=== PATIENT | female | born 1955 | race Caucasian/White ===

== ENCOUNTER → 2016-08-11 | Outpatient (CLI) | payer MEDICAID ==
[~2016-08-11] MED LIST: ALBU8.5H2 IH; ALPR2TAB2 PO; AMIT25TA9 PO; ASCO500C15 PO; ASPI-241 PO; ASPI-586 PO; CETI10TA17 PO; CITA40TA19 PO; CLOT15CR4 TP; CLOT15CR6 TOP; CYCL-97 PO; DCS100C PO; DIAZ-345 PO; FAMO20TA5 PO; FERR-57 PO; FLUT9.9S NS; FURO20TA4 PO; GBPN600T PO; GUAI600T PO; GUAI600T43 PO; HYDR-2890 PO; HYDR118S10 PO; HYDR1TAB71 PO; HYDR25TA4 PO; HYDR28.480 TP; HYDROCODONE-APAP PO; IPRA3AMP IH; LD5PT TOP; LORA10TA7 PO; MELO7.5O PO; MMT17NA NS; MNTL10T PO; MTF500T PO; NAPR-243 PO; NICO1PAT5 TD; OMEP20CA12 PO; OMEP40CA36 PO; OXYC-12 PO; OXYC-199 PO; OXYC-202 PO; OXYC-471 PO; PEG250PW PO; POLY17PO6 PO; POTA20TA15 PO; PRAM1TAB3 PO; PROP40TA5 PO; SCR1T1 PO; SIMV40TA4 PO; SUCR1TAB23 PO; TIOT18CA IH; TRM50T PO
--- NOTE | 2016-08-11 14:31 | Diagnostic Imaging Report ---
PROCEDURE: MRI right joint lower extremity without contrast. TECHNIQUE: Multiplanar, multisequence MR imaging of the right knee was performed without contrast. COMPARISON: Right knee MRI of 10/23/2015. INDICATION: Status post arthroscopy for meniscal tear. Persistent pain. FINDINGS: MENISCI Medial meniscus: No displaced tear of the medial meniscus. Minimal free edge truncation near the junction of the posterior horn and body likely relates to partial meniscectomy or degenerative free edge tearing if no partial meniscectomy was performed. Lateral meniscus: Normal. LIGAMENTS ACL: Intact. PCL: Intact. MCL: Intact. LCL: The lateral collateral ligamentous complex is intact. EXTENSOR MECHANISM The extensor mechanism is intact. CARTILAGE Medial compartment: Suggestion of low-grade chondral surface fibrillation in the weightbearing portion of the medial compartment. No full-thickness chondromalacia. Lateral compartment: The lateral compartment articular cartilage is preserved without high-grade chondromalacia. Patellofemoral compartment: The patellofemoral articular cartilage is well preserved without high-grade chondromalacia. BONE No fracture, stress fracture or osteonecrosis. SOFT TISSUE: No knee effusion or Anthony's cyst. IMPRESSION: 1. Possible partial meniscectomy involving the junction of the posterior horn and body of the medial meniscus. No evidence of recurrent meniscal tear. 2. Low-grade partial-thickness chondromalacia in the medial compartment. Otherwise, articular cartilage is preserved throughout the knee. Dictated by: Dictated on workstation # [id number]
== END ==
LOC: RAD 13:00
PROVIDERS: ATTEND Orthopaedic Surgery
DX: M67.461 Ganglion, right knee (principal)
CPT/HCPCS: 73721

== ENCOUNTER 2016-12-14 14:32 | Outpatient (CLI) | payer MEDICAID ==
[2016-12-14] VITALS (8 sets, daily range): BP systolic 136–146; BP diastolic 60–67
[~2016-12-14] VITALS: Ht 160 cm; Wt 79.0 kg
[2016-12-14] MEDS ORDERED: NS IV 500 ML 500 ML ONE (16:27)
== END 2016-12-14 22:00 ==
LOC: SDC 14:32 → 4TH 14:52 → SDC 22:00
PROVIDERS: ATTEND Nurse Practitioner Community Health
DX: D50.9 Iron deficiency anemia, unspecified (principal)
CPT/HCPCS: 36430; 86850; 86900; 86901; 86920

== ENCOUNTER → 2017-05-31 | Outpatient (CLI) | payer MEDICAID ==
--- NOTE | 2017-06-01 11:03 | Diagnostic Imaging Report ---
EXAMINATION: Bilateral screening mammogram 2D views with tomosynthesis. The current study was also evaluated with a Computer Aided Detection (CAD) system. INDICATION: Screening. PERSONAL HISTORY: No current complaints stated on the questionnaire. COMPARISON: 04/21/2016. FINDINGS: The breasts are composed of scattered fibroglandular densities. Scattered benign-appearing calcifications are seen. Allowing for technique and positional differences, no suspicious change is seen. IMPRESSION: No significant change. ACR BI-RADS Category 2: Benign findings. Result letter will be mailed to the patient. Note: At least 10% of breast cancer is not imaged by mammography. Dictated by: Dictated on workstation # [id number]
== END ==
LOC: RAD 14:23
PROVIDERS: ATTEND Nurse Practitioner Community Health
DX: Z12.31 Encounter for screening mammogram for malignant neoplasm of breast (principal); Z80.3 Family history of malignant neoplasm of breast; Z84.81 Family history of carrier of genetic disease

== ENCOUNTER 2017-08-03 09:11 | Day surgery (SDC) | payer MEDICAID ==
[~2017-08-03] VITALS: Ht 160 cm; Wt 77.2 kg
[~2017-08-03 09:11] MED LIST changes: +CYCL10TA9 PO; +DOCU100T2 PO; +FERR325T18 PO; +GABA-488 PO; +LIDODERM TD; +MELO7.5T46 PO; +METF500T4 PO; +MONT10TA21 PO; +NICO1PAT34 TD; +PRAM1.5T3 PO; +RT-ALBUINH IH; +SUCR1TAB PO
[2017-08-03] MEDS ORDERED: POVIDONE (BETADINE) OPHTH SOLN 5% 30 ML OP ONE (09:30)
[2017-08-03 09:41] VITALS: BP 130/60
[2017-08-03] MEDS: TETRACAINE 0.5% OPHTH SOLN 4 ML BTL (SINGLE DOSE ONLY) OU PRN ×4 (09:46→10:11)
[2017-08-03] MEDS: PHENYLEPHRINE 10% OPHTH (NEO-SYN) 5 ML BTL OU SCH ×3 (09:54→10:11)
[2017-08-03] MEDS: CYCLOPENTOLATE 1% (CYCLOGYL) 2 ML DROPS OP SCH ×3 (09:54→10:11)
[2017-08-03] MEDS ORDERED: MIDAZOLAM 2 MG/2 ML (VERSED) VIAL ONE (10:00)
--- NOTE | 2017-08-03 10:21 | Progress Note-Pre Operative ---
Pre-Operative Progress Note H&P Reviewed The H&P was reviewed, patient examined and no changes noted. Date Seen by Provider: Aug 03, 2017 Time Seen by Provider: : Date H&P Reviewed: Aug 03, 2017 Time H&P Reviewed: : Pre-Operative Diagnosis: cataract l eye LAUREN ROGEL MD Aug 03, 2017 10:21
[2017-08-03] MEDS: VANCOMYCIN/BSS (COMPOUNDED) 10 MG/ML SYR OP ONE ×2 (10:30→10:45)
--- NOTE | 2017-08-03 10:48 | Ophthalmology Operative Report ---
Cataract removal/placement IOL PREOPERATIVE DIAGNOSIS: Cataract Left Eye POSTOPERATIVE DIAGNOSIS: Cataract Left Eye PROCEDURE: Cataract removal and placement of posterior chamber implant, left eye SURGEON: Lamberto Rogel ANESTHESIA: Topical with sedation COMPLICATIONS: None ESTIMATED BLOOD LOSS: Minimal DESCRIPTION OF PROCEDURE: After proper informed consent was obtained, the patient, a 62 female, was taken to the Operating Room and the left eye was anesthetized with tetracaine. They left eye was then prepped and draped in the usual manner. A wire lid speculum was placed. A paracentesis was made at the left hand position. Preservative free lidocaine was injected into the anterior chamber followed by viscoelastic. A clear corneal incision was made in the temporal position. A capsulorrhexis was preformed and the central nuclear and cortical material were removed. The posterior capsule was polished and an Juancho SN6CWS 14.5 IOL was placed into the capsular bag. The residual viscoelastic was aspirated and balanced saline solution was injected into the anterior chamber. 0.1 ml of Vancomycin (1mg/0.1ml ) was injected into the anterior chamber. The would was checked and found to be water tight. The patient tolerated the procedure well without complications. LAMBERTO ROGEL MD Aug 03, 2017 10:47
[2017-08-03 10:55] VITALS: BP 136/66
[2017-08-03] MEDS ORDERED: TIMOLOL MALEATE 0.5% 5 ML (TIMOPTIC) BTL OU ONE (12:09)
[2017-08-03] MEDS ORDERED: VANCOMYCIN/BSS (COMPOUNDED) 10 MG/ML SYR OP ONE (12:09)
[2017-08-03] MEDS ORDERED: LIDOCAINE PF 1% 2 ML AMP INJ ONE (12:09)
[2017-08-07] MEDS ORDERED: EPINEPHrine INJECTION 1 MG/ML AMP IR ONE (13:02)
== END 2017-08-03 10:55 | disposition home or self-care (01) ==
LOC: SDC 09:11
PROVIDERS: ATTEND Specialist
DX: H26.9 Unspecified cataract (principal); I10 Essential (primary) hypertension; E11.40 Type 2 diabetes mellitus with diabetic neuropathy, unspecified; J44.9 Chronic obstructive pulmonary disease, unspecified; D64.9 Anemia, unspecified; M79.7 Fibromyalgia; M19.91 Primary osteoarthritis, unspecified site; F32.9 Major depressive disorder, single episode, unspecified; F41.9 Anxiety disorder, unspecified; F17.210 Nicotine dependence, cigarettes, uncomplicated; Z79.84 Long term (current) use of oral hypoglycemic drugs; Z79.899 Other long term (current) drug therapy; Z86.73 Personal history of transient ischemic attack (TIA), and cerebral infarction without residual deficits

== ENCOUNTER 2017-08-06 05:49 | Outpatient (CLI) | payer MEDICAID ==
[~2017-08-06] VITALS: Ht 160 cm; Wt 77.2 kg
== END 2017-08-06 16:56 ==
LOC: PREOP 05:49
PROVIDERS: ATTEND Specialist
DX: Z01.818 Encounter for other preprocedural examination (principal); H25.11 Age-related nuclear cataract, right eye

== ENCOUNTER 2017-08-10 09:03 | Day surgery (SDC) | payer MEDICAID ==
[~2017-08-10] VITALS: Ht 160 cm; Wt 77.2 kg
[2017-08-10] MEDS ORDERED: POVIDONE (BETADINE) OPHTH SOLN 5% 30 ML OP ONE (09:15)
[2017-08-10] MEDS ORDERED: TIMOLOL MALEATE 0.5% 5 ML (TIMOPTIC) BTL OU PRN (09:15)
[2017-08-10] MEDS ORDERED: VANCOMYCIN/BSS (COMPOUNDED) 10 MG/ML SYR OP ONE (09:15)
[2017-08-10] MEDS ORDERED: EPINEPHrine INJECTION 1 MG/ML AMP INJ ONE (09:15)
[2017-08-10] MEDS ORDERED: LIDOCAINE PF 1% 2 ML AMP IR PRN (09:15)
[2017-08-10 09:20] VITALS: BP 146/67
[2017-08-10] MEDS: TETRACAINE 0.5% OPHTH SOLN 4 ML BTL (SINGLE DOSE ONLY) OU PRN ×4 (09:20→09:49)
[2017-08-10] MEDS: CYCLOPENTOLATE 1% (CYCLOGYL) 2 ML DROPS OP SCH ×3 (09:31→09:49)
[2017-08-10] MEDS: PHENYLEPHRINE 10% OPHTH (NEO-SYN) 5 ML BTL OU SCH ×3 (09:31→09:49)
[2017-08-10] MEDS ORDERED: MIDAZOLAM 2 MG/2 ML (VERSED) VIAL ONE ×2 (10:10→10:20)
--- NOTE | 2017-08-10 10:35 | Ophthalmology Operative Report ---
Cataract removal/placement IOL PREOPERATIVE DIAGNOSIS: Cataract Right Eye POSTOPERATIVE DIAGNOSIS: Cataract Right Eye PROCEDURE: Cataract removal and placement of posterior chamber implant, right eye SURGEON: Lamberto Rogel ANESTHESIA: Topical with sedation COMPLICATIONS: None ESTIMATED BLOOD LOSS: Minimal DESCRIPTION OF PROCEDURE: After proper informed consent was obtained, the patient, a 62 female, was taken to the Operating Room and the right eye was anesthetized with tetracaine. They right eye was then prepped and draped in the usual manner. A wire lid speculum was placed. A paracentesis was made at the left hand position. Preservative free lidocaine was injected into the anterior chamber followed by viscoelastic. A clear corneal incision was made in the temporal position. A capsulorrhexis was preformed and the central nuclear and cortical material were removed. The posterior capsule was polished and Juancho [id number] 15.5 IOL was placed into the capsular bag. The residual viscoelastic was aspirated and balanced saline solution was injected into the anterior chamber. 1.0 ml of Vancomycin (10mg/ 1.0ml) was injected into the anterior chamber. The would was checked and found to be water tight. The patient tolerated the procedure well without complications. LAMBERTO ROGEL MD Aug 10, 2017 10:35
[2017-08-10 10:50] VITALS: BP 133/79
--- NOTE | 2017-08-10 13:24 | Anesthesia-General Post-Op ---
MAC Patient Condition Mental Status/LOC: Same as Preop Cardiovascular: Satisfactory Nausea/Vomiting: Absent Respiratory: Satisfactory Pain: Controlled Complications: Absent Post Op Complications Complications None Follow Up Care/Instructions Patient Instructions None needed. Anesthesiology Discharge Order Discharge Order Patient is doing well, no complaints, stable vital signs, no apparent adverse anesthesia problems. No complications reported per nursing. BETITO TITUS CRNA Aug 10, 2017 13:24
== END 2017-08-10 10:50 | disposition home or self-care (01) ==
LOC: SDC 09:03
PROVIDERS: ATTEND Specialist
DX: E11.36 Type 2 diabetes mellitus with diabetic cataract (principal); E11.40 Type 2 diabetes mellitus with diabetic neuropathy, unspecified; I10 Essential (primary) hypertension; J44.9 Chronic obstructive pulmonary disease, unspecified; R56.9 Unspecified convulsions; M79.7 Fibromyalgia; M19.91 Primary osteoarthritis, unspecified site; K58.9 Irritable bowel syndrome, unspecified; F17.210 Nicotine dependence, cigarettes, uncomplicated; Z79.82 Long term (current) use of aspirin; Z79.84 Long term (current) use of oral hypoglycemic drugs; Z79.899 Other long term (current) drug therapy
CPT/HCPCS: 82962

== ENCOUNTER → 2017-12-14 | Outpatient (CLI) | payer MEDICAID ==
[~2017-12-14] MED LIST changes: +HYDR-3063 PO; -IPRA3AMP IH; +IPRA3AMP31 IH; -METF500T4 PO; +METF500T5 PO; +NITR-65 PO; +OXYC-465 PO
--- NOTE | 2017-12-14 18:59 | Diagnostic Imaging Report ---
INDICATION: Decreased breath sounds. COMPARISON: 04/27/2014. FINDINGS: The lungs are clear. No pleural effusion or pneumothorax. Normal heart size. Moderate-sized hiatus hernia with air-fluid level within the stomach. IMPRESSION: 1. No acute pulmonary pathology. 2. Stable moderate-sized hiatus hernia. Dictated by: Dictated on workstation # [id number]
== END ==
LOC: RAD 17:16
PROVIDERS: ATTEND Nurse Practitioner Family
DX: K44.9 Diaphragmatic hernia without obstruction or gangrene (principal); R06.89 Other abnormalities of breathing
CPT/HCPCS: 71046

== ENCOUNTER 2018-01-24 14:39 | Outpatient (CLI) | payer MEDICAID ==
[~2018-01-24] VITALS: Ht 160 cm; Wt 77.2 kg
[~2018-01-24 14:39] MED LIST changes: -HYDR-3063 PO; -NITR-65 PO; -OXYC-465 PO
[2018-01-24 14:50] VITALS: BP 134/65
[2018-01-24] MEDS ORDERED: NITR-65 PO (15:01)
[2018-01-24] MEDS ORDERED: OXYC-465 PO (15:01)
== END 2018-01-24 15:10 | disposition home or self-care (01) ==
LOC: PREOP 14:39
PROVIDERS: ATTEND Orthopaedic Surgery
DX: Z01.818 Encounter for other preprocedural examination (principal)
CPT/HCPCS: 87081

== ENCOUNTER 2018-01-30 10:05 | Day surgery (SDC) | payer MEDICAID ==
--- NOTE | 2018-01-21 11:52 | HISTORY AND PHYSICAL ---
DATE OF SERVICE: 01/30/2018 ADMISSION HISTORY AND PHYSICAL OUTPATIENT SURGERY: 01/30/2018. CHIEF COMPLAINT: For right knee arthroscopy and lipoma excision. HISTORY: The patient is a 62-year-old female with complaints of longstanding right knee pain. She has undergone arthroscopies in the past for meniscal tears. She reports pain posteriorly and inferiorly to the lateral joint line. She reports pain has been increasing in size. She reports swelling in her knee. She reports activity limitations because of the knee. She reports improvement with activity modifications and because of progressive symptoms, the patient elected to proceed with surgical intervention. REVIEW OF SYSTEMS: No chest pain. No shortness of breath. No dysuria. PAST MEDICAL HISTORY: Fibromyalgia, neuropathy, nerve damage, arthritis, peptic ulcer disease, chronic anemia, anxiety disorder, back pain, depression, diabetes, hyperlipidemia, hypertension, neck pain, hypokalemia, Lo's palsy, restless leg syndrome, seizures, COPD, coronary artery disease and transient ischemic episode. PAST SURGICAL HISTORY: Hysterectomy, cholecystectomy, knee arthroscopy, cubital tunnel, carpal tunnel, shoulder. FAMILY HISTORY: Significant for diabetes and hypertension. PRIMARY CARE: [facility]. MEDICATIONS: 1. Lidoderm patch. 2. Omeprazole. 3. Colace. 4. Potassium 5. Iron. 6. Gabapentin. 7. Propranolol. 8. Simvastatin. 9. ProAir. 10. Amitriptyline. 11. Glucophage. 12. Singulair. 13. Celexa. 14. Nasonex. 15. Mirapex. 16. Cyclobenzaprine. 17. Hydrochlorothiazide. 18. Percocet. 19. Vitamins. 20. Hydrocortisone. 21. Ipratropium. 22. Albuterol inhaler. 23. Sucralfate. 24. Meloxicam. 25. Xanax. ALLERGIES: No known drug allergies. SOCIAL HISTORY: The patient is a former smoker. Denies alcohol use. RADIOGRAPHS: Reveal moderate medial patellofemoral joint space narrowing. PHYSICAL EXAMINATION: GENERAL: The patient is well developed, well-nourished, in no acute distress. HEENT: Normocephalic and atraumatic. Pupils are equal, round and reactive to light. Oropharynx is clear. NECK: Supple, no lymphadenopathy. LUNGS: Clear to auscultation bilaterally. HEART: Regular rate and rhythm. ABDOMEN: Soft, nontender, nondistended. EXTREMITIES EXAM: The right knee demonstrates slight effusion. She is tender along the lateral joint line, has pain laterally with Nicole's. No varus valgus laxity of anterior and posterior drawer. There is a mass just inferior to the posterior joint line laterally, approximately 2 x 2 cm in size and is tender to palpation. 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 PLAN: Right knee arthroscopy, chondroplasty and lipoma excision. The risks, benefits, options, ramifications and recovery were discussed at length with the patient. She understands and wishes to proceed. Job ID: [id number] DocumentID: [id number] Dictated Date: 01/21/2018 11:22:47 Heating And Cooling Systems Engineer Date: 01/21/2018 11:51:49 Dictated By: ALLYSON MCKEON MD
[~2018-01-30] VITALS: Ht 160 cm; Wt 77.2 kg
[~2018-01-30 10:05] MED LIST changes: +NITR-65 PO; +OXYC-465 PO
--- NOTE | 2018-01-30 10:13 | Progress Note-Pre Operative ---
Pre-Operative Progress Note H&P Reviewed The H&P was reviewed, patient examined and no changes noted. Date Seen by Provider: Jan 30, 2018 Time Seen by Provider: 10:12 Date H&P Reviewed: Jan 30, 2018 Time H&P Reviewed: 10:12 Pre-Operative Diagnosis: right knee chondromalacia and lipoma ALLYSON MCKEON MD Jan 30, 2018 10:13
--- NOTE | 2018-01-30 10:14 | Progress Note-Post Operative ---
Post-Operative Progess Note Surgeon (s)/Mainframe Systems Engineer (s) Surgeon ALLYSON MCKEON MD Mainframe Systems Engineer: Miguel Anderson Pre-Operative Diagnosis right knee chondromalacia and lipoma Post-Operative Diagnosis right knee partial medial meniscus chondromalacia of the medial femoral conyle and medial tibial plateau and lipoma Procedure & Operative Findings Date of Procedure 01/30/18 Procedure Performed/Findings right knee arthroscopic partial medial meniscectomy and chondroplasty of the medial femoral condyle and medial tibial plateau and open lipoma excision Anesthesia Type GETA Estimated Blood Loss Estimated blood loss (mL): minimal Specimens/Packing Specimens Removed lipoma--not sent Packing: none ALLYSON MCKEON MD Jan 30, 2018 10:14
[2018-01-30] MEDS ORDERED: ceFAZolin INJECTION 1,000 MG in NS (IVPB) 50 ML IV ONE (10:15)
[2018-01-30 10:20] VITALS: BP 147/64
[2018-01-30] MEDS ORDERED: ceFAZolin 1,000 MG (ANCEF) VIAL ONE (10:38)
[2018-01-30] MEDS ORDERED: NS (IVPB) 50 ML ONE (10:38)
[2018-01-30] MEDS ORDERED: fentaNYL INJECTION 100 MCG/2 ML AMP ONE (10:39)
[2018-01-30] MEDS ORDERED: CATHETER FLUSH 10 ML SYR IV PRN (10:45)
[2018-01-30] MEDS ORDERED: MIDAZOLAM 2 MG/2 ML (VERSED) VIAL IV ONE (10:45)
[2018-01-30] MEDS ORDERED: SEVOFLURANE (ULTANE) 15 ML INHAL SOLN ONE ×3 (10:51→11:53)
[2018-01-30] MEDS ORDERED: ONDANSETRON 4 MG/2 ML (SDV) Z0FRAN ONE (10:51)
[2018-01-30] MEDS ORDERED: LIDOCAINE PF 2% 5 ML (XYLOCAINE) VIAL ONE (10:51)
[2018-01-30] MEDS ORDERED: proPOfol 200 MG/20 ML (DIPRIVAN) VIAL IV ONE (10:51)
[2018-01-30] MEDS: LACTATED RINGERS 1,000 ML IV PRN ×2 (10:54→11:52)
[2018-01-30] MEDS ORDERED: morphine PF (DURAMORPH) 10 MG/10 ML AMP ONE (11:12)
[2018-01-30] MEDS ORDERED: BUPIVACAINE 0.25% 30 ML (SENSORCAINE) VIAL ONE (11:12)
[2018-01-30] MEDS ORDERED: MIDAZOLAM 2 MG/2 ML (VERSED) VIAL ONE (11:16)
[2018-01-30] MEDS ORDERED: HYDROcodone/APAP 7.5 MG/325 MG (LORTAB, LORCET PLUS) TABLET PO PRN (11:30)
[2018-01-30] MEDS ORDERED: LACTATED RINGERS 1,000 ML IV ONE (11:46)
[2018-01-30 13:00] VITALS: BP 126/73
[2018-01-30] MEDS ORDERED: HYDR-3063 PO (13:10)
[2018-01-30 13:30] VITALS: BP 139/67
[2018-01-30 13:45] VITALS: BP 139/67
[2018-01-30 14:00] VITALS: BP 120/69
--- NOTE | 2018-01-30 14:30 | Physical Therapy Progress Note ---
Therapy Progress Note Visit only. Pt was up walking with QC when PT entered. Instructed pt on use of FWW and educated on safety with use of the walker. Pt reports she has a walker at home. She demonstrated ability to use walker form ambulation. Instructed in progression to cane as she felt ready. Demonstrated to pt HEP and she verbalized understanding and noted she had done the same exercises in therapy before. Pt safe with gait and verbalized understanding of HEP. DREW REYNOSO PT Jan 30, 2018 14:30
--- NOTE | 2018-01-30 15:02 | Anesthesia-General Post-Op ---
General Patient Condition Mental Status/LOC: Same as Preop Cardiovascular: Satisfactory Nausea/Vomiting: Absent Respiratory: Satisfactory Pain: Controlled Complications: Absent Post Op Complications Complications None Follow Up Care/Instructions Patient Instructions None needed. Anesthesia/Patient Condition Patient Condition Patient is doing well, no complaints, stable vital signs, no apparent adverse anesthesia problems. No complications reported per nursing. CLARITA AVELAR CRNA Jan 30, 2018 15:02
--- NOTE | 2018-01-30 20:23 | OPERATIVE REPORT ---
DATE OF SERVICE: 01/30/2018 PREOPERATIVE DIAGNOSES: 1. Right knee chondromalacia of the medial femoral condyle. 2. Right knee chondromalacia of the medial tibial plateau. 3. Right knee lipoma. POSTOPERATIVE DIAGNOSES: 1. Right knee chondromalacia of the medial femoral condyle. 2. Right knee chondromalacia of the medial tibial plateau. 3. Right knee lateral meniscal tear. 4. Right knee lipoma. PROCEDURES: 1. Right knee arthroscopic partial lateral meniscectomy. 2. Right knee arthroscopic chondroplasty of the medial tibial plateau. 3. Right knee arthroscopic chondroplasty of the medial femoral condyle. 4. Right knee open lipoma excision. SURGEON: Shaheen Mckeon MD WATCH ELECTRICIAN: MANUELITO Lau, who assisted throughout the procedure and closed the incisions. ANESTHESIA: General endotracheal by Genevieve Nagel CRNA. TOURNIQUET TIME: Not applicable. ESTIMATED BLOOD LOSS: Minimal. DRAINS: None. COMPLICATIONS: None. POSTOPERATIVE PLAN: Routine arthroscopy protocol. The patient was transported to the recovery room awake and in stable condition. STATEMENT OF MEDICAL NECESSITY: The patient is a 62-year-old female with complaints of right posterolateral knee mass, which was tender to palpation. She complained of pain in the medial aspect of her knee as well. She underwent treatment with activity modifications and rest without relief. Due to functional impairment, the patient elected to proceed with surgical intervention. FINDINGS: Examination under anesthesia revealed range of motion of 0/130 with a negative Isauro, negative anterior and posterior drawer. No varus valgus laxity. Negative pivot shift. Arthroscopic findings: The patella and trochlea demonstrated no gross chondral abnormalities. The medial and lateral gutters were clear. Lateral compartment demonstrated a tear of the body of the lateral meniscus involving approximately 20% of the body. The ACL and PCL were intact. The medial compartment demonstrated grade II chondral flaps of the central portion of the femoral condyle in a 10 x 10 area with adjacent grade II chondral flaps on the tibial plateau in a 10 x 10 area. DESCRIPTION OF PROCEDURE: After risks and benefits of the procedure were discussed and questions were answered, informed consent was signed and placed on the chart. The operative site was confirmed in the preoperative holding area initiated by the surgeon. The patient was transported to the operating room and after adequate levels of general endotracheal anesthetic were obtained, a timeout was called confirming the operative site. Examination under anesthesia was performed. The above findings noted. The right lower extremity was prepped and draped in the usual sterile fashion. The knee joint was injected with 20 mL fluid and a standard inferolateral portal was placed with the arthroscope. Under direct visualization, inferomedial portal was created. The menisci and cruciates were carefully probed with the above findings noted. The unstable chondral flaps of the medial femoral condyle and medial tibial plateau were debrided with a shaver back to a stable edge. Scope was redirected to the lateral compartment. The unstable lateral meniscus was debrided with a biter and a shaver removing approximately 20% of the body. This was carefully probed with no further tearing or instability noted. The knee was copiously irrigated. Port sites were closed with 4-0 nylon in simple interrupted fashion. The knee joint was injected with Duramorph. The portal sites were infiltrated with plain Marcaine. An incision was then made over the mass. Underlying soft tissues were carefully dissected. Benign-appearing fatty tissue was noted. This was excised in total. The wound was copiously irrigated and closed with 3-0 nylon subcutaneous layer and the skin was closed with 4-0 nylon in vertical mattress interrupted fashion. The area was infiltrated with plain Marcaine. A soft dressing was applied and the patient was transported to the recovery room awake and in stable condition. Job ID: [id number] DocumentID: [id number] Dictated Date: 01/30/2018 12:22:19 Supply Crib Attendant Date: 01/30/2018 20:23:01 Dictated By: SHAHEEN MCKEON MD
== END 2018-01-30 14:30 | disposition home or self-care (01) ==
LOC: SDC 10:05
PROVIDERS: ATTEND Orthopaedic Surgery
DX: M23.8X1 Other internal derangements of right knee (principal); M94.261 Chondromalacia, right knee; D17.23 Benign lipomatous neoplasm of skin and subcutaneous tissue of right leg; E11.42 Type 2 diabetes mellitus with diabetic polyneuropathy; M79.7 Fibromyalgia; M19.91 Primary osteoarthritis, unspecified site; D64.9 Anemia, unspecified; F41.9 Anxiety disorder, unspecified; F32.9 Major depressive disorder, single episode, unspecified; E78.5 Hyperlipidemia, unspecified; I10 Essential (primary) hypertension; G25.81 Restless legs syndrome; G40.909 Epilepsy, unspecified, not intractable, without status epilepticus; J44.9 Chronic obstructive pulmonary disease, unspecified; I25.10 Atherosclerotic heart disease of native coronary artery without angina pectoris; Z86.73 Personal history of transient ischemic attack (TIA), and cerebral infarction without residual deficits; Z79.899 Other long term (current) drug therapy; Z87.891 Personal history of nicotine dependence
CPT/HCPCS: 82962

== ENCOUNTER 2018-08-09 12:34 | Inpatient (IN) | payer MEDICAID ==
[~2018-08-09] VITALS: Ht 157.5 cm; Wt 68.0 kg
[~2018-08-09 12:34] MED LIST changes: +HYDR-3063 PO; +METF-397 PO; -METF500T5 PO; -OXYC-202 PO; +OXYC1TAB12 PO
[2018-08-09] MEDS ORDERED: RT-IPRATROPIUM (ATROVENT) 0.5MG/2.5ML AMP IH ONE ×2 (12:54→13:00)
[2018-08-09] MEDS ORDERED: RT-ALBUTEROL SULF 2.5 MG/3 ML PRE-MIX VIAL ONE (12:54)
[2018-08-09] MEDS ORDERED: RT-ALBUTEROL SULF 2.5 MG/3 ML PRE-MIX VIAL INH SCH (13:00)
[2018-08-09 13:17] LABS: BASOPHILS % (AUTO) 0 % (0-10); EOSINOPHILS % (AUTO) 0 % (0-10); HEMATOCRIT 44 % (35-52); HEMOGLOBIN 14.9 G/DL (11.5-16.0); LYMPHOCYTES % (AUTO) 13 % (12-44); MEAN CORPUSCULAR HEMOGLOBIN 29 PG (25-34); MEAN CORPUSCULAR HGB CONC 34 G/DL (32-36); MEAN CORPUSCULAR VOLUME 87 FL (80-99); MEAN PLATELET VOLUME 11.7 FL (7.4-10.4); MONOCYTES # (AUTO) 0.6 X 10^3 (0.0-1.0); MONOCYTES % (AUTO) 8 % (0-12); NEUTROPHILS # (AUTO) 6.3 X 10^3 (1.8-7.8); NEUTROPHILS % (AUTO) 80 % (42-75); PLATELET COUNT 128 10^3/uL (130-400); RED CELL DISTRIBUTION WIDTH 14.4 % (10.0-14.5)
[2018-08-09] MEDS ORDERED: PROMETHAZINE/ CODEINE SYRUP 5 ML UDC PO ONE (13:30)
[2018-08-09 13:35] LABS: ALANINE AMINOTRANSFERASE 18 U/L (0-55); ALBUMIN 4.3 GM/DL (3.2-4.5); ALKALINE PHOSPHATASE 83 U/L (40-136); AMYLASE 34 U/L (25-125); BILIRUBIN,TOTAL 0.9 MG/DL (0.1-1.0); BUN/CREATININE RATIO 23; CARBON DIOXIDE 35 MMOL/L (21-32); CHLORIDE 93 MMOL/L (98-107); CREATININE SERUM 0.73 MG/DL (0.60-1.30); GFR ESTIMATED > 60; GLUCOSE 82 MG/DL (70-105); LIPASE 7 U/L (8-78); POTASSIUM 3.1 MMOL/L (3.6-5.0); SODIUM 140 MMOL/L (135-145); TOTAL PROTEIN 7.6 GM/DL (6.4-8.2)
[2018-08-09] MEDS ORDERED: fentaNYL INJECTION 100 MCG/2 ML AMP IVP ONE (13:45)
[2018-08-09] MEDS ORDERED: KCL 20 MEQ TAB (K-DUR) PO ONE (14:00)
[2018-08-09] MEDS ORDERED: NS IV 1000 ML 1,000 ML IV SCH (14:00)
--- NOTE | 2018-08-09 14:07 | Diagnostic Imaging Report ---
INDICATION: Shortness of air and productive cough. Time of exam 1:57 p.m. COMPARISON: Correlation is made with prior study from 12/14/2017. FINDINGS: The heart size is stable. There appears to be a moderate-sized hiatal hernia. There is some patchy infiltrate in the left base suggestive of pneumonia. Right lung is clear. No effusion or pneumothorax is seen. IMPRESSION: Patchy left basilar pneumonia. Dictated by: Dictated on workstation # [id number]
--- NOTE | 2018-08-09 14:28 | ED General ---
General Chief Complaint: Abdominal/GI Problems Stated Complaint: N/V/D Nursing Triage Note: PATIENT HERE FOR COMPLAINTS OF N/V/D X3 WEEKS. SHE WAS SEEN IN THE [place] ER ON 08/06 FOR THE SAME THING. SHE IS CURRENTLY UNABLE TO KEEP ANY MEDICATIONS DOWN. Nursing Sepsis Screen: No Definite Risk Source of Information: Patient Exam Limitations: No Limitations History of Present Illness Date Seen by Provider: Aug 09, 2018 Time Seen by Provider: 12:50 Initial Comments 63-year-old female who is brought to the emergency room with complaints of nausea vomiting and diarrhea for the past 3 weeks. She is also had shortness of breath, requiring more of her oxygen, and cough for the past week. She was seen and evaluated the [facility] ER on 08/06 for similar complaints and was placed on antibiotics, steroids, Zofran for COPD exacerbation. She wears 2 L of oxygen when necessary for shortness of breath. She reports smoking 2 packs per day. Timing/Duration: Other (3 weeks) Associated Systoms: Nausea/Vomiting, Shortness of Air, Weakness Allergies and Home Medications Allergies Coded Allergies: No Known Drug Allergies (Unverified , 12/30/15) Home Medications Albuterol Sulfate 1 Puff Puff, 2 PUFF IH Q4H PRN for SHORTNESS OF BREATH, ( Reported) 1 PUFF = 90 MCG Alprazolam 2 Mg Tablet, 2 MG PO TID, (Reported) Amitriptyline HCl 25 Mg Tablet, 25 MG PO DAILY, (Reported) Ascorbic Acid 500 Mg Capsule.er, 500 MG PO DAILY, (Reported) Aspirin 81 Mg Tablet.dr, 81 MG PO DAILY, (Reported) Cetirizine HCl 10 Mg Tablet, 10 MG PO DAILY, (Reported) Citalopram Hydrobromide 40 Mg Tablet, 40 MG PO DAILY, (Reported) Clotrimazole/Betamethasone Dip 15 Gm Cream..g., 15 GM TP BID, (Reported) Cyclobenzaprine HCl 10 Mg Tablet, 10 MG PO BID, (Reported) Docusate Sodium 100 Mg Tablet, 100 MG PO PRN, (Reported) Ferrous Sulfate 325 Mg Tablet, 325 MG PO DAILY, (Reported) Fluticasone Propionate 9.9 Ml [place].susp, 1 SPRAY NS DAILY, (Reported) Gabapentin 300 Mg Capsule, 300 MG PO TID, (Reported) Guaifenesin 600 Mg Tab.er.12h, 600 MG PO BID, (Reported) Hydrochlorothiazide 25 Mg Tablet, 25 MG PO DAILY, (Reported) Hydrocortisone/Aloe Vera 28.4 Gm Cream..g., 28.4 GM TP TID, (Reported) Ipratropium/Albuterol Sulfate 3 Ml Ampul.neb, 3 ML IH Q4H PRN for SHORTNESS OF BREATH, (Reported) Meloxicam 7.5 Mg Tablet, 7.5 MG PO DAILY, (Reported) Metformin HCl 500 Mg Tablet, 500 MG PO BID, (Reported) Montelukast Sodium 10 Mg Tablet, 10 MG PO DAILY, (Reported) Omeprazole 20 Mg Capsule.dr, 20 MG PO DAILY, (Reported) Oxycodone HCl/Acetaminophen 1 Each Tablet, 1 EACH PO Q6H PRN for PAIN-MODERATE, (Reported) Polyethylene Glycol 3350 17 Gm Powd.pack, 17 GM PO DAILY, (Reported) Potassium Chloride 20 Meq Tab.er.prt, 20 MEQ PO DAILY, (Reported) Pramipexole Di-HCl 1.5 Mg Tablet, 2 MG PO DAILY, (Reported) Propranolol HCl 40 Mg Tablet, 40 MG PO BID, (Reported) Simvastatin 40 Mg Tablet, 40 MG PO HS, (Reported) Sucralfate 1 Gm Tablet, 1 GM PO QID, (Reported) [Lidoderm] , 5 % TD DAILY, (Reported) REMOVE AFTER 12 HOURS Patient Home Medication List Home Medication List Reviewed: Yes Review of Systems Review of Systems Constitutional: no symptoms reported, see HPI Respiratory: see HPI, cough, dyspnea on exertion, short of breath, wheezing Gastrointestinal: see HPI, nausea, vomiting All Other Systems Reviewed Negative Unless Noted: Yes Past Hrabofj-Dhneeh-Kmgnur Hx Past Med/Social Hx: Reviewed Nursing Past Med/Soc Hx Patient Social History Alcohol Use: Denies Use Recreational Drug Use: No Smoking Status: Current Everyday Smoker Type Used: Cigarettes 2nd Hand Smoke Exposure: Yes Recent Foreign Travel: No Contact w/Someone Who Travel: No Recent Infectious Disease Expo: No Recent Hopitalizations: Yes Immunizations Up To Date Date of Pneumonia Vaccine: Jun 02, 2014 Date of Influenza Vaccine: Apr 01, 2014 Past Medical History Surgeries: Yes (R KNEE SCOPE x2/ CARPAL TUNNEL/ CUBITAL TUNNEL) Hysterectomy Respiratory: Yes (COPD, O2 AT NIGHT 2.5-3L) COPD Cardiac: Yes Hypertension Neurological: Yes (STRESS SEIZURE) Neuropathy Reproductive Disorders: No Sexually Transmitted Disease: No HIV/AIDS: No Gastrointestinal: Yes (diverticulitis, ulcers) Gastroesophageal Reflux Musculoskeletal: Yes (SPINAL STENOSIS) Degenerate Disk Disease, Arthritis, Fibromyalgia, Chronic Back Pain Endocrine: Yes Loss of Vision: Bilateral Hearing Impairment: Denies Cancer: No Psychosocial: Yes Anxiety, Depression Integumentary: No Blood Disorders: Yes (CHRONIC ANEMIA) Adverse Reaction/Blood Tranf: Yes (HAS HAD BLOOD WITH NO PROBLEMS) Family Medical History Reviewed Nursing Family Hx Physical Exam Vital Signs Vital Signs - First Documented 08/09/18 08/09/18 12:45 17:12 Temp 98.7 Pulse 95 Resp 18 B/P (MAP) 128/85 (99) Pulse Ox 90 O2 Delivery Nasal Cannula O2 Flow Rate 2.00 FiO2 32 Capillary Refill : Less Than 3 Seconds Height, Weight, BMI Height: 5'2.00" Weight: 150lbs. 0oz. 68.948120ol; 30.1 BMI Method:Stated General Appearance: No Apparent Distress, WD/WN Eyes: Bilateral Eye Normal Inspection, Bilateral Eye PERRL, Bilateral Eye EOMI HEENT: PERRL/EOMI, TMs Normal, Normal ENT Inspection, Pharynx Normal Neck: Full Range of Motion, Normal Inspection, Non Tender, Supple Respiratory: Chest Non Tender, No Accessory Muscle Use, No Respiratory Distress , Decreased Breath Sounds, Wheezing (throughout lung doyle) Cardiovascular: Regular Rate, Rhythm, No Edema, No Gallop, No JVD, No Murmur, Normal Peripheral Pulses Gastrointestinal: Normal Bowel Sounds, No Organomegaly, No Pulsatile Mass, Non Tender, Soft Extremity: Normal Capillary Refill, Normal Inspection, Normal Range of Motion, Non Tender, No Calf Tenderness, No Pedal Edema Neurologic/Psychiatric: Alert, Oriented x3, Normal Mood/Affect Skin: Normal Color, Warm/Dry Focused Exam Lactate Level 08/09/18 15:45: Lactic Acid Level 3.22*H 08/09/18 17:52: Lactic Acid Level 1.89 Progress/Results/Core Measures Suspected Sepsis Recent Fever Within 48 Hours: No Infection Criteria Present: Suspected New Infection New/Unexplained Altered Menta: No Sepsis Screen: No Definite Risk SIRS Temperature:98.7 Pulse: 95 Respiratory Rate: 18 Laboratory Tests 08/09/18 13:05: White Blood Count 8.0 Blood Pressure 128 /85 Mean: 99 08/09/18 15:45: Lactic Acid Level 3.22*H 08/09/18 17:52: Lactic Acid Level 1.89 Laboratory Tests 08/09/18 13:05: Creatinine 0.73, Platelet Count 128L, Total Bilirubin 0.9 08/09/18 15:00: INR Comment 1.0 Results/Orders Lab Results Laboratory Tests Test 08/09/18 13:05 08/09/18 15:00 08/09/18 15:01 08/09/18 15:45 Range/Units White Blood Count 8.0 4.3-11.0 10^3/uL Red Blood Count 5.12 4.35-5.85 10^6/uL Hemoglobin 14.9 11.5-16.0 G/DL Hematocrit 44 35-52 % Mean Corpuscular Volume 87 80-99 FL Mean Corpuscular Hemoglobin 29 25-34 PG Mean Corpuscular Hemoglobin Concent 34 32-36 G/DL Red Cell Distribution Width 14.4 10.0-14.5 % Platelet Count 128 L 130-400 10^3/uL Mean Platelet Volume 11.7 H 7.4-10.4 FL Neutrophils (%) (Auto) 80 H 42-75 % Lymphocytes (%) (Auto) 13 12-44 % Monocytes (%) (Auto) 8 0-12 % Eosinophils (%) (Auto) 0 0-10 % Basophils (%) (Auto) 0 0-10 % Neutrophils # (Auto) 6.3 1.8-7.8 X 10^3 Lymphocytes # (Auto) 1.0 1.0-4.0 X 10^3 Monocytes # (Auto) 0.6 0.0-1.0 X 10^3 Eosinophils # (Auto) 0.0 0.0-0.3 10^3/uL Basophils # (Auto) 0.0 0.0-0.1 10^3/uL Sodium Level 140 135-145 MMOL/L Potassium Level 3.1 L 3.6-5.0 MMOL/L Chloride Level 93 L 98-107 MMOL/L Carbon Dioxide Level 35 H 21-32 MMOL/L Anion Gap 12 5-14 MMOL/L Blood Urea Nitrogen 17 7-18 MG/DL Creatinine 0.73 0.60-1.30 MG/DL Estimat Glomerular Filtration Rate > 60 BUN/Creatinine Ratio 23 Glucose Level 82 70-105 MG/DL Calcium Level 10.0 8.5-10.1 MG/DL Corrected Calcium 9.8 8.5-10.1 MG/DL Total Bilirubin 0.9 0.1-1.0 MG/DL Aspartate Amino Transf (AST/SGOT) 28 5-34 U/L Alanine Aminotransferase (ALT/SGPT) 18 0-55 U/L Alkaline Phosphatase 83 40-136 U/L Total Protein 7.6 6.4-8.2 GM/DL Albumin 4.3 3.2-4.5 GM/DL Amylase Level 34 25-125 U/L Lipase 7 L 8-78 U/L Prothrombin Time 13.1 12.2-14.7 SEC INR Comment 1.0 0.8-1.4 Activated Partial Thromboplast Time 28 24-35 SEC Urine Color YELLOW Urine Clarity SLIGHTLY CLOUDY Urine pH 5 5-9 Urine Specific [place] 1.015 L 1.016-1.022 Urine Protein 1+ H NEGATIVE Urine Glucose (UA) NEGATIVE NEGATIVE Urine Ketones 2+ H NEGATIVE Urine Nitrite NEGATIVE NEGATIVE Urine Bilirubin NEGATIVE NEGATIVE Urine Urobilinogen NORMAL NORMAL MG/DL Urine Leukocyte Esterase 1+ H NEGATIVE Urine RBC (Auto) NEGATIVE NEGATIVE Urine RBC NONE /HPF Urine WBC 2-5 /HPF Urine Squamous Epithelial Cells 5-10 /HPF Urine Crystals NONE /LPF Urine Bacteria MODERATE H /HPF Urine Casts NONE /LPF Urine Mucus MODERATE H /LPF Urine Culture Indicated YES Lactic Acid Level 3.22 *H 0.50-2.00 MMOL/L Test 08/09/18 17:52 Range/Units Lactic Acid Level 1.89 0.50-2.00 MMOL/L Micro Results Microbiology 08/09/18 Influenza Types A,B Antigen (DILCIA) - Final, Complete My Orders Orders - TINY RAMOS Comprehensive Metabolic Panel (08/09/18 12:56) Lipase (08/09/18 12:56) Amylase (08/09/18 12:56) Ua Culture If Indicated (08/09/18 12:56) Saline Lock/Iv-Start (08/09/18 12:56) Cbc With Automated Diff (08/09/18 12:56) Albuterol Pre-Mix Nebs (Rt) (Proventil (08/09/18 13:00) Svn Small Volume Nebulizer (08/09/18 12:56) Ipratropium 0.02% Neb Solution (Atrovent (08/09/18 13:00) Chest 1 View, Ap/Pa Only (08/09/18 12:58) Ipratropium 0.02% Neb Solution (Atrovent (08/09/18 12:54) Albuterol Pre-Mix Nebs (Rt) (Proventil (08/09/18 12:54) Promethazine/ Codeine Syrup (Phenergan W (08/09/18 13:30) Fentanyl Injection (Sublimaze Injection (08/09/18 13:45) Ns Iv 1000 Ml (Sodium Chloride 0.9%) (08/09/18 14:00) Potassium Chloride (Tablet) (K Dur Table (08/09/18 14:00) Sputum Culture (08/09/18 14:07) Blood Culture (08/09/18 14:42) Protime With Inr (08/09/18 14:42) Partial Thromboplastin Time (08/09/18 14:42) Lactic Acid Analyzer (08/09/18 14:42) Urine Culture (08/09/18 15:01) Influenza A And B Antigens (08/09/18 15:21) Methylprednisolone Sod Succ (Solu-Medrol (08/09/18 15:30) Ceftriaxone For Iv Use (Rocephin For I (08/09/18 15:30) Diphenhydramine Injection (Benadryl Inje (08/09/18 16:15) Medications Given in ED Current Medications Medications Dose Ordered Sig/Megan Route Start Time Stop Time Status Last Admin Dose Admin Fentanyl Citrate 50 mcg ONCE ONCE IVP 08/09/18 13:45 08/09/18 13:46 DC 08/09/18 14:04 50 MCG Ipratropium [place] 0.5 mg ONCE ONCE IH 08/09/18 13:00 08/09/18 13:01 DC 08/09/18 13:01 0.5 MG Potassium Chloride 20 meq ONCE ONCE PO 08/09/18 14:00 08/09/18 14:01 DC 08/09/18 14:04 20 MEQ Promethazine HCl/ Codeine 5 ml ONCE ONCE PO 08/09/18 13:30 08/09/18 13:31 DC 08/09/18 13:44 5 ML Vital Signs/I&O 08/09/18 08/09/18 08/09/18 08/09/18 12:45 13:08 16:00 16:35 Temp 98.7 98.7 98.7 Pulse 95 95 95 Resp 18 18 18 B/P (MAP) 128/85 (99) 128/85 (99) 128/85 Pulse Ox 90 96 96 96 O2 Delivery Nasal Cannula Nasal Cannula Nasal Cannula O2 Flow Rate 2.00 3.00 3.00 3.00 08/09/18 08/09/18 08/09/18 08/09/18 16:50 16:58 17:12 18:47 Temp 98.0 Pulse 97 95 Resp 16 B/P (MAP) 132/68 (89) Pulse Ox 90 95 O2 Delivery Nasal Cannula Nasal Cannula Nasal Cannula O2 Flow Rate 3.00 3.00 3.00 FiO2 32 08/09/18 08/09/18 08/09/18 19:15 20:00 21:07 Temp 98.6 Pulse 97 Resp 20 B/P (MAP) 127/61 (83) Pulse Ox 92 91 O2 Delivery Nasal Cannula Nasal Cannula Nasal Cannula O2 Flow Rate 3.00 3.00 3.00 Capillary Refill : Less Than 3 Seconds Blood Pressure Mean: 99 Progress Note : Time: 14:45 Progress Note I have seen and evaluated the patient. The hour long breathing treatment improved wheezing open up her lungs more. I have discussed the case with Dr. Yang and agrees to admit the patient to her services with the use of Rocephin and azithromycin for abx coverage. 1610: The patient developed a rash on her arms after the Rocephin administration, no shortness of breath or throat swelling. Benadryl was ordered and symptoms improved. Dr. Yang was notified and next dose of antibiotics was switched to Levaquin for 08/10/18. Diagnostic Imaging Diagonstic Imaging: Xray Plain Films/CT/US/NM/MRI: chest Comments NAME: NANCI ABDUL Christoph [facility] REC#: [id number] PHYSICIAN: TINY RAMOS CC: TINY RAMOS; JESSICA CRAWFORD MD Page 1 of 1 RADIOLOGY REPORT [facility] [place] CC: TINY RAMOS; JESSICA CRAWFORD MD Page 1 of 1 RADIOLOGY REPORT NAME: NANCI ABDUL [facility] REC#: [id number] PT STATUS: ADM IN : 1955 PHYSICIAN: TINY RAMOS ADMIT DATE: 08/09/18/4TH Signed Date of Exam: 08/09/18 CHEST 1 VIEW, AP/PA ONLY INDICATION: Shortness of air and productive cough. Time of exam 1:57 p.m. COMPARISON: Correlation is made with prior study from 12/14/2017. FINDINGS: The heart size is stable. There appears to be a moderate-sized hiatal hernia. There is some patchy infiltrate in the left base suggestive of pneumonia. Right lung is clear. No effusion or pneumothorax is seen. IMPRESSION: Patchy left basilar pneumonia. Dictated by: Dictated on workstation # [id number] Dict: 08/09/18 1403 Trans: 08/09/18 1559 Interpreted by: JESSICA CRAWFORD MD Electronically signed by: JESSICA CRAWFORD MD 08/09/18 1559 Reviewed: Reviewed by Me Departure Communication (Admissions) Time/Spoke to Admitting Phy: 14:45 Dr. Yang Impression Primary Impression: Pneumonia Additional Impression: Acute exacerbation of chronic obstructive airways disease Disposition: HOME, SELF-CARE Condition: Stable/Unchanged Admissions Decision to Admit Reason: Admit from ER (General) Decision to Admit/Date: Aug 09, 2018 Time/Decision to Admit Time: 14:45 Departure-Patient Inst. Referrals: [facility] (PCP) Primary Care Physician YUE BLANTON (Family) Primary Care Physician TINY RAMOS Aug 09, 2018 14:27
[2018-08-09 15:08] LABS: BILIRUBIN,URINE NEGATIVE (NEGATIVE); CLARITY,URINE SLIGHTLY CLOUDY; COLOR,URINE YELLOW; GLUCOSE, URINE (UA) NEGATIVE (NEGATIVE); KETONES,URINE 2+ (NEGATIVE); LEUKOCYTE ESTERASE ,URINE 1+ (NEGATIVE); NITRITE,URINE NEGATIVE (NEGATIVE); PH,URINE 5 (5-9); PROTEIN,URINE 1+ (NEGATIVE); UROBILINOGEN,URINE NORMAL (NORMAL)
[2018-08-09 15:18] LABS: BACTERIA,URINE MODERATE /HPF
[2018-08-09 15:22] LABS: PROTHROMBIN TIME PATIENT 13.1 SEC (12.2-14.7)
[2018-08-09] MEDS ORDERED: methylPREDNISolone 125 MG (Solu-MEDROL) VIAL IM ONE (15:30)
[2018-08-09] MEDS ORDERED: cefTRIAXone FOR IV USE 1,000 MG in WATER (STERILE) FOR INJECTION 10 ML IV ONE (15:30)
[2018-08-09] MEDS ORDERED: diphenhydrAMINE 50 MG/ML INJ (BENADRYL) IVP ONE (16:15)
[2018-08-09] MEDS ORDERED: NICOTINE 21 MG (NICODERM) PATCH TD NR (16:45)
[2018-08-09 16:50] VITALS: BP 132/68
--- NOTE | 2018-08-09 17:02 | NUR ---
NANCI ABDUL admitted to room 420-1, with an admitting diagnosis of pneumonia, on 08/09/18 from ED via stretcher, accompanied by staff .NANCI ABDUL introduced to surroundings, call light, bed controls, phone, TV, temperature control, lights, meal times, smoking policy, visitor policy, side rail policy, bathrooms and showers. Patient Rights given to patient in the handbook. NANCI ABDUL verbalizes understanding that [facility] is not responsible for the loss or damage to any personal effects or valuables that are kept in the patients posession during their hospitalization. The following Patient Care Plans and discharge were discussed with the patient . NANCI ABDUL verbalizes understanding of Interdisciplinary Patient Education.
[2018-08-09] MEDS ORDERED: ACETAMINOPHEN 325 MG TABLET PO PRN (17:30)
[2018-08-09] MEDS ORDERED: AZITHROMYCIN 500 MG/NS 250 ML IVPB IV NR ×2 (17:30)
[2018-08-09] MEDS: NS IV 1000 ML 1,000 ML IV SCH (17:43)
[2018-08-09] MEDS ORDERED: OXYC-465 PO (18:38)
[2018-08-09] MEDS ORDERED: PANTOPRAZOLE 40 MG (PROTONIX) TAB PO NR (19:00)
[2018-08-09 19:15] VITALS: BP 127/61
[2018-08-09] MEDS: GABAPENTIN 300 MG (NEURONTIN) CAP PO SCH (20:38)
[2018-08-09] MEDS: ALPRAZolam 1 MG (XANAX) TAB PO PRN (20:40)
[2018-08-09] MEDS: oxyCODONE/APAP 10/325MG (PERCOCET 10) TABLET PO PRN (20:40)
[2018-08-09] MEDS: RT-ALBUTEROL/IPRATROPIUM 3 ML (DUONEB) VIAL INH SCH ×2 (21:04→21:07)
[2018-08-09 23:45] VITALS: BP 121/56
[2018-08-10] MEDS: RT-ALBUTEROL/IPRATROPIUM 3 ML (DUONEB) VIAL INH SCH ×6 (03:31→22:45)
[2018-08-10] MEDS: oxyCODONE/APAP 10/325MG (PERCOCET 10) TABLET PO PRN ×3 (03:57→18:41)
[2018-08-10 04:00] VITALS: BP 151/69
[2018-08-10] MEDS: ALPRAZolam 1 MG (XANAX) TAB PO PRN ×3 (05:18→20:50)
[2018-08-10] MEDS: NS IV 1000 ML 1,000 ML IV SCH ×3 (06:13→23:52)
--- NOTE | 2018-08-10 06:23 | History & Physicial (CHS) ---
HPI History of Present Illness: 63-year-old female presents to [facility] emergency department during the afternoon of August 09, 2018 with cough over the past one week. She apparently also been having nausea and vomiting as well as diarrhea over the past 3 weeks. She had been seen on August 06 and placed on oral antibiotics steroids and Zofran. Patient returns on day of admission Gall[place] 22 with increasing shortness of breath requiring more oxygen as she does use this for shortness of breath due to her COPD. Source: patient Date seen by provider: Aug 10, 2018 Time Seen by Provider: 08:00 Attending Physician Yoli Yang MD PCP Center/[facility] [place] Consult Date of Admission Aug 09, 2018 at 14:50 Home Medications Home Medications Reviewed patient Home Medication Reconciliation performed by pharmacy medication reconciliations polysomnographic technician and/or nursing. Patients Allergies have been reviewed. Allergies Coded Allergies: ceftriaxone (Verified Allergy, Unknown, 08/10/18) ILY-Fpydex-Mycnfj Hx Patient Social History Alcohol Use: Denies Use Recreational Drug Use: No Smoking Status: Current Everyday Smoker Type Used: Cigarettes 2nd Hand Smoke Exposure: Yes Recent Foreign Travel: No Contact w/other who traveled: No Recent Hopitalizations: Yes Recent Infectious Disease Expo: No Physical Abuse Screen: No Sexual Abuse: No Immunizations Up To Date Date of Pneumonia Vaccine: Jun 02, 2014 Date of Influenza Vaccine: Mar 18, 2018 Family Medical History Family History: Patient reports no known family medical history. Review of Systems (CHC) Constitutional: see HPI Reviewed Test Results Reviewed Test Results Lab Laboratory Tests Test 08/09/18 13:05 08/09/18 15:00 08/09/18 15:01 08/09/18 15:45 Range/Units White Blood Count 8.0 4.3-11.0 10^3/uL Red Blood Count 5.12 4.35-5.85 10^6/uL Hemoglobin 14.9 11.5-16.0 G/DL Hematocrit 44 35-52 % Mean Corpuscular Volume 87 80-99 FL Mean Corpuscular Hemoglobin 29 25-34 PG Mean Corpuscular Hemoglobin Concent 34 32-36 G/DL Red Cell Distribution Width 14.4 10.0-14.5 % Platelet Count 128 L 130-400 10^3/uL Mean Platelet Volume 11.7 H 7.4-10.4 FL Neutrophils (%) (Auto) 80 H 42-75 % Lymphocytes (%) (Auto) 13 12-44 % Monocytes (%) (Auto) 8 0-12 % Eosinophils (%) (Auto) 0 0-10 % Basophils (%) (Auto) 0 0-10 % Neutrophils # (Auto) 6.3 1.8-7.8 X 10^3 Lymphocytes # (Auto) 1.0 1.0-4.0 X 10^3 Monocytes # (Auto) 0.6 0.0-1.0 X 10^3 Eosinophils # (Auto) 0.0 0.0-0.3 10^3/uL Basophils # (Auto) 0.0 0.0-0.1 10^3/uL Sodium Level 140 135-145 MMOL/L Potassium Level 3.1 L 3.6-5.0 MMOL/L Chloride Level 93 L 98-107 MMOL/L Carbon Dioxide Level 35 H 21-32 MMOL/L Anion Gap 12 5-14 MMOL/L Blood Urea Nitrogen 17 7-18 MG/DL Creatinine 0.73 0.60-1.30 MG/DL Estimat Glomerular Filtration Rate > 60 BUN/Creatinine Ratio 23 Glucose Level 82 70-105 MG/DL Calcium Level 10.0 8.5-10.1 MG/DL Corrected Calcium 9.8 8.5-10.1 MG/DL Total Bilirubin 0.9 0.1-1.0 MG/DL Aspartate Amino Transf (AST/SGOT) 28 5-34 U/L Alanine Aminotransferase (ALT/SGPT) 18 0-55 U/L Alkaline Phosphatase 83 40-136 U/L Total Protein 7.6 6.4-8.2 GM/DL Albumin 4.3 3.2-4.5 GM/DL Amylase Level 34 25-125 U/L Lipase 7 L 8-78 U/L Prothrombin Time 13.1 12.2-14.7 SEC INR Comment 1.0 0.8-1.4 Activated Partial Thromboplast Time 28 24-35 SEC Urine Color YELLOW Urine Clarity SLIGHTLY CLOUDY Urine pH 5 5-9 Urine Specific [place] 1.015 L 1.016-1.022 Urine Protein 1+ H NEGATIVE Urine Glucose (UA) NEGATIVE NEGATIVE Urine Ketones 2+ H NEGATIVE Urine Nitrite NEGATIVE NEGATIVE Urine Bilirubin NEGATIVE NEGATIVE Urine Urobilinogen NORMAL NORMAL MG/DL Urine Leukocyte Esterase 1+ H NEGATIVE Urine RBC (Auto) NEGATIVE NEGATIVE Urine RBC NONE /HPF Urine WBC 2-5 /HPF Urine Squamous Epithelial Cells 5-10 /HPF Urine Crystals NONE /LPF Urine Bacteria MODERATE H /HPF Urine Casts NONE /LPF Urine Mucus MODERATE H /LPF Urine Culture Indicated YES Lactic Acid Level 3.22 *H 0.50-2.00 MMOL/L Test 08/09/18 17:52 Range/Units Lactic Acid Level 1.89 0.50-2.00 MMOL/L Radiology NAME: NANCI ABDUL [facility] REC#: [id number] PT STATUS: ADM IN : 1955 PHYSICIAN: TINY RAMOS ADMIT DATE: 08/09/18 Signed Date of Exam: 08/09/18 CHEST 1 VIEW, AP/PA ONLY INDICATION: Shortness of air and productive cough. Time of exam 1:57 p.m. COMPARISON: Correlation is made with prior study from 12/14/2017. FINDINGS: The heart size is stable. There appears to be a moderate-sized hiatal hernia. There is some patchy infiltrate in the left base suggestive of pneumonia. Right lung is clear. No effusion or pneumothorax is seen. IMPRESSION: Patchy left basilar pneumonia. Dictated by: Dictated on workstation # [id number] Dict: 08/09/18 1403 Trans: 08/09/18 1559 Interpreted by: JESSICA CRAWFORD MD Electronically signed by: JESSICA CRAWFORD MD 08/09/18 1559 Physical Exam-([facility]) Physical Exam Vital Signs VS - Last 72 Hours, by Label 08/09/18 08/09/18 08/09/18 08/09/18 12:45 13:08 16:00 16:35 Temp 98.7 98.7 98.7 Pulse 95 95 95 Resp 18 18 18 B/P (MAP) 128/85 (99) 128/85 (99) 128/85 Pulse Ox 90 96 96 96 O2 Delivery Nasal Cannula Nasal Cannula Nasal Cannula O2 Flow Rate 2.00 3.00 3.00 3.00 08/09/18 08/09/18 08/09/18 08/09/18 16:50 16:58 17:12 18:47 Temp 98.0 Pulse 97 95 Resp 16 B/P (MAP) 132/68 (89) Pulse Ox 90 95 O2 Delivery Nasal Cannula Nasal Cannula Nasal Cannula O2 Flow Rate 3.00 3.00 3.00 FiO2 32 08/09/18 08/09/18 08/09/18 08/09/18 19:15 20:00 21:07 23:45 Temp 98.6 98.6 Pulse 97 101 Resp 20 20 B/P (MAP) 127/61 (83) 121/56 (77) Pulse Ox 92 91 93 O2 Delivery Nasal Cannula Nasal Cannula Nasal Cannula Nasal Cannula O2 Flow Rate 3.00 3.00 3.00 3.00 08/10/18 08/10/18 08/10/18 03:31 04:00 08:35 Temp 98.0 Pulse 95 Resp 20 B/P (MAP) 151/69 (96) Pulse Ox 95 93 91 O2 Delivery Nasal Cannula Nasal Cannula Nasal Cannula O2 Flow Rate 3.00 3.00 2.00 Capillary Refill : Less Than 3 Seconds General Appearance: no apparent distress Eyes: Bilateral Eye Normal Inspection HEENT: pharynx normal Neck: full range of motion, supple Respiratory: rales (In the left lower base otherwise clear) Cardiovascular: regular rate, rhythm Gastrointestinal: soft Rectal: deferred Back: normal inspection Extremities: no pedal edema, normal capillary refill Neurologic/Psychiatric: alert, oriented x 3 Skin: normal color, warm/dry Assessment/Plan Assessment/Plan Admission Dx 1. Left-sided basilar pneumonia 2. Acute exacerbation of COPD Admission Status: Inpatient Order (span 2 midnights) Reason for Inpatient Admission: Further antibiotic care for pneumonia Assessment & Plan 1. Left-sided basilar pneumonia -Patient will be admitted to [facility] for further IV antibiotic Levaquin 750 mg daily 2. Acute exacerbation of COPD -Breathing treatments as necessary -Nasal cannula oxygen 3. Diabetes -Restart metformin Clinical Quality Measures DVT/VTE Risk/Contraindication: Risk Factor Score Per Nursin RFS Level Per Nursing on Admit: 4+=Very High BRENDA FRANKEL MD Aug 10, 2018 06:23
[2018-08-10] MEDS ORDERED: PANTOPRAZOLE 40 MG (PROTONIX) TAB PO SCH (07:00)
[2018-08-10 07:05] LABS: BASOPHILS % (AUTO) 0 % (0-10); EOSINOPHILS % (AUTO) 0 % (0-10); HEMATOCRIT 38 % (35-52); HEMOGLOBIN 12.6 G/DL (11.5-16.0); LYMPHOCYTES # (AUTO) 0.4 X 10^3 (1.0-4.0); LYMPHOCYTES % (AUTO) 10 % (12-44); MEAN CORPUSCULAR HEMOGLOBIN 29 PG (25-34); MEAN CORPUSCULAR HGB CONC 33 G/DL (32-36); MEAN CORPUSCULAR VOLUME 88 FL (80-99); MEAN PLATELET VOLUME 11.5 FL (7.4-10.4); MONOCYTES # (AUTO) 0.2 X 10^3 (0.0-1.0); MONOCYTES % (AUTO) 4 % (0-12); NEUTROPHILS # (AUTO) 3.9 X 10^3 (1.8-7.8); NEUTROPHILS % (AUTO) 87 % (42-75); PLATELET COUNT 126 10^3/uL (130-400); RED CELL DISTRIBUTION WIDTH 14.8 % (10.0-14.5); WHITE BLOOD COUNT 4.5 10^3/uL (4.3-11.0)
[2018-08-10 07:25] LABS: ALANINE AMINOTRANSFERASE 14 U/L (0-55); ALBUMIN 3.7 GM/DL (3.2-4.5); ALKALINE PHOSPHATASE 71 U/L (40-136); BILIRUBIN,TOTAL 0.5 MG/DL (0.1-1.0); BUN/CREATININE RATIO 15; CARBON DIOXIDE 28 MMOL/L (21-32); CHLORIDE 103 MMOL/L (98-107); CREATININE SERUM 0.62 MG/DL (0.60-1.30); GFR ESTIMATED > 60; GLUCOSE 165 MG/DL (70-105); POTASSIUM 3.2 MMOL/L (3.6-5.0); SODIUM 143 MMOL/L (135-145); TOTAL PROTEIN 6.5 GM/DL (6.4-8.2)
[2018-08-10 08:00] VITALS: BP 134/63
[2018-08-10] MEDS: GABAPENTIN 300 MG (NEURONTIN) CAP PO SCH ×3 (08:13→20:49)
[2018-08-10] MEDS: LEVOFLOXACIN 750 MG/150 ML IV 150 ML IV SCH (08:13)
[2018-08-10] MEDS: NICOTINE 21 MG (NICODERM) PATCH TD SCH (08:14)
[2018-08-10] MEDS: NICOTINE PATCH REMOVAL TP SCH (08:14)
[2018-08-10] MEDS ORDERED: RT-ALBUTEROL SULF 2.5 MG/3 ML PRE-MIX VIAL IH PRN ×2 (08:45→09:45)
[2018-08-10] MEDS ORDERED: RT-ALBUTEROL/IPRATROPIUM 3 ML (DUONEB) VIAL IH PRN (08:45)
[2018-08-10] MEDS ORDERED: MELOXICAM 7.5 MG (MOBIC) TABLET PO SCH (09:00)
[2018-08-10] MEDS ORDERED: PRAMIPEXOLE 0.5 MG TAB (MIRAPEX) PO SCH (09:00)
[2018-08-10] MEDS ORDERED: PANTOPRAZOLE 20 MG TABLET (PROTONIX) PO SCH (09:00)
[2018-08-10] MEDS: PROMETHAZINE/ CODEINE SYRUP 5 ML UDC PO PRN ×2 (09:29→20:59)
[2018-08-10] MEDS: guaiFENesin (MUCINEX) 600 MG TAB PO SCH ×2 (09:29→20:50)
[2018-08-10] MEDS: FERROUS SULF 325 MG (IRON) TAB PO SCH (09:30)
[2018-08-10] MEDS: HYDROCHLOROTHIAZIDE 25 MG (HCTZ) TAB PO SCH (09:30)
[2018-08-10] MEDS: ASPIRIN 81 MG CHEW (CHILDREN'S ASA) PO SCH (09:30)
[2018-08-10] MEDS: LORATADINE (CLARITIN) 10 MG TAB PO SCH (09:30)
[2018-08-10] MEDS: metFORMIN 500 MG (GLUCOPHAGE) TAB PO SCH ×2 (09:31→17:23)
[2018-08-10] MEDS: AMITRIPTYLINE 25 MG (ELAVIL) TAB PO SCH (09:31)
[2018-08-10] MEDS: CYCLOBENZAPRINE 10 MG (FLEXERIL) TAB PO SCH ×2 (09:32→20:50)
[2018-08-10] MEDS: KCL 20 MEQ TAB (K-DUR) PO SCH (09:32)
[2018-08-10] MEDS ORDERED: GBPN600T PO (10:06)
[2018-08-10] MEDS ORDERED: POTA10CA43 PO (10:07)
[2018-08-10] MEDS ORDERED: ONDA8TAB13 PO (10:08)
[2018-08-10] MEDS ORDERED: DOXY100T2 PO (10:09)
[2018-08-10] MEDS ORDERED: PRD50T PO (10:10)
[2018-08-10] MEDS ORDERED: CYCL10TA9 PO (10:11)
--- NOTE | 2018-08-10 10:13 | NUR ---
Spoke to patient she had a list. Also looked at external medications history.
[2018-08-10] MEDS: PROPRANOLOL 20 MG (INDERAL) TABLET PO SCH ×2 (11:04→20:50)
[2018-08-10 12:00] VITALS: BP 138/60
[2018-08-10 15:46] VITALS: BP 145/77
[2018-08-10 19:44] VITALS: BP 165/80
[2018-08-10] MEDS: PRAMIPEXOLE 0.5 MG TAB (MIRAPEX) PO SCH (20:50)
[2018-08-10] MEDS: MELOXICAM 7.5 MG (MOBIC) TABLET PO SCH (20:50)
[2018-08-10] MEDS: SIMvastatin 40 MG (ZOCOR) TAB PO SCH (20:50)
[2018-08-11] VITALS (7 sets, daily range): BP systolic 128–186; BP diastolic 63–92
[2018-08-11] MEDS: RT-ALBUTEROL/IPRATROPIUM 3 ML (DUONEB) VIAL INH SCH ×6 (01:16→22:52)
[2018-08-11] MEDS: oxyCODONE/APAP 10/325MG (PERCOCET 10) TABLET PO PRN ×2 (02:57→23:36)
[2018-08-11] MEDS: NS IV 1000 ML 1,000 ML IV SCH ×2 (03:26→14:28)
[2018-08-11] MEDS: metFORMIN 500 MG (GLUCOPHAGE) TAB PO SCH ×2 (06:18→17:20)
[2018-08-11 06:47] LABS: BASOPHILS % (AUTO) 0 % (0-10); EOSINOPHILS % (AUTO) 1 % (0-10); HEMATOCRIT 36 % (35-52); HEMOGLOBIN 11.8 G/DL (11.5-16.0); LYMPHOCYTES # (AUTO) 1.6 X 10^3 (1.0-4.0); LYMPHOCYTES % (AUTO) 28 % (12-44); MEAN CORPUSCULAR HEMOGLOBIN 29 PG (25-34); MEAN CORPUSCULAR HGB CONC 33 G/DL (32-36); MEAN CORPUSCULAR VOLUME 90 FL (80-99); MEAN PLATELET VOLUME 11.8 FL (7.4-10.4); MONOCYTES # (AUTO) 0.3 X 10^3 (0.0-1.0); MONOCYTES % (AUTO) 6 % (0-12); NEUTROPHILS # (AUTO) 3.7 X 10^3 (1.8-7.8); NEUTROPHILS % (AUTO) 65 % (42-75); PLATELET COUNT 116 10^3/uL (130-400); RED CELL DISTRIBUTION WIDTH 14.9 % (10.0-14.5); WHITE BLOOD COUNT 5.7 10^3/uL (4.3-11.0)
[2018-08-11 07:06] LABS: BUN/CREATININE RATIO 15; CALCIUM 8.5 MG/DL (8.5-10.1); CARBON DIOXIDE 26 MMOL/L (21-32); CHLORIDE 103 MMOL/L (98-107); CREATININE SERUM 0.67 MG/DL (0.60-1.30); GFR ESTIMATED > 60; GLUCOSE 79 MG/DL (70-105); SODIUM 138 MMOL/L (135-145)
--- NOTE | 2018-08-11 09:04 | Progress Note (SOAP) ---
Subjective Subjective/Events-last exam She is resting comfortably this morning. She still has a cough and is able to cough up clear phlegm. She also is having some issues with falling asleep she usually takes amitriptyline at bedtime. Review of Systems Date Seen by Provider: Aug 11, 2018 Time Seen by Provider: 07:30 Focused Exam Lactate Level 08/09/18 15:45: Lactic Acid Level 3.22*H 08/09/18 17:52: Lactic Acid Level 1.89 Objective Exam Last Set of Vital Signs Vital Signs Date Time Temp Pulse Resp B/P (MAP) Pulse Ox O2 Delivery O2 Flow Rate FiO2 08/11/18 06:36 95 Nasal Cannula 3.00 08/11/18 04:20 98.3 59 20 157/73 (101) 08/09/18 17:12 32 Capillary Refill : Less Than 3 Seconds I&O Intake and Output 08/11/18 00:00 Intake Total 3300 ml Output Total 3700 ml Balance -400 ml Intake Oral 2150 ml IV Total 1150 ml Output Urine Total 3700 ml # Bowel Movements 1 General: No Acute Distress Lungs: Clear to Auscultation (Except for rales noted in the bases.) Heart: Regular Rate Abdomen: Soft Neuro: Normal Speech Psych/Mental Status: Mental Status NL Results/Procedures Lab Laboratory Tests 08/11/18 06:00: White Blood Count 5.7, Red Blood Count 4.03L, Hemoglobin 11.8, Hematocrit 36, Mean Corpuscular Volume 90, Mean Corpuscular Hemoglobin 29, Mean Corpuscular Hemoglobin Concent 33, Red Cell Distribution Width 14.9H, Platelet Count 116L, Mean Platelet Volume 11.8H, Neutrophils (%) (Auto) 65, Lymphocytes (%) (Auto) 28 , Monocytes (%) (Auto) 6, Eosinophils (%) (Auto) 1, Basophils (%) (Auto) 0, Neutrophils # (Auto) 3.7, Lymphocytes # (Auto) 1.6, Monocytes # (Auto) 0.3, Eosinophils # (Auto) 0.0, Basophils # (Auto) 0.0, Sodium Level 138, Potassium Level 3.0L, Chloride Level 103, Carbon Dioxide Level 26, Anion Gap 9, Blood Urea Nitrogen 10, Creatinine 0.67, Estimat Glomerular Filtration Rate > 60, BUN/ Creatinine Ratio 15, Glucose Level 79, Calcium Level 8.5 Microbiology 08/09/18 Blood Culture - Preliminary, Resulted No growth 08/09/18 Influenza Types A,B Antigen (DILCIA) - Final, Complete 08/09/18 Urine Culture - Final, Complete NO GROWTH Radiology NAME: NANCI ABDUL [facility] REC#: [id number] PT STATUS: ADM IN : 1955 PHYSICIAN: TINY RAMOS ADMIT DATE: 08/09/18/ Signed Date of Exam: 08/09/18 CHEST 1 VIEW, AP/PA ONLY INDICATION: Shortness of air and productive cough. Time of exam 1:57 p.m. COMPARISON: Correlation is made with prior study from 12/14/2017. FINDINGS: The heart size is stable. There appears to be a moderate-sized hiatal hernia. There is some patchy infiltrate in the left base suggestive of pneumonia. Right lung is clear. No effusion or pneumothorax is seen. IMPRESSION: Patchy left basilar pneumonia. Dictated by: Dictated on workstation # [id number] Dict: 08/09/18 1403 Trans: 08/09/18 1559 Interpreted by: JESSICA CRAWFORD MD Electronically signed by: JESSICA CRAWFORD MD 08/09/18 1559 Assessment/Plan Assessment/Plan Assessment & Plan 1. Left-sided basilar pneumonia -Patient will be admitted to [facility] for further IV antibiotic Levaquin 750 mg daily 08/11: Day number 3 of IV Levaquin -Albuterol treatments continue 2. Acute exacerbation of COPD -Breathing treatments as necessary -Nasal cannula oxygen 3. Diabetes -Restart metformin 4. Insomnia 08/11: Restart amitriptyline Clinical Quality Measures DVT/VTE Risk/Contraindication: Risk Factor Score Per Nursin RFS Level Per Nursing on Admit: 4+=Very High BRENDA FRANKEL MD Aug 11, 2018 09:04
[2018-08-11] MEDS: AMITRIPTYLINE 25 MG (ELAVIL) TAB PO SCH ×2 (10:22→20:22)
[2018-08-11] MEDS: LEVOFLOXACIN 750 MG/150 ML IV 150 ML IV SCH (10:23)
[2018-08-11] MEDS: PROMETHAZINE/ CODEINE SYRUP 5 ML UDC PO PRN ×3 (10:25→20:21)
[2018-08-11] MEDS: NICOTINE PATCH REMOVAL TP SCH (10:25)
[2018-08-11] MEDS: ONDANSETRON 4 MG/2 ML (SDV) Z0FRAN IV PRN ×3 (10:25→22:15)
[2018-08-11] MEDS: NICOTINE 21 MG (NICODERM) PATCH TD SCH (10:25)
--- NOTE | 2018-08-11 10:29 | NUR ---
Pt declined AM meds d/t being nausous. Pt given zofran and phenergan w/codeine as ordered per request by pt.
[2018-08-11] MEDS: ASPIRIN 81 MG CHEW (CHILDREN'S ASA) PO SCH (10:30)
[2018-08-11] MEDS: LORATADINE (CLARITIN) 10 MG TAB PO SCH (10:30)
[2018-08-11] MEDS: CYCLOBENZAPRINE 10 MG (FLEXERIL) TAB PO SCH ×2 (10:30→20:22)
[2018-08-11] MEDS: FERROUS SULF 325 MG (IRON) TAB PO SCH (10:30)
[2018-08-11] MEDS: HYDROCHLOROTHIAZIDE 25 MG (HCTZ) TAB PO SCH ×2 (10:31→14:40)
[2018-08-11] MEDS: KCL 20 MEQ TAB (K-DUR) PO SCH (10:31)
[2018-08-11] MEDS: PANTOPRAZOLE 20 MG TABLET (PROTONIX) PO SCH (10:31)
[2018-08-11] MEDS: GABAPENTIN 300 MG (NEURONTIN) CAP PO SCH ×3 (10:31→20:22)
[2018-08-11] MEDS: PROPRANOLOL 20 MG (INDERAL) TABLET PO SCH ×3 (10:31→20:22)
[2018-08-11] MEDS: guaiFENesin (MUCINEX) 600 MG TAB PO SCH ×2 (10:31→20:22)
[2018-08-11] MEDS: MONTELUKAST 10 MG (SINGULAIR) TAB PO SCH (10:32)
[2018-08-11] MEDS: ALPRAZolam 1 MG (XANAX) TAB PO PRN (14:40)
[2018-08-11] MEDS: PRAMIPEXOLE 0.5 MG TAB (MIRAPEX) PO SCH (20:21)
[2018-08-11] MEDS: MELOXICAM 7.5 MG (MOBIC) TABLET PO SCH (20:22)
[2018-08-11] MEDS: SIMvastatin 40 MG (ZOCOR) TAB PO SCH (20:22)
[2018-08-12] MEDS: NS IV 1000 ML 1,000 ML IV SCH ×3 (00:29→22:53)
[2018-08-12] MEDS: RT-ALBUTEROL/IPRATROPIUM 3 ML (DUONEB) VIAL INH SCH ×6 (02:37→22:27)
[2018-08-12 03:46] VITALS: BP 168/74
[2018-08-12] MEDS: metFORMIN 500 MG (GLUCOPHAGE) TAB PO SCH ×2 (05:53→16:18)
[2018-08-12] MEDS: PROPRANOLOL 20 MG (INDERAL) TABLET PO SCH ×2 (07:40→20:24)
[2018-08-12] MEDS: GABAPENTIN 300 MG (NEURONTIN) CAP PO SCH ×2 (07:40→20:24)
[2018-08-12] MEDS: KCL 20 MEQ TAB (K-DUR) PO SCH ×2 (07:40→08:00)
[2018-08-12] MEDS: HYDROCHLOROTHIAZIDE 25 MG (HCTZ) TAB PO SCH (07:40)
[2018-08-12] MEDS: oxyCODONE/APAP 10/325MG (PERCOCET 10) TABLET PO PRN (07:40)
[2018-08-12] MEDS: CYCLOBENZAPRINE 10 MG (FLEXERIL) TAB PO SCH ×2 (07:40→08:00)
[2018-08-12] MEDS: FERROUS SULF 325 MG (IRON) TAB PO SCH ×2 (07:40→08:00)
[2018-08-12] MEDS: PANTOPRAZOLE 20 MG TABLET (PROTONIX) PO SCH (07:40)
--- NOTE | 2018-08-12 07:40 | NUR ---
Pt requesting AM meds and new nicotine patch at this time. Pt declined some meds, see eMar documentation.
[2018-08-12] MEDS: NICOTINE PATCH REMOVAL TP SCH (07:41)
[2018-08-12] MEDS: NICOTINE 21 MG (NICODERM) PATCH TD SCH (07:41)
[2018-08-12] MEDS: AMITRIPTYLINE 25 MG (ELAVIL) TAB PO SCH (07:41)
[2018-08-12] MEDS: MONTELUKAST 10 MG (SINGULAIR) TAB PO SCH (07:41)
[2018-08-12] MEDS: ASPIRIN 81 MG CHEW (CHILDREN'S ASA) PO SCH (07:41)
[2018-08-12] MEDS: guaiFENesin (MUCINEX) 600 MG TAB PO SCH ×2 (07:42→20:24)
[2018-08-12] MEDS: LORATADINE (CLARITIN) 10 MG TAB PO SCH (07:42)
[2018-08-12] MEDS: ALPRAZolam 1 MG (XANAX) TAB PO PRN (07:58)
[2018-08-12 08:00] VITALS: BP 182/77
[2018-08-12] MEDS: LEVOFLOXACIN 750 MG/150 ML IV 150 ML IV SCH (08:00)
--- NOTE | 2018-08-12 08:00 | NUR ---
Pt refused Flexeril, Potassium, Iron and half of Xanax after medications were opened and she had agreed to take them. Meds wasted in [employer].
[2018-08-12] MEDS: ONDANSETRON 4 MG/2 ML (SDV) Z0FRAN IV PRN ×2 (08:06→20:24)
--- NOTE | 2018-08-12 10:08 | Progress Note-Hospitalist ---
Subjective HPI/CC On Admission Date Seen by Provider: Aug 12, 2018 Time Seen by Provider: 09:45 Subjective/Events-last exam Pt reports her nausea continues. Will order PT and OT. 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 Home meds will be restarted. Hasn't had a shower in three weeks but is just not up to it today. Will schedule her Percocet every 6 hours as John Lynn her PCP at [facility] recommends. Overall shortness of breath. Maintain on oxygen at night and during the day during exertion. Review of Systems General: Fatigue Pulmonary: Dyspnea, Cough Focused Exam Lactate Level Objective Exam Vital Signs Vital Signs Date Time Temp Pulse Resp B/P (MAP) Pulse Ox O2 Delivery O2 Flow Rate FiO2 08/12/18 18:40 94 Nasal Cannula 2.00 08/12/18 16:01 96.5 64 19 144/78 (100) 08/11/18 09:32 32 Capillary Refill : Less Than 3 Seconds General Appearance: No Apparent Distress, WD/WN HEENT: PERRL/EOMI, TMs Normal, Normal ENT Inspection, Pharynx Normal Neck: Full Range of Motion, Normal Inspection, Non Tender, Supple Respiratory: Chest Non Tender, No Accessory Muscle Use, No Respiratory Distress , Decreased Breath Sounds, Wheezing (throughout lung doyle) Cardiovascular: Regular Rate, Rhythm, No Edema, No Gallop, No JVD, No Murmur, Normal Peripheral Pulses Gastrointestinal: Normal Bowel Sounds, No Organomegaly, No Pulsatile Mass, Non Tender, Soft Extremity: Normal Capillary Refill, Normal Inspection, Normal Range of Motion, Non Tender, No Calf Tenderness, No Pedal Edema Neurologic/Psychiatric: Alert, Oriented x3, No Motor/Sensory Deficits, Depressed Affect Skin: Normal Color, Warm/Dry Results/Procedures Lab Patient resulted labs reviewed. 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
[2018-08-12] MEDS ORDERED: ONDANSETRON 8 MG (ZOFRAN) ORAL DISSOLVE TAB PO PRN (10:15)
[2018-08-12] MEDS ORDERED: LEVOFLOXACIN 750 MG TAB (LEVAQUIN) PO SCH (11:00)
[2018-08-12] MEDS: PROMETHAZINE/ CODEINE SYRUP 5 ML UDC PO PRN ×2 (11:16→18:15)
--- NOTE | 2018-08-12 11:44 | Physical Therapy Evaluation ---
PT Evaluation-General Medical Diagnosis Admission Date Aug 09, 2018 at 14:50 Medical Diagnosis: pneumonia/COPD exacerbation Onset Date: Aug 09, 2018 Therapy Diagnosis Therapy Diagnosis: generalized weakness/debility Height/Weight Height (Feet): 5 Height (Inches): 2.00 Weight (Pounds): 150 Weight (Ounces): 0.0 Precautions Precautions/Isolations: Fall Prevention, Standard Precautions Weight Bear Status Right Lower Extremity: Right Full Weight Bearing Left Lower Extremity: Left Full Weight Bearing Referral Physician: Sherry Reason for Referral: Evaluation/Treatment Medical History Pertinent Medical History: COPD, DM, HTN, Neuropathy, Smoking Current History ED with 3 wk c/o N/V/D Reviewed History: Yes Social History Home: Apartment Current Living Status: Alone Entry Into Home: Level Entry Prior/Core FIM Prior Level of Function Therapy Code Descriptions/Definitions Functional [place] Measure: 0=Not Assessed/NA 4=Minimal Assistance 1=Total Assistance 5=Supervision or Setup 2=Maximal Assistance 6=Modified [place] 3=Moderate Assistance 7=Complete [place] Therapy Quality Codes: 6 Independent with activity with or without an assistive device 5 Patient requires set up or clean up by helper. Patient completes activity by themselves 4 Supervision or touching assist (CGA). Orr provide cues , steadying assist 3 The helper provides less than half the effort to complete the activity 2 The helper provides more than half the effort to complete the activity 1 Dependent. The helper does all the effort to complete an activity 7 Patient refused to complete or attempt activity 9 The patient did not perform the activity before the current illness or injury 88 Not attempted due to Medical conditions or safety concerns Functional Abilities and Goals: Independent: Patient completed the activities by him/herself, with or without an assistive device, with no assistance from a helper. Needed Some Help: Patient needed partial assistance from another person to complete activities. Dependent: A helper completed the activities for the patient. Unknown: Not Applicable: Bed Mobility: 6 Transfers (B,C,W/C) (FIM): 6 Gait: 6 Stairs: 0 Indoor Mobility (Ambulation): Independent Stairs: Independent Prior Devices Use: Walker Prior Device Use: 4WW PT Evaluation-Current Subjective Patient agrees to PT. Pain Numeric Pain Scale: 0-No Pain Location: No Pain Reported Objective Patient Orientation: Normal For Age Problem Solving: Fair Attachments: Oxygen, IV ROM/Strength ROM Lower Extremities bilateral LE WFL Strength Lower Extremities 4-/5 grossly bilaterally Integumentary/Posture Integumentary refer to nursing notes Sensory Vision: Wears Glasses Hearing: Functional Sensation Right Lower Extremit: Impaired Sensation Left Lower Extremity: Impaired Transfers Therapy Code Descriptions/Definitions Functional [place] Measure: 0=Not Assessed/NA 4=Minimal Assistance 1=Total Assistance 5=Supervision or Setup 2=Maximal Assistance 6=Modified [place] 3=Moderate Assistance 7=Complete [place] Transfers (B, C, W/C) (FIM): 5 Scootin Rollin Supine to/from Sit: 5 Sit to/from Stand: 5 Gait Mode of Locomotion: Walk Anticipated Mode of Locomotion: Walk Gait (FIM): 2 Distance (FIM): 5=371-27 ft Distance: 75' Gait Level of Assist: 5 Gait Persons Needed: 1 Gait Assistive Device: Walker 4 Wheeled Comments/Gait Description functional gait sequence Balance Sitting Static: Normal Sitting Dynamic: Normal Standing Static: Good Standing Dynamic: Good Assessment/Needs 63 y.o female, will be seen short term by skilled PT to address functional strength and mobility to improve current LOF and to return to home at maximum LOF. safely. Rehab Potential: Fair PT Sweat Band Separator Goals Sweat Band Separator Goals PT Sweat Band Separator Goals Time Frame: Aug 19, 2018 Transfers (B,C,W/C) (FIM): 6 Gait (FIM): 6 Gait distance (FIM): 3=150 ft Distance: 150' Gait Level of Assist: 6 Gait Assistive Device: Walker 4 Wheeled PT Plan Problem List Problem List: Activity Tolerance, Functional Strength Treatment/Plan Treatment Plan: Continue Plan of Care Treatment Plan: Bed Mobility, Education, Functional Activity Lesia, Functional Strength, Gait, Safety, Therapeutic Exercise, Transfers Treatment Duration: Aug 19, 2018 Frequency: 6 times per week Estimated Hrs Per Day: .25 hour per day Patient and/or Family Agrees t: Yes Safety Risks/Education Patient Education: Gait Training Teaching Recipient: Patient Teaching Methods: Demonstration Response to Teaching: Return Demonstration Discharge Recommendations Therapy D/C Recommendations: Home Independently, Physical Therapy Home Care Time/GCodes Time In: 1030 Time Out: 1048 Total Billed Treatment Time: 18 Total Billed Treatment 1 visit EVModC 18 min MATTHEW CANO PT Aug 12, 2018 11:44
[2018-08-12 12:00] VITALS: BP 186/84
[2018-08-12] MEDS ORDERED: GABAPENTIN 600 MG (NEURONTIN) TAB PO SCH (13:00)
[2018-08-12] MEDS: oxyCODONE/APAP 10/325MG (PERCOCET 10) TABLET PO SCH ×2 (13:43→20:23)
[2018-08-12] MEDS: ALPRAZolam 1 MG (XANAX) TAB PO SCH (13:43)
--- NOTE | 2018-08-12 14:50 | NUR ---
Pastoral care visit.
[2018-08-12 16:01] VITALS: BP 144/78
--- NOTE | 2018-08-12 16:13 | Occupational Therapy Eval ---
OT Evaluation-General/PLF Medical Diagnosis Admission Date Aug 09, 2018 at 14:50 Medical Diagnosis: pneumonia/COPD exacerbation Onset Date: Aug 09, 2018 Therapy Diagnosis Therapy Diagnosis: weakness Height/Weight Height (Feet): 5 Height (Inches): 2.00 Weight (Pounds): 150 Weight (Ounces): 0.0 Precautions Precautions/Isolations: Fall Prevention Safety Interventions: None Weight Bear Status Weight Bearing Restriction: Full Weight Bearing Location Restriction: L LE, R LE Referral Physician: Sherry Referral Reason: Activity Tolerance, Self Care, Evaluation/Treatment, Strengthening/ROM Medical History Pertinent Medical History: COPD, DM, HTN, Neuropathy, Smoking Reviewed History: Yes Social History Home: Apartment Current Living Status: Alone Entry Into Home: Level Entry ADL-Prior Level of Function Therapy Code Descriptions/Definitions Functional [place] Measure: 0=Not Assessed/NA 4=Minimal Assistance 1=Total Assistance 5=Supervision or Setup 2=Maximal Assistance 6=Modified [place] 3=Moderate Assistance 7=Complete [place] Therapy Quality Codes: 6 Independent with activity with or without an assistive device 5 Patient requires set up or clean up by helper. Patient completes activity by themselves 4 Supervision or touching assist (CGA). Sabina provide cues , steadying assist 3 The helper provides less than half the effort to complete the activity 2 The helper provides more than half the effort to complete the activity 1 Dependent. The helper does all the effort to complete an activity 7 Patient refused to complete or attempt activity 9 The patient did not perform the activity before the current illness or injury 88 Not attempted due to Medical conditions or safety concerns Functional Abilities and Goals: Independent: Patient completed the activities by him/herself, with or without an assistive device, with no assistance from a helper. Needed Some Help: Patient needed partial assistance from another person to complete activities. Dependent: A helper completed the activities for the patient. Unknown: Not Applicable: ADL PLOF Comments Pt was living alone in the Apartment & was Independent in all self care tasks & mobility & drives car. Self Care: Independent Functional Cognition: Independent Drive Self: Yes OT Current Status Subjective Pt in bed , alert, oriented & O2 dependent. Pt agree for OT Eval . Pain Numeric Pain Scale: 5-Moderate Pain Location: Lower Location Body Site: Back Pain Description: Throbbing Mental Status/Objective Patient Orientation: Person, Place, Time, Situation, Normal For Age Attachments: Oxygen, Saline Lock Current Hearing Aids: No Dentures/Partials: No Hand Dominance: Right Upper Extremity ROM Limited ROM in Rt shoulder due to stiffness. Upper Extremity Strength MS in BUE -4/5 grossly graded. Pt O2 dependet 3 liter on continuous. ADL-Treatment ADL-Current Pt needs SBA in supine to sit in bed, sit to stand with walker with SBA , Mild Stiffness in Rt shoulder & painful , O2 dependent 3 liters on continuous, fatigue soon. Needs min A in all self care tasks . Therapy Code Descriptions/Definitions Functional [place] Measure: 0=Not Assessed/NA 4=Minimal Assistance 1=Total Assistance 5=Supervision or Setup 2=Maximal Assistance 6=Modified [place] 3=Moderate Assistance 7=Complete [place] Therapy Quality Codes: 6 Independent with activity with or without an assistive device 5 Patient requires set up or clean up by helper. Patient completes activity by themselves 4 Supervision or touching assist (CGA). Sabina provide cues , steadying assist 3 The helper provides less than half the effort to complete the activity 2 The helper provides more than half the effort to complete the activity 1 Dependent. The helper does all the effort to complete an activity 7 Patient refused to complete or attempt activity 9 The patient did not perform the activity before the current illness or injury 88 Not attempted due to Medical conditions or safety concerns Eating (FIM): 7 Grooming (FIM): 6 Bathing (FIM): 0 Upper Body Dressing (FIM): 4 Lower Body Dressing (FIM): 4 Toileting (FIM): 7 Transfers (B, C, W/C) (FIM): 5 Toilet/Commode Transfer (FIM): 5 Tub Transfer (FIM): 0 Shower Transfer (FIM): 0 Education OT Patient Education: Correct positioning, Safety issues Teaching Recipient: Patient Teaching Methods: Demonstration Response to Teaching: Verbalize Understanding OT Short Term Goals Short Term Goals Time Frame: Aug 26, 2018 Additional Short Term Goals: 1-Demonstrate ADL Tasks, 2-Verbalize Understanding , 3-ImproveStrength/Lesia 1=Demonstrate adherence to instructed precautions during ADL tasks. 2=Patient will verbalize/demonstrate understanding of assistive devices/ modifications for ADL. 3=Patient will improve strength/tolerance for activity to enable patient to perform ADL's. OT Manufacturing Support Engineer Goals Manufacturing Support Engineer Goals Time Frame: Sep 09, 2018 Eating (FIM): 7 Grooming(FIM): 7 Bathing(FIM): 7 Bathing Location: L Arm, R Arm, L Upper Leg, R Upper Leg, L Lower Leg ( including foot), R Lower Leg (including foot), Chest, Abdomen, Buttocks, Perineal Area Upper Body Dressing(FIM): 7 Lower Body Dressing(FIM): 7 Toileting(FIM): 7 Transfers (B,C,W/C) (FIM): 7 Toilet/Commode Transfer(FIM): 7 Tub Transfer(FIM): 7 Shower Transfer(FIM): 7 Additional Goals: 1-Demonstrate ADL Tasks, 2-Verbalize Understanding, 3- ImproveStrength/Lesia 1=Demonstrate adherence to instructed precautions during ADL tasks. 2=Patient will verbalize/demonstrate understanding of assistive devices/ modifications for ADL. 3=Patient will improve strength/tolerance for activity to enable patient to perform ADL's. OT Education/Plan Problem List/Assessment Assessment: Decreased Activ Tolerance, Decreased Safety Aware, Decreased UE Strength, Dependent Transfers, Impaired Bed Mobility, Impaired Funct Balance, Impaired Self-Care Skills Discharge Recommendations Plan/Recommendations: Continue POC Therapy D/C Recommendations: Home Independently, Occupational Therapy Home Care Patient/Family Goals To return to my Apartment Independently. Treatment Plan/Plan of Care Treatment,Training & Education: Yes Patient would benefit from OT for education, treatment and training to promote independence in ADL's, mobility, safety and/or upper extremity function for ADL' s. Plan of Care: ADL Retraining, Functional Mobility, Group Exercise/Act as Ind, UE Funct Exercise/Act, UE Neuromus Re-Ed/Coord Treatment Duration: Sep 09, 2018 Frequency: 5 times per week Estimated Hrs Per Day: .25 hour per day Agreement: Yes Rehab Potential: Good Time/GCodes Start Time: 14:26 Stop Time: 14:42 Total Time Billed (hr/min): 16 Billed Treatment Time 1, EVM 16 minutes KIRTI GARZON OT Aug 12, 2018 16:13
--- NOTE | 2018-08-12 16:18 | NUR ---
PT refused Glucophage at this time d/t decreased appetite. Blood sugar checked and pt glucose is 88.
[2018-08-12] MEDS: PRAMIPEXOLE 0.5 MG TAB (MIRAPEX) PO SCH (20:23)
[2018-08-12] MEDS: SIMvastatin 40 MG (ZOCOR) TAB PO SCH (20:24)
[2018-08-12] MEDS: MELOXICAM 7.5 MG (MOBIC) TABLET PO SCH (20:24)
[2018-08-13] MEDS: ALPRAZolam 1 MG (XANAX) TAB PO SCH ×4 (00:38→22:05)
[2018-08-13] MEDS: CYCLOBENZAPRINE 10 MG (FLEXERIL) TAB PO PRN ×2 (00:38→08:47)
[2018-08-13] MEDS: AMITRIPTYLINE 25 MG (ELAVIL) TAB PO SCH ×3 (00:38→22:04)
[2018-08-13] MEDS: PROMETHAZINE/ CODEINE SYRUP 5 ML UDC PO PRN ×2 (00:42→10:29)
[2018-08-13] MEDS: BETAMETHASONE/CLOTRIM CREAM (LOTRISONE) 45 GM TP SCH ×3 (00:43→22:05)
[2018-08-13 01:18] VITALS: BP 112/55
[2018-08-13] MEDS: RT-ALBUTEROL/IPRATROPIUM 3 ML (DUONEB) VIAL INH SCH ×6 (02:11→23:14)
[2018-08-13] MEDS: oxyCODONE/APAP 10/325MG (PERCOCET 10) TABLET PO SCH ×4 (03:04→17:59)
[2018-08-13 06:08] LABS: BASOPHILS % (AUTO) 0 % (0-10); EOSINOPHILS # (AUTO) 0.1 10^3/uL (0.0-0.3); EOSINOPHILS % (AUTO) 2 % (0-10); HEMATOCRIT 38 % (35-52); HEMOGLOBIN 12.8 G/DL (11.5-16.0); LYMPHOCYTES # (AUTO) 1.4 X 10^3 (1.0-4.0); LYMPHOCYTES % (AUTO) 30 % (12-44); MEAN CORPUSCULAR HEMOGLOBIN 29 PG (25-34); MEAN CORPUSCULAR HGB CONC 33 G/DL (32-36); MEAN CORPUSCULAR VOLUME 87 FL (80-99); MEAN PLATELET VOLUME 10.9 FL (7.4-10.4); MONOCYTES # (AUTO) 0.4 X 10^3 (0.0-1.0); MONOCYTES % (AUTO) 9 % (0-12); NEUTROPHILS # (AUTO) 2.8 X 10^3 (1.8-7.8); NEUTROPHILS % (AUTO) 59 % (42-75); PLATELET COUNT 159 10^3/uL (130-400); RED CELL DISTRIBUTION WIDTH 14.7 % (10.0-14.5); WHITE BLOOD COUNT 4.7 10^3/uL (4.3-11.0)
[2018-08-13 06:32] LABS: ALANINE AMINOTRANSFERASE 13 U/L (0-55); ALBUMIN 3.3 GM/DL (3.2-4.5); ALKALINE PHOSPHATASE 63 U/L (40-136); BILIRUBIN,TOTAL 0.9 MG/DL (0.1-1.0); BUN/CREATININE RATIO 8; CALCIUM 9.1 MG/DL (8.5-10.1); CARBON DIOXIDE 29 MMOL/L (21-32); CHLORIDE 101 MMOL/L (98-107); CREATININE SERUM 0.72 MG/DL (0.60-1.30); GFR ESTIMATED > 60; GLUCOSE 94 MG/DL (70-105); POTASSIUM 2.7 MMOL/L (3.6-5.0); SODIUM 141 MMOL/L (135-145); TOTAL PROTEIN 5.9 GM/DL (6.4-8.2)
[2018-08-13] MEDS: KCL 20 MEQ TAB (K-DUR) PO SCH (07:02)
[2018-08-13] MEDS: metFORMIN 500 MG (GLUCOPHAGE) TAB PO SCH ×2 (07:02→17:59)
[2018-08-13 08:00] VITALS: BP 130/71
[2018-08-13] MEDS: NS IV 1000 ML 1,000 ML IV SCH (08:44)
[2018-08-13] MEDS: NICOTINE 21 MG (NICODERM) PATCH TD SCH (08:45)
[2018-08-13] MEDS: LEVOFLOXACIN 750 MG/150 ML IV 150 ML IV SCH (08:45)
[2018-08-13] MEDS: LORATADINE (CLARITIN) 10 MG TAB PO SCH (08:46)
[2018-08-13] MEDS: GABAPENTIN 300 MG (NEURONTIN) CAP PO SCH ×3 (08:46→22:04)
[2018-08-13] MEDS: HYDROCHLOROTHIAZIDE 25 MG (HCTZ) TAB PO SCH (08:46)
[2018-08-13] MEDS: ASPIRIN 81 MG CHEW (CHILDREN'S ASA) PO SCH (08:46)
[2018-08-13] MEDS: guaiFENesin (MUCINEX) 600 MG TAB PO SCH ×2 (08:46→22:04)
[2018-08-13] MEDS: PANTOPRAZOLE 20 MG TABLET (PROTONIX) PO SCH (08:46)
[2018-08-13] MEDS: FERROUS SULF 325 MG (IRON) TAB PO SCH (08:47)
[2018-08-13] MEDS: PROPRANOLOL 20 MG (INDERAL) TABLET PO SCH ×2 (08:47→22:04)
[2018-08-13] MEDS: MONTELUKAST 10 MG (SINGULAIR) TAB PO SCH (08:47)
[2018-08-13] MEDS: FLUTICASONE NASAL SPRAY (FLONASE) 16 GM BTL NS SCH (08:47)
[2018-08-13] MEDS: NICOTINE PATCH REMOVAL TP SCH (08:59)
[2018-08-13] MEDS ORDERED: DOCUSATE SODIUM 100 MG (COLACE) CAP PO PRN (09:00)
[2018-08-13] MEDS: POLYETHYLENE GLYCOL 17 GM (MIRALAX) PACK PO SCH (09:00)
--- NOTE | 2018-08-13 09:26 | NUR ---
CM/SS spoke with patient regarding discharge planning. Patient was adamant that she would not consider a SNF stay as she had a friend that at [facility] and it was supposed to be a good facility. Discussed there would be other options for facilities that are equally as good for a skilled stay to rehab to home. Patient is working with [employer] to get a new worker (Karlee) hired. She also talked about her case manger with [facility] working with her to maybe get her more hours with her worker. Patient also wanted to discuss how PT had gotten her up to walk first thing and that throws off her schedule.
--- NOTE | 2018-08-13 09:39 | Progress Note-Hospitalist ---
Subjective HPI/CC On Admission Date Seen by Provider: Aug 13, 2018 Time Seen by Provider: 09:00 Subjective/Events-last exam Pt very hateful towards nursing staff and physical therapy Convinced she is not getting her pain medication as she takes it home but we are trying our best to support her Needs correction placement but she won't hear of it Needs Nystatin swish and swallow for thrush on her tongue Added steroids due to exacerbation of COPD and previous smoking and will supplement potassium since it is 2.7 Overall difficult situation, she does have medicaid so will maintain acute care status and hopefully she will be able to ambulate more and DC home and I did have social work touch base but very difficult placement issue All she talks about constantly is her fibromyalgia pain which she takes narcotics for Review of Systems General: Fatigue Pulmonary: Dyspnea, Cough Gastrointestinal: Constipation Objective Exam Vital Signs Vital Signs Date Time Temp Pulse Resp B/P (MAP) Pulse Ox O2 Delivery O2 Flow Rate FiO2 08/13/18 18:54 93 Nasal Cannula 1.50 08/13/18 18:30 98.0 08/13/18 15:53 64 18 155/84 (107) 08/11/18 09:32 32 Capillary Refill : Less Than 3 Seconds General Appearance: No Apparent Distress, WD/WN HEENT: PERRL/EOMI, TMs Normal, Normal ENT Inspection, Pharynx Normal Neck: Full Range of Motion, Normal Inspection, Non Tender, Supple Respiratory: Chest Non Tender, No Accessory Muscle Use, No Respiratory Distress , Crackles, Decreased Breath Sounds, Wheezing (throughout lung doyle) Cardiovascular: Regular Rate, Rhythm, No Edema, No Gallop, No JVD, No Murmur, Normal Peripheral Pulses Gastrointestinal: Normal Bowel Sounds, No Organomegaly, No Pulsatile Mass, Non Tender, Soft Extremity: Normal Capillary Refill, Normal Inspection, Normal Range of Motion, Non Tender, No Calf Tenderness, No Pedal Edema Neurologic/Psychiatric: Alert, Oriented x3, No Motor/Sensory Deficits, Depressed Affect Skin: Normal Color, Warm/Dry Results/Procedures Lab Laboratory Tests 08/13/18 05:26 08/13/18 05:29 Patient resulted labs reviewed. Assessment/Plan Assessment and Plan Assess & Plan/Chief Complaint Assessment: Pneumonia failed outpt abx and steroids Hypokalemia AECOPD Emotional problems Constipation Fibromyalgia Chronic pain Plan: Home meds Abx Nebs O2 PT/OT Added steroids due to smoking hx and likely component of copd Patient needs NHP but refuse so may have to initiate swing bed to help recovery Diagnosis/Problems Diagnosis/Problems (1) Pneumonia Status: Acute Qualifiers: Pneumonia type: due to unspecified organism Lung location: middle lobe of lung (2) Chronic mental illness Status: Chronic (3) Diabetes mellitus Status: Chronic Qualifiers: Diabetes mellitus type: type 2 Diabetes mellitus 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: without alf use Diabetes mellitus complication status: without complication Qualified Codes: E11.9 - Type 2 diabetes mellitus without complications (4) Acute exacerbation of chronic obstructive airways disease Status: Acute (5) Hypokalemia Status: Acute (6) Smoker Status: Chronic (7) Fibromyalgia Status: Chronic (8) Chronic pain Status: Chronic Qualifiers: Chronic pain type: chronic pain syndrome Qualified Codes: G89.4 - Chronic pain syndrome (9) Narcotic dependence Status: Chronic (10) Constipation Status: Acute Qualifiers: Constipation type: slow transit constipation Qualified Codes: K59.01 - Slow transit constipation Clinical Quality Measures DVT/VTE Risk/Contraindication: Risk Factor Score Per Nursin RFS Level Per Nursing on Admit: 4+=Very High BAYRON JASMINE DO Aug 13, 2018 09:39
[2018-08-13] MEDS ORDERED: MAGNESIUM 1 GM/100 ML IVPB 100 ML IV NR (09:45)
[2018-08-13] MEDS ORDERED: NYSTATIN ORAL SUSP 5 ML UDC PO NR (09:45)
--- NOTE | 2018-08-13 09:50 | Physical Therapy Daily Note ---
PT Daily Note-Current Subjective Patient is very reluctant to participate with PT due to patient reports she has a schedule she follows at home and this is too early to do anything. Patient states, "My fibromyalgia doesn't allow me to do anything until I'm ready." Physician notified. Pain Numeric Pain Scale: 10-Worst Possible Pain Location: Soft Tissue Location Body Site: Generalized Pain Description: Chronic Mental Status Patient Orientation: Normal For Age Attachments: Oxygen, IV Transfers Therapy Code Descriptions/Definitions Functional [place] Measure: 0=Not Assessed/NA 4=Minimal Assistance 1=Total Assistance 5=Supervision or Setup 2=Maximal Assistance 6=Modified [place] 3=Moderate Assistance 7=Complete [place] Therapy Quality Codes: 6 Independent with activity with or without an assistive device 5 Patient requires set up or clean up by helper. Patient completes activity by themselves 4 Supervision or touching assist (CGA). [place] provide cues , steadying assist 3 The helper provides less than half the effort to complete the activity 2 The helper provides more than half the effort to complete the activity 1 Dependent. The helper does all the effort to complete an activity 7 Patient refused to complete or attempt activity 9 The patient did not perform the activity before the current illness or injury 88 Not attempted due to Medical conditions or safety concerns Transfers (B, C, W/C) (FIM): 5 Scootin Rollin Supine to/from Sit: 5 Sit to/from Stand: 5 Bed to/from Chair: 5 Weight Bearing Right Lower Extremity: Right Full Weight Bearing Left Lower Extremity: Left Full Weight Bearing Gait Training Gait (FIM): 2 Distance (FIM): 1=510-72 ft Distance: 60' Gait Level of Assist: 4 Gait Persons Needed: 1 Gait Assistive Device: Walker 4 Wheeled patient self limits due to fibromyalgia/functional gait sequence Exercises Seated Therapy Exercises: Ankle pumps, Long arc quads Seated Reps: 15 Assessment Patient requires much encouragement to participate with PT and is very vocal during the entire treatment. Patient ceased treatment and dismissed therapy. PT Channeler Outsole Goals Senior Living Goals PT Channeler Outsole Goals Time Frame: Aug 19, 2018 Transfers (B,C,W/C) (FIM): 6 Gait (FIM): 6 Gait distance (FIM): 3=150 ft Distance: 150' Gait Level of Assist: 6 Gait Assistive Device: Walker 4 Wheeled PT Plan Treatment/Plan Treatment Plan: Continue Plan of Care Treatment Plan: Bed Mobility, Education, Functional Activity Lesia, Functional Strength, Gait, Safety, Therapeutic Exercise, Transfers Treatment Duration: Aug 19, 2018 Frequency: 6 times per week Estimated Hrs Per Day: .25 hour per day Patient and/or Family Agrees t: Yes Time/GCodes Time In: 843 Time Out: 857 Total Billed Treatment Time: 14 Total Billed Treatment 1 visit FA 14 min MATTHEW CANO PT Aug 13, 2018 09:50
[2018-08-13] MEDS: ONDANSETRON 4 MG/2 ML (SDV) Z0FRAN IV PRN ×2 (10:30→22:15)
--- NOTE | 2018-08-13 10:43 | Occupational Ther Daily Note ---
OT Current Status-Daily Note Subjective Pt sleeping in recliner when ASTUDILLO walked in. Pt would fall asleep in the middle of sentence or writing breakfast list. Pt did agree to therapy. Pt stated that she had gotten her medicine that makes her feel sleepy and that she takes it at different times at home. Mental Status/Objective Patient Orientation: Person, Place, Time, Situation Therapy Code Descriptions/Definitions Functional [place] Measure: 0=Not Assessed/NA 4=Minimal Assistance 1=Total Assistance 5=Supervision or Setup 2=Maximal Assistance 6=Modified [place] 3=Moderate Assistance 7=Complete [place] Attachments: IV ADL-Treatment Pt stated that she wanted to take a shower later, but would wash up for breakfast. Pt was in the process of making her breakfast list then would fall asleep in the middle of writing. Pt was describing how she bathed at home and fell asleep in the middle of a sentence. Pt stated that she was not able to move her R arm past 90* due to carpal tunnel and surgery to move nerve in elbow then fell on it 3 days after surgery. States that she has a skilled worker that comes in to help her with her shower, washing/combing/drying hair. Pt was able to cleanse hands and face after set up for breakfast. Pt took increased time to complete session due to fatigue. After therapy, pt sitting in recliner with call light/phone in reach. All needs met in room. Grooming (FIM): 5 OT Short Term Goals Short Term Goals Time Frame: Aug 26, 2018 Additional Short Term Goals: 1-Demonstrate ADL Tasks, 2-Verbalize Understanding , 3-ImproveStrength/Lesia 1=Demonstrate adherence to instructed precautions during ADL tasks. 2=Patient will verbalize/demonstrate understanding of assistive devices/ modifications for ADL. 3=Patient will improve strength/tolerance for activity to enable patient to perform ADL's. OT Retirement Goals Retirement Goals Time Frame: Sep 09, 2018 Eating (FIM): 7 Grooming(FIM): 7 Bathing(FIM): 7 Bathing Location: L Arm, R Arm, L Upper Leg, R Upper Leg, L Lower Leg ( including foot), R Lower Leg (including foot), Chest, Abdomen, Buttocks, Perineal Area Upper Body Dressing(FIM): 7 Lower Body Dressing(FIM): 7 Toileting(FIM): 7 Transfers (B,C,W/C) (FIM): 7 Toilet/Commode Transfer(FIM): 7 Tub Transfer(FIM): 7 Shower Transfer(FIM): 7 Additional Goals: 1-Demonstrate ADL Tasks, 2-Verbalize Understanding, 3- ImproveStrength/Lesia 1=Demonstrate adherence to instructed precautions during ADL tasks. 2=Patient will verbalize/demonstrate understanding of assistive devices/ modifications for ADL. 3=Patient will improve strength/tolerance for activity to enable patient to perform ADL's. OT Education/Plan Discharge Recommendations Plan/Recommendations: Continue POC Treatment Plan/Plan of Care Patient would benefit from OT for education, treatment and training to promote independence in ADL's, mobility, safety and/or upper extremity function for ADL' s. Plan of Care: ADL Retraining, Functional Mobility, Group Exercise/Act as Ind, UE Funct Exercise/Act, UE Neuromus Re-Ed/Coord Treatment Duration: Sep 09, 2018 Frequency: 5 times per week Estimated Hrs Per Day: .25 hour per day Agreement: Yes Rehab Potential: Good Time/GCodes Start Time: 10:10 Stop Time: 10:33 Total Time Billed (hr/min): 23 Billed Treatment Time 1 visit-FA 2 (23 min) DREW GODDARD Aug 13, 2018 10:43
--- NOTE | 2018-08-13 11:00 | NUR ---
NOTE THAT PT HAS BEEN VERY UNCOOPERATIVE -- VOICES SHE NEEDS TO GET HER MEDS LIKE SHE GETS AT HOME -- SHE IS UNABLE TO UNDERSTAND THAT THIS IS THE MEDS THE DR WANTS YOU ON AND SHE NEEDS TO TAKE THEM -- YOU CAN EXPLAIN THIS AND THEN SHE IS ASKING THE SAME QUESTION AGAIN AND AGAIN
--- NOTE | 2018-08-13 11:04 | Physician Query Clarification ---
PQ-Intro New Diagnosis Admission/Discharge Admission Date: Aug 09, 2018 at 14:50 Discharge Date: The medical record reflects the following clinical scenario: History/Risk Factors: Pneumonia COPD with acute exacerbation Clinical Findings: Lactic acid on 08/09 was 3.22. Treatment: IV fluids. Question: What condition best reflects the above clinical scenario? Please document below. 1. Lactic acidosis. 2. Abnormal lab finding only. 3. Other, with explanation of the clinical findings. 4. Clinically undetermined, no explanation for the clinical findings. PHYSICIAN RESPONSE What condition reflects above: Clinically undetermined In responding to this query, please exercise your independent professional judgment. The purpose of this communication is to more accurately reflect the complexity of your patients condition. The fact that a question is asked does not imply that any particular answer is desired or expected. Thank you for your timely response to this clarification. Requestors name: Rylie Anguiaon [facility] Phone # ext [phone] or [phone] THIS PHYSICIAN QUERY FORM IS A PERMANENT PART OF THE MEDICAL RECORD RYLIE ANGUIANO Aug 13, 2018 11:04 BAYRON JASMINE DO Aug 13, 2018 13:17
[2018-08-13] MEDS: POTASSIUM CL 10MEQ/50ML IVPB 50 ML IV SCH ×4 (12:09→15:26)
[2018-08-13] MEDS: NYSTATIN ORAL SUSP 5 ML UDC PO SCH ×2 (12:12→17:59)
--- NOTE | 2018-08-13 14:00 | NUR ---
PT STILL UNCOOPERATIVE AND QUESTIONING MEDS -- PT IS VERY SEDATED AND FALL ASLEEP IN MID SENTENCE OR WHEN STAFF IN ROOM -- 1300 MEDS WERE HELD --
--- NOTE | 2018-08-13 15:50 | NUR ---
CM DISCHARGE PLANNING: Patient adamantly wants to return home with her [employer] workers at discharge. Visited with her about anticipation of doctor looking at next steps for her in her plan of care et looking towards discharge from the hospital. She reports that she feels like she is safe to return home with her [employer] workers in place. We visited about working with the therapists to ensure that it will be a safe plan of care for her to return there. She voiced that she will work with the "people dressed in black" when they come et request her time so that we will know that she is safe et ready for discharge to home. She did voice that she hopes that she can increase her hours with [employer] et will be talking with her [facility] coordinator "Faustina" to see if she can do that. She voiced no further concerns et denies any needs for new equipment at this time. She did report that she wears oxygen at [facility] only at home et I did note that she has been on this continuously here with us. Recommend consideration for home o2 study if this will be a new need.
[2018-08-13 15:53] VITALS: BP 155/84
[2018-08-13] MEDS ORDERED: DOCUSATE SODIUM 100 MG (COLACE) CAP PO NR (20:30)
[2018-08-13] MEDS ORDERED: SENNA W/DOCUSATE (SENOKOT S) TABLET PO NR (20:30)
[2018-08-13] MEDS: methylPREDNISolone 40 MG/ML (Solu-MEDROL) VIAL IV SCH (22:03)
[2018-08-13] MEDS: PRAMIPEXOLE 0.5 MG TAB (MIRAPEX) PO SCH (22:03)
[2018-08-13] MEDS: SIMvastatin 40 MG (ZOCOR) TAB PO SCH (22:05)
[2018-08-13] MEDS: MELOXICAM 7.5 MG (MOBIC) TABLET PO SCH (22:05)
[2018-08-14] VITALS: BP 155/79
[2018-08-14] MEDS: NYSTATIN ORAL SUSP 5 ML UDC PO SCH ×5 (00:07→23:43)
[2018-08-14] MEDS: oxyCODONE/APAP 10/325MG (PERCOCET 10) TABLET PO SCH ×2 (00:07→06:36)
[2018-08-14] MEDS: CYCLOBENZAPRINE 10 MG (FLEXERIL) TAB PO PRN ×2 (00:18→20:52)
[2018-08-14] MEDS: RT-ALBUTEROL/IPRATROPIUM 3 ML (DUONEB) VIAL INH SCH ×5 (02:29→20:12)
[2018-08-14 05:38] LABS: BASOPHILS % (AUTO) 0 % (0-10); EOSINOPHILS % (AUTO) 0 % (0-10); HEMATOCRIT 40 % (35-52); HEMOGLOBIN 13.1 G/DL (11.5-16.0); LYMPHOCYTES # (AUTO) 0.5 X 10^3 (1.0-4.0); LYMPHOCYTES % (AUTO) 8 % (12-44); MEAN CORPUSCULAR HEMOGLOBIN 29 PG (25-34); MEAN CORPUSCULAR HGB CONC 33 G/DL (32-36); MEAN CORPUSCULAR VOLUME 87 FL (80-99); MEAN PLATELET VOLUME 11.1 FL (7.4-10.4); MONOCYTES # (AUTO) 0.1 X 10^3 (0.0-1.0); MONOCYTES % (AUTO) 1 % (0-12); NEUTROPHILS # (AUTO) 6.3 X 10^3 (1.8-7.8); NEUTROPHILS % (AUTO) 91 % (42-75); PLATELET COUNT 178 10^3/uL (130-400); RED CELL DISTRIBUTION WIDTH 14.1 % (10.0-14.5); WHITE BLOOD COUNT 6.9 10^3/uL (4.3-11.0)
[2018-08-14 06:01] LABS: ALANINE AMINOTRANSFERASE 12 U/L (0-55); ALBUMIN 3.7 GM/DL (3.2-4.5); ALKALINE PHOSPHATASE 75 U/L (40-136); BILIRUBIN,TOTAL 0.7 MG/DL (0.1-1.0); BUN/CREATININE RATIO 9; CALCIUM 9.5 MG/DL (8.5-10.1); CARBON DIOXIDE 27 MMOL/L (21-32); CHLORIDE 100 MMOL/L (98-107); CREATININE SERUM 0.79 MG/DL (0.60-1.30); GFR ESTIMATED > 60; GLUCOSE 165 MG/DL (70-105); POTASSIUM 4.3 MMOL/L (3.6-5.0); SODIUM 137 MMOL/L (135-145); TOTAL PROTEIN 6.5 GM/DL (6.4-8.2)
[2018-08-14] MEDS: PROMETHAZINE/ CODEINE SYRUP 5 ML UDC PO PRN ×2 (06:36→23:43)
[2018-08-14] MEDS: KCL 20 MEQ TAB (K-DUR) PO SCH (06:36)
[2018-08-14] MEDS: metFORMIN 500 MG (GLUCOPHAGE) TAB PO SCH ×2 (06:36→17:09)
[2018-08-14 08:00] VITALS: BP 148/72
[2018-08-14] MEDS: LEVOFLOXACIN 750 MG/150 ML IV 150 ML IV SCH (09:39)
[2018-08-14] MEDS: GABAPENTIN 300 MG (NEURONTIN) CAP PO SCH ×3 (09:39→20:35)
[2018-08-14] MEDS: ALPRAZolam 1 MG (XANAX) TAB PO SCH ×2 (09:39→10:19)
[2018-08-14] MEDS: guaiFENesin (MUCINEX) 600 MG TAB PO SCH ×2 (09:39→20:34)
[2018-08-14] MEDS: FERROUS SULF 325 MG (IRON) TAB PO SCH (09:39)
[2018-08-14] MEDS: PANTOPRAZOLE 20 MG TABLET (PROTONIX) PO SCH (09:39)
[2018-08-14] MEDS: MONTELUKAST 10 MG (SINGULAIR) TAB PO SCH (09:39)
[2018-08-14] MEDS: HYDROCHLOROTHIAZIDE 25 MG (HCTZ) TAB PO SCH (09:39)
[2018-08-14] MEDS: ASPIRIN 81 MG CHEW (CHILDREN'S ASA) PO SCH (09:40)
[2018-08-14] MEDS: PROPRANOLOL 20 MG (INDERAL) TABLET PO SCH ×2 (09:40→20:35)
[2018-08-14] MEDS: LORATADINE (CLARITIN) 10 MG TAB PO SCH (09:40)
[2018-08-14] MEDS: methylPREDNISolone 40 MG/ML (Solu-MEDROL) VIAL IV SCH ×2 (09:40→20:33)
[2018-08-14] MEDS: NICOTINE 21 MG (NICODERM) PATCH TD SCH (09:41)
[2018-08-14] MEDS: NICOTINE PATCH REMOVAL TP SCH (09:41)
[2018-08-14] MEDS: FLUTICASONE NASAL SPRAY (FLONASE) 16 GM BTL NS SCH (09:41)
[2018-08-14] MEDS: BETAMETHASONE/CLOTRIM CREAM (LOTRISONE) 45 GM TP SCH ×3 (09:42→20:52)
[2018-08-14] MEDS: AMITRIPTYLINE 25 MG (ELAVIL) TAB PO SCH ×3 (09:46→21:00)
[2018-08-14] MEDS: POLYETHYLENE GLYCOL 17 GM (MIRALAX) PACK PO SCH (09:46)
--- NOTE | 2018-08-14 09:50 | Progress Note-Hospitalist ---
Subjective HPI/CC On Admission Date Seen by Provider: Aug 14, 2018 Time Seen by Provider: 09:30 Subjective/Events-last exam Patient doing a little better but still very wheezy so we'll consult Dr. Chamberlain and Dr. Chamberlain treats a lot of her family members anyway IV steroids maintained along with nebulizer treatments and oxygen supplementation Is aware she needs to get up and ambulate and regain her strength Was planning on discharging but due to the wheezing on lung exam and high risk for readmission will need to look further into resolution prior to discharge. Review of Systems General: Fatigue Pulmonary: Dyspnea Objective Exam Vital Signs Vital Signs Date Time Temp Pulse Resp B/P (MAP) Pulse Ox O2 Delivery O2 Flow Rate FiO2 08/14/18 10:48 95 72 28 08/14/18 10:45 Nasal Cannula 3.00 08/14/18 08:00 99.0 20 148/72 (97) Capillary Refill : Less Than 3 Seconds General Appearance: No Apparent Distress, WD/WN HEENT: PERRL/EOMI, TMs Normal, Normal ENT Inspection, Pharynx Normal Neck: Full Range of Motion, Normal Inspection, Non Tender, Supple Respiratory: Chest Non Tender, No Accessory Muscle Use, No Respiratory Distress , Crackles, Decreased Breath Sounds, Wheezing (throughout lung doyle) Cardiovascular: Regular Rate, Rhythm, No Edema, No Gallop, No JVD, No Murmur, Normal Peripheral Pulses Gastrointestinal: Normal Bowel Sounds, No Organomegaly, No Pulsatile Mass, Non Tender, Soft Extremity: Normal Capillary Refill, Normal Inspection, Normal Range of Motion, Non Tender, No Calf Tenderness, No Pedal Edema Neurologic/Psychiatric: Alert, Oriented x3, No Motor/Sensory Deficits, Depressed Affect Skin: Normal Color, Warm/Dry Results/Procedures Lab Laboratory Tests 08/14/18 05:15 Patient resulted labs reviewed. Assessment/Plan Assessment and Plan Assess & Plan/Chief Complaint Assessment: Pneumonia failed outpt abx and steroids Hypokalemia AECOPD Emotional problems Constipation Fibromyalgia Chronic pain Plan: Home meds maintained Abx Nebs O2 PT/OT Added steroids due to smoking hx and likely component of copd Patient needs NHP but refuse so may have to initiate swing bed to help recovery Consult Dr Chamberlain Bm regimen Diagnosis/Problems Diagnosis/Problems (1) Pneumonia Status: Acute Qualifiers: Pneumonia type: due to unspecified organism Lung location: middle lobe of lung (2) Chronic mental illness Status: Chronic (3) Diabetes mellitus Status: Chronic Qualifiers: Diabetes mellitus type: type 2 Diabetes mellitus quill stripper insulin use: without senior living use Diabetes mellitus complication status: without complication Qualified Codes: E11.9 - Type 2 diabetes mellitus without complications (4) Acute exacerbation of chronic obstructive airways disease Status: Acute (5) Hypokalemia Status: Acute (6) Smoker Status: Chronic (7) Fibromyalgia Status: Chronic (8) Chronic pain Status: Chronic Qualifiers: Chronic pain type: chronic pain syndrome Qualified Codes: G89.4 - Chronic pain syndrome (9) Narcotic dependence Status: Chronic (10) Constipation Status: Acute Qualifiers: Constipation type: slow transit constipation Qualified Codes: K59.01 - Slow transit constipation Clinical Quality Measures DVT/VTE Risk/Contraindication: Risk Factor Score Per Nursin RFS Level Per Nursing on Admit: 4+=Very High BAYRON JASMINE DO Aug 14, 2018 09:50
[2018-08-14] MEDS: ONDANSETRON 4 MG/2 ML (SDV) Z0FRAN IV PRN ×2 (10:09→20:52)
--- NOTE | 2018-08-14 10:20 | NUR ---
PT STATES AT HOME SHE TAKES .5MG XANAX THREE TO FOUR TIMES DAILY. PT ONLY WANTED THE .5MG TABLET THIS AM. THE OTHER 0.5MG WASTED AND WITNESSED BY Perico CORNEJO RN, AND THE OTHER 1MG TABLET RETURNED TO [facility]. WILL HAVE MEDICATION RECONCILIATION TECH LOOK AT PT'S HOME MEDICATIONS.
[2018-08-14] MEDS ORDERED: RT-ALBUTEROL/IPRATROPIUM 3 ML (DUONEB) VIAL INH PRN (11:00)
[2018-08-14] MEDS ORDERED: FLEET ENEMA ADULT 1 EA BTL PR PRN (11:15)
[2018-08-14] MEDS ORDERED: BISACODYL 10 MG SUPP (DULCOLAX) PR NR (11:24)
--- NOTE | 2018-08-14 11:29 | Pulmonary Consultation ---
History of Present Illness History of Present Illness Date of Consultation 08/14/18 11:24 Time Seen by Provider: 17:00 Date of Admission History of Present Illness 63yo with hx of COPD presented to ED secondary to worsening cough, SOB, and wheezing. Pt has also had N/V/D over the last 3 wks. She was being treated as out patient with Abx and steroids however SOB continued to worsen. Pt failed out pt treatment and was also requiring more oxygen. I am consulted for pulmonary management. Allergies and Home Medications Allergies Coded Allergies: ceftriaxone (Verified Allergy, Unknown, RASH, 08/12/18) Home Medications Albuterol Sulfate 1 Puff Puff, 2 PUFF IH Q4H PRN for SHORTNESS OF BREATH, ( Reported) 1 PUFF = 90 MCG Alprazolam 2 Mg Tablet, 0.5-1 MG PO Q3H, (Reported) NOT TO EXCEED 3 TABLETS IN 24 HOURS Ascorbic Acid 500 Mg Capsule.er, 500 MG PO DAILY, (Reported) Aspirin 81 Mg Tablet.dr, 81 MG PO DAILY, (Reported) Cetirizine HCl 10 Mg Tablet, 10 MG PO DAILY, (Reported) Citalopram Hydrobromide 40 Mg Tablet, 40 MG PO DAILY, (Reported) Clotrimazole/Betamethasone Dip 15 Gm Cream..g., 15 GM TP BID, (Reported) Cyclobenzaprine HCl 10 Mg Tablet, 10 MG PO BID PRN for MUSCLE SPASMS, (Reported) Docusate Sodium 100 Mg Tablet, 100 MG PO PRN, (Reported) Doxycycline Hyclate 100 Mg Tablet, 100 MG PO BID, (Reported) 7 DAY SUPPLY FILLED 08/07/18 Ferrous Sulfate 325 Mg Tablet, 325 MG PO DAILY, (Reported) Fluticasone Propionate 9.9 Ml [place].susp, 1 SPRAY NS DAILY, (Reported) Gabapentin 600 Mg Tablet, 600 MG PO TID, (Reported) Guaifenesin 600 Mg Tab.er.12h, 600 MG PO BID, (Reported) Hydrochlorothiazide 25 Mg Tablet, 25 MG PO DAILY, (Reported) Hydrocortisone/Aloe Vera 28.4 Gm Cream..g., 28.4 GM TP TID, (Reported) Ipratropium/Albuterol Sulfate 3 Ml Ampul.neb, 3 ML IH Q4H PRN for SHORTNESS OF BREATH, (Reported) Metformin HCl 500 Mg Tablet, 500 MG PO BID, (Reported) Montelukast Sodium 10 Mg Tablet, 10 MG PO DAILY, (Reported) Omeprazole 20 Mg Capsule.dr, 20 MG PO DAILY, (Reported) Ondansetron 8 Mg Tab.rapdis, 8 MG PO Q6H PRN for NAUSEA/VOMITING, (Reported) Oxycodone HCl/Acetaminophen 1 Each Tablet, 0.5 TAB PO Q3H PRN for PAIN-MODERATE, (Reported) Polyethylene Glycol 3350 17 Gm Powd.pack, 17 GM PO DAILY, (Reported) Potassium Chloride 10 Meq Capsule.er, 20 MEQ PO DAILY, (Reported) Prednisone 50 Mg Tab, 50 MG PO DAILY, (Reported) 5 DAY SUPPLY FILLED 08/07/18 Propranolol HCl 40 Mg Tablet, 40 MG PO BID, (Reported) Simvastatin 40 Mg Tablet, 40 MG PO HS, (Reported) [Lidoderm] , 5 % TD DAILY, (Reported) REMOVE AFTER 12 HOURS Past Sgboejl-Vgdfzr-Edcwqv Hx Past Med/Social Hx: Reviewed Nursing Past Med/Soc Hx Patient Social History Alcohol Use: Denies Use Recreational Drug Use: No Smoking Status: Current Everyday Smoker Type Used: Cigarettes 2nd Hand Smoke Exposure: Yes Recent Foreign Travel: No Contact w/Someone Who Travel: No Recent Infectious Disease Expo: No Recent Hopitalizations: Yes Physical Abuse: No Sexual Abuse: No Immunizations Up To Date Date of Pneumonia Vaccine: Jun 02, 2014 Date of Influenza Vaccine: Mar 18, 2018 Past Medical History Surgeries: Yes (R KNEE SCOPE x2/ CARPAL TUNNEL/ CUBITAL TUNNEL) Hysterectomy Respiratory: Yes (COPD, O2 AT NIGHT 2.5-3L) COPD Cardiac: Yes Hypertension Neurological: Yes (STRESS SEIZURE) Neuropathy Reproductive Disorders: No Sexually Transmitted Disease: No HIV/AIDS: No Gastrointestinal: Yes (diverticulitis, ulcers) Gastroesophageal Reflux Musculoskeletal: Yes (SPINAL STENOSIS) Degenerate Disk Disease, Arthritis, Fibromyalgia, Chronic Back Pain Endocrine: Yes Loss of Vision: Bilateral Hearing Impairment: Denies Cancer: No Psychosocial: Yes Anxiety, Depression Integumentary: No Blood Disorders: Yes (CHRONIC ANEMIA) Adverse Reaction/Blood Tranf: Yes (HAS HAD BLOOD WITH NO PROBLEMS) Family Medical History Reviewed Nursing Family Hx Patient reports no known family medical history. Review of Systems Time Seen by Provider: 10:58 Sepsis Event Evaluation Height, Weight, BMI Height: 5'2.00" Weight: 150lbs. 0.0oz. [id number]; 27.4 BMI Method:Stated Exam Exam Vital Signs Date Time Temp Pulse Resp B/P (MAP) Pulse Ox O2 Delivery O2 Flow Rate FiO2 08/14/18 10:48 95 72 28 08/14/18 10:45 95 Nasal Cannula 3.00 08/14/18 08:00 99.0 69 20 148/72 (97) 92 Nasal Cannula 2.00 08/14/18 02:29 94 Nasal Cannula 3.00 08/14/18 00:00 98.3 72 18 155/79 (104) 93 Nasal Cannula 2.00 08/13/18 23:14 88 Nasal Cannula 1.50 08/13/18 20:00 Nasal Cannula 3.00 08/13/18 18:54 93 Nasal Cannula 1.50 08/13/18 18:30 98.0 08/13/18 15:53 98.0 64 18 155/84 (107) 94 Nasal Cannula 2.00 08/13/18 14:37 93 Nasal Cannula 2.00 I & O 08/14/18 07:00 Intake Total 3710 ml Output Total 1505 ml Balance 2205 ml Height & Weight Height: 5'2.00" Weight: 150lbs. 0.0oz. 68.580189uh; 27.4 BMI Method:Stated General Appearance: No Apparent Distress, WD/WN HEENT: PERRL/EOMI, TMs Normal, Normal ENT Inspection, Pharynx Normal Neck: Full Range of Motion, Normal Inspection, Non Tender, Supple Respiratory: Chest Non Tender, No Accessory Muscle Use, No Respiratory Distress , Crackles, Decreased Breath Sounds, Wheezing (throughout lung doyle) Cardiovascular: Regular Rate, Rhythm, No Edema, No Gallop, No JVD, No Murmur, Normal Peripheral Pulses Capillary Refill: Less Than 3 Seconds Gastrointestinal: soft Extremity: Normal Capillary Refill, Normal Inspection, Normal Range of Motion, Non Tender, No Calf Tenderness, No Pedal Edema Neurologic/Psychiatric: Alert, Oriented x3, No Motor/Sensory Deficits, Depressed Affect Skin: Normal Color, Warm/Dry Results Lab Laboratory Tests 08/13/18 05:26 08/13/18 05:29 08/14/18 05:15 Assessment/Plan Assessment/Plan COPDAE -SVNs -Solumedrol -Oxygen Tobacco use PNA DM Hypokalemia Fibromyalgia Narcotic dependence Constipation CHANDA BHAGAT DO Aug 14, 2018 11:29
[2018-08-14] MEDS: ENOXAPARIN 40 MG/0.4 ML (LOVENOX) SYR SC SCH (13:30)
[2018-08-14] MEDS: oxyCODONE/APAP 10/325MG (PERCOCET 10) TABLET PO PRN ×4 (13:31→23:43)
[2018-08-14] MEDS: ALPRAZolam 1 MG (XANAX) TAB PO PRN ×4 (13:31→23:43)
--- NOTE | 2018-08-14 13:39 | Physical Therapy Daily Note ---
PT Daily Note-Current Subjective Pt was in recliner eating lunch and agreed to PT. Pt requests to use restroom. Patient has pain but is vague about location or intensity. Mental Status Patient Orientation: Person, Place, Situation, Normal For Age Attachments: Oxygen (2L) Transfers Therapy Code Descriptions/Definitions Functional [place] Measure: 0=Not Assessed/NA 4=Minimal Assistance 1=Total Assistance 5=Supervision or Setup 2=Maximal Assistance 6=Modified [place] 3=Moderate Assistance 7=Complete [place] Therapy Quality Codes: 6 Independent with activity with or without an assistive device 5 Patient requires set up or clean up by helper. Patient completes activity by themselves 4 Supervision or touching assist (CGA). [place] provide cues , steadying assist 3 The helper provides less than half the effort to complete the activity 2 The helper provides more than half the effort to complete the activity 1 Dependent. The helper does all the effort to complete an activity 7 Patient refused to complete or attempt activity 9 The patient did not perform the activity before the current illness or injury 88 Not attempted due to Medical conditions or safety concerns Transfers (B, C, W/C) (FIM): 5 Scootin Sit to/from Stand: 5 Weight Bearing Right Lower Extremity: Right Full Weight Bearing Left Lower Extremity: Left Full Weight Bearing Gait Training Gait (FIM): 4 Distance (FIM): 3=150 ft Distance: 150' Gait Level of Assist: 4 Gait Persons Needed: 1 Gait Assistive Device: Walker 4 Wheeled Exercises Seated Therapy Exercises: Ankle pumps, Hip abd/add Seated Reps: 15 Assessment Current Status: Fair Progress Pt requires increased time to perform activity due to pain and SOA. Pt is able to transfer SBA from recliner to 4WW. Pt was able to amb to restroom and transfers to toilet SBA. Pt is indep with bathroom skills. Pt was able to amb with 4WW 150' with CGA for safety. Pt at times is able to amb at a fast gait speed but for the majority of the time will amb at a very slow gait speed. Pt was on 2L O2. Pt returned to room and transferred to recliner. PT assisted pt with dressing with a new gown. Pt performed seated LE ex. Pt now has all needs met in recliner. PT Modeling And Simulation Analyst Goals Longterm Goals PT Longterm Goals Time Frame: Aug 19, 2018 Transfers (B,C,W/C) (FIM): 6 Gait (FIM): 6 Gait distance (FIM): 3=150 ft Distance: 150' Gait Level of Assist: 6 Gait Assistive Device: Walker 4 Wheeled PT Plan Problem List Problem List: Activity Tolerance, Functional Strength, Safety, Balance, Gait, Transfer, Bed Mobility, ROM Treatment/Plan Treatment Plan: Continue Plan of Care Treatment Plan: Bed Mobility, Education, Functional Activity Lesia, Functional Strength, Gait, Safety, Therapeutic Exercise, Transfers Treatment Duration: Aug 19, 2018 Frequency: 6 times per week Estimated Hrs Per Day: .25 hour per day Patient and/or Family Agrees t: Yes Safety Risks/Education Patient Education: Gait Training, Transfer Techniques, Correct Positioning, Safety Issues Teaching Recipient: Patient Teaching Methods: Demonstration, Discussion Response to Teaching: Reinforcement Needed Time/GCodes Time In: 1305 Time Out: 1329 Total Billed Treatment Time: 24 Total Billed Treatment 1 visit FA x2 24 min IRINA LÓPEZ PT Aug 14, 2018 13:39
--- NOTE | 2018-08-14 14:30 | Occupational Ther Daily Note ---
OT Current Status-Daily Note Subjective Pt in her room , in recliner. cooperative, alert & oriented.. Pt agree for therapy. Pain Numeric Pain Scale: 5-Moderate Pain Location: Right Location Body Site: Shoulder Pain Description: Throbbing Mental Status/Objective Patient Orientation: Person, Place, Time, Eyes Open Therapy Code Descriptions/Definitions Functional [place] Measure: 0=Not Assessed/NA 4=Minimal Assistance 1=Total Assistance 5=Supervision or Setup 2=Maximal Assistance 6=Modified [place] 3=Moderate Assistance 7=Complete [place] Attachments: Oxygen, Saline Lock ADL-Treatment Pt participated in bed mobility, func transfers & func mobility with FWW & Strengthening ex to BUE. Pt Independent in supine to sit & SBA in sit to stand with 4wheel walker. Pt ambulate 40 feet with min A with walker . Pt unsteady due to wekness , high risk of fall . Pt completed 30 reps x 2 sets x 2 lb wts, 40 reps using hand gripper to strengthen hand ob gyn to participate in all ADLs & to push up from bed to stand with 4 WW ., 30 reps with Red theraband with BUE in all planes of motion. Pt O2 dependent. Fatigue soon . c/o pain in Rt shoulder due to stiffness & weakness. Eating (FIM): 7 Grooming (FIM): 7 Education OT Patient Education: Correct positioning, Safety issues Teaching Recipient: Patient Teaching Methods: Demonstration Response to Teaching: Verbalize Understanding OT Short Term Goals Short Term Goals Time Frame: Aug 26, 2018 Additional Short Term Goals: 1-Demonstrate ADL Tasks, 2-Verbalize Understanding , 3-ImproveStrength/Lesia 1=Demonstrate adherence to instructed precautions during ADL tasks. 2=Patient will verbalize/demonstrate understanding of assistive devices/ modifications for ADL. 3=Patient will improve strength/tolerance for activity to enable patient to perform ADL's. OT Prison Goals Ceo And President Goals Time Frame: Sep 09, 2018 Eating (FIM): 7 Grooming(FIM): 7 Bathing(FIM): 7 Bathing Location: L Arm, R Arm, L Upper Leg, R Upper Leg, L Lower Leg ( including foot), R Lower Leg (including foot), Chest, Abdomen, Buttocks, Perineal Area Upper Body Dressing(FIM): 7 Lower Body Dressing(FIM): 7 Toileting(FIM): 7 Transfers (B,C,W/C) (FIM): 7 Toilet/Commode Transfer(FIM): 7 Tub Transfer(FIM): 7 Shower Transfer(FIM): 7 Additional Goals: 1-Demonstrate ADL Tasks, 2-Verbalize Understanding, 3- ImproveStrength/Lesia 1=Demonstrate adherence to instructed precautions during ADL tasks. 2=Patient will verbalize/demonstrate understanding of assistive devices/ modifications for ADL. 3=Patient will improve strength/tolerance for activity to enable patient to perform ADL's. OT Education/Plan Problem List/Assessment Assessment: Decreased Activ Tolerance, Decreased Safety Aware, Decreased UE Strength, Dependent Transfers, Impaired Bed Mobility, Impaired Funct Balance, Impaired Self-Care Skills, Restricted Funct UE ROM Discharge Recommendations Plan/Recommendations: Continue POC Therapy D/C Recommendations: Home Independently, Occupational Therapy Home Care Equpiment Recommendations-D/C: Extended Bath Bench, Extended Shower Sprayer, Hydrodynamics Professor Treatment Plan/Plan of Care Treatment,Training & Education: Yes Patient would benefit from OT for education, treatment and training to promote independence in ADL's, mobility, safety and/or upper extremity function for ADL' s. Plan of Care: ADL Retraining, Functional Mobility, Group Exercise/Act as Ind, UE Funct Exercise/Act, UE Neuromus Re-Ed/Coord Treatment Duration: Sep 09, 2018 Frequency: 5 times per week Estimated Hrs Per Day: .25 hour per day Agreement: Yes Rehab Potential: Good Time/GCodes Start Time: 13:30 Stop Time: 13:54 Total Time Billed (hr/min): 24 Billed Treatment Time 1, FA15 min, Ex 09 minutes Total 24 minutes. KIRTI GARZON OT Aug 14, 2018 14:30
[2018-08-14 16:00] VITALS: BP 179/69
[2018-08-14] MEDS: PRAMIPEXOLE 0.5 MG TAB (MIRAPEX) PO SCH (20:34)
[2018-08-14] MEDS: MELOXICAM 7.5 MG (MOBIC) TABLET PO SCH (20:35)
[2018-08-14] MEDS: SIMvastatin 40 MG (ZOCOR) TAB PO SCH (20:36)
[2018-08-15 00:28] VITALS: BP 135/69
[2018-08-15] MEDS: RT-ALBUTEROL/IPRATROPIUM 3 ML (DUONEB) VIAL INH SCH ×4 (01:45→19:48)
[2018-08-15] MEDS: oxyCODONE/APAP 10/325MG (PERCOCET 10) TABLET PO PRN ×6 (02:55→21:10)
[2018-08-15] MEDS: ALPRAZolam 1 MG (XANAX) TAB PO PRN ×5 (02:56→21:09)
[2018-08-15] MEDS: metFORMIN 500 MG (GLUCOPHAGE) TAB PO SCH ×2 (06:44→17:43)
[2018-08-15] MEDS: NYSTATIN ORAL SUSP 5 ML UDC PO SCH ×3 (06:45→17:43)
[2018-08-15] MEDS: KCL 20 MEQ TAB (K-DUR) PO SCH (06:45)
[2018-08-15] MEDS: PROMETHAZINE/ CODEINE SYRUP 5 ML UDC PO PRN ×2 (06:55→21:10)
[2018-08-15 07:07] LABS: BASOPHILS % (AUTO) 0 % (0-10); EOSINOPHILS % (AUTO) 0 % (0-10); HEMATOCRIT 38 % (35-52); HEMOGLOBIN 12.9 G/DL (11.5-16.0); LYMPHOCYTES # (AUTO) 0.6 X 10^3 (1.0-4.0); LYMPHOCYTES % (AUTO) 8 % (12-44); MEAN CORPUSCULAR HEMOGLOBIN 29 PG (25-34); MEAN CORPUSCULAR HGB CONC 34 G/DL (32-36); MEAN CORPUSCULAR VOLUME 86 FL (80-99); MEAN PLATELET VOLUME 11.2 FL (7.4-10.4); MONOCYTES # (AUTO) 0.2 X 10^3 (0.0-1.0); MONOCYTES % (AUTO) 2 % (0-12); NEUTROPHILS # (AUTO) 6.9 X 10^3 (1.8-7.8); NEUTROPHILS % (AUTO) 89 % (42-75); PLATELET COUNT 226 10^3/uL (130-400); RED CELL DISTRIBUTION WIDTH 14.2 % (10.0-14.5); WHITE BLOOD COUNT 7.8 10^3/uL (4.3-11.0)
[2018-08-15 07:25] LABS: ALANINE AMINOTRANSFERASE 13 U/L (0-55); ALBUMIN 3.9 GM/DL (3.2-4.5); ALKALINE PHOSPHATASE 66 U/L (40-136); BILIRUBIN,TOTAL 0.8 MG/DL (0.1-1.0); BUN/CREATININE RATIO 14; CALCIUM 9.9 MG/DL (8.5-10.1); CARBON DIOXIDE 28 MMOL/L (21-32); CHLORIDE 93 MMOL/L (98-107); CREATININE SERUM 0.69 MG/DL (0.60-1.30); GFR ESTIMATED > 60; GLUCOSE 132 MG/DL (70-105); POTASSIUM 4.2 MMOL/L (3.6-5.0); SODIUM 131 MMOL/L (135-145); TOTAL PROTEIN 6.8 GM/DL (6.4-8.2)
[2018-08-15 07:31] LABS: BAND NEUTROPHILS 0 %; BASOPHILS % (MANUAL) 0 %; EOSINOPHILS % (MANUAL) 0 %; LYMPHOCYTES % (MANUAL) 12 %; MONOCYTES % (MANUAL) 1 %; NEUTROPHILS % (MANUAL) 87 %; RBC MORPH NORMAL
[2018-08-15] MEDS: NICOTINE PATCH REMOVAL TP SCH (07:45)
[2018-08-15 08:00] VITALS: BP 134/76
[2018-08-15] MEDS: HYDROCHLOROTHIAZIDE 25 MG (HCTZ) TAB PO SCH (08:01)
[2018-08-15] MEDS: ASPIRIN 81 MG CHEW (CHILDREN'S ASA) PO SCH (08:01)
[2018-08-15] MEDS: MONTELUKAST 10 MG (SINGULAIR) TAB PO SCH (08:01)
[2018-08-15] MEDS: LORATADINE (CLARITIN) 10 MG TAB PO SCH (08:01)
[2018-08-15] MEDS: GABAPENTIN 300 MG (NEURONTIN) CAP PO SCH ×3 (08:01→21:07)
[2018-08-15] MEDS: PANTOPRAZOLE 20 MG TABLET (PROTONIX) PO SCH (08:01)
[2018-08-15] MEDS: guaiFENesin (MUCINEX) 600 MG TAB PO SCH ×2 (08:02→21:08)
[2018-08-15] MEDS: PROPRANOLOL 20 MG (INDERAL) TABLET PO SCH ×2 (08:02→21:09)
[2018-08-15] MEDS: FERROUS SULF 325 MG (IRON) TAB PO SCH (08:02)
[2018-08-15] MEDS: NICOTINE 21 MG (NICODERM) PATCH TD SCH (08:04)
[2018-08-15] MEDS: methylPREDNISolone 40 MG/ML (Solu-MEDROL) VIAL IV SCH ×2 (08:11→21:09)
[2018-08-15] MEDS: LEVOFLOXACIN 750 MG/150 ML IV 150 ML IV SCH (08:13)
[2018-08-15] MEDS: POLYETHYLENE GLYCOL 17 GM (MIRALAX) PACK PO SCH (08:37)
[2018-08-15] MEDS: AMITRIPTYLINE 25 MG (ELAVIL) TAB PO SCH ×2 (08:38→21:08)
[2018-08-15] MEDS: FLUTICASONE NASAL SPRAY (FLONASE) 16 GM BTL NS SCH (08:45)
[2018-08-15] MEDS ORDERED: IOHEXOL 350 MG/ML 100 ML (OMNIPAQUE 350) VIAL IV ONE (09:15)
[2018-08-15] MEDS ORDERED: NS 100 ML (IVPB) BAG IV ONE (09:15)
[2018-08-15] MEDS ORDERED: RECEIVED CONTRAST 20 ML VIAL IV SCH (09:15)
--- NOTE | 2018-08-15 09:33 | Progress Note-Hospitalist ---
Subjective HPI/CC On Admission Date Seen by Provider: Aug 15, 2018 Time Seen by Provider: 09:00 Subjective/Events-last exam Pt is sleepy and working on a crossword puzzle. Sodium level 131 so will fluid restrict. Checked labs. Overall Pt wants to stay in the hospital intermediate frame tender but that is not possible, so informed the nurses to get her up and around to be able to discharge tomorrow. Dr. Chamberlain saw her in consultation and will monitor her lung function as an outpatient also. CT scan is ordered. Review of Systems General: Fatigue Objective Exam Vital Signs Vital Signs Date Time Temp Pulse Resp B/P (MAP) Pulse Ox O2 Delivery O2 Flow Rate FiO2 08/16/18 17:30 62 20 122/68 98 Nasal Cannula 2.00 08/16/18 17:01 97.2 08/14/18 10:48 28 Capillary Refill : Less Than 3 Seconds General Appearance: No Apparent Distress, WD/WN HEENT: PERRL/EOMI, TMs Normal, Normal ENT Inspection, Pharynx Normal Neck: Full Range of Motion, Normal Inspection, Non Tender, Supple Respiratory: Chest Non Tender, No Accessory Muscle Use, No Respiratory Distress , Crackles, Decreased Breath Sounds, Wheezing (throughout lung doyle) Cardiovascular: Regular Rate, Rhythm, No Edema, No Gallop, No JVD, No Murmur, Normal Peripheral Pulses Gastrointestinal: Normal Bowel Sounds, No Organomegaly, No Pulsatile Mass, Non Tender, Soft Extremity: Normal Capillary Refill, Normal Inspection, Normal Range of Motion, Non Tender, No Calf Tenderness, No Pedal Edema Neurologic/Psychiatric: Alert, Oriented x3, No Motor/Sensory Deficits, Depressed Affect Skin: Normal Color, Warm/Dry Results/Procedures Lab Laboratory Tests 08/16/18 05:58 Patient resulted labs reviewed. Assessment/Plan Assessment and Plan Assess & Plan/Chief Complaint Assessment: Pneumonia failed outpt abx and steroids Hypokalemia AECOPD Emotional problems Constipation Fibromyalgia Chronic pain Plan: Home meds maintained Abx Nebs O2 PT/OT Added steroids due to smoking hx and likely component of copd Patient needs NHP but refuse so may have to initiate swing bed to help recovery Consult Dr Chamberlain Bm regimen Diagnosis/Problems Diagnosis/Problems (1) Pneumonia Status: Acute Qualifiers: Pneumonia type: due to unspecified organism Lung location: middle lobe of lung (2) Chronic mental illness Status: Chronic (3) Diabetes mellitus Status: Chronic Qualifiers: Diabetes mellitus type: type 2 Diabetes mellitus half-way insulin use: without intermediate frame tender use Diabetes mellitus complication status: without complication Qualified Codes: E11.9 - Type 2 diabetes mellitus without complications (4) Acute exacerbation of chronic obstructive airways disease Status: Acute (5) Hypokalemia Status: Acute (6) Smoker Status: Chronic (7) Fibromyalgia Status: Chronic (8) Chronic pain Status: Chronic Qualifiers: Chronic pain type: chronic pain syndrome Qualified Codes: G89.4 - Chronic pain syndrome (9) Narcotic dependence Status: Chronic (10) Constipation Status: Acute Qualifiers: Constipation type: slow transit constipation Qualified Codes: K59.01 - Slow transit constipation Clinical Quality Measures DVT/VTE Risk/Contraindication: Risk Factor Score Per Nursin RFS Level Per Nursing on Admit: 4+=Very High BAYRON JASMINE DO Aug 15, 2018 09:33
--- NOTE | 2018-08-15 10:16 | Diagnostic Imaging Report ---
PROCEDURE: CT chest with contrast only. TECHNIQUE: Multiple contiguous axial images were obtained through the chest after administration of intravenous contrast. INDICATION: Pneumonia, shortness of breath. Compared 08/20/2015. FINDINGS: Moderately large retrocardiac gastric hernia stable. Most conspicuous in the pulmonary apices are changes of centrilobular emphysema chronic. No alveolar consolidation or pneumonia is apparent. There is mild basilar atelectasis, greater right. There is scattered eber and parenchymal benign granulomatous residua chronic. No noncalcified or suspicious chest mass. No acute chest wall abnormality. No thoracic effusion. Upper abdomen appeared nonacute. IMPRESSION: Stable chronic findings include: Retrocardiac gastric hernia, benign granulomatous residua and centrilobular emphysema most pronounced at the apices. Dictated by: Dictated on workstation # [id number]
--- NOTE | 2018-08-15 11:01 | Pulmonary Progress Note ---
Subjective Time Seen by a Provider: 06:00 Subjective/Events-last exam Pt appears to be doing better. Sepsis Event Evaluation Height, Weight, BMI Height: 5'2.00" Weight: 150lbs. 0.0oz. [id number]; 27.4 BMI Method:Stated Exam Exam Vital Signs Date Time Temp Pulse Resp B/P (MAP) Pulse Ox O2 Delivery O2 Flow Rate FiO2 08/15/18 10:01 93 Nasal Cannula 3.00 08/15/18 08:00 Nasal Cannula 2.00 08/15/18 08:00 97.8 60 20 134/76 (95) 94 Nasal Cannula 2.00 08/15/18 01:45 93 Nasal Cannula 3.00 08/15/18 00:28 98.3 71 20 135/69 (91) 93 Nasal Cannula 2.00 08/14/18 20:12 94 Nasal Cannula 3.00 08/14/18 20:00 Nasal Cannula 2.00 08/14/18 16:00 98.2 70 22 179/69 (105) 94 Nasal Cannula 2.00 I & O 08/15/18 07:00 Intake Total 2970 ml Output Total 5000 ml Balance -2030 ml Height & Weight Height: 5'2.00" Weight: 150lbs. 0.0oz. 68.896868nx; 27.4 BMI Method:Stated General Appearance: No Apparent Distress, WD/WN HEENT: PERRL/EOMI, TMs Normal, Normal ENT Inspection, Pharynx Normal Neck: Full Range of Motion, Normal Inspection, Non Tender, Supple Respiratory: Chest Non Tender, No Accessory Muscle Use, No Respiratory Distress , Crackles, Decreased Breath Sounds, Wheezing (throughout lung doyle) Cardiovascular: Regular Rate, Rhythm, No Edema, No Gallop, No JVD, No Murmur, Normal Peripheral Pulses Capillary Refill: Less Than 3 Seconds Gastrointestinal: soft Extremity: Normal Capillary Refill, Normal Inspection, Normal Range of Motion, Non Tender, No Calf Tenderness, No Pedal Edema Neurologic/Psychiatric: Alert, Oriented x3, No Motor/Sensory Deficits, Depressed Affect Skin: Normal Color, Warm/Dry Results Lab Laboratory Tests 08/14/18 05:15 08/15/18 06:33 Assessment/Plan Assessment/Plan COPDAE -SVNs -Solumedrol 40 Q 12 -Oxygen - pt has home oxygen -Check CT of chest without contrast. Tobacco use -PT states she quit about 2wks ago -Education PNA DM Hypokalemia Fibromyalgia Narcotic dependence Constipation CHANDA BHAGAT DO Aug 15, 2018 11:01
--- NOTE | 2018-08-15 11:18 | Physical Therapy Daily Note ---
PT Daily Note-Current Subjective Patient in recliner pre tx, agrees to PT, states she has pain "all over" but it is unrated. Appearance Patient in recliner post tx with nurse call, phone, tray, all needs met. Legs elevated and on pillows. Mental Status Patient Orientation: Person, Place, Situation Attachments: Oxygen 2L of O2 nasal canula. Transfers Therapy Code Descriptions/Definitions Functional [place] Measure: 0=Not Assessed/NA 4=Minimal Assistance 1=Total Assistance 5=Supervision or Setup 2=Maximal Assistance 6=Modified [place] 3=Moderate Assistance 7=Complete [place] Therapy Quality Codes: 6 Independent with activity with or without an assistive device 5 Patient requires set up or clean up by helper. Patient completes activity by themselves 4 Supervision or touching assist (CGA). Jasper provide cues , steadying assist 3 The helper provides less than half the effort to complete the activity 2 The helper provides more than half the effort to complete the activity 1 Dependent. The helper does all the effort to complete an activity 7 Patient refused to complete or attempt activity 9 The patient did not perform the activity before the current illness or injury 88 Not attempted due to Medical conditions or safety concerns Transfers (B, C, W/C) (FIM): 5 Sit to/from Stand: 5 Bed to/from Chair: 5 Weight Bearing Right Lower Extremity: Right Full Weight Bearing Left Lower Extremity: Left Full Weight Bearing Gait Training Gait (FIM): 2 Distance: 100' Gait Level of Assist: 4 Gait Persons Needed: 1 Gait Assistive Device: Walker 4 Wheeled Very slow ambulation, occasional standing rest break. Moments of unsteadiness. Treatments transfers, ambulation Assessment Current Status: Fair Progress improved endurance PT Custodial Goals Industrial Court Magistrate Goals PT Industrial Court Magistrate Goals Time Frame: Aug 19, 2018 Transfers (B,C,W/C) (FIM): 6 Gait (FIM): 6 Gait distance (FIM): 3=150 ft Distance: 150' Gait Level of Assist: 6 Gait Assistive Device: Walker 4 Wheeled PT Plan Problem List Problem List: Activity Tolerance, Functional Strength, Safety, Balance, Gait, Transfer, Bed Mobility, ROM Treatment/Plan Treatment Plan: Continue Plan of Care Treatment Plan: Bed Mobility, Education, Functional Activity Lesia, Functional Strength, Gait, Safety, Therapeutic Exercise, Transfers Treatment Duration: Aug 19, 2018 Frequency: 6 times per week Estimated Hrs Per Day: .25 hour per day Patient and/or Family Agrees t: Yes Safety Risks/Education Patient Education: Gait Training, Transfer Techniques, Correct Positioning, Safety Issues Teaching Recipient: Patient Teaching Methods: Demonstration, Discussion Response to Teaching: Reinforcement Needed Time/GCodes Time In: 1055 Time Out: 1113 Total Billed Treatment Time: 18 Total Billed Treatment 1 visit GT 18' IRINA LÓPEZ PT Aug 15, 2018 11:18
[2018-08-15] MEDS: ENOXAPARIN 40 MG/0.4 ML (LOVENOX) SYR SC SCH (11:24)
--- NOTE | 2018-08-15 13:17 | NUR ---
CM/SS spoke with patient for discharge planning. Discussed that she has an interested SK[employer] worker Karlee, encouraged the patient again to call and set an appointment with her. Patient states that her son and his ex can help with making sure she has groceries and transportation. Patient is not willing to consider a SNF.
--- NOTE | 2018-08-15 15:00 | NUR ---
REPORT RECEIVED FROM MATTIE BATES. THIS RN WILL ASSUME PT CARE WITH MATTIE DAVIS AT THIS TIME.
--- NOTE | 2018-08-15 15:36 | Occupational Ther Daily Note ---
OT Current Status-Daily Note Subjective Pt in recliner, alert & oriented . Pt agree for therapy. Pain Numeric Pain Scale: 4 Location: Left Location Body Site: Knee Pain Description: Stabbing Mental Status/Objective Patient Orientation: Person, Place, Time Therapy Code Descriptions/Definitions Functional [place] Measure: 0=Not Assessed/NA 4=Minimal Assistance 1=Total Assistance 5=Supervision or Setup 2=Maximal Assistance 6=Modified [place] 3=Moderate Assistance 7=Complete [place] Attachments: Oxygen, Saline Lock ADL-Treatment Pt participated in func transfers, func mobility , trunk balancing ex & theraex BUE. Pt needs CGA in sit to stand with FWW, Pt unsteady, Pt ambulate with walker 20 feet . Pt completed 30 reps x 2 sets x 2 lb wts with BUE, 30 reps with red theraband with bue in all planes of motion , 25 reps with each hand to strengthen Strength in BUE to participate in all self care tasks & to push up from recliner to stand. Eating (FIM): 7 Grooming (FIM): 7 Transfers (B, C, W/C) (FIM): 5 Toilet/Commode Transfer (FIM): 5 Tub Transfer(FIM): 0 Shower Transfer(FIM): 0 Education OT Patient Education: Correct positioning, Energy conservation Teaching Recipient: Patient Teaching Methods: Demonstration Response to Teaching: Verbalize Understanding OT Short Term Goals Short Term Goals Time Frame: Aug 26, 2018 Additional Short Term Goals: 1-Demonstrate ADL Tasks, 2-Verbalize Understanding , 3-ImproveStrength/Lesia 1=Demonstrate adherence to instructed precautions during ADL tasks. 2=Patient will verbalize/demonstrate understanding of assistive devices/ modifications for ADL. 3=Patient will improve strength/tolerance for activity to enable patient to perform ADL's. OT Conditioning Coach Goals Conditioning Coach Goals Time Frame: Sep 09, 2018 Eating (FIM): 7 Grooming(FIM): 7 Bathing(FIM): 7 Bathing Location: L Arm, R Arm, L Upper Leg, R Upper Leg, L Lower Leg ( including foot), R Lower Leg (including foot), Chest, Abdomen, Buttocks, Perineal Area Upper Body Dressing(FIM): 7 Lower Body Dressing(FIM): 7 Toileting(FIM): 7 Transfers (B,C,W/C) (FIM): 7 Toilet/Commode Transfer(FIM): 7 Tub Transfer(FIM): 7 Shower Transfer(FIM): 7 Additional Goals: 1-Demonstrate ADL Tasks, 2-Verbalize Understanding, 3- ImproveStrength/Lesia 1=Demonstrate adherence to instructed precautions during ADL tasks. 2=Patient will verbalize/demonstrate understanding of assistive devices/ modifications for ADL. 3=Patient will improve strength/tolerance for activity to enable patient to perform ADL's. OT Education/Plan Problem List/Assessment Assessment: Decreased Activ Tolerance, Decreased Safety Aware, Decreased UE Strength, Dependent Transfers, Impaired Bed Mobility, Impaired Funct Balance, Impaired Self-Care Skills Discharge Recommendations Plan/Recommendations: Continue POC Therapy D/C Recommendations: Home Independently Equpiment Recommendations-D/C: Extended Shower Sprayer, Lapping Machine Operator Treatment Plan/Plan of Care Treatment,Training & Education: Yes Patient would benefit from OT for education, treatment and training to promote independence in ADL's, mobility, safety and/or upper extremity function for ADL' s. Plan of Care: ADL Retraining, Functional Mobility, Group Exercise/Act as Ind, UE Funct Exercise/Act, UE Neuromus Re-Ed/Coord Treatment Duration: Sep 09, 2018 Frequency: 5 times per week Estimated Hrs Per Day: .25 hour per day Agreement: Yes Rehab Potential: Good Time/GCodes Start Time: 15:00 Stop Time: 15:24 Total Time Billed (hr/min): 24 Billed Treatment Time 1, FA 11 min, EX 13 min. Total 24 minutes. KIRTI GARZON OT Aug 15, 2018 15:36
[2018-08-15 16:10] VITALS: BP 126/58
[2018-08-15] MEDS: RT-ADVAIR HFA 115/21 MCG PER PUFF IH SCH (19:48)
[2018-08-15] MEDS: MELOXICAM 7.5 MG (MOBIC) TABLET PO SCH (21:07)
[2018-08-15] MEDS: SIMvastatin 40 MG (ZOCOR) TAB PO SCH (21:08)
[2018-08-15] MEDS: PRAMIPEXOLE 0.5 MG TAB (MIRAPEX) PO SCH (21:09)
[2018-08-15] MEDS: BETAMETHASONE/CLOTRIM CREAM (LOTRISONE) 45 GM TP SCH (21:19)
[2018-08-16 00:15] VITALS: BP 134/90
[2018-08-16] MEDS: NYSTATIN ORAL SUSP 5 ML UDC PO SCH ×4 (00:33→17:04)
[2018-08-16] MEDS: ALPRAZolam 1 MG (XANAX) TAB PO PRN ×4 (00:44→16:23)
[2018-08-16] MEDS: oxyCODONE/APAP 10/325MG (PERCOCET 10) TABLET PO PRN ×5 (00:45→16:11)
[2018-08-16] MEDS: CYCLOBENZAPRINE 10 MG (FLEXERIL) TAB PO PRN (00:45)
[2018-08-16] MEDS: RT-ALBUTEROL/IPRATROPIUM 3 ML (DUONEB) VIAL INH SCH ×3 (02:40→15:56)
[2018-08-16 06:47] LABS: BASOPHILS % (AUTO) 0 % (0-10); EOSINOPHILS % (AUTO) 0 % (0-10); HEMATOCRIT 39 % (35-52); HEMOGLOBIN 13.5 G/DL (11.5-16.0); LYMPHOCYTES # (AUTO) 0.5 X 10^3 (1.0-4.0); LYMPHOCYTES % (AUTO) 8 % (12-44); MEAN CORPUSCULAR HEMOGLOBIN 30 PG (25-34); MEAN CORPUSCULAR HGB CONC 34 G/DL (32-36); MEAN CORPUSCULAR VOLUME 86 FL (80-99); MEAN PLATELET VOLUME 10.9 FL (7.4-10.4); MONOCYTES # (AUTO) 0.2 X 10^3 (0.0-1.0); MONOCYTES % (AUTO) 3 % (0-12); NEUTROPHILS # (AUTO) 5.8 X 10^3 (1.8-7.8); NEUTROPHILS % (AUTO) 89 % (42-75); PLATELET COUNT 211 10^3/uL (130-400); RED CELL DISTRIBUTION WIDTH 14.1 % (10.0-14.5); WHITE BLOOD COUNT 6.5 10^3/uL (4.3-11.0)
[2018-08-16] MEDS: metFORMIN 500 MG (GLUCOPHAGE) TAB PO SCH ×2 (06:53→16:13)
[2018-08-16] MEDS: KCL 20 MEQ TAB (K-DUR) PO SCH (06:53)
[2018-08-16 07:12] LABS: ALANINE AMINOTRANSFERASE 12 U/L (0-55); ALKALINE PHOSPHATASE 63 U/L (40-136); BILIRUBIN,TOTAL 0.8 MG/DL (0.1-1.0); BUN/CREATININE RATIO 19; CALCIUM 10.1 MG/DL (8.5-10.1); CARBON DIOXIDE 30 MMOL/L (21-32); CHLORIDE 90 MMOL/L (98-107); GFR ESTIMATED > 60; GLUCOSE 143 MG/DL (70-105); POTASSIUM 4.2 MMOL/L (3.6-5.0); SODIUM 132 MMOL/L (135-145); TOTAL PROTEIN 6.9 GM/DL (6.4-8.2)
[2018-08-16 08:00] VITALS: BP 139/76
[2018-08-16] MEDS: ASPIRIN 81 MG CHEW (CHILDREN'S ASA) PO SCH (09:44)
[2018-08-16] MEDS: HYDROCHLOROTHIAZIDE 25 MG (HCTZ) TAB PO SCH (09:44)
[2018-08-16] MEDS: NICOTINE 21 MG (NICODERM) PATCH TD SCH (09:44)
[2018-08-16] MEDS: MONTELUKAST 10 MG (SINGULAIR) TAB PO SCH (09:44)
[2018-08-16] MEDS: GABAPENTIN 300 MG (NEURONTIN) CAP PO SCH ×2 (09:44→12:07)
[2018-08-16] MEDS: guaiFENesin (MUCINEX) 600 MG TAB PO SCH (09:44)
[2018-08-16] MEDS: LORATADINE (CLARITIN) 10 MG TAB PO SCH (09:44)
[2018-08-16] MEDS: NICOTINE PATCH REMOVAL TP SCH (09:45)
[2018-08-16] MEDS: AMITRIPTYLINE 25 MG (ELAVIL) TAB PO SCH (09:45)
[2018-08-16] MEDS: PANTOPRAZOLE 20 MG TABLET (PROTONIX) PO SCH (09:45)
[2018-08-16] MEDS: FERROUS SULF 325 MG (IRON) TAB PO SCH (09:45)
--- NOTE | 2018-08-16 10:01 | NUR ---
DR. JASMINE & SPORTS INTERN IN TO TALK W PT RE: DISCHARGE PLANS.
[2018-08-16] MEDS: RT-ADVAIR HFA 115/21 MCG PER PUFF IH SCH (10:20)
[2018-08-16] MEDS: LEVOFLOXACIN 750 MG/150 ML IV 150 ML IV SCH (10:22)
--- NOTE | 2018-08-16 10:22 | Occupational Ther Daily Note ---
OT Current Status-Daily Note Subjective Pt in bed , alert, oriented & cooperative . Pt states that, " I could'nt sleep good last night. I thus I am sleepy now." Pain Numeric Pain Scale: 8 Location Body Site: Generalized Pain Description: Throbbing Mental Status/Objective Patient Orientation: Person, Place, Time, Situation Therapy Code Descriptions/Definitions Functional [place] Measure: 0=Not Assessed/NA 4=Minimal Assistance 1=Total Assistance 5=Supervision or Setup 2=Maximal Assistance 6=Modified [place] 3=Moderate Assistance 7=Complete [place] Attachments: Oxygen, SCD's ADL-Treatment Pt participated in self care tasks , bed mobility, func transfers, func mobility & strengthening ex to BUE to strengthen BUE to participate in all self care tasks & to push up from bed to stand with walker. Pt needs SBA in supine to sit at end of bed , & SBA to stand from EOB with FWW. Pt O2 dependent 2 liters on continuous. Pt ambulate with fww 20 feet inside the room, Pt fatigue soon & was very sleepy , Pt has to remind frequently ," keep your Eyes open ." High risk of fall while standing. Pt completed 30 reps x 2 sets x 2 lb wts , 30 reps with Red theraband , & 30 reps with hand gripper with each hand to strengthen hand lighting specialist. Pt has been educated to sit upright in recliner. Pt has tendency to keep head forward flexed due to weakness & drouzy all the time. c/o pain all over the body due to Fibromyelgia. Eating (FIM): 7 Grooming (FIM): 6 Bathing (FIM): 4 (Sponge- bath with Warm Wipes.) Bathing Location: L Arm, R Arm, L Upper Leg, R Upper Leg, Chest, Abdomen Upper Body (FIM): 5 Lower Body Dressing (FIM): 2 Toileting (FIM): 5 Transfers (B, C, W/C) (FIM): 5 Toilet/Commode Transfer (FIM): 5 Tub Transfer(FIM): 0 Shower Transfer(FIM): 0 Education OT Patient Education: Correct positioning, Safety issues Teaching Recipient: Patient Teaching Methods: Demonstration Response to Teaching: Verbalize Understanding OT Short Term Goals Short Term Goals Time Frame: Aug 26, 2018 Additional Short Term Goals: 1-Demonstrate ADL Tasks, 2-Verbalize Understanding , 3-ImproveStrength/Lesia 1=Demonstrate adherence to instructed precautions during ADL tasks. 2=Patient will verbalize/demonstrate understanding of assistive devices/ modifications for ADL. 3=Patient will improve strength/tolerance for activity to enable patient to perform ADL's. OT Long-Term Goals Rod Filler Goals Time Frame: Sep 09, 2018 Eating (FIM): 7 Grooming(FIM): 7 Bathing(FIM): 7 Bathing Location: L Arm, R Arm, L Upper Leg, R Upper Leg, L Lower Leg ( including foot), R Lower Leg (including foot), Chest, Abdomen, Buttocks, Perineal Area Upper Body Dressing(FIM): 7 Lower Body Dressing(FIM): 7 Toileting(FIM): 7 Transfers (B,C,W/C) (FIM): 7 Toilet/Commode Transfer(FIM): 7 Tub Transfer(FIM): 7 Shower Transfer(FIM): 7 Additional Goals: 1-Demonstrate ADL Tasks, 2-Verbalize Understanding, 3- ImproveStrength/Lesia 1=Demonstrate adherence to instructed precautions during ADL tasks. 2=Patient will verbalize/demonstrate understanding of assistive devices/ modifications for ADL. 3=Patient will improve strength/tolerance for activity to enable patient to perform ADL's. OT Education/Plan Problem List/Assessment Assessment: Decreased Activ Tolerance, Decreased Safety Aware, Decreased UE Strength, Dependent Transfers, Impaired Bed Mobility, Impaired Funct Balance, Impaired Self-Care Skills Discharge Recommendations Plan/Recommendations: Continue POC Therapy D/C Recommendations: Home Independently, Occupational Therapy Home Care Equpiment Recommendations-D/C: Ash Collector, Hip Kit Patient/Family Goals To return home Independently with AD. Treatment Plan/Plan of Care Treatment,Training & Education: Yes Patient would benefit from OT for education, treatment and training to promote independence in ADL's, mobility, safety and/or upper extremity function for ADL' s. Plan of Care: ADL Retraining, Functional Mobility, Group Exercise/Act as Ind, UE Funct Exercise/Act, UE Neuromus Re-Ed/Coord Treatment Duration: Sep 09, 2018 Frequency: 5 times per week Estimated Hrs Per Day: .25 hour per day Agreement: Yes Rehab Potential: Good Time/GCodes Start Time: 08:20 Stop Time: 08:48 Total Time Billed (hr/min): 28 Billed Treatment Time 1, ADL 14 min, Ex 14 min. Total 28 minutes KIRTI GARZON OT Aug 16, 2018 10:22
[2018-08-16] MEDS ORDERED: LEVO500T2 PO (10:23)
[2018-08-16] MEDS: FLUTICASONE NASAL SPRAY (FLONASE) 16 GM BTL NS SCH (10:23)
[2018-08-16] MEDS: ENOXAPARIN 40 MG/0.4 ML (LOVENOX) SYR SC SCH (10:23)
[2018-08-16] MEDS ORDERED: PRED10TA22 PO (10:23)
[2018-08-16] MEDS ORDERED: NYST1000 PO (10:23)
[2018-08-16] MEDS: BETAMETHASONE/CLOTRIM CREAM (LOTRISONE) 45 GM TP SCH (10:23)
--- NOTE | 2018-08-16 10:24 | D/C HH Face to Face Order ---
D/C Face to Face Orders Instructions for Patient Via [facility], Patient Instructions/FollowUp: [facility] John Lynn in 1 week Physician to follow Patient: John Lynn Discharge Diet for Home: No Restrictions Patient Problems: Pneumonia COPD Smoker Patient Data-Allergies,Ht & Wt Patient Allergies: Coded Allergies: ceftriaxone (Verified Allergy, Unknown, RASH, 08/12/18) Height (Feet): 5 Height (Inches): 2.00 Weight (Pounds): 150 Weight (Ounces): 0.0 Home Health Need/Face to Face Date of Face to Face: Aug 16, 2018 Clinical Findings: Generalized weakness and fatigue, Unsteady gait I have seen Pt [id number]: Yes Discharged To: Home Diagnosis/Conditions: Pneumonia COPD Smoker Patient is Homebound due to: Muscle weakness, Shortness of breath/distress Homebound Status Due to the above stated illness, injury or surgical procedure (medical condition or diagnosis) and associated clinical findings, the patient is homebound because of his/her inability to leave home except with aid of a supportive device and/or person AND leaving the home requires a considerable and taxing effort or is medically contraindicated. Pt req the following assistanc: Walker Home Health Nursing Orders Home Health Services Order: Nursing Services, Physical Therapy-Evaluate & Treat Home Health Infusion Therapy Line Start Date: Aug 09, 2018 Line Start Time: 1300 Line Type: Saline Lock Site Location: Forearm Certify Stmt I certify that this patient is under my care and that I, a nurse practitioner or a physician; a assistant program director working with me, had a face to face encounter that - meets the physician face to face encounter requirements with this patient as dated. BAYRON JASMINE DO Aug 16, 2018 10:24
--- NOTE | 2018-08-16 10:26 | Discharge Summary-Hospitalist ---
Diagnosis/Chief Complaint Date of Admission Aug 09, 2018 at 14:50 Date of Discharge Discharge Date: Aug 16, 2018 Discharge Diagnosis (1) Pneumonia Status: Acute (2) Chronic mental illness Status: Chronic (3) Diabetes mellitus Status: Chronic (4) Acute exacerbation of chronic obstructive airways disease Status: Acute (5) Hypokalemia Status: Acute (6) Smoker Status: Chronic (7) Fibromyalgia Status: Chronic (8) Chronic pain Status: Chronic (9) Narcotic dependence Status: Chronic (10) Constipation Status: Acute Discharge Summary Discharge Physical Exam Allergies: Coded Allergies: ceftriaxone (Verified Allergy, Unknown, RASH, 08/12/18) Vitals & I&Os Vital Signs Date Time Temp Pulse Resp B/P (MAP) Pulse Ox O2 Delivery O2 Flow Rate FiO2 08/16/18 16:01 96.5 57 17 118/56 (76) 92 Nasal Cannula 2.00 08/14/18 10:48 28 General Appearance: No Apparent Distress, WD/WN HEENT: PERRL/EOMI, TMs Normal, Normal ENT Inspection, Pharynx Normal Respiratory: Chest Non Tender, No Accessory Muscle Use, No Respiratory Distress , Crackles, Decreased Breath Sounds, Wheezing (throughout lung doyle) Cardiovascular: Regular Rate, Rhythm, No Edema, No Gallop, No JVD, No Murmur, Normal Peripheral Pulses Gastrointestinal: Normal Bowel Sounds, No Organomegaly, No Pulsatile Mass, Non Tender, Soft Extremity: Normal Capillary Refill, Normal Inspection, Normal Range of Motion, Non Tender, No Calf Tenderness, No Pedal Edema Skin: Normal Color, Warm/Dry Neurologic/Psychiatric: Alert, Oriented x3, No Motor/Sensory Deficits, Depressed Affect Hospital Course Was the Problem List Reviewed?: Yes Hospital course: Pt had a lengthy hospital course of 7 days after she was admitted for pneumonia and exacerbation of COPD. Pt was placed on Levaquin empirically due to multiple allergies in addition to IV steroids and Dr. Chamberlain was consulted. CT scan obtained and he will follow up as an outpatient closely. Pt was already on home O2, she did not need that and was set up with home health with nurse physical therapy and she did get a skill worker set up at time of DC. Overall she improved, did not participate in therapy much but she was back to her baseline and will have close follow up with [facility] and all medications were sent to [facility] in [place]. Labs (last 24 hrs) Laboratory Tests 08/16/18 05:58: White Blood Count 6.5, Red Blood Count 4.57, Hemoglobin 13.5, Hematocrit 39, Mean Corpuscular Volume 86, Mean Corpuscular Hemoglobin 30, Mean Corpuscular Hemoglobin Concent 34, Red Cell Distribution Width 14.1, Platelet Count 211, Mean Platelet Volume 10.9H, Neutrophils (%) (Auto) 89H, Lymphocytes (%) (Auto) 8L, Monocytes (%) (Auto) 3, Eosinophils (%) (Auto) 0, Basophils (%) (Auto) 0, Neutrophils # (Auto) 5.8, Lymphocytes # (Auto) 0.5L, Monocytes # (Auto) 0.2, Eosinophils # (Auto) 0.0, Basophils # (Auto) 0.0, Sodium Level 132L, Potassium Level 4.2, Chloride Level 90L, Carbon Dioxide Level 30, Anion Gap 12, Blood Urea Nitrogen 13, Creatinine 0.70, Estimat Glomerular Filtration Rate > 60, BUN/ Creatinine Ratio 19, Glucose Level 143H, Calcium Level 10.1, Corrected Calcium 10.1, Total Bilirubin 0.8, Aspartate Amino Transf (AST/SGOT) 16, Alanine Aminotransferase (ALT/SGPT) 12, Alkaline Phosphatase 63, Total Protein 6.9, Albumin 4.0 Microbiology 08/09/18 Blood Culture - Final, Complete No growth 08/09/18 Influenza Types A,B Antigen (DILCIA) - Final, Complete 08/09/18 Urine Culture - Final, Complete NO GROWTH Patient resulted labs reviewed. Pending Labs Discussion & Recommendations Discharge Planning: <30 minutes discharge planning Discharge Home Medications: Active Scripts Active Levaquin (Levofloxacin) 500 Mg Tablet 500 Mg PO DAILY Prednisone 10 Mg Tab.ds.pk 10 Mg PO DAILY Take 6 tabs(60mg)daily,decrease by 1 tab(10MG)daily. Nystatin 100,000 Unit/1 Ml Oral.susp 5 Ml PO Q6HR Reported Cyclobenzaprine HCl 10 Mg Tablet 10 Mg PO BID PRN Prednisone 50 Mg Tab 50 Mg PO DAILY 5 DAY SUPPLY FILLED 08/07/18 Ondansetron Odt (Ondansetron) 8 Mg Tab.rapdis 8 Mg PO Q6H PRN Potassium Chloride 10 Meq Capsule.er 20 Meq PO DAILY Gabapentin 600 Mg Tablet 600 Mg PO TID Oxycodone-Acetaminophen 10-325 (Oxycodone HCl/Acetaminophen) 1 Each Tablet 0.5 Tab PO Q3H PRN Miralax (Polyethylene Glycol 3350) 17 Gm Powd.pack 17 Gm PO DAILY Simvastatin 40 Mg Tablet 40 Mg PO HS Singulair (Montelukast Sodium) 10 Mg Tablet 10 Mg PO DAILY Docusate Sodium 100 Mg Tablet 100 Mg PO PRN Metformin HCl 500 Mg Tablet 500 Mg PO BID Omeprazole 20 Mg Capsule.dr 20 Mg PO DAILY Proair Hfa (Albuterol Sulfate) 1 Puff Puff 2 Puff IH Q4H PRN 1 PUFF = 90 MCG [Lidoderm] 5 % TD DAILY REMOVE AFTER 12 HOURS Ferrous Sulfate 325 Mg Tablet 325 Mg PO DAILY Propranolol HCl 40 Mg Tablet 40 Mg PO BID Celexa (Citalopram Hydrobromide) 40 Mg Tablet 40 Mg PO DAILY Aspir 81 (Aspirin) 81 Mg Tablet.dr 81 Mg PO DAILY Lotrisone Cream (Clotrimazole/Betamethasone Dip) 15 Gm Cream..g. 15 Gm TP BID Hydrocortisone Plus 1% Cream (Hydrocortisone/Aloe Vera) 28.4 Gm Cream..g. 28.4 Gm TP TID Vitamin C (Ascorbic Acid) 500 Mg Capsule.er 500 Mg PO DAILY Cetirizine HCl 10 Mg Tablet 10 Mg PO DAILY Flonase Allergy Relief (Fluticasone Propionate) 9.9 Ml [place].susp 1 [place] NS DAILY Iprat-Albut 0.5-3(2.5) mg/3 ml (Ipratropium/Albuterol Sulfate) 3 Ml Ampul.neb 3 Ml IH Q4H PRN Mucinex (Guaifenesin) 600 Mg Tab.er.12h 600 Mg PO BID Xanax (Alprazolam) 2 Mg Tablet 0.5-1 Mg PO Q3H NOT TO EXCEED 3 TABLETS IN 24 HOURS Instructions to patient/family Please see electronic discharge instructions given to patient. 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
--- NOTE | 2018-08-16 10:38 | NUR ---
CM/SS patient will discharge this day. She discussed that has new SKIL worker that will be out on Thursday 08/17. Patient is interested in [facility] and would benefit her as long as it does not interfere with her SKIL. When sent information on discharge to [facility], confirmed that their services do not interfere with SKIL. Christiane will begin services with her on 08/17. Her son will be transportation for her this day when he is off work.
[2018-08-16] MEDS: POLYETHYLENE GLYCOL 17 GM (MIRALAX) PACK PO SCH (10:51)
[2018-08-16] MEDS: PROPRANOLOL 20 MG (INDERAL) TABLET PO SCH (11:26)
--- NOTE | 2018-08-16 11:30 | NUR ---
CM/SS [facility] does not take Medicaid ins. Patient then wanted information sent to [facility], all dischcarge information was sent to them by fax, they take medicaid, and cover [facility]. Patient and RNing updated.
--- NOTE | 2018-08-16 11:57 | Physical Therapy Daily Note ---
PT Daily Note-Current Subjective Patient in recliner pre tx, agrees to PT, has no complaints of pain at rest. Appearance Patient in recliner post tx with nurse call, phone, tray, all needs met. Mental Status Patient Orientation: Person, Place Attachments: Oxygen, IV Transfers Therapy Code Descriptions/Definitions Functional Cascade Measure: 0=Not Assessed/NA 4=Minimal Assistance 1=Total Assistance 5=Supervision or Setup 2=Maximal Assistance 6=Modified Cascade 3=Moderate Assistance 7=Complete Cascade Therapy Quality Codes: 6 Independent with activity with or without an assistive device 5 Patient requires set up or clean up by helper. Patient completes activity by themselves 4 Supervision or touching assist (CGA). [place] provide cues , steadying assist 3 The helper provides less than half the effort to complete the activity 2 The helper provides more than half the effort to complete the activity 1 Dependent. The helper does all the effort to complete an activity 7 Patient refused to complete or attempt activity 9 The patient did not perform the activity before the current illness or injury 88 Not attempted due to Medical conditions or safety concerns Transfers (B, C, W/C) (FIM): 5 Sit to/from Stand: 5 Bed to/from Chair: 5 Weight Bearing Right Lower Extremity: Right Full Weight Bearing Left Lower Extremity: Left Full Weight Bearing Gait Training Gait (FIM): 4 Distance: 150' Gait Level of Assist: 4 Gait Persons Needed: 1 Gait Assistive Device: Walker 4 Wheeled Min assist due to LOB, therapist assist to recover, patient bumped the doorway with the front wheel of her walker and lost balance to the right side. Treatments transfers, ambulation Assessment Current Status: Poor Progress Poor balance, patient ambulates extremely slowly, gets distracted easily and needs cues to stay on task. PT Neurophysiologist Goals Neurophysiologist Goals PT Care Home Goals Time Frame: Aug 19, 2018 Transfers (B,C,W/C) (FIM): 6 Gait (FIM): 6 Gait distance (FIM): 3=150 ft Distance: 150' Gait Level of Assist: 6 Gait Assistive Device: Walker 4 Wheeled PT Plan Problem List Problem List: Activity Tolerance, Functional Strength, Safety, Balance, Gait, Transfer, Bed Mobility, ROM Treatment/Plan Treatment Plan: Continue Plan of Care Treatment Plan: Bed Mobility, Education, Functional Activity Lesia, Functional Strength, Gait, Safety, Therapeutic Exercise, Transfers Treatment Duration: Aug 19, 2018 Frequency: 6 times per week Estimated Hrs Per Day: .25 hour per day Patient and/or Family Agrees t: Yes Safety Risks/Education Patient Education: Gait Training, Transfer Techniques, Correct Positioning, Safety Issues Teaching Recipient: Patient Teaching Methods: Demonstration, Discussion Response to Teaching: Reinforcement Needed Time/GCodes Time In: 1125 Time Out: 1150 Total Billed Treatment Time: 25 Total Billed Treatment 1 visit GT 25' IRINA LÓPEZ PT Aug 16, 2018 11:57
--- NOTE | 2018-08-16 11:58 | Pulmonary Progress Note ---
Subjective Time Seen by a Provider: 11:58 Subjective/Events-last exam No complications noted. Sepsis Event Evaluation Height, Weight, BMI Height: 5'2.00" Weight: 150lbs. 0.0oz. [id number]; 27.4 BMI Method:Stated Exam Exam Vital Signs Date Time Temp Pulse Resp B/P (MAP) Pulse Ox O2 Delivery O2 Flow Rate FiO2 08/16/18 10:17 98 Nasal Cannula 2.00 08/16/18 08:00 97.6 55 18 139/76 (97) 95 Nasal Cannula 2.00 08/16/18 02:40 94 Nasal Cannula 2.00 08/16/18 00:15 98.0 102 16 134/90 (105) 98 Nasal Cannula 08/15/18 20:20 Nasal Cannula 3.00 08/15/18 19:57 Nasal Cannula 2.00 08/15/18 19:49 96 Nasal Cannula 2.00 08/15/18 16:10 98.3 63 14 126/58 (80) 96 Nasal Cannula 2.00 08/15/18 14:39 93 Nasal Cannula 3.00 I & O 08/16/18 07:00 Intake Total 1050 ml Output Total 2000 ml Balance -950 ml Height & Weight Height: 5'2.00" Weight: 150lbs. 0.0oz. 68.104010rm; 27.4 BMI Method:Stated General Appearance: No Apparent Distress, WD/WN HEENT: PERRL/EOMI, TMs Normal, Normal ENT Inspection, Pharynx Normal Neck: Full Range of Motion, Normal Inspection, Non Tender, Supple Respiratory: Chest Non Tender, No Accessory Muscle Use, No Respiratory Distress , Crackles, Decreased Breath Sounds, Wheezing (throughout lung doyle) Cardiovascular: Regular Rate, Rhythm, No Edema, No Gallop, No JVD, No Murmur, Normal Peripheral Pulses Capillary Refill: Less Than 3 Seconds Gastrointestinal: soft Extremity: Normal Capillary Refill, Normal Inspection, Normal Range of Motion, Non Tender, No Calf Tenderness, No Pedal Edema Neurologic/Psychiatric: Alert, Oriented x3, No Motor/Sensory Deficits, Depressed Affect Skin: Normal Color, Warm/Dry Results Lab Laboratory Tests 08/15/18 06:33 08/16/18 05:58 Assessment/Plan Assessment/Plan COPDAE -SVNs -Solumedrol 40 Q 12- change to prednisone taper -Oxygen - pt has home oxygen -CT of chest without contrast shows emphysema. no infiltrates Tobacco use -PT states she quit about 2wks ago -Education PNA DM Hypokalemia Fibromyalgia Narcotic dependence Constipation CHANDA BHAGAT DO Aug 16, 2018 11:58
[2018-08-16 16:01] VITALS: BP 118/56
[2018-08-16] MEDS: PROMETHAZINE/ CODEINE SYRUP 5 ML UDC PO PRN (16:23)
[2018-08-16 17:01] VITALS: BP 122/68
[2018-08-16 17:30] VITALS: BP 122/68
== END 2018-08-16 17:30 | disposition home health service (06) | DRG 190 ==
LOC: EDUNIT# 12:34 → ER 12:38 → 4TH 14:50
PROVIDERS: ADMIT Family Medicine; ATTEND Family Medicine
DX: J44.1 Chronic obstructive pulmonary disease with (acute) exacerbation (principal); J44.0 Chronic obstructive pulmonary disease with (acute) lower respiratory infection; J18.1 Lobar pneumonia, unspecified organism; E87.6 Hypokalemia; E11.40 Type 2 diabetes mellitus with diabetic neuropathy, unspecified; I10 Essential (primary) hypertension; G47.00 Insomnia, unspecified; R11.2 Nausea with vomiting, unspecified; R19.7 Diarrhea, unspecified; F17.210 Nicotine dependence, cigarettes, uncomplicated; K21.9 Gastro-esophageal reflux disease without esophagitis; K59.01 Slow transit constipation; M79.7 Fibromyalgia; F41.9 Anxiety disorder, unspecified; F32.9 Major depressive disorder, single episode, unspecified; G89.4 Chronic pain syndrome; M19.91 Primary osteoarthritis, unspecified site; M48.00 Spinal stenosis, site unspecified; L27.0 Generalized skin eruption due to drugs and medicaments taken internally; T36.1X5A Adverse effect of cephalosporins and other beta-lactam antibiotics, initial encounter; Z79.84 Long term (current) use of oral hypoglycemic drugs; Z99.81 Dependence on supplemental oxygen; Z87.11 Personal history of peptic ulcer disease; Z87.19 Personal history of other diseases of the digestive system
CPT/HCPCS: 36415; 71045; 71260; 80048; 80053; 81000; 82150; 82962; 83605; 83690; 85007; 85025; 85027; 85610; 85730; 87040; 87070; 87077; 87088; 87184; 87205; 87804; 94640; 94644; 94760; 96361; 96372; 96374; 96375

== ENCOUNTER 2019-06-10 13:26 | Inpatient (IN) | payer MEDICAID ==
[~2019-06-10] VITALS: Ht 154 cm; Wt 84.3 kg
[~2019-06-10 13:26] MED LIST changes: +DOXY100T2 PO; +LEVO500T2 PO; +NYST1000 PO; +OMEP20CA13 PO; +ONDA8TAB13 PO; +POTA10CA43 PO; +PRD50T PO; +PRED10TA22 PO
[2019-06-10] MEDS ORDERED: fentaNYL INJECTION 100 MCG/2 ML AMP IVP STA (14:21)
--- NOTE | 2019-06-10 14:28 | ED General ---
General Chief Complaint: General Problems/Pain Stated Complaint: NAUSEA Nursing Triage Note: PT BROUGHT IN BY [facility] FROM HOME WITH COMPLAINT OF NAUSEA, UNCONTROLLED PAIN, AND SORES ON LEGS. PT IS CURRENTLY SEEING [facility] FOR SORES. STATES HER OXYCODONE IS NOT HELPING HER PAIN. PT WAS GIVEN 4MG ZOFRAN BY EMS Nursing Sepsis Screen: No Definite Risk Source of Information: Patient Exam Limitations: No Limitations (ANDRADE LUNA) History of Present Illness Date Seen by Provider: Jun 10, 2019 Time Seen by Provider: 13:55 Initial Comments Pt is a 64 y/o w/ PMH of anemia, non-insulin DMII, HTN, neuropathy, anxiety, and chronic narcotic therapy who presents to the ED via EMS with pain 2/2 wound on by lateral LE which are being managed at [facility]; the dressing was last changed 1 week ago. Notes her wounds started as blisters 2 months ago and progressed to ulcers. She states the her wounds have been weeping and that her regular Oxycodone QID has not been able to control the pain. She reports her 1st and last dose of Oxycodone today was at 6AM and none since then. Pt has a filled script for Oxycodone which was supposed to be delivered to her home today around 1PM but since she was brought to the ED no one was home to accept the medicine. She is very distressed about this, repeating over and over again that pharmacies close early today and that she will not be able to "make it through the night" w/o her pain med. She is also c/o of nausea (no vomiting) which she attributes to pain. She states she has considered killing herself because she "can't take the pain anymore" but that she will not do it because "it is not wh at god intended". Denies plan for suicide. Denies any other GI, fever, chills, G/U, pulmonary, or cardiac sx. Timing/Duration: Constant Severity: Moderate Modifying Factors: improves with Medication Associated Systoms: No Chest Pain, No Cough, No Diaphoresis, No Fever/Chills; Headaches, Nausea/Vomiting; No Shortness of Air (ANDRADE LUNA) Allergies and Home Medications Allergies Coded Allergies: Sulfa (Sulfonamide Antibiotics) (Verified Allergy, Unknown, 12/24/19) ceftriaxone (Verified Allergy, Unknown, RASH, 08/12/18) Home Medications Albuterol Sulfate 1 Puff Puff, 2 PUFF IH Q4H PRN for SHORTNESS OF BREATH, (Reported) 1 PUFF = 90 MCG Alprazolam 2 Mg Tablet, 0.5-1 MG PO Q3H, (Reported) NOT TO EXCEED 3 TABLETS IN 24 HOURS Ascorbic Acid 500 Mg Capsule.er, 500 MG PO DAILY, (Reported) Aspirin 81 Mg Tablet.dr, 81 MG PO DAILY, (Reported) Cetirizine HCl 10 Mg Tablet, 10 MG PO DAILY, (Reported) Citalopram Hydrobromide 40 Mg Tablet, 40 MG PO DAILY, (Reported) Clotrimazole/Betamethasone Dip 15 Gm Cream..g., 15 GM TP BID, (Reported) Cyclobenzaprine HCl 10 Mg Tablet, 10 MG PO BID PRN for MUSCLE SPASMS, (Reported) Docusate Sodium 100 Mg Tablet, 100 MG PO PRN, (Reported) Ferrous Sulfate 325 Mg Tablet, 325 MG PO DAILY, (Reported) Fluticasone Propionate 9.9 Ml [place].susp, 1 SPRAY NS DAILY, (Reported) Gabapentin 600 Mg Tablet, 600 MG PO TID, (Reported) Guaifenesin 600 Mg Tab.er.12h, 600 MG PO BID, (Reported) Hydrocortisone/Aloe Vera 28.4 Gm Cream..g., 28.4 GM TP TID, (Reported) Ipratropium/Albuterol Sulfate 3 Ml [place].neb, 3 ML IH Q4H PRN for SHORTNESS OF BREATH, (Reported) Levofloxacin 500 Mg Tablet, 500 MG PO DAILY Prescribed by: BAYRON JASMINE on 08/16/18 1023 Metformin HCl 500 Mg Tablet, 500 MG PO BID, (Reported) Montelukast Sodium 10 Mg Tablet, 10 MG PO DAILY, (Reported) Nystatin 100,000 Unit/1 Ml Oral.susp, 5 ML PO Q6HR Prescribed by: BAYRON JASMINE on 08/16/18 1023 Omeprazole 20 Mg Capsule.dr, 20 MG PO DAILY, (Reported) Ondansetron 8 Mg Tab.rapdis, 8 MG PO Q6H PRN for NAUSEA/VOMITING, (Reported) Oxycodone HCl/Acetaminophen 1 Each Tablet, 0.5 TAB PO Q3H PRN for PAIN-MODERATE, (Reported) Polyethylene Glycol 3350 17 Gm Powd.pack, 17 GM PO DAILY, (Reported) Potassium Chloride 10 Meq Capsule.er, 20 MEQ PO DAILY, (Reported) Prednisone 50 Mg Tab, 50 MG PO DAILY, (Reported) 5 DAY SUPPLY FILLED 08/07/18 Prednisone 10 Mg Tab.ds.pk, 10 MG PO DAILY Take 6 tabs(60mg)daily,decrease by 1 tab(10MG)daily. Prescribed by: BAYRON JASMINE on 08/16/18 1023 Propranolol HCl 40 Mg Tablet, 40 MG PO BID, (Reported) Simvastatin 40 Mg Tablet, 40 MG PO HS, (Reported) [Lidoderm] , 5 % TD DAILY, (Reported) REMOVE AFTER 12 HOURS Patient Home Medication List Home Medication List Reviewed: Yes (HILARIO ALCANTAR MD) Review of Systems Review of Systems Constitutional: No chills, No fever EENTM: no symptoms reported Respiratory: No cough, No hemoptysis, No short of breath Cardiovascular: No chest pain; edema (chronic); No palpitations Gastrointestinal: No abdominal pain, No constipation, No diarrhea; nausea; No vomiting Genitourinary: No decreased output, No discharge, No dysuria, No frequency, No hematuria Musculoskeletal: back pain (chronic); No neck pain; other (bilat LE pain 2/2 wounds) Skin: No pruritus, No rash; other (ulcerative wounds to bilat LE) Psychiatric/Neurological: Depressed (chronic) Hematologic/Lymphatic: Anemia (ANDRADE LUNA) All Other Systems Reviewed Negative Unless Noted: Yes (HILARIO ALCANTAR MD) Past Uuonrqi-Pwgupr-Xsdhca Hx Past Med/Social Hx: Reviewed Nursing Past Med/Soc Hx (HILARIO ALCANTAR MD) Patient Social History Alcohol Use: Denies Use Recreational Drug Use: No Smoking Status: Former Smoker Type Used: Cigarettes 2nd Hand Smoke Exposure: Yes Recent Foreign Travel: No Contact w/Someone Who Travel: No Recent Infectious Disease Expo: No Recent Hopitalizations: No (ANDRADE LUNA) Immunizations Up To Date Date of Pneumonia Vaccine: Jun 02, 2014 Date of Influenza Vaccine: Mar 18, 2018 (ANDRADE LUNA) Past Medical History Surgeries: Yes (R KNEE SCOPE x2/ CARPAL TUNNEL/ CUBITAL TUNNEL) Hysterectomy Respiratory: Yes (COPD, O2 AT NIGHT 2.5-3L) COPD Cardiac: Yes Hypertension Neurological: Yes (STRESS SEIZURE) Neuropathy Reproductive Disorders: No Sexually Transmitted Disease: No HIV/AIDS: No Gastrointestinal: Yes (diverticulitis, ulcers) Gastroesophageal Reflux Musculoskeletal: Yes (SPINAL STENOSIS) Degenerate Disk Disease, Arthritis, Fibromyalgia, Chronic Back Pain Endocrine: Yes Loss of Vision: Bilateral Hearing Impairment: Denies Cancer: No Psychosocial: Yes Anxiety, Depression Integumentary: No Blood Disorders: Yes (CHRONIC ANEMIA) Adverse Reaction/Blood Tranf: Yes (HAS HAD BLOOD WITH NO PROBLEMS) (ANDRADE LUNA [employer]LMIR[employer]) Family Medical History Reviewed Nursing Family Hx (HILARIO ALCANTAR MD) Patient reports no known family medical history. Physical Exam Vital Signs Vital Signs - First Documented 06/10/19 13:30 Temp 36.7 Pulse 91 Resp 20 B/P (MAP) 151/62 (91) Pulse Ox 100 O2 Delivery Room Air (HILARIO ALCANTAR MD) Vital Signs Capillary Refill : Less Than 3 Seconds (ANDRADE LUNA [employer] JOHN) Height, Weight, BMI Height: 5'2.00" Weight: 150lbs. 0.0oz. [id number]; 34.00 BMI Method:Stated General Appearance: No Apparent Distress, WD/WN, Moderate Distress, Obese, Other (pt very upset at the time of eval, intermittently tearfull) Eyes: Bilateral Eye Normal Inspection Respiratory: Chest Non Tender, Normal Breath Sounds, No Accessory Muscle Use, No Respiratory Distress, Crackles (mild, bilat lower bases) Cardiovascular: No Edema, No Gallop, No JVD, No Murmur, Normal Peripheral Pulses, Tachycardia Gastrointestinal: Normal Bowel Sounds, No Organomegaly, No Pulsatile Mass, Non Tender, Soft Rectal: Other (no stool in rectal vault on FLAVIO, no hemorrhoids appreciated, Negative FOT) Back: Normal Inspection, No Vertebral Tenderness Extremity: Pedal Edema, Swelling, Other (bilat LE wrapped w/ gauze and wearing stockings, wounds only to LLE) Neurologic/Psychiatric: Alert, Oriented x3 Skin: Normal Color, Warm/Dry, Other (superficial healing ulcers to LLE, mild erythemia, necrotic skin present and peeling off; does not appear infected. There is swelling present to bilat LE which pt states is chronic and nothing new) (ANDRADE LUNA [facility]) General Appearance: WD/WN, Moderate Distress HEENT: Normal ENT Inspection, Moist Mucous Membranes Neck: Non Tender, Supple Respiratory: Normal Breath Sounds, No Accessory Muscle Use, No Respiratory Distress Cardiovascular: No Murmur, Tachycardia Gastrointestinal: Non Tender, Soft Back: Normal Inspection, No Vertebral Tenderness Extremity: Pedal Edema (4+ bilateral), Other (bilat LE wrapped w/ gauze and wearing stockings, wounds only to LLE) Neurologic/Psychiatric: Alert, Oriented x3 Skin: Warm/Dry, Other (superficial healing ulcers to LLE, mild erythemia, necrotic skin present and peeling off; does not appear infected. There is swelling present to bilat LE which pt states is chronic and nothing new) (HILARIO ALCANTAR MD) Focused Exam Lactate Level 06/10/19 14:32: Lactic Acid Level 1.28 (HILARIO ALCANTAR MD) Lactic Acid Level Laboratory Tests Test 06/10/19 14:32 Lactic Acid Level 1.28 MMOL/L (0.50-2.00) (HILARIO ALCANTAR MD) Progress/Results/Core Measures Suspected Sepsis Recent Fever Within 48 Hours: No Infection Criteria Present: None New/Unexplained Altered Menta: No Sepsis Screen: No Definite Risk SIRS Temperature: Pulse: 91 Respiratory Rate: 20 Laboratory Tests 06/10/19 14:32: White Blood Count 6.0 Blood Pressure 151 /62 Mean: 91 06/10/19 14:32: Lactic Acid Level 1.28 Laboratory Tests 06/10/19 14:32: Creatinine 0.85, Platelet Count 194, Total Bilirubin 0.5 (ANDRADE LUNA [facility]) Results/Orders Lab Results Laboratory Tests Test 06/10/19 14:32 06/10/19 15:50 Range/Units White Blood Count 6.0 4.3-11.0 10^3/uL Red Blood Count 2.12 L 4.35-5.85 10^6/uL Hemoglobin 5.4 *L 11.5-16.0 G/DL Hematocrit 18 *L 35-52 % Mean Corpuscular Volume 86 80-99 FL Mean Corpuscular Hemoglobin 25 25-34 PG Mean Corpuscular Hemoglobin Concent 30 L 32-36 G/DL Red Cell Distribution Width 14.4 10.0-14.5 % Platelet Count 194 130-400 10^3/uL Mean Platelet Volume 11.7 H 7.4-10.4 FL Neutrophils (%) (Auto) 72 42-75 % Lymphocytes (%) (Auto) 21 12-44 % Monocytes (%) (Auto) 6 0-12 % Eosinophils (%) (Auto) 2 0-10 % Basophils (%) (Auto) 1 0-10 % Neutrophils # (Auto) 4.3 1.8-7.8 X 10^3 Lymphocytes # (Auto) 1.2 1.0-4.0 X 10^3 Monocytes # (Auto) 0.3 0.0-1.0 X 10^3 Eosinophils # (Auto) 0.1 0.0-0.3 10^3/uL Basophils # (Auto) 0.0 0.0-0.1 10^3/uL Sodium Level 142 135-145 MMOL/L Potassium Level 3.8 3.6-5.0 MMOL/L Chloride Level 109 H 98-107 MMOL/L Carbon Dioxide Level 23 21-32 MMOL/L Anion Gap 10 5-14 MMOL/L Blood Urea Nitrogen 23 H 7-18 MG/DL Creatinine 0.85 0.60-1.30 MG/DL Estimat Glomerular Filtration Rate > 60 BUN/Creatinine Ratio 27 Glucose Level 117 H 70-105 MG/DL Lactic Acid Level 1.28 0.50-2.00 MMOL/L Calcium Level 8.6 8.5-10.1 MG/DL Corrected Calcium 9.0 8.5-10.1 MG/DL Total Bilirubin 0.5 0.1-1.0 MG/DL Aspartate Amino Transf (AST/SGOT) 13 5-34 U/L Alanine Aminotransferase (ALT/SGPT) 6 0-55 U/L Alkaline Phosphatase 135 40-136 U/L C-Reactive Protein High Sensitivity 0.22 0.00-0.50 MG/DL Total Protein 6.0 L 6.4-8.2 GM/DL Albumin 3.5 3.2-4.5 GM/DL (HILARIO ALCANTAR MD) My Orders Orders - HILARIO ALCANTAR MD Cbc With Automated Diff (06/10/19 14:10) Comprehensive Metabolic Panel (06/10/19 14:10) Hs C Reactive Protein (06/10/19 14:10) Drug Screen Stat (Urine) (06/10/19 14:10) Ua Culture If Indicated (06/10/19 14:10) Ed Iv/Invasive Line Start (06/10/19 14:10) Ed Iv/Invasive Line Start (06/10/19 14:21) Fentanyl Injection (Sublimaze Injection (06/10/19 14:21) Lactic Acid Analyzer (06/10/19 14:21) Blood Culture (06/10/19 14:21) Chest 1 View, Ap/Pa Only (06/10/19 14:35) Red Cells Leukocytes Reduced (06/10/19 14:50) Type And Screen (06/10/19 14:50) Hydromorphone Injection (Dilaudid Inject (06/10/19 15:15) Iron Tibc %Sat & Ferritin (06/10/19 15:54) Smear For Path Review (06/10/19 15:54) Cbc And Manual Diff (06/10/19 14:32) Reticulocyte Count (06/10/19 14:32) (HILARIO ALCANTAR MD) Medications Given in ED Current Medications Medications Dose Ordered Sig/Megan Route Start Time Stop Time Status Last Admin Dose Admin Hydromorphone HCl 1 mg ONCE ONCE IV 06/10/19 15:15 06/10/19 15:16 DC 06/10/19 15:18 1 MG (HILARIO ALCANTAR MD) Vital Signs/I&O 06/10/19 13:30 Temp 36.7 Pulse 91 Resp 20 B/P (MAP) 151/62 (91) Pulse Ox 100 O2 Delivery Room Air (HILARIO ALCANTAR MD) Vital Signs/I&O Capillary Refill : Less Than 3 Seconds (ANDRADE LUNA) Blood Pressure Mean: 91 Progress Note : Time: 14:22 Progress Note Seen and Evaluated. Presentation concerning for sepsis, hyperalgesia, wound infection. CBC and CMP were ordered and will ordered fentanyl for pain. @1450: P t's Hg was noted to be 5.4. Pt has previous hx of anemia for which she was admitted to this hospital. Will order type and cross. Plan on admitting pt. Pt is upset, yelling and still complaining of pain, after Fentanyl; will order Dilaudid. Pt initially denied any GI bleeding (hemoptasis, rectal bleeding, bloody stools) but later states she has noticed some blood when wiping in the past few days. Performed a FLAVIO w/ FOT which was negative. Will monitor. @1545: Reports improvement of her pain. Will continue to monitor. (ANDRADE LUNA [facility]) Progress Note : Progress Note I have seen and evaluated the patient and agree with above except as indicated. I directed the plan of care. Patient is here with increasing pain related to her chronic pain. States that her typical chronic pain medicines are not working. Increasing pain has occurred over the last 2 months. She is seeing wound care for chronic venous stasis of her left lower extremity with blistering and some wounds. She does have 4+ pedal edema bilaterally. Does have chronic stasis wounds to the left lower extremity. Last dose of her own pain medicine was 6 AM. She follows with [facility]. Denies nausea or vomiting. Denies fevers. States that she's had some blood in her stools when she wipes. Hemoccult is negative. Physical exam as above. We did give fentanyl 100 g IV and this did not help. Dilaudid 1 mg IV was given and this has helped. Hemoglobin noted to be 5.4. I have added iron studies as well as peripheral smear at request of admitting physician. 1555: I discussed the case with Dr. Cortes and she accepts patient for admission, observation status. We will continue pain medicine with breakthrough fentanyl pain medicine. Plan is to transfuse 2 units of packed red blood cells. All of this was discussed with the patient who agrees with plan. Her main concern is her continued pain and she would like to have improved pain control. (HILARIO ALCANTAR MD) Diagnostic Imaging Diagonstic Imaging: Xray Plain Films/CT/US/NM/MRI: chest Comments [facility] [place], [place] NAME: NANCI ABDUL Christoph [facility] REC#: [id number] PT STATUS: REG ER : 1955 PHYSICIAN: HILARIO ALCANTAR MD ADMIT DATE: 06/10/19/ER Date of Exam:06/10/19 CHEST 1 VIEW, AP/PA ONLY INDICATION: Nausea, uncontrolled pain. TECHNIQUE: Single view chest 2:38 PM. CORRELATION STUDY: 08/09/2018 FINDINGS: Heart size is slightly more prominent but remains within normal limits. Vasculature within normal limits. The lungs are hyperlucent compatible with emphysematous changes. No consolidating infiltrate. Calcified granuloma left mid lung field. There is no significant effusion or pneumothorax. Rounded masslike density low retrocardiac region consistent with known hiatal hernia. IMPRESSION: 1. Negative for acute abnormality of the chest. Dictated on workstation # [id number] Dict: 06/10/19 1446 Trans: 06/10/19 1448 DO [id number] Interpreted by: RADHA LOPEZ DO ([facility] Departure Communication (Admissions) Time/Spoke to Admitting Phy: 15:55 (HILARIO ALCANTAR MD) Impression Primary Impression: Anemia Qualified Codes: D64.9 - Anemia, unspecified Additional Impressions: Chronic leg pain Qualified Codes: M79.604 - Pain in right leg; M79.605 - Pain in left leg; G89.29 - Other chronic pain Multiple open wounds of left lower extremity Qualified Codes: S81.802A - Unspecified open wound, left lower leg, initial encounter Disposition: ADMITTED INPATIENT Condition: Stable Admissions Decision to Admit Reason: Admit from ER (General) Decision to Admit/Date: Jun 10, 2019 Time/Decision to Admit Time: 15:55 (HILARIO ALCANTAR MD) Departure-Patient Inst. Referrals: [facility] (PCP) Primary Care Physician YUE BLANTON (Family) Primary Care Physician ANDRADE LUNA [facility] Jun 10, 2019 14:28 HILARIO ALCANTAR MD Jun 10, 2019 16:09
[2019-06-10 14:42] LABS: BASOPHILS % (AUTO) 1 % (0-10); EOSINOPHILS # (AUTO) 0.1 10^3/uL (0.0-0.3); EOSINOPHILS % (AUTO) 2 % (0-10); LYMPHOCYTES # (AUTO) 1.2 X 10^3 (1.0-4.0); LYMPHOCYTES % (AUTO) 21 % (12-44); MEAN CORPUSCULAR HGB CONC 30 G/DL (32-36); MEAN CORPUSCULAR VOLUME 86 FL (80-99); MEAN PLATELET VOLUME 11.7 FL (7.4-10.4); MONOCYTES # (AUTO) 0.3 X 10^3 (0.0-1.0); MONOCYTES % (AUTO) 6 % (0-12); NEUTROPHILS # (AUTO) 4.3 X 10^3 (1.8-7.8); NEUTROPHILS % (AUTO) 72 % (42-75); PLATELET COUNT 194 10^3/uL (130-400); RED CELL DISTRIBUTION WIDTH 14.4 % (10.0-14.5)
[2019-06-10 14:44] LABS: HEMATOCRIT 18 % (35-52); HEMOGLOBIN 5.4 G/DL (11.5-16.0); MEAN CORPUSCULAR HEMOGLOBIN 25 PG (25-34)
--- NOTE | 2019-06-10 14:49 | Diagnostic Imaging Report ---
INDICATION: Nausea, uncontrolled pain. TECHNIQUE: Single view chest 2:38 PM. CORRELATION STUDY: 08/09/2018 FINDINGS: Heart size is slightly more prominent but remains within normal limits. Vasculature within normal limits. The lungs are hyperlucent compatible with emphysematous changes. No consolidating infiltrate. Calcified granuloma left mid lung field. There is no significant effusion or pneumothorax. Rounded masslike density low retrocardiac region consistent with known hiatal hernia. IMPRESSION: 1. Negative for acute abnormality of the chest. Dictated by: Dictated on workstation # [id number]
[2019-06-10 15:02] LABS: ALANINE AMINOTRANSFERASE 6 U/L (0-55); ALBUMIN 3.5 GM/DL (3.2-4.5); ALKALINE PHOSPHATASE 135 U/L (40-136); BILIRUBIN,TOTAL 0.5 MG/DL (0.1-1.0); BUN/CREATININE RATIO 27; CALCIUM 8.6 MG/DL (8.5-10.1); CARBON DIOXIDE 23 MMOL/L (21-32); CHLORIDE 109 MMOL/L (98-107); CREATININE SERUM 0.85 MG/DL (0.60-1.30); GFR ESTIMATED > 60; GLUCOSE 117 MG/DL (70-105); POTASSIUM 3.8 MMOL/L (3.6-5.0); SODIUM 142 MMOL/L (135-145)
[2019-06-10] MEDS ORDERED: HYDROmorphone 2 MG/ML VIAL (DILAUDID) IV ONE (15:15)
[2019-06-10 15:59] LABS: BILIRUBIN,URINE NEGATIVE (NEGATIVE); CLARITY,URINE CLEAR; COLOR,URINE YELLOW; GLUCOSE, URINE (UA) NEGATIVE (NEGATIVE); KETONES,URINE NEGATIVE (NEGATIVE); LEUKOCYTE ESTERASE ,URINE NEGATIVE (NEGATIVE); NITRITE,URINE NEGATIVE (NEGATIVE); PH,URINE 5.5 (5-9); PROTEIN,URINE NEGATIVE (NEGATIVE)
[2019-06-10 16:08] LABS: ABSOLUTE RETIC # 48 10e9/L (24-90); LYMPHOCYTES % (MANUAL) 21 %; MONOCYTES % (MANUAL) 6 %; NEUTROPHILS % (MANUAL) 73 %; RETICULOCYTE % 2.24 % (0.50-2.40)
[2019-06-10 16:09] LABS: HYPOCHROMASIA MODERATE
[2019-06-10 16:10] LABS: ANISOCYTOSIS SLIGHT
[2019-06-10 16:17] LABS: BACTERIA,URINE TRACE /HPF; SQUAMOUS EPITHELIAL CELL,UR 0-2 /HPF
[2019-06-10 16:18] LABS: AMPHETAMINE SCREEN, URINE NEGATIVE (NEGATIVE); BARBITURATE SCREEN URINE NEGATIVE (NEGATIVE); BENZODIAZEPINES SCREEN URINE POSITIVE (NEGATIVE); CANNABINOID SCREEN, URINE NEGATIVE (NEGATIVE); COCAINE SCREEN URINE NEGATIVE (NEGATIVE); METHADONE STAT NEGATIVE (NEGATIVE); METHAMPHETAMINE SCREEN URINE S NEGATIVE (NEGATIVE); OPIATE SCREEN URINE NEGATIVE (NEGATIVE); OXYCODONE STAT POSITIVE (NEGATIVE); PROPOXYPHENE STAT NEGATIVE (NEGATIVE); TRICYCLIC ANTIDEPRESSANTS SCRE NEGATIVE (NEGATIVE)
[2019-06-10 16:21] VITALS: BP 170/64
[2019-06-10] MEDS ORDERED: CATHETER FLUSH 10 ML SYR IV PRN (16:30)
[2019-06-10] MEDS: NS IV 1000 ML 1,000 ML IV SCH ×2 (16:30→23:27)
[2019-06-10] MEDS ORDERED: ALPRAZolam 1 MG (XANAX) TAB PO PRN (16:30)
[2019-06-10] MEDS ORDERED: NS IV 500 ML 500 ML IV SCH (16:30)
[2019-06-10 16:43] VITALS: BP 170/64
[2019-06-10 17:05] VITALS: BP 180/75
[2019-06-10] MEDS: GABAPENTIN 600 MG (NEURONTIN) TAB PO SCH ×2 (19:29→21:00)
[2019-06-10] MEDS: oxyCODONE/APAP 10/325MG (PERCOCET 10) TABLET PO PRN (19:29)
[2019-06-10] MEDS: fentaNYL INJECTION 100 MCG/2 ML AMP IVP PRN ×2 (19:30→23:23)
[2019-06-10] MEDS: inSUlin ASPART (NovoLOG) 1 UNIT/0.01 ML (CHARGE PER UNIT) SC SCH (19:35)
[2019-06-10 19:59] VITALS: BP 142/69
[2019-06-10] MEDS ORDERED: RT-ALBUTEROL/IPRATROPIUM 3 ML (DUONEB) VIAL IH PRN (21:00)
[2019-06-10] MEDS ORDERED: NON-FORMULARY MEDICATION 1 EA EA (Docusate Sodium 100 MG) PO SCH (21:00)
[2019-06-10] MEDS ORDERED: AMIT25TA9 PO (21:10)
[2019-06-10] MEDS ORDERED: OXYC-465 PO (21:10)
[2019-06-10] MEDS ORDERED: CNC1KV IM (21:10)
[2019-06-10] MEDS ORDERED: DIPH25TA29 PO (21:10)
[2019-06-10] MEDS ORDERED: CYCL10TA9 PO (21:10)
[2019-06-10] MEDS ORDERED: ALPR2TAB2 PO (21:10)
[2019-06-10] MEDS ORDERED: FURO40TA4 PO (21:10)
[2019-06-10] MEDS ORDERED: HYDR25TA4 PO (21:10)
[2019-06-10] MEDS ORDERED: FLUT12AE4 IH (21:10)
[2019-06-10] MEDS ORDERED: PRAM1TAB5 PO (21:10)
[2019-06-10] MEDS ORDERED: ERYT-96 PO (21:10)
[2019-06-10 21:15] VITALS: BP 168/68
[2019-06-10] MEDS ORDERED: CLOT15CR4 TP (21:20)
[2019-06-10] MEDS ORDERED: MELO7.5T46 PO (21:20)
[2019-06-10] MEDS ORDERED: LIDO700A45 TP (21:20)
[2019-06-10] MEDS ORDERED: RT-ALBUTEROL SULF 2.5 MG/3 ML PRE-MIX VIAL IH PRN (21:30)
[2019-06-10] MEDS ORDERED: LIDOCAINE 4% (SALONPAS) PATCH TP PRN (21:30)
[2019-06-10] MEDS ORDERED: DOCUSATE SODIUM 100 MG (COLACE) CAP PO PRN (22:00)
[2019-06-10 23:00] VITALS: BP 148/78
[2019-06-10] MEDS ORDERED: ONDANSETRON 4 MG/2 ML (SDV) Z0FRAN ONE (23:29)
[2019-06-10] MEDS: ALPRAZolam 1 MG (XANAX) TAB PO SCH (23:34)
[2019-06-11] VITALS (7 sets, daily range): BP systolic 116–175; BP diastolic 56–79
[2019-06-11] MEDS: metFORMIN 500 MG (GLUCOPHAGE) TAB PO SCH ×3 (00:34→20:50)
[2019-06-11] MEDS: fentaNYL INJECTION 100 MCG/2 ML AMP IVP PRN ×5 (03:00→13:49)
[2019-06-11] MEDS: oxyCODONE/APAP 10/325MG (PERCOCET 10) TABLET PO PRN ×4 (03:00→20:52)
[2019-06-11] MEDS: ONDANSETRON 4 MG/2 ML (SDV) Z0FRAN IVP PRN ×4 (03:21→18:32)
[2019-06-11 05:51] LABS: BASOPHILS % (AUTO) 1 % (0-10); EOSINOPHILS # (AUTO) 0.1 10^3/uL (0.0-0.3); EOSINOPHILS % (AUTO) 2 % (0-10); HEMATOCRIT 23 % (35-52); LYMPHOCYTES # (AUTO) 1.3 X 10^3 (1.0-4.0); LYMPHOCYTES % (AUTO) 30 % (12-44); MEAN CORPUSCULAR HEMOGLOBIN 27 PG (25-34); MEAN CORPUSCULAR HGB CONC 31 G/DL (32-36); MEAN CORPUSCULAR VOLUME 86 FL (80-99); MEAN PLATELET VOLUME 11.2 FL (7.4-10.4); MONOCYTES # (AUTO) 0.4 X 10^3 (0.0-1.0); MONOCYTES % (AUTO) 10 % (0-12); NEUTROPHILS # (AUTO) 2.4 X 10^3 (1.8-7.8); NEUTROPHILS % (AUTO) 57 % (42-75); PLATELET COUNT 174 10^3/uL (130-400); RED CELL DISTRIBUTION WIDTH 14.2 % (10.0-14.5); WHITE BLOOD COUNT 4.2 10^3/uL (4.3-11.0)
[2019-06-11 06:01] LABS: HEMOGLOBIN 7.2 G/DL (11.5-16.0)
[2019-06-11] MEDS: inSUlin ASPART (NovoLOG) 1 UNIT/0.01 ML (CHARGE PER UNIT) SC SCH ×4 (06:03→20:55)
[2019-06-11 06:10] LABS: ALANINE AMINOTRANSFERASE 7 U/L (0-55); ALBUMIN 3.3 GM/DL (3.2-4.5); ALKALINE PHOSPHATASE 132 U/L (40-136); BILIRUBIN,TOTAL 1.3 MG/DL (0.1-1.0); BUN/CREATININE RATIO 25; CALCIUM 8.1 MG/DL (8.5-10.1); CARBON DIOXIDE 22 MMOL/L (21-32); CHLORIDE 107 MMOL/L (98-107); CREATININE SERUM 0.77 MG/DL (0.60-1.30); GFR ESTIMATED > 60; GLUCOSE 99 MG/DL (70-105); POTASSIUM 3.7 MMOL/L (3.6-5.0); SODIUM 139 MMOL/L (135-145); TOTAL PROTEIN 5.6 GM/DL (6.4-8.2)
[2019-06-11] MEDS: KCL 20 MEQ TAB (K-DUR) PO SCH (06:12)
[2019-06-11] MEDS: ALPRAZolam 1 MG (XANAX) TAB PO SCH ×2 (06:17→20:50)
[2019-06-11] MEDS: FERROUS SULF 325 MG (IRON) TAB PO SCH (08:39)
[2019-06-11] MEDS: NICOTINE 21 MG (NICODERM) PATCH TD SCH (08:40)
[2019-06-11] MEDS: PROPRANOLOL 20 MG (INDERAL) TABLET PO SCH ×2 (08:40→20:50)
[2019-06-11] MEDS: CYCLOBENZAPRINE 10 MG (FLEXERIL) TAB PO SCH ×4 (08:40→20:51)
[2019-06-11] MEDS: GABAPENTIN 600 MG (NEURONTIN) TAB PO SCH ×4 (08:40→20:51)
[2019-06-11] MEDS: MONTELUKAST 10 MG (SINGULAIR) TAB PO SCH (08:41)
[2019-06-11] MEDS: FUROSEMIDE 40 MG (LASIX) TAB PO SCH ×2 (08:41→20:50)
[2019-06-11] MEDS: HYDROCHLOROTHIAZIDE 25 MG (HCTZ) TAB PO SCH (08:42)
[2019-06-11] MEDS: FLUTICASONE NASAL SPRAY (FLONASE) 16 GM BTL NS SCH (08:58)
[2019-06-11] MEDS ORDERED: NON-FORMULARY MEDICATION 1 EA EA (Propranolol HCl 40 MG) PO SCH (09:00)
[2019-06-11] MEDS ORDERED: NON-FORMULARY MEDICATION 1 EA EA (Potassium Chloride 20 MEQ) PO SCH (09:00)
[2019-06-11] MEDS ORDERED: NON-FORMULARY MEDICATION 1 EA EA (Citalopram Hydrobromide (Celexa) 40 MG) PO SCH (09:00)
[2019-06-11] MEDS ORDERED: NON-FORMULARY MEDICATION 1 EA EA (Fluticasone Propionate (Flonase Allergy Relief) 1 SPRAY) NS SCH (09:00)
[2019-06-11] MEDS ORDERED: ALPRAZOLAM 1 MG PO SCH (09:00)
[2019-06-11] MEDS: RT-ADVAIR HFA 115/21 MCG PER PUFF IH SCH ×2 (09:35→20:58)
[2019-06-11] MEDS: NICOTINE PATCH REMOVAL TP SCH (10:55)
--- NOTE | 2019-06-11 11:51 | History & Physical ---
HPI History of Present Illness: 64 yo female came to ER due to severe leg pain. She has chronic pain and ulcers that she has been seeing wound care for and also notes she is to have some ultrasound tests done. She was found to have severe anemia in the ER. She has had trouble with anemia in past and required transfusions. She reports she is not entirely sure why and that the conclusion was it was due to chronic blood loss but she doesn't know from where. She last had EGD/colo in 2014 and reports history of bleeding ulcer and polyps. Date seen by provider: Jun 11, 2019 Time Seen by Provider: 06:50 Attending Physician Chyna Cortes MD PCP [place] Consult Date of Admission Jun 10, 2019 at 15:48 Home Medications Home Medications Reviewed patient Home Medication Reconciliation performed by pharmacy medication reconciliations infectious waste technician and/or nursing. Patients Allergies have been reviewed. Allergies Coded Allergies: Sulfa (Sulfonamide Antibiotics) (Verified Allergy, Unknown, 06/10/19) ceftriaxone (Verified Allergy, Unknown, RASH, 08/12/18) TVI-Gcdbev-Jhxmit Hx Patient Social History Alcohol Use: Denies Use Recreational Drug Use: No Smoking Status: Former Smoker Type Used: Cigarettes 2nd Hand Smoke Exposure: Yes Recent Foreign Travel: No Contact w/other who traveled: No Recent Hopitalizations: No Recent Infectious Disease Expo: No Immunizations Up To Date Date of Pneumonia Vaccine: Jun 02, 2014 Date of Influenza Vaccine: Mar 18, 2019 Past Medical History PMHx: Anxiety DMII Neuropathy Fibromyalgia Depression Conversion disorder Chronic fatigue HTN CHF Iron deficiency anemia Neurofibromatosis type 1 Peptic ulcer disease SurgHx: Cholecystectomy Hysterectomy Right shoulder surgery Right knee meniscus repair Right elbow and hand surgery Cataract Family Medical History Family History: Patient reports no known family medical history. Review of Systems ([facility]) Constitutional: malaise Musculoskeletal: joint pain, muscle pain Skin: other (ulcer on leg, venous stasis) Reviewed Test Results Reviewed Test Results Lab Laboratory Tests Test 06/10/19 14:32 06/10/19 15:50 06/10/19 16:43 06/10/19 19:35 Range/Units White Blood Count 6.0 4.3-11.0 10^3/uL Red Blood Count 2.12 L 4.35-5.85 10^6/uL Hemoglobin 5.4 *L 11.5-16.0 G/DL Hematocrit 18 *L 35-52 % Mean Corpuscular Volume 86 80-99 FL Mean Corpuscular Hemoglobin 25 25-34 PG Mean Corpuscular Hemoglobin Concent 30 L 32-36 G/DL Red Cell Distribution Width 14.4 10.0-14.5 % Platelet Count 194 130-400 10^3/uL Mean Platelet Volume 11.7 H 7.4-10.4 FL Neutrophils (%) (Auto) 72 42-75 % Lymphocytes (%) (Auto) 21 12-44 % Monocytes (%) (Auto) 6 0-12 % Eosinophils (%) (Auto) 2 0-10 % Basophils (%) (Auto) 1 0-10 % Neutrophils # (Auto) 4.3 1.8-7.8 X 10^3 Lymphocytes # (Auto) 1.2 1.0-4.0 X 10^3 Monocytes # (Auto) 0.3 0.0-1.0 X 10^3 Eosinophils # (Auto) 0.1 0.0-0.3 10^3/uL Basophils # (Auto) 0.0 0.0-0.1 10^3/uL Neutrophils % (Manual) 73 % Lymphocytes % (Manual) 21 % Monocytes % (Manual) 6 % Hypochromasia MODERATE Anisocytosis SLIGHT Absolute Reticulocyte Count 48 24-90 10e9/L Percent Reticulocyte Count 2.24 0.50-2.40 % Sodium Level 142 135-145 MMOL/L Potassium Level 3.8 3.6-5.0 MMOL/L Chloride Level 109 H 98-107 MMOL/L Carbon Dioxide Level 23 21-32 MMOL/L Anion Gap 10 5-14 MMOL/L Blood Urea Nitrogen 23 H 7-18 MG/DL Creatinine 0.85 0.60-1.30 MG/DL Estimat Glomerular Filtration Rate > 60 BUN/Creatinine Ratio 27 Glucose Level 117 H 70-105 MG/DL Lactic Acid Level 1.28 0.50-2.00 MMOL/L Calcium Level 8.6 8.5-10.1 MG/DL Corrected Calcium 9.0 8.5-10.1 MG/DL Iron Level 13 L 35-180 ug/dL Total Iron Binding Capacity 344 280-380 ug/dL Unsaturated Iron Binding Capacity 331 55-450 ug/dL Transferrin % Saturation 4 L 15-50 % Ferritin 2.8 L 20.0-177.0 ng/mL Total Bilirubin 0.5 0.1-1.0 MG/DL Aspartate Amino Transf (AST/SGOT) 13 5-34 U/L Alanine Aminotransferase (ALT/SGPT) 6 0-55 U/L Alkaline Phosphatase 135 40-136 U/L C-Reactive Protein High Sensitivity 0.22 0.00-0.50 MG/DL Total Protein 6.0 L 6.4-8.2 GM/DL Albumin 3.5 3.2-4.5 GM/DL Urine Color YELLOW Urine Clarity CLEAR Urine pH 5.5 5-9 Urine Specific [place] 1.025 H 1.016-1.022 Urine Protein NEGATIVE NEGATIVE Urine Glucose (UA) NEGATIVE NEGATIVE Urine Ketones NEGATIVE NEGATIVE Urine Nitrite NEGATIVE NEGATIVE Urine Bilirubin NEGATIVE NEGATIVE Urine Urobilinogen 0.2 < = 1.0 MG/DL Urine Leukocyte Esterase NEGATIVE NEGATIVE Urine RBC (Auto) NEGATIVE NEGATIVE Urine RBC NONE /HPF Urine WBC NONE /HPF Urine Squamous Epithelial Cells 0-2 /HPF Urine Crystals NONE /LPF Urine Bacteria TRACE /HPF Urine Casts NONE /LPF Urine Mucus SMALL H /LPF Urine Culture Indicated NO Urine Opiates Screen NEGATIVE NEGATIVE Urine Oxycodone Screen POSITIVE H NEGATIVE Urine Methadone Screen NEGATIVE NEGATIVE Urine Propoxyphene Screen NEGATIVE NEGATIVE Urine Barbiturates Screen NEGATIVE NEGATIVE Ur Tricyclic Antidepressants Screen NEGATIVE NEGATIVE Urine Phencyclidine Screen NEGATIVE NEGATIVE Urine Amphetamines Screen NEGATIVE NEGATIVE Urine Methamphetamines Screen NEGATIVE NEGATIVE Urine Benzodiazepines Screen POSITIVE H NEGATIVE Urine Cocaine Screen NEGATIVE NEGATIVE Urine Cannabinoids Screen NEGATIVE NEGATIVE Glucometer 138 H 128 H 70-110 MG/DL Test 06/11/19 05:13 06/11/19 05:15 06/11/19 10:28 Range/Units Glucometer 102 141 H 70-110 MG/DL White Blood Count 4.2 L 4.3-11.0 10^3/uL Red Blood Count 2.71 L 4.35-5.85 10^6/uL Hemoglobin 7.2 #L 11.5-16.0 G/DL Hematocrit 23 L 35-52 % Mean Corpuscular Volume 86 80-99 FL Mean Corpuscular Hemoglobin 27 25-34 PG Mean Corpuscular Hemoglobin Concent 31 L 32-36 G/DL Red Cell Distribution Width 14.2 10.0-14.5 % Platelet Count 174 130-400 10^3/uL Mean Platelet Volume 11.2 H 7.4-10.4 FL Neutrophils (%) (Auto) 57 42-75 % Lymphocytes (%) (Auto) 30 12-44 % Monocytes (%) (Auto) 10 0-12 % Eosinophils (%) (Auto) 2 0-10 % Basophils (%) (Auto) 1 0-10 % Neutrophils # (Auto) 2.4 1.8-7.8 X 10^3 Lymphocytes # (Auto) 1.3 1.0-4.0 X 10^3 Monocytes # (Auto) 0.4 0.0-1.0 X 10^3 Eosinophils # (Auto) 0.1 0.0-0.3 10^3/uL Basophils # (Auto) 0.0 0.0-0.1 10^3/uL Sodium Level 139 135-145 MMOL/L Potassium Level 3.7 3.6-5.0 MMOL/L Chloride Level 107 98-107 MMOL/L Carbon Dioxide Level 22 21-32 MMOL/L Anion Gap 10 5-14 MMOL/L Blood Urea Nitrogen 19 H 7-18 MG/DL Creatinine 0.77 0.60-1.30 MG/DL Estimat Glomerular Filtration Rate > 60 BUN/Creatinine Ratio 25 Glucose Level 99 70-105 MG/DL Calcium Level 8.1 L 8.5-10.1 MG/DL Corrected Calcium 8.7 8.5-10.1 MG/DL Total Bilirubin 1.3 H 0.1-1.0 MG/DL Aspartate Amino Transf (AST/SGOT) 15 5-34 U/L Alanine Aminotransferase (ALT/SGPT) 7 0-55 U/L Alkaline Phosphatase 132 40-136 U/L Lactate Dehydrogenase 196 125-220 U/L Total Protein 5.6 L 6.4-8.2 GM/DL Albumin 3.3 3.2-4.5 GM/DL Radiology CXR 06/10- no acute abnormalities Physical Exam-([facility]) Physical Exam Vital Signs VS - Last 72 Hours, by Label 06/10/19 06/10/19 06/10/19 06/10/19 13:30 16:12 16:21 16:43 Temp 36.7 36.8 36.8 Pulse 91 101 88 88 Resp 20 20 20 20 B/P (MAP) 151/62 (91) 139/50 170/64 170/64 Pulse Ox 100 97 97 97 O2 Delivery Room Air Nasal Cannula Nasal Cannula Nasal Cannula O2 Flow Rate 2.00 2.00 2.00 2.00 06/10/19 06/10/19 06/10/19 06/10/19 17:03 17:05 17:39 17:49 Temp 36.5 Pulse 86 89 Resp 18 B/P (MAP) 180/75 Pulse Ox 100 O2 Delivery Nasal Cannula Nasal Cannula Nasal Cannula O2 Flow Rate 2.00 2.00 2.00 06/10/19 06/10/19 06/10/19 06/10/19 19:00 19:30 19:59 20:00 Temp 36.5 36.6 Pulse 95 89 Resp 20 B/P (MAP) 142/69 (93) Pulse Ox 97 98 O2 Delivery Nasal Cannula Nasal Cannula O2 Flow Rate 2.00 3.00 06/10/19 06/10/19 06/11/19 06/11/19 21:15 23:00 00:18 01:00 Temp 36.6 36.8 37.0 Pulse 68 68 90 70 Resp 18 20 20 B/P (MAP) 168/68 148/78 138/78 (98) Pulse Ox 98 98 98 O2 Delivery Nasal Cannula Nasal Cannula Nasal Cannula O2 Flow Rate 3.00 3.00 3.00 06/11/19 06/11/19 06/11/19 06/11/19 04:22 07:00 08:29 09:35 Temp 36.7 36.7 Pulse 80 81 75 Resp 20 18 B/P (MAP) 175/74 (107) 150/79 (102) Pulse Ox 98 99 99 O2 Delivery Nasal Cannula Nasal Cannula Nasal Cannula O2 Flow Rate 3.00 2.00 2.00 06/11/19 11:13 Temp 36.1 Pulse 86 Resp 18 B/P (MAP) 116/72 (87) Pulse Ox 100 O2 Delivery Nasal Cannula O2 Flow Rate 2.00 Capillary Refill : Less Than 3 Seconds General Appearance: other (appears in pain) Respiratory: lungs clear, normal breath sounds Cardiovascular: regular rate, rhythm, no murmur Gastrointestinal: normal bowel sounds, non tender, soft Extremities: pedal edema, other (venous stasis changes, left calf wrapped with no drainage) Neurologic/Psychiatric: alert, depressed affect Assessment/Plan Assessment/Plan Admission Status: Observation (1) Anemia Status: Acute Assessment & Plan: Acute on chronic, thought to be secondary to chronic blood loss in past related to ulcer disease. FOB negative in ER. Iron and ferritin low, TIBC normal, suspect combination of iron deficiency and chronic disease. Transfused last night, repeat hemoglobin this afternoon. Qualifiers: Qualified Codes: D64.9 - Anemia, unspecified (2) Chronic pain Status: Chronic Assessment & Plan: Resume home meds Qualifiers: Qualified Codes: G89.4 - Chronic pain syndrome (3) Fibromyalgia Status: Chronic (4) Diabetes mellitus Status: Chronic Assessment & Plan: Resume home metformin, sliding scale insulin, diabetic diet Qualifiers: (5) Multiple open wounds of left lower extremity Status: Acute Qualifiers: Qualified Codes: S81.802A - Unspecified open wound, left lower leg, initial encounter (6) DVT prophylaxis Status: Acute Assessment & Plan: No SCD due to leg wounds, no pharmacologic due to concern for bleed with severe anemia. Clinical Quality Measures DVT/VTE Risk/Contraindication: Risk Factor Score Per Nursin RFS Level Per Nursing on Admit: 4+=Very High CHYNA CORTES MD Jun 11, 2019 11:51
[2019-06-11] MEDS: PROMETHAZINE 25 MG (PHENERGAN) TAB PO PRN ×2 (14:10→20:51)
[2019-06-11] MEDS: HYDROmorphone 2 MG/ML VIAL (DILAUDID) IV PRN ×3 (14:43→23:01)
[2019-06-11] MEDS: NS IV 1000 ML 1,000 ML IV SCH (14:53)
[2019-06-11] MEDS: MINOCYCLINE 100 MG PO SCH ×2 (16:36→20:51)
[2019-06-11] MEDS: SIMvastatin 40 MG (ZOCOR) TAB PO SCH (20:50)
[2019-06-11] MEDS: PRAMIPEXOLE 0.5 MG TAB (MIRAPEX) PO SCH (20:59)
[2019-06-11] MEDS ORDERED: AMITRIPTYLINE 25 MG (ELAVIL) TAB PO SCH (21:00)
[2019-06-11] MEDS ORDERED: PRAMIPEXOLE DI HCL 2 MG PO SCH (21:00)
[2019-06-12 03:46] VITALS: BP 142/70
[2019-06-12] MEDS: inSUlin ASPART (NovoLOG) 1 UNIT/0.01 ML (CHARGE PER UNIT) SC SCH ×4 (05:40→20:39)
[2019-06-12 06:26] LABS: HEMOGLOBIN 8.4 G/DL (11.5-16.0); MEAN PLATELET VOLUME 12.3 FL (7.4-10.4); RED CELL DISTRIBUTION WIDTH 14.8 % (10.0-14.5); WHITE BLOOD COUNT 6.7 10^3/uL (4.3-11.0)
[2019-06-12] MEDS: HYDROmorphone 2 MG/ML VIAL (DILAUDID) IV PRN ×2 (06:26→12:39)
[2019-06-12] MEDS: KCL 20 MEQ TAB (K-DUR) PO SCH (06:27)
[2019-06-12 06:59] LABS: ALBUMIN 3.6 GM/DL (3.2-4.5); BILIRUBIN,TOTAL 0.7 MG/DL (0.1-1.0); CALCIUM 8.5 MG/DL (8.5-10.1); CREATININE SERUM 1.07 MG/DL (0.60-1.30); TOTAL PROTEIN 6.4 GM/DL (6.4-8.2)
[2019-06-12 08:00] VITALS: BP 137/66
[2019-06-12] MEDS: FUROSEMIDE 40 MG (LASIX) TAB PO SCH ×2 (08:15→20:35)
[2019-06-12] MEDS: GABAPENTIN 600 MG (NEURONTIN) TAB PO SCH ×3 (08:15→20:34)
[2019-06-12] MEDS: HYDROCHLOROTHIAZIDE 25 MG (HCTZ) TAB PO SCH (08:15)
[2019-06-12] MEDS: MONTELUKAST 10 MG (SINGULAIR) TAB PO SCH (08:15)
[2019-06-12] MEDS: NICOTINE 21 MG (NICODERM) PATCH TD SCH (08:16)
[2019-06-12] MEDS: PROPRANOLOL 20 MG (INDERAL) TABLET PO SCH ×2 (08:16→21:37)
[2019-06-12] MEDS: ALPRAZolam 1 MG (XANAX) TAB PO SCH ×4 (08:16→21:36)
[2019-06-12] MEDS: metFORMIN 500 MG (GLUCOPHAGE) TAB PO SCH ×2 (08:16→20:34)
[2019-06-12] MEDS: CYCLOBENZAPRINE 10 MG (FLEXERIL) TAB PO SCH ×3 (08:19→22:43)
[2019-06-12] MEDS: FLUTICASONE NASAL SPRAY (FLONASE) 16 GM BTL NS SCH (08:21)
[2019-06-12] MEDS: FERROUS SULF 325 MG (IRON) TAB PO SCH (08:24)
[2019-06-12] MEDS: NICOTINE PATCH REMOVAL TP SCH (08:29)
[2019-06-12] MEDS: oxyCODONE/APAP 10/325MG (PERCOCET 10) TABLET PO PRN (08:44)
[2019-06-12] MEDS: ONDANSETRON 4 MG/2 ML (SDV) Z0FRAN IVP PRN (08:54)
[2019-06-12] MEDS: RT-ADVAIR HFA 115/21 MCG PER PUFF IH SCH ×2 (10:15→18:16)
[2019-06-12] MEDS ORDERED: MINO100C2 PO (10:30)
[2019-06-12] MEDS ORDERED: OXYC1TAB12 PO (10:30)
[2019-06-12] MEDS ORDERED: CITA40TA11 PO (10:30)
[2019-06-12] MEDS ORDERED: CYCL10TA9 PO (10:30)
[2019-06-12] MEDS ORDERED: FLUT1BLS12 INH (10:30)
[2019-06-12] MEDS ORDERED: MONT10TA24 PO (10:30)
[2019-06-12] MEDS ORDERED: [UNRECOGNIZED DRUG - CODE] PO (10:30)
[2019-06-12] MEDS ORDERED: NICO-588 TD (10:30)
[2019-06-12] MEDS ORDERED: ALPR2TAB6 PO ×2 (10:30)
[2019-06-12] MEDS ORDERED: FLUT16SP22 NS (10:30)
--- NOTE | 2019-06-12 10:54 | Diagnostic Imaging Report ---
PROCEDURE: US left lower extremity venous. TECHNIQUE: Multiple real-time grayscale images were obtained over the left lower extremity in various projections. Additional duplex Doppler and color Doppler images were also obtained. INDICATION: Left leg ulcer. FINDINGS: There is no evidence of a left lower extremity DVT. The left lower extremity deep venous system shows normal compressibility with normal response to augmentation Valsalva. No fluid collection or mass is detected. IMPRESSION: No evidence of left lower extremity DVT. Dictated by: Dictated on workstation # [id number]
[2019-06-12] MEDS: MINOCYCLINE 100 MG PO SCH ×2 (10:57→20:33)
--- NOTE | 2019-06-12 11:08 | Diagnostic Imaging Report ---
INDICATION: Left leg ulcer. TECHNIQUE: Grayscale, color-flow and duplex Doppler evaluation of the left lower extremity arterial system was performed. FINDINGS: Monophasic waveforms are identified throughout the left lower extremity arterial system. Flow is identified throughout the left common femoral, superficial femoral, and popliteal arteries. There is flow in the anterior tibial, posterior tibial, and dorsalis pedis arteries. No definite high-grade stenosis or occlusion is identified. IMPRESSION: Monophasic flow throughout. This could be secondary to more proximal disease. No definite high-grade stenosis or occlusion is detected. Dictated by: Dictated on workstation # [id number]
--- NOTE | 2019-06-12 11:46 | Discharge Summary ---
Discharge Summary Hospital Course Problems/Diagnosis: (1) Anemia Status: Acute Assessment & Plan: Acute on chronic, thought to be secondary to chronic blood loss in past related to ulcer disease. FOB negative in ER. Iron and ferritin low, TIBC normal, suspect combination of iron deficiency and chronic disease. Transfused last night, repeat hemoglobin this afternoon. 06/12 Hemoglobin stable, may need repeat testing outpatient, defer to primary. Qualifiers: Qualified Codes: D64.9 - Anemia, unspecified (2) Chronic pain Status: Chronic Assessment & Plan: Resume home meds Qualifiers: Qualified Codes: G89.4 - Chronic pain syndrome (3) Fibromyalgia Status: Chronic (4) Diabetes mellitus Status: Chronic Assessment & Plan: Resume home metformin, sliding scale insulin, diabetic diet Qualifiers: (5) Multiple open wounds of left lower extremity Status: Acute Assessment & Plan: DVT US neg and arterial US with monophasic flow but no definite high grade stenosis. Qualifiers: Qualified Codes: S81.802A - Unspecified open wound, left lower leg, initial encounter Hospital Course Date of Admission: Jun 10, 2019 at 15:48 Admission Diagnosis : Family Physician/Provider: Chavez Lynn Date of Discharge: 06/12/19 Discharge Diagnosis: See problem list Hospital Course: See problem list Labs and Pending Lab Test: Laboratory Tests 06/11/19 13:55: Hemoglobin 7.0L, Hematocrit 22L, Haptoglobin [Pending] 06/11/19 15:45: Glucometer 128H 06/11/19 20:28: Glucometer 142H 06/12/19 05:14: Glucometer 163H 06/12/19 05:57: White Blood Count 6.7, Red Blood Count 3.12L, Hemoglobin 8.4L, Hematocrit 28L, Mean Corpuscular Volume 89, Mean Corpuscular Hemoglobin 27, Mean Corpuscular Hemoglobin Concent 30L, Red Cell Distribution Width 14.8H, Platelet Count 188, Mean Platelet Volume 12.3H, Sodium Level 140, Potassium Level 4.0, Chloride Level 106, Carbon Dioxide Level 21, Anion Gap 13, Blood Urea Nitrogen 20H, Creatinine 1.07, Estimat Glomerular Filtration Rate 52, BUN/Creatinine Ratio 19, Glucose Level 123H, Calcium Level 8.5, Corrected Calcium 8.8, Total Bilirubin 0.7, Aspartate Amino Transf (AST/SGOT) 18, Alanine Aminotransferase (ALT/SGPT) 8, Alkaline Phosphatase 134, Total Protein 6.4, Albumin 3.6 Microbiology 06/10/19 Blood Culture - Preliminary, Resulted No growth Home Meds Active Reported 24Hour Allergy (Cetirizine HCl) 10 Mg Tablet 10 Mg PO DAILY Citalopram HBr (Citalopram Hydrobromide) 40 Mg Tablet 40 Mg PO DAILY Fluticasone-Salmeterol 250-50 (Fluticasone Propion/Salmeterol) 1 Each Blst.w.dev 1 Puff INH BID Fluticasone Propionate 16 Gm [place].susp 1 [place] NS DAILY Nicotine Patch (Nicotine) 1 Each Patch.td24 1 Patch TD DAILY Cyclobenzaprine HCl 10 Mg Tablet 10 Mg PO TID PRN Montelukast Sodium 10 Mg Tablet 10 Mg PO DAILY Minocycline HCl 100 Mg Capsule 100 Mg PO BID 10 Days 10 DAY SUPPLY FILLED 06-02-19 Percocet 10-325 mg Tablet (Oxycodone HCl/Acetaminophen) 1 Each Tablet 1 Tab PO Q6H PRN Alprazolam 2 Mg Tablet 1 Mg PO QID TAKES 1/2 (2MG) TABLET Alprazolam 2 Mg Tablet 2 Mg PO HS Meloxicam 7.5 Mg Tablet 7.5 Mg PO DAILY Lidocaine 5% Patch (Lidocaine) 1 Each Adh..patch 1 Each TP Q12H PRN MDD 2 2 patches max for 12 hours, then 12 hours patch-free period. Hydrochlorothiazide 25 Mg Tablet 25 Mg PO DAILY LAST FILLED #90 02-19-19 Cyanocobalamin Injection (Cyanocobalamin) 1,000 Mcg/Ml Inj 1,000 Mcg IM MONTHLY Diphenhydramine HCl 25 Mg Tablet 25 Mg PO HS PRN Pramipexole Dihydrochloride (Pramipexole Di-HCl) 1 Mg Tablet 2 Mg PO HS TAKES 2 (1MG) TABLETS Potassium Chloride 10 Meq Capsule.er 20 Meq PO DAILY TAKES 2 (10MEQ) CAPSULES Gabapentin 600 Mg Tablet 600 Mg PO TID Simvastatin 40 Mg Tablet 40 Mg PO HS Metformin HCl 500 Mg Tablet 500 Mg PO BID Omeprazole 20 Mg Capsule.dr 20 Mg PO DAILY Proair Hfa (Albuterol Sulfate) 1 Puff Puff 2 Puff IH Q4H PRN 1 PUFF = 90 MCG Ferrous Sulfate 325 Mg Tablet 325 Mg PO DAILY Propranolol HCl 40 Mg Tablet 40 Mg PO BID Lotrisone Cream (Clotrimazole/Betamethasone Dip) 15 Gm Cream..g. TP BID PRN Vitamin C (Ascorbic Acid) 500 Mg Capsule.er 500 Mg PO DAILY Iprat-Albut 0.5-3(2.5) mg/3 ml (Ipratropium/Albuterol Sulfate) 3 Ml Ampul.neb 3 Ml IH QID PRN Assessment/Pt DC Instructions Follow up with John Lynn on 06/19 at 2 pm. Resume previous home health orders. Discharge Diet: ADA Diet Discharge Physical Examination Allergies: Coded Allergies: Sulfa (Sulfonamide Antibiotics) (Verified Allergy, Unknown, 06/10/19) ceftriaxone (Verified Allergy, Unknown, RASH, 08/12/18) General Appearance: No Apparent Distress, WD/WN Respiratory: Normal Breath Sounds Cardiovascular: Regular Rate, Rhythm, No Murmur Skin: Other (right leg wrapped, left lower leg with erythema and ulcerated lesions and mild weeping of clear fluid, DP pulse 2+) Neurologic/Psychiatric: Alert Copy Copies To 1: John Lynn APRN Discharge Summary Date of Discharge Clinical Quality Measures DVT/VTE Risk/Contraindication: Risk Factor Score Per Nursin RFS Level Per Nursing on Admit: 4+=Very High CHYNA GUERRERO MD Jun 12, 2019 11:46
[2019-06-12 12:00] VITALS: BP 121/51
[2019-06-12] MEDS: NS IV 1000 ML 1,000 ML IV SCH (14:31)
--- NOTE | 2019-06-12 14:35 | Physical Therapy Evaluation ---
PT Evaluation-General Medical Diagnosis Admission Date Jun 10, 2019 at 15:48 Medical Diagnosis: anemia Onset Date: Jun 10, 2019 Therapy Diagnosis Therapy Diagnosis: weakness; abn gait Height/Weight Height (Feet): 5 Height (Inches): 2.00 Weight (Pounds): 150 Weight (Ounces): 0.0 Precautions Precautions/Isolations: Fall Prevention, Standard Precautions Weight Bear Status Right Lower Extremity: Right Weight Bearing/Tolerated Left Lower Extremity: Left Weight Bearing/Tolerated Referral Physician: Sebastian Reason for Referral: Evaluation/Treatment Medical History Pertinent Medical History: COPD, DM, HTN, Neuropathy, Smoking Additional Medical History LE ulcers Current History Pt admitted to pain and anemia. Plan is for pt to discharge home this date with [facility] PT. Reviewed History: Yes Social History Home: Single Level Current Living Status: Alone Entry Into Home: Level Entry Pt reports she is not speaking to either of her chlidren; reports she does not currently have any [employer] workers. Prior Prior Level of Function SCALE: Activities may be completed with or without assistive devices. 0-Ryblverhlo-bocodei completes the activity by him/herself with no assistance from a helper. 5-Set-up or Clean-up Assistance-helper sets up or cleans up; patient completes activity. [place] assists only prior to or following the activity. 4-Supervision or Touching Assistance-helper provides verbal cues and/or touching/steadying and/or contact guard assistance as patient completes activity. Assistance may be provided throughout the activity or intermittently. 3-Partial/Moderate Assistance-helper does LESS THAN HALF the effort. [place] lifts, holds or supports trunk or limbs, but provides less than half the effort. 2-Substantial/Maximal Assistance-helper does MORE THAN HALF the effort. [place] lifts or holds trunk or limbs and provides more than half the effort. 4-Nsxlckxeh-sntlvj does ALL the effort. Patient does none of the effort to complete the activity. Or, the assistance of 2 or more helpers is required for the patient to complete the activity. If activity was not attempted, code reason: 7-Patient Refused. 9-Not Applicable-not attempted and the patient did not perform the activity before the current illness, exacerbation or injury. 10-Not Attempted due to Environmental Limitations-(lack of equipment, weather restraints, etc.). 88-Not Attempted due to Medical Conditions or Safety Concerns. Bed Mobility: 6 Transfers (B,C,W/C): 6 Gait: 6 Indoor Mobility (Ambulation): Independent Stairs: Needed Some Help Prior Devices Use: Walker PT Evaluation-Current Subjective Pt falling asleep throughout the treatment. Reports she does not have any help at home at this time. Objective Patient Orientation: Person, Place, Time, Situation Attachments: Oxygen, IV Slow to complete all task, requires cues to stay on task ROM/Strength ROM Lower Extremities wFL Strength Lower Extremities 4-/5 Integumentary/Posture Integumentary refer to nursing notes. Bowel Incontinence: No Bladder Incontinence: No Posture rounded shoulders and forward head. Neuromuscular (Tone, Coordination, Reflexes) intact Sensory Vision: Wears Glasses Hearing: Functional Hand Dominance: Right Sensation Right Lower Extremit: Impaired Sensation Left Lower Extremity: Impaired Transfers Sit to Lying (QC): 3 (min assist to sit up with cues for sequencing and to complete task) Sit to Stand (QC): 3 (min assist to come to astand with cues for hand placement and safety. Sit to stand x multiple reps during this evaluation ) Chair/Hbt-xx-Gkcfl Xfer(QC): 3 (SPT x 2 reps with FWW with min assist to complete with cues 50% of the time for sequencing and safety. Pt stands in fo rward flexed posture with head down; poor foot clearance to turn. ) Toilet Transfer: 3 (commode transfer) Heavy reliance on FWW for transferring and difficulty turning. Requires min assist with heavy cues to complete. Unable to complete transfer without assist. Balance Sitting Static: Fair Sitting Dynamic: Fair Standing Static: Fair Standing Dynamic: Fair Treatment Functional sit to stand transfers; SPT's performed all with min assist and cues for sequencing and safety. Pt up in chair post treatment. Assessment/Needs Pt presents very groggy and difficulty staying awake this visit. She requires assist with bed mobility as well as with transfers. unable to transfer without assist and it is with difficulty. She will benefit from skilled PT to address strength and mobility to allow her to return home safely. She is unsafe to transfer or walk without assist at this time; nursing notified. Rehab Potential: Guarded PT Affirmative Action Specialist Goals Fdc Goals PT Affirmative Action Specialist Goals Time Frame: Jun 19, 2019 Roll Left & Right (QC): 6 Sit to Lying (QC): 6 Lying-Sitting on Side/Bed(QC): 6 Sit to Stand (QC): 6 Chair/Uye-ra-Augii Xfer(QC): 6 Toilet Transfer (QC): 6 Walk 10 feet (QC): 6 Walk 50ft with 2 Turns (QC): 6 Walk 150 ft (QC): 6 PT Plan Problem List Problem List: Activity Tolerance, Functional Strength, Safety, Balance, Gait, Transfer, Bed Mobility Treatment/Plan Treatment Plan: Continue Plan of Care Treatment Plan: Bed Mobility, Education, Functional Activity Lesia, Functional Strength, Gait, Safety, Therapeutic Exercise, Transfers Treatment Duration: Jun 19, 2019 Frequency: 5 times per week (to 6) Estimated Hrs Per Day: .25 hour per day Safety Risks/Education Patient Education: Transfer Techniques, Safety Issues Teaching Recipient: Patient Teaching Methods: Demonstration, Discussion Response to Teaching: Reinforcement Needed Discharge Recommendations Therapy Discharge Recommendati: Post Acute PT Time/GCodes Time In: 1400 Time Out: 1427 Total Billed Treatment Time: 27 Total Billed Treatment visit EVM 15 FA 12 DREW REYNOSO PT Jun 12, 2019 14:35
--- NOTE | 2019-06-12 14:57 | Progress Note ---
Subjective Subjective/Events-last exam After planning for discharge, patient noted to be weak and fatigued. PT evaluated and did not feel safe for d/c. Focused Exam Lactate Level 06/10/19 14:32: Lactic Acid Level 1.28 Objective Exam Last Set of Vital Signs Vital Signs Date Time Temp Pulse Resp B/P (MAP) Pulse Ox O2 Delivery O2 Flow Rate FiO2 06/12/19 12:00 36.1 57 16 121/51 (74) 99 Nasal Cannula 2.00 Capillary Refill : Less Than 3 Seconds I&O Intake and Output 06/12/19 00:00 Intake Total 1780 ml Output Total 2040 ml Balance -260 ml Intake Oral 1780 ml Output Urine Total 2040 ml General: Alert, No Acute Distress Lungs: Clear to Auscultation, Normal Air Movement Abdomen: Normal Bowel Sounds, No Tenderness Skin: Other (erythema of left lower leg with ulcerations and weeping clear fluid) Results/Procedures Lab Laboratory Tests 06/11/19 15:45: Glucometer 128H 06/11/19 20:28: Glucometer 142H 06/12/19 05:14: Glucometer 163H 06/12/19 05:57: White Blood Count 6.7, Red Blood Count 3.12L, Hemoglobin 8.4L, Hematocrit 28L, Mean Corpuscular Volume 89, Mean Corpuscular Hemoglobin 27, Mean Corpuscular Hemoglobin Concent 30L, Red Cell Distribution Width 14.8H, Platelet Count 188, Mean Platelet Volume 12.3H, Sodium Level 140, Potassium Level 4.0, Chloride Level 106, Carbon Dioxide Level 21, Anion Gap 13, Blood Urea Nitrogen 20H, Creatinine 1.07, Estimat Glomerular Filtration Rate 52, BUN/Creatinine Ratio 19, Glucose Level 123H, Calcium Level 8.5, Corrected Calcium 8.8, Total Bilirubin 0.7, Aspartate Amino Transf (AST/SGOT) 18, Alanine Aminotransferase (ALT/SGPT) 8, Alkaline Phosphatase 134, Total Protein 6.4, Albumin 3.6 06/12/19 11:44: Glucometer 98 Microbiology 06/10/19 Blood Culture - Preliminary, Resulted No growth Radiology CXR 06/10- no acute abnormalities Assessment/Plan Assessment/Plan (1) Anemia Status: Acute Assessment & Plan: Acute on chronic, thought to be secondary to chronic blood loss in past related to ulcer disease. FOB negative in ER. Iron and ferritin low, TIBC normal, suspect combination of iron deficiency and chronic disease. Transfused last night, repeat hemoglobin this afternoon. 06/12 Hemoglobin stable, may need repeat scope outpatient, defer to primary. Qualifiers: Qualified Codes: D64.9 - Anemia, unspecified (2) Chronic pain Status: Chronic Assessment & Plan: Resume home meds, stop IV pain med with noted drowsiness Qualifiers: Qualified Codes: G89.4 - Chronic pain syndrome (3) Fibromyalgia Status: Chronic (4) Diabetes mellitus Status: Chronic Assessment & Plan: Resume home metformin, sliding scale insulin, diabetic diet Qualifiers: (5) Multiple open wounds of left lower extremity Status: Acute Assessment & Plan: DVT US neg and arterial US with monophasic flow but no definite high grade stenosis. Appreciate wound care recommendations Qualifiers: Qualified Codes: S81.802A - Unspecified open wound, left lower leg, initial encounter (6) Debility Assessment & Plan: PT, consider usp (7) DVT prophylaxis Status: Acute Assessment & Plan: No SCD due to ulcerations on leg, no pharmacologic due to severe anemia Clinical Quality Measures DVT/VTE Risk/Contraindication: Risk Factor Score Per Nursin RFS Level Per Nursing on Admit: 4+=Very High CHYNA GUERRERO MD Jun 12, 2019 14:57
--- NOTE | 2019-06-12 15:06 | Wound Care Assessment ---
Wound Care Assessment Date Seen by Provider: Jun 12, 2019 Time Seen by Provider: 14:45 Chief Complaint L calf ulcer. HPI The patient is a 64 year old female diabetic with a two month history of L calf ulcer. There is 4+ edema of L calf. She is told that in order to heal her wound she will have to elevate the ankle higher than her heart. She states that she is unable to do that either here or at home. She is told that in that case, her wound will probably either persist or recur. Will see as an out-patient if the patient cares to follow-up. Past Medical History: Admits Diabetes Type II Smoking Status: Former Smoker Recreational Drug Use: No Alcohol Use: Denies Use Review of Systems Pulmonary: Dyspnea Exam Vital Signs Date Time Temp Pulse Resp B/P (MAP) Pulse Ox O2 Delivery O2 Flow Rate FiO2 06/12/19 12:00 36.1 57 16 121/51 (74) 99 Nasal Cannula 2.00 Capillary Refill : Less Than 3 Seconds General Appearance: no apparent distress (Sitting up in chair.) Respiratory: no respiratory distress Skin: other (full thickness L calf ulcer.) Results Laboratory Tests 06/11/19 15:45: Glucometer 128H 06/11/19 20:28: Glucometer 142H 06/12/19 05:14: Glucometer 163H 06/12/19 05:57: White Blood Count 6.7, Red Blood Count 3.12L, Hemoglobin 8.4L, Hematocrit 28L, Mean Corpuscular Volume 89, Mean Corpuscular Hemoglobin 27, Mean Corpuscular Hemoglobin Concent 30L, Red Cell Distribution Width 14.8H, Platelet Count 188, Mean Platelet Volume 12.3H, Sodium Level 140, Potassium Level 4.0, Chloride Level 106, Carbon Dioxide Level 21, Anion Gap 13, Blood Urea Nitrogen 20H, Creatinine 1.07, Estimat Glomerular Filtration Rate 52, BUN/Creatinine Ratio 19, Glucose Level 123H, Calcium Level 8.5, Corrected Calcium 8.8, Total Bilirubin 0.7, Aspartate Amino Transf (AST/SGOT) 18, Alanine Aminotransferase (ALT/SGPT) 8, Alkaline Phosphatase 134, Total Protein 6.4, Albumin 3.6 06/12/19 11:44: Glucometer 98 Microbiology 06/10/19 Blood Culture - Preliminary, Resulted No growth Assessment/Plan/Dx 1. L calf ulcer, venous insufficiency and Diabetic. 2. Lymphedema, sedentary life style. Plan: the need for elevation was discussed with patient. she explained that it was impossible for her to do. Offered out-patient follow-up if desired. ALLYSON SOLORIO MD Jun 12, 2019 15:06
[2019-06-12 15:30] VITALS: BP 155/67
[2019-06-12 19:06] VITALS: BP 124/58
[2019-06-12] MEDS: SIMvastatin 40 MG (ZOCOR) TAB PO SCH (21:37)
[2019-06-12] MEDS: PRAMIPEXOLE 0.5 MG TAB (MIRAPEX) PO SCH (22:43)
[2019-06-13] VITALS: BP 131/63
[2019-06-13] MEDS: ALPRAZolam 1 MG (XANAX) TAB PO SCH ×5 (00:26→21:01)
[2019-06-13 04:00] VITALS: BP 141/66
[2019-06-13] MEDS: inSUlin ASPART (NovoLOG) 1 UNIT/0.01 ML (CHARGE PER UNIT) SC SCH ×4 (06:05→21:02)
[2019-06-13] MEDS: KCL 20 MEQ TAB (K-DUR) PO SCH (06:11)
[2019-06-13 08:00] VITALS: BP 122/70
[2019-06-13] MEDS: ONDANSETRON 4 MG/2 ML (SDV) Z0FRAN IVP PRN (08:53)
[2019-06-13] MEDS: NICOTINE 21 MG (NICODERM) PATCH TD SCH (09:43)
[2019-06-13] MEDS: NICOTINE PATCH REMOVAL TP SCH (09:54)
[2019-06-13] MEDS ORDERED: PROMETHAZINE INJ 25 MG/ML (PHENERGAN) AMP IVP NR (10:00)
[2019-06-13] MEDS: FLUTICASONE NASAL SPRAY (FLONASE) 16 GM BTL NS SCH (10:34)
[2019-06-13] MEDS: FERROUS SULF 325 MG (IRON) TAB PO SCH (10:34)
[2019-06-13] MEDS: CYCLOBENZAPRINE 10 MG (FLEXERIL) TAB PO SCH ×2 (10:34→15:30)
[2019-06-13] MEDS: metFORMIN 500 MG (GLUCOPHAGE) TAB PO SCH ×3 (10:47→21:28)
[2019-06-13] MEDS: MINOCYCLINE 100 MG PO SCH ×2 (10:48→21:02)
[2019-06-13] MEDS: FUROSEMIDE 40 MG (LASIX) TAB PO SCH ×2 (10:48→21:05)
[2019-06-13] MEDS: HYDROCHLOROTHIAZIDE 25 MG (HCTZ) TAB PO SCH (10:48)
[2019-06-13] MEDS: MONTELUKAST 10 MG (SINGULAIR) TAB PO SCH (10:49)
[2019-06-13] MEDS: PROPRANOLOL 20 MG (INDERAL) TABLET PO SCH ×3 (11:02→21:28)
[2019-06-13] MEDS: GABAPENTIN 600 MG (NEURONTIN) TAB PO SCH ×2 (11:02→15:30)
--- NOTE | 2019-06-13 11:06 | Physical Therapy Daily Note ---
PT Daily Note-Current Subjective Pt feeling nauseated. Agrees to attempt ambulation. Transfers SCALE: Activities may be completed with or without assistive devices. 8-Nqhoojmakk-pyupyzl completes the activity by him/herself with no assistance from a helper. 5-Set-up or Clean-up Assistance-helper sets up or cleans up; patient completes activity. [place] assists only prior to or following the activity. 4-Supervision or Touching Assistance-helper provides verbal cues and/or touching/steadying and/or contact guard assistance as patient completes activity. Assistance may be provided throughout the activity or intermittently. 3-Partial/Moderate Assistance-helper does LESS THAN HALF the effort. [place] lifts, holds or supports trunk or limbs, but provides less than half the effort. 2-Substantial/Maximal Assistance-helper does MORE THAN HALF the effort. [place] lifts or holds trunk or limbs and provides more than half the effort. 5-Dglutcbfs-dforwc does ALL the effort. Patient does none of the effort to complete the activity. Or, the assistance of 2 or more helpers is required for the patient to complete the activity. If activity was not attempted, code reason: 7-Patient Refused. 9-Not Applicable-not attempted and the patient did not perform the activity before the current illness, exacerbation or injury. 10-Not Attempted due to Environmental Limitations-(lack of equipment, weather restraints, etc.). 88-Not Attempted due to Medical Conditions or Safety Concerns. Roll Left & Right (QC): 4 Sit to Lying (QC): 4 Lying to Sitting/Side of Bed(Q: 4 Sit to Stand (QC): 4 Chair/Ybd-tm-Gimfr Xfer(QC): 4 Toilet Transfer (QC): 4 Weight Bearing Right Lower Extremity: Right Weight Bearing/Tolerated Left Lower Extremity: Left Weight Bearing/Tolerated Gait Training Gait Assistive Device: FWW Ambulate 50ft with FWW and Min Assist for balance. Education for walker safety. Assisted patient to restroom with Min Assist for stability when standing for cristel care. Assessment Current Status: Good Progress Patient showing progress with mobility. She is unstable when standing and walking with close Minimal assist required. She remains a fall risk and in need of continued therapy. PT Senior Civil Engineer Goals Senior Civil Engineer Goals PT Senior Civil Engineer Goals Time Frame: Jun 19, 2019 Roll Left & Right (QC): 6 Sit to Lying (QC): 6 Lying-Sitting on Side/Bed(QC): 6 Sit to Stand (QC): 6 Chair/Vex-ln-Qyinn Xfer(QC): 6 Toilet Transfer (QC): 6 Walk 10 feet (QC): 6 Walk 50ft with 2 Turns (QC): 6 Walk 150 ft (QC): 6 PT Plan Problem List Problem List: Activity Tolerance, Balance, Gait Treatment/Plan Treatment Plan: Continue Plan of Care Treatment Plan: Bed Mobility, Education, Functional Activity Lesia, Functional Strength, Gait, Safety, Therapeutic Exercise, Transfers Treatment Duration: Jun 19, 2019 Frequency: 5 times per week (to 6) Estimated Hrs Per Day: .25 hour per day Time/GCodes Time In: 0845 Time Out: 0900 Total Billed Treatment Time: 15 Total Billed Treatment visit, gait 15 min THOMAS PHAM PT Jun 13, 2019 11:06
[2019-06-13 12:00] VITALS: BP 144/72
--- NOTE | 2019-06-13 14:18 | Progress Note ---
Subjective Subjective/Events-last exam Afebrile. Continues to complain of pain in leg and nausea. Per nurse she has taken a lot of pain medication without eating anything. She requests IV promethazine. Focused Exam Lactate Level 06/10/19 14:32: Lactic Acid Level 1.28 Objective Exam Last Set of Vital Signs Vital Signs Date Time Temp Pulse Resp B/P (MAP) Pulse Ox O2 Delivery O2 Flow Rate FiO2 06/13/19 08:45 Nasal Cannula 3.00 06/13/19 08:00 36.5 57 16 122/70 (87) 99 Capillary Refill : Less Than 3 Seconds I&O Intake and Output 06/13/19 00:00 Intake Total 1540 ml Output Total 2800 ml Balance -1260 ml Intake Oral 1540 ml Output Urine Total 2800 ml # Voids 2 General: Alert, No Acute Distress Psych/Mental Status: Mood NL Results/Procedures Lab Laboratory Tests 06/12/19 15:32: Glucometer 101 06/12/19 20:39: Glucometer 111H 06/13/19 06:04: Glucometer 115H 06/13/19 11:19: Glucometer 114H Microbiology 06/10/19 Blood Culture - Preliminary, Resulted No growth Radiology CXR 06/10- no acute abnormalities Assessment/Plan Assessment/Plan (1) Anemia Status: Acute Assessment & Plan: Acute on chronic, thought to be secondary to chronic blood loss in past related to ulcer disease. FOB negative in ER. Iron and ferritin low, TIBC normal, suspect combination of iron deficiency and chronic disease. Transfused last night, repeat hemoglobin this afternoon. 06/12 Hemoglobin stable, may need repeat scope outpatient, defer to primary. Qualifiers: Qualified Codes: D64.9 - Anemia, unspecified (2) Chronic pain Status: Chronic Assessment & Plan: Resume home meds, stop IV pain med with noted drowsiness Qualifiers: Qualified Codes: G89.4 - Chronic pain syndrome (3) Fibromyalgia Status: Chronic (4) Diabetes mellitus Status: Chronic Assessment & Plan: Resume home metformin, sliding scale insulin, diabetic diet Qualifiers: (5) Multiple open wounds of left lower extremity Status: Acute Assessment & Plan: DVT US neg and arterial US with monophasic flow but no definite high grade stenosis. Appreciate wound care recommendations Qualifiers: Qualified Codes: S81.802A - Unspecified open wound, left lower leg, initial encounter (6) Debility Assessment & Plan: PT, consider fci 06/13 not safe for home d/c per nursing, social work consulted (7) DVT prophylaxis Status: Acute Assessment & Plan: No SCD due to ulcerations on leg, no pharmacologic due to severe anemia Clinical Quality Measures DVT/VTE Risk/Contraindication: Risk Factor Score Per Nursin RFS Level Per Nursing on Admit: 4+=Very High CHYNA GUERRERO MD Jun 13, 2019 14:18
[2019-06-13] MEDS ORDERED: METOCLOPRAMIDE INJ 10 MG/2 ML (REGLAN) IVP PRN (14:30)
--- NOTE | 2019-06-13 14:34 | Physical Therapy Daily Note ---
PT Daily Note-Current Subjective Pt reports nausea continues this pm. Mental Status Patient Orientation: Normal For Age Transfers SCALE: Activities may be completed with or without assistive devices. 3-Sugzclvcmr-uccgogm completes the activity by him/herself with no assistance from a helper. 5-Set-up or Clean-up Assistance-helper sets up or cleans up; patient completes activity. [place] assists only prior to or following the activity. 4-Supervision or Touching Assistance-helper provides verbal cues and/or touching/steadying and/or contact guard assistance as patient completes activity. Assistance may be provided throughout the activity or intermittently. 3-Partial/Moderate Assistance-helper does LESS THAN HALF the effort. [place] lifts, holds or supports trunk or limbs, but provides less than half the effort. 2-Substantial/Maximal Assistance-helper does MORE THAN HALF the effort. [place] lifts or holds trunk or limbs and provides more than half the effort. 2-Xyusjfgre-vluypm does ALL the effort. Patient does none of the effort to complete the activity. Or, the assistance of 2 or more helpers is required for the patient to complete the activity. If activity was not attempted, code reason: 7-Patient Refused. 9-Not Applicable-not attempted and the patient did not perform the activity before the current illness, exacerbation or injury. 10-Not Attempted due to Environmental Limitations-(lack of equipment, weather restraints, etc.). 88-Not Attempted due to Medical Conditions or Safety Concerns. Transfer supine to sit, sit to stand with set up assist for covers and pillows under right leg. Pt had loss of balance upon initial stand with Min A to recover. Weight Bearing Right Lower Extremity: Right Weight Bearing/Tolerated Left Lower Extremity: Left Weight Bearing/Tolerated Gait Training Gait Assistive Device: FWW Ambulate 100ft with FWW and Min A for balance. Pt had LOB every 4-5 ft with Min A to regain center of balance. Pt educated to widen base of support. PT Ground Systems Engineer Goals Ground Systems Engineer Goals PT [facility] Goals Time Frame: Jun 19, 2019 Roll Left & Right (QC): 6 Sit to Lying (QC): 6 Lying-Sitting on Side/Bed(QC): 6 Sit to Stand (QC): 6 Chair/Ieo-tu-Mjazx Xfer(QC): 6 Toilet Transfer (QC): 6 Walk 10 feet (QC): 6 Walk 50ft with 2 Turns (QC): 6 Walk 150 ft (QC): 6 PT Plan Treatment/Plan Treatment Plan: Continue Plan of Care Treatment Plan: Bed Mobility, Education, Functional Activity Lesia, Functional Strength, Gait, Safety, Therapeutic Exercise, Transfers Treatment Duration: Jun 19, 2019 Frequency: 5 times per week (to 6) Estimated Hrs Per Day: .25 hour per day Time/GCodes Time In: 1410 Time Out: 1425 Total Billed Treatment Time: 15 Total Billed Treatment visit, gait 15 min THOMAS PHAM PT Jun 13, 2019 14:34
[2019-06-13] MEDS: RT-ADVAIR HFA 115/21 MCG PER PUFF IH SCH (15:30)
[2019-06-13 16:37] VITALS: BP 144/67
[2019-06-13 20:42] VITALS: BP 122/69
[2019-06-13] MEDS: SIMvastatin 40 MG (ZOCOR) TAB PO SCH ×2 (21:01→21:28)
[2019-06-13] MEDS: PRAMIPEXOLE 0.5 MG TAB (MIRAPEX) PO SCH ×2 (21:02→21:28)
[2019-06-14] VITALS: BP 154/65
[2019-06-14] MEDS: GABAPENTIN 600 MG (NEURONTIN) TAB PO SCH ×3 (00:09→09:25)
[2019-06-14] MEDS: ALPRAZolam 1 MG (XANAX) TAB PO SCH ×4 (00:09→12:43)
[2019-06-14] MEDS: CYCLOBENZAPRINE 10 MG (FLEXERIL) TAB PO SCH ×3 (00:09→09:24)
[2019-06-14] MEDS: ONDANSETRON 4 MG/2 ML (SDV) Z0FRAN IVP PRN (00:41)
[2019-06-14 04:00] VITALS: BP 121/64
[2019-06-14 06:09] LABS: HEMOGLOBIN 7.6 G/DL (11.5-16.0); MEAN PLATELET VOLUME 12.2 FL (7.4-10.4); RED CELL DISTRIBUTION WIDTH 14.9 % (10.0-14.5); WHITE BLOOD COUNT 4.2 10^3/uL (4.3-11.0)
[2019-06-14 06:35] LABS: BUN/CREATININE RATIO 22; CALCIUM 8.1 MG/DL (8.5-10.1); CARBON DIOXIDE 26 MMOL/L (21-32); CHLORIDE 99 MMOL/L (98-107); CREATININE SERUM 0.76 MG/DL (0.60-1.30); GFR ESTIMATED > 60; GLUCOSE 82 MG/DL (70-105); POTASSIUM 3.2 MMOL/L (3.6-5.0); SODIUM 137 MMOL/L (135-145)
[2019-06-14] MEDS: inSUlin ASPART (NovoLOG) 1 UNIT/0.01 ML (CHARGE PER UNIT) SC SCH ×4 (07:01→21:33)
[2019-06-14] MEDS: KCL 20 MEQ TAB (K-DUR) PO SCH (07:05)
[2019-06-14 08:00] VITALS: BP 103/65
[2019-06-14] MEDS: MINOCYCLINE 100 MG PO SCH (09:08)
[2019-06-14] MEDS: HYDROCHLOROTHIAZIDE 25 MG (HCTZ) TAB PO SCH ×2 (09:08→09:25)
[2019-06-14] MEDS: FERROUS SULF 325 MG (IRON) TAB PO SCH ×2 (09:08→09:24)
[2019-06-14] MEDS: FLUTICASONE NASAL SPRAY (FLONASE) 16 GM BTL NS SCH (09:08)
[2019-06-14] MEDS: PROPRANOLOL 20 MG (INDERAL) TABLET PO SCH ×3 (09:09→21:35)
[2019-06-14] MEDS: metFORMIN 500 MG (GLUCOPHAGE) TAB PO SCH ×3 (09:09→21:34)
[2019-06-14] MEDS: MONTELUKAST 10 MG (SINGULAIR) TAB PO SCH (09:09)
[2019-06-14] MEDS: FUROSEMIDE 40 MG (LASIX) TAB PO SCH ×2 (09:09→09:25)
[2019-06-14] MEDS: NICOTINE PATCH REMOVAL TP SCH (09:10)
[2019-06-14] MEDS: NICOTINE 21 MG (NICODERM) PATCH TD SCH (09:10)
--- NOTE | 2019-06-14 10:02 | Physical Therapy Progress Note ---
Therapy Progress Note Attempted visit, Hgb low, pt not feeling well, very tired. JCARLOS CABA PTA Jun 14, 2019 10:02
[2019-06-14 12:00] VITALS: BP 11/64
[2019-06-14] MEDS ORDERED: PRAMIPEXOLE 0.5 MG TAB (MIRAPEX) PO PRN (13:45)
[2019-06-14] MEDS ORDERED: GABAPENTIN 600 MG (NEURONTIN) TAB PO PRN (13:45)
[2019-06-14] MEDS: LIDOCAINE 4% (SALONPAS) PATCH TP SCH (13:51)
--- NOTE | 2019-06-14 13:53 | Progress Note - Hospitalist ---
Subjective HPI/CC On Admission Date Seen by Provider: Jun 14, 2019 Time Seen by Provider: 13:00 Subjective/Events-last exam patient has been very agitated and angry with the nurses and her care. She demands that she has Coke and her medications whenever she wants them. She is been refusing to take some of her medications and demands that Xanax and oxycodone the given together. she has been too tired participate in physical therapy. Placement is going to be difficult because of her anger issues and lack of resources. I spent 30 minutes trying to address all of her concerns and issues. Medication changes have been made to when necessary to try and help her adjust to her schedule. Review of Systems Musculoskeletal: leg pain Neurological: Weakness Objective Exam Vital Signs Vital Signs Date Time Temp Pulse Resp B/P (MAP) Pulse Ox O2 Delivery O2 Flow Rate FiO2 06/14/19 08:00 98 Nasal Cannula 1.00 06/14/19 08:00 35.6 56 18 103/65 (78) Capillary Refill : Less Than 3 Seconds General Appearance: Chronically ill HEENT: Normal ENT Inspection Neck: Normal Inspection, Supple Respiratory: Chest Non Tender, Lungs Clear, Normal Breath Sounds, No Accessory Muscle Use, No Respiratory Distress Cardiovascular: Regular Rate, Rhythm, No Gallop, No Murmur Gastrointestinal: Soft Results/Procedures Lab Laboratory Tests 06/14/19 05:44 Patient resulted labs reviewed. Assessment/Plan Assessment and Plan Assess & Plan/Chief Complaint 1. pancytopenia new onset of consult hematology 2. Clinic venous stasis ulcerations-will DC minocycline because of the pancytopenia 3. Chronic pain issues with narcotics and benzodiazepine dependence-we'll try and adjust said that pain is adequately controlled but the patient does not get over sedated 4. fibromyalgia and weakness refusing PT 5. Hypertension 6. Hyper lipidemia refusing her medication 7. Plan to increase flexibility of medication administration, liberalize her diet per her request, and discharge planning to home and as she wishes Clinical Quality Measures DVT/VTE Risk/Contraindication: Risk Factor Score Per Nursin RFS Level Per Nursing on Admit: 4+=Very High BRENT MOON MD Jun 14, 2019 13:53
[2019-06-14] MEDS: ALPRAZolam 0.5 MG (XANAX) TAB PO SCH ×3 (15:08→21:34)
[2019-06-14 16:00] VITALS: BP 117/67
[2019-06-14] MEDS: ACETAMINOPHEN 500 MG TAB (TYLENOL) PO PRN (17:38)
[2019-06-14] MEDS: RT-ADVAIR HFA 115/21 MCG PER PUFF IH SCH (20:24)
[2019-06-14] MEDS: SIMvastatin 40 MG (ZOCOR) TAB PO SCH (21:34)
[2019-06-15 00:07] VITALS: BP 130/60
[2019-06-15] MEDS: CYCLOBENZAPRINE 10 MG (FLEXERIL) TAB PO PRN ×2 (00:41→20:52)
[2019-06-15] MEDS: ALPRAZolam 0.5 MG (XANAX) TAB PO SCH ×9 (00:41→23:33)
[2019-06-15] MEDS: LIDOCAINE 4% (SALONPAS) PATCH TP SCH ×2 (00:53→13:36)
[2019-06-15] MEDS: FUROSEMIDE 40 MG (LASIX) TAB PO SCH (05:48)
[2019-06-15] MEDS: KCL 20 MEQ TAB (K-DUR) PO SCH (05:48)
[2019-06-15 06:10] LABS: BASOPHILS % (AUTO) 1 % (0-10); EOSINOPHILS # (AUTO) 0.1 10^3/uL (0.0-0.3); EOSINOPHILS % (AUTO) 2 % (0-10); HEMATOCRIT 25 % (35-52); HEMOGLOBIN 7.6 G/DL (11.5-16.0); LYMPHOCYTES # (AUTO) 1.7 X 10^3 (1.0-4.0); LYMPHOCYTES % (AUTO) 41 % (12-44); MEAN CORPUSCULAR HEMOGLOBIN 26 PG (25-34); MEAN CORPUSCULAR HGB CONC 30 G/DL (32-36); MEAN CORPUSCULAR VOLUME 88 FL (80-99); MEAN PLATELET VOLUME 12.2 FL (7.4-10.4); MONOCYTES # (AUTO) 0.4 X 10^3 (0.0-1.0); MONOCYTES % (AUTO) 10 % (0-12); NEUTROPHILS # (AUTO) 1.8 X 10^3 (1.8-7.8); NEUTROPHILS % (AUTO) 45 % (42-75); PLATELET COUNT 142 10^3/uL (130-400); WHITE BLOOD COUNT 4.1 10^3/uL (4.3-11.0)
[2019-06-15 06:25] LABS: ALANINE AMINOTRANSFERASE 11 U/L (0-55); ALBUMIN 3.1 GM/DL (3.2-4.5); ALKALINE PHOSPHATASE 124 U/L (40-136); BILIRUBIN,TOTAL 0.8 MG/DL (0.1-1.0); BUN/CREATININE RATIO 21; CALCIUM 8.3 MG/DL (8.5-10.1); CARBON DIOXIDE 28 MMOL/L (21-32); CHLORIDE 101 MMOL/L (98-107); CREATININE SERUM 0.89 MG/DL (0.60-1.30); GFR ESTIMATED > 60; GLUCOSE 82 MG/DL (70-105); POTASSIUM 3.3 MMOL/L (3.6-5.0); SODIUM 140 MMOL/L (135-145); TOTAL PROTEIN 5.3 GM/DL (6.4-8.2)
[2019-06-15] MEDS: inSUlin ASPART (NovoLOG) 1 UNIT/0.01 ML (CHARGE PER UNIT) SC SCH ×4 (06:30→21:41)
[2019-06-15] MEDS: NICOTINE PATCH REMOVAL TP SCH (07:40)
[2019-06-15 07:43] VITALS: BP 152/72
[2019-06-15] MEDS: RT-ADVAIR HFA 115/21 MCG PER PUFF IH SCH ×2 (08:44→22:57)
[2019-06-15] MEDS: ONDANSETRON 4 MG/2 ML (SDV) Z0FRAN IVP PRN ×2 (08:51→13:01)
[2019-06-15] MEDS: PROPRANOLOL 20 MG (INDERAL) TABLET PO SCH ×2 (11:15→20:52)
[2019-06-15] MEDS: HYDROCHLOROTHIAZIDE 25 MG (HCTZ) TAB PO SCH (11:15)
[2019-06-15] MEDS: FLUTICASONE NASAL SPRAY (FLONASE) 16 GM BTL NS SCH (11:15)
[2019-06-15] MEDS: metFORMIN 500 MG (GLUCOPHAGE) TAB PO SCH ×2 (11:15→20:52)
[2019-06-15] MEDS: FERROUS SULF 325 MG (IRON) TAB PO SCH (11:15)
[2019-06-15] MEDS: MONTELUKAST 10 MG (SINGULAIR) TAB PO SCH (11:16)
[2019-06-15] MEDS: NICOTINE 21 MG (NICODERM) PATCH TD SCH (11:16)
--- NOTE | 2019-06-15 12:47 | Progress Note - Hospitalist ---
Subjective HPI/CC On Admission Date Seen by Provider: Jun 15, 2019 Time Seen by Provider: 12:15 Subjective/Events-last exam patient remains focused on getting IV fentanyl. We have adjusted all her medications per her request to oxycodone with the Xanax every 3 hours on schedule. She says that she needs IV fentanyl in addition for when the pain gets really bad. She has refused Neurontin extra Tylenol or any other medications for pain other than requesting and being focused on narcotics. per her request we have changed her to a regular diet and adjusted all of her medications to the best of our ability to please her. She is currently talking about going AMA. When she talks on the phone and is distracted she appears to be pain free. She slept well last night. Review of Systems Musculoskeletal: leg pain Objective Exam Vital Signs Vital Signs Date Time Temp Pulse Resp B/P (MAP) Pulse Ox O2 Delivery O2 Flow Rate FiO2 06/15/19 08:45 91 Room Air 06/15/19 08:00 1.00 06/15/19 07:43 37.3 59 18 152/72 (98) Capillary Refill : Less Than 3 Seconds General Appearance: Anxious, Other (angry) Neck: Full Range of Motion, Non Tender, Supple Respiratory: Lungs Clear, Normal Breath Sounds, No Accessory Muscle Use, No Respiratory Distress Cardiovascular: Regular Rate, Rhythm, No Gallop, No Murmur Gastrointestinal: Soft Back: Normal Inspection, No CVA Tenderness Extremity: Other Neurologic/Psychiatric: Alert, Oriented x3, Other Results/Procedures Lab Laboratory Tests 06/15/19 05:35 Patient resulted labs reviewed. Assessment/Plan Assessment and Plan Assess & Plan/Chief Complaint 1. pancytopenia new onset of consult hematology-platelets are improved today and up to normal 2. Clinic venous stasis ulcerations-will DC minocycline because of the pancytopenia-will monitor for infection 3. Chronic pain issues with narcotics and benzodiazepine dependence-we'll try and adjust so that pain is adequately controlled but the patient does not get over sedated and can be transitioned home without IV pain medication- 4. fibromyalgia and weakness refusing PT 5. Hypertension 6. Hyper lipidemia refusing her medication 7. type II diabetes with noncompliance Plan to increase flexibility of medication administration, liberalize her diet per her request, and discharge planning to home as she wishes Clinical Quality Measures DVT/VTE Risk/Contraindication: Risk Factor Score Per Nursin RFS Level Per Nursing on Admit: 4+=Very High BRENT MOON MD Jun 15, 2019 12:47
[2019-06-15 16:25] VITALS: BP 125/57
[2019-06-15] MEDS: GABAPENTIN 300 MG (NEURONTIN) CAP PO SCH ×2 (17:31→23:33)
--- NOTE | 2019-06-15 19:27 | Oncology Consultation ---
Visit Information Visit Information Date of Admission Jun 14, 2019 at 15:21 Attending Physician Olviia Cortes MD Admitting Physician [facility] Chief Complaint Transient pancytopenia. Iron deficient anemia. Interval History Ms. Torres is a 64 year old white female admitted for acute on chronic pain and left lower extremity ulcer and DM. Her WBC and Plt were normal at the ER except Hb 5.4. She got RBC transfusion. She was treated with minocycline during the hospital stay and then was noticed dropping Plt to 75k yesterday but returned to normal today. Minocycline was stopped. She has chronic anemia and was noticed severe iron deficiency during this admission. Pt told me that her last GI scope was last year and "they could not find any bleeding." I consulted the patient on: 06/15/19 19:25 Time Seen by Provider: 19:26 Review of Systems Constitutional: malaise, weakness Respiratory: see HPI Cardiovascular: no symptoms reported Gastrointestinal: see HPI Musculoskeletal: muscle pain, muscle stiffness Psychiatric/Neurological: Anxiety Health Status Allergies Coded Allergies: Sulfa (Sulfonamide Antibiotics) (Verified Allergy, Unknown, 06/10/19) ceftriaxone (Verified Allergy, Unknown, RASH, 08/12/18) Home Medications Albuterol Sulfate (Proair Hfa) 1 Puff Puff, 2 PUFF IH Q4H PRN for SHORTNESS OF BREATH, (Reported) 1 PUFF = 90 MCG Alprazolam (Alprazolam) 2 Mg Tablet, 2 MG PO HS, (Reported) Alprazolam (Alprazolam) 2 Mg Tablet, 1 MG PO QID, (Reported) TAKES 1/2 (2MG) TABLET Ascorbic Acid (Vitamin C) 500 Mg Capsule.er, 500 MG PO DAILY, (Reported) Cetirizine HCl (24Hour Allergy) 10 Mg Tablet, 10 MG PO DAILY, (Reported) Citalopram Hydrobromide (Citalopram HBr) 40 Mg Tablet, 40 MG PO DAILY, (Reported) Clotrimazole/Betamethasone Dip (Lotrisone Cream) 15 Gm Cream..g., TP BID PRN for SKIN, (Reported) Cyanocobalamin (Cyanocobalamin Injection) 1,000 Mcg/Ml Inj, 1,000 MCG IM monthly, (Reported) Cyclobenzaprine HCl (Cyclobenzaprine HCl) 10 Mg Tablet, 10 MG PO TID PRN for MUSCLE SPASMS, (Reported) Diphenhydramine HCl (Diphenhydramine HCl) 25 Mg Tablet, 25 MG PO HS PRN for INSOMNIA, (Reported) Ferrous Sulfate (Ferrous Sulfate) 325 Mg Tablet, 325 MG PO DAILY, (Reported) Fluticasone Propion/Salmeterol (Fluticasone-Salmeterol 250-50) 1 Each Blst.w.dev, 1 PUFF INH BID, (Reported) Fluticasone Propionate (Fluticasone Propionate) 16 Gm [place].susp, 1 SPRAY NS DAILY, (Reported) Gabapentin (Gabapentin) 600 Mg Tablet, 600 MG PO TID, (Reported) Hydrochlorothiazide (Hydrochlorothiazide) 25 Mg Tablet, 25 MG PO DAILY, (Reported) LAST FILLED #90 02-19-19 Ipratropium/Albuterol Sulfate (Iprat-Albut 0.5-3(2.5) mg/3 ml) 3 Ml Ampul.neb, 3 ML IH QID PRN for SHORTNESS OF BREATH, (Reported) Lidocaine (Lidocaine 5% Patch) 1 Each Adh..patch, 1 EACH TP Q12H PRN for Neuropathic pain, (Reported) 2 patches max for 12 hours, then 12 hours patch-free period. Meloxicam (Meloxicam) 7.5 Mg Tablet, 7.5 MG PO DAILY, (Reported) Metformin HCl (Metformin HCl) 500 Mg Tablet, 500 MG PO BID, (Reported) Minocycline HCl (Minocycline HCl) 100 Mg Capsule, 100 MG PO BID for 10 Days, (Reported) 10 DAY SUPPLY FILLED 06-02-19 Montelukast Sodium (Montelukast Sodium) 10 Mg Tablet, 10 MG PO DAILY, (Reported) Nicotine (Nicotine Patch) 1 Each Patch.td24, 1 PATCH TD DAILY, (Reported) Omeprazole (Omeprazole) 20 Mg Capsule.dr, 20 MG PO DAILY, (Reported) Oxycodone HCl/Acetaminophen (Percocet 10-325 mg Tablet) 1 Each Tablet, 1 TAB PO Q6H PRN for PAIN-MODERATE (5-7), (Reported) Potassium Chloride (Potassium Chloride) 10 Meq Capsule.er, 20 MEQ PO DAILY, (Reported) TAKES 2 (10MEQ) CAPSULES Pramipexole Di-HCl (Pramipexole Dihydrochloride) 1 Mg Tablet, 2 MG PO HS, (R eported) TAKES 2 (1MG) TABLETS Propranolol HCl (Propranolol HCl) 40 Mg Tablet, 40 MG PO BID, (Reported) Simvastatin (Simvastatin) 40 Mg Tablet, 40 MG PO HS, (Reported) PHU-Scxwnz-Rhcoxu Hx Patient Social History Alcohol Use: Denies Use Recreational Drug Use: No Smoking Status: Former Smoker Type Used: Cigarettes 2nd Hand Smoke Exposure: Yes Recent Foreign Travel: No Contact w/other who traveled: No Recent Infectious Disease Expo: No Recent Hopitalizations: No Immunizations Up To Date Date of Pneumonia Vaccine: Jun 02, 2014 Date of Influenza Vaccine: Mar 18, 2019 Family Medical History Family History: Patient reports no known family medical history. Physical Exam Vital Signs Vital Signs - First Documented 06/10/19 06/10/19 13:30 16:12 Temp 36.7 Pulse 91 Resp 20 B/P (MAP) 151/62 (91) Pulse Ox 100 O2 Delivery Room Air O2 Flow Rate 2.00 Capillary Refill : Less Than 3 Seconds Height, Weight, BMI Height: 5'2.00" Weight: 150lbs. 0.0oz. 68.236664gw; 35.54 BMI Method:Stated General Appearance: No Apparent Distress HEENT: PERRL/EOMI Neck: Non Tender, Supple Respiratory: No Accessory Muscle Use, No Respiratory Distress Cardiovascular: No JVD Gastrointestinal: Non Tender, Soft Extremity: Other (both legs are covered with dressing. No bleeding) Neurologic/Psychiatric: Alert, Oriented x3 Data Review Labs Laboratory Tests 06/15/19 05:35 Laboratory Tests 06/12/19 20:39: Glucometer 111H 06/13/19 06:04: Glucometer 115H 06/13/19 11:19: Glucometer 114H 06/13/19 15:26: Glucometer 127H 06/13/19 20:20: 06/14/19 05:44: White Blood Count 4.2L, Red Blood Count 2.76L, Hemoglobin 7.6L, Hematocrit 24L, Mean Corpuscular Hemoglobin Concent 31L, Red Cell Distribution Width 14.9H, Platelet Count 75L, Mean Platelet Volume 12.2H, Potassium Level 3.2L, Calcium Level 8.1L 06/14/19 11:02: 06/14/19 15:36: 06/14/19 21:00: Glucometer 118H 06/15/19 05:35: White Blood Count 4.1L, Red Blood Count 2.89L, Hemoglobin 7.6L, Hematocrit 25L, Mean Corpuscular Hemoglobin Concent 30L, Red Cell Distribution Width 15.0H, Mean Platelet Volume 12.2H, Potassium Level 3.3L, Blood Urea Nitrogen 19H, Calcium Level 8.3L, Total Protein 5.3L, Albumin 3.1L 06/15/19 12:36: Glucometer 119H 06/15/19 16:09: Glucometer 187H Laboratory Tests 06/15/19 05:35 Impression & Plan Impression & Plan IMP: 1. Bilateral lower extremity chronic wounds. Under wound care. 2. DM 3. Obese 4. Transient pancytopenia most likely due to minocycline. Plt is now back to normal 5. Severe chronic iron deficiency anemia, GI scope last year failed to reveal the bleeding source. s/p 2 units of RBC transfusion since the admission. Hb 7.4 now proper response to the transfusion. 6. Pain control issues. Rec. 1. Stool occult blood test 2. [place] of oral iron and follow up in 1-2 months to see if further improvement. Ferrous sulfate 325mg bid PO on discharge. Please teach patient to take stool softener if it causes constipation. 3. I will see her as out pt for follow up in a months. 4. No indication for bone marrow exam at this point. 5. Protonix 40m daily JULIO SUTHERLAND MD Jun 15, 2019 19:26
[2019-06-15] MEDS: PROMETHAZINE 25 MG (PHENERGAN) TAB PO PRN (20:51)
[2019-06-15] MEDS: SIMvastatin 40 MG (ZOCOR) TAB PO SCH (20:51)
[2019-06-15] MEDS: ACETAMINOPHEN 500 MG TAB (TYLENOL) PO PRN (20:52)
[2019-06-16] VITALS: BP 118/66
[2019-06-16] MEDS: LIDOCAINE 4% (SALONPAS) PATCH TP SCH ×2 (02:15→15:04)
[2019-06-16] MEDS: ALPRAZolam 0.5 MG (XANAX) TAB PO SCH ×5 (03:43→15:15)
[2019-06-16] MEDS: inSUlin ASPART (NovoLOG) 1 UNIT/0.01 ML (CHARGE PER UNIT) SC SCH ×3 (05:42→16:51)
[2019-06-16 06:08] LABS: BASOPHILS % (AUTO) 1 % (0-10); EOSINOPHILS # (AUTO) 0.1 10^3/uL (0.0-0.3); EOSINOPHILS % (AUTO) 2 % (0-10); HEMATOCRIT 28 % (35-52); HEMOGLOBIN 8.4 G/DL (11.5-16.0); LYMPHOCYTES # (AUTO) 1.7 X 10^3 (1.0-4.0); LYMPHOCYTES % (AUTO) 34 % (12-44); MEAN CORPUSCULAR HEMOGLOBIN 26 PG (25-34); MEAN CORPUSCULAR HGB CONC 30 G/DL (32-36); MEAN CORPUSCULAR VOLUME 89 FL (80-99); MEAN PLATELET VOLUME 12.3 FL (7.4-10.4); MONOCYTES # (AUTO) 0.6 X 10^3 (0.0-1.0); MONOCYTES % (AUTO) 12 % (0-12); NEUTROPHILS # (AUTO) 2.7 X 10^3 (1.8-7.8); NEUTROPHILS % (AUTO) 52 % (42-75); PLATELET COUNT 138 10^3/uL (130-400); RED CELL DISTRIBUTION WIDTH 14.9 % (10.0-14.5); WHITE BLOOD COUNT 5.2 10^3/uL (4.3-11.0)
[2019-06-16] MEDS: KCL 20 MEQ TAB (K-DUR) PO SCH (06:14)
[2019-06-16] MEDS: GABAPENTIN 300 MG (NEURONTIN) CAP PO SCH ×2 (06:14→12:08)
[2019-06-16] MEDS: FUROSEMIDE 40 MG (LASIX) TAB PO SCH (06:14)
[2019-06-16 06:42] LABS: ALBUMIN 3.3 GM/DL (3.2-4.5); BILIRUBIN,TOTAL 0.8 MG/DL (0.1-1.0); CALCIUM 8.5 MG/DL (8.5-10.1); CREATININE SERUM 1.02 MG/DL (0.60-1.30); POTASSIUM 3.5 MMOL/L (3.6-5.0); TOTAL PROTEIN 5.8 GM/DL (6.4-8.2)
[2019-06-16 07:20] VITALS: BP 131/66
[2019-06-16] MEDS: MONTELUKAST 10 MG (SINGULAIR) TAB PO SCH (08:49)
[2019-06-16] MEDS: HYDROCHLOROTHIAZIDE 25 MG (HCTZ) TAB PO SCH (08:50)
[2019-06-16] MEDS: metFORMIN 500 MG (GLUCOPHAGE) TAB PO SCH (08:50)
[2019-06-16] MEDS: NICOTINE 21 MG (NICODERM) PATCH TD SCH (08:52)
[2019-06-16] MEDS ORDERED: PANTOPRAZOLE 40 MG (PROTONIX) TAB PO SCH (09:00)
[2019-06-16] MEDS: FERROUS SULF 325 MG (IRON) TAB PO SCH (09:07)
[2019-06-16] MEDS: PROPRANOLOL 20 MG (INDERAL) TABLET PO SCH (09:07)
[2019-06-16] MEDS: FLUTICASONE NASAL SPRAY (FLONASE) 16 GM BTL NS SCH (09:08)
[2019-06-16] MEDS: NICOTINE PATCH REMOVAL TP SCH (09:08)
[2019-06-16] MEDS: RT-ADVAIR HFA 115/21 MCG PER PUFF IH SCH (10:17)
--- NOTE | 2019-06-16 10:27 | Physical Therapy Daily Note ---
PT Daily Note-Current Subjective Patient reluctantly agrees to PT. Continuous c/o bilateral LE pain. RN is aware. Pain Numeric Pain Scale: 10-Worst Possible Pain Location: Right, Left Location Body Site: Calf Pain Description: Chronic Mental Status Patient Orientation: Normal For Age Attachments: Oxygen Transfers SCALE: Activities may be completed with or without assistive devices. 1-Pbwumpegmd-fvjqvxv completes the activity by him/herself with no assistance from a helper. 5-Set-up or Clean-up Assistance-helper sets up or cleans up; patient completes activity. [place] assists only prior to or following the activity. 4-Supervision or Touching Assistance-helper provides verbal cues and/or touching/steadying and/or contact guard assistance as patient completes act ivity. Assistance may be provided throughout the activity or intermittently. 3-Partial/Moderate Assistance-helper does LESS THAN HALF the effort. [place] lifts, holds or supports trunk or limbs, but provides less than half the effort. 2-Substantial/Maximal Assistance-helper does MORE THAN HALF the effort. [place] lifts or holds trunk or limbs and provides more than half the effort. 4-Tjvxgcfhz-minstn does ALL the effort. Patient does none of the effort to complete the activity. Or, the assistance of 2 or more helpers is required for the patient to complete the activity. If activity was not attempted, code reason: 7-Patient Refused. 9-Not Applicable-not attempted and the patient did not perform the activity before the current illness, exacerbation or injury. 10-Not Attempted due to Environmental Limitations-(lack of equipment, weather restraints, etc.). 88-Not Attempted due to Medical Conditions or Safety Concerns. Roll Left & Right (QC): 5 Sit to Lying (QC): 5 Lying to Sitting/Side of Bed(Q: 5 Sit to Stand (QC): 5 Chair/Bsq-vj-Czvyo Xfer(QC): 5 Toilet Transfer (QC): 5 Weight Bearing Right Lower Extremity: Right Weight Bearing/Tolerated Left Lower Extremity: Left Weight Bearing/Tolerated Gait Training Does the Patient Walk?: Yes Distance: 100' Walk 10 feet (QC): 4 Walk 50 ft with 2 Turns(QC): 4 Gait Assistive Device: FWW very slow, NBOS gait sequence Exercises Seated Therapy Exercises: Ankle pumps, Long arc quads Seated Reps: 15 (2 sets) Assessment Patient up in recliner with bilateral LE elevated with heels on chair. Patient continued to c/o bilateral LE pain during the entire session. PT Senior Care Goals Service Station Manager Goals PT Senior Care Goals Time Frame: Jun 19, 2019 Roll Left & Right (QC): 6 Sit to Lying (QC): 6 Lying-Sitting on Side/Bed(QC): 6 Sit to Stand (QC): 6 Chair/Uyd-ux-Ivore Xfer(QC): 6 Toilet Transfer (QC): 6 Walk 10 feet (QC): 6 Walk 50ft with 2 Turns (QC): 6 Walk 150 ft (QC): 6 PT Plan Treatment/Plan Treatment Plan: Continue Plan of Care Treatment Plan: Bed Mobility, Education, Functional Activity Lesia, Functional Strength, Gait, Safety, Therapeutic Exercise, Transfers Treatment Duration: Jun 19, 2019 Frequency: 5 times per week (to 6) Estimated Hrs Per Day: .25 hour per day Time/GCodes Time In: 1001 Time Out: 1024 Total Billed Treatment Time: 23 Total Billed Treatment 1 visit FA 15 min EX 8 min MATTHEW CANO PT Jun 16, 2019 10:27
--- NOTE | 2019-06-16 10:53 | Progress Note - Hospitalist ---
Subjective HPI/CC On Admission Date Seen by Provider: Jun 16, 2019 Time Seen by Provider: 10:00 Subjective/Events-last exam Patient ready for discharge Social work yet to confirm caretakers Chronic pain is talked about intensely Hemoglobin stable Review of Systems Musculoskeletal: leg pain Objective Exam Vital Signs Vital Signs Date Time Temp Pulse Resp B/P (MAP) Pulse Ox O2 Delivery O2 Flow Rate FiO2 06/16/19 18:00 06/16/19 16:43 36.6 74 20 98 Nasal Cannula 1.00 Capillary Refill : Less Than 3 Seconds General Appearance: No Apparent Distress, WD/WN, Chronically ill Respiratory: Lungs Clear Cardiovascular: Regular Rate, Rhythm Results/Procedures Lab Patient resulted labs reviewed. Assessment/Plan Assessment and Plan Assess & Plan/Chief Complaint See discharge note Clinical Quality Measures DVT/VTE Risk/Contraindication: Risk Factor Score Per Nursin RFS Level Per Nursing on Admit: 4+=Very High BAYRON JASMINE DO Jun 16, 2019 10:53
[2019-06-16] MEDS ORDERED: POLYETHYLENE GLYCOL 17 GM (MIRALAX) PACK PO ONE (11:00)
[2019-06-16] MEDS: ONDANSETRON 4 MG/2 ML (SDV) Z0FRAN IVP PRN (11:00)
[2019-06-16] MEDS ORDERED: SENNA W/DOCUSATE (SENOKOT S) TABLET PO ONE (11:00)
--- NOTE | 2019-06-16 15:53 | D/C HH Face to Face Order ---
D/C Face to Face Orders Reconcile Patient Problems Problems Reviewed?: Yes Instructions for Patient Via [facility], Patient Instructions/FollowUp: [facility] [address] Selby 1 week Physician to follow Patient: [facility] Discharge Diet for Home: No Restrictions Patient Problems: Chronic anemia Left leg wound Chronic pain Patient Data-Allergies,Ht & Wt Patient Allergies: Coded Allergies: Sulfa (Sulfonamide Antibiotics) (Verified Allergy, Unknown, 06/10/19) ceftriaxone (Verified Allergy, Unknown, RASH, 08/12/18) Height (Feet): 5 Height (Inches): 2.00 Weight (Pounds): 150 Weight (Ounces): 0.0 Home Health Need/Face to Face Date of Face to Face: Jun 16, 2019 Clinical Findings: Generalized weakness and fatigue, Instability, Muscle weakness, Unsteady gait I have seen Pt dvpu-hn-[id number]: Yes Discharged To: Home Diagnosis/Conditions: Chronic anemia Left leg wound Chronic pain Patient is Homebound due to: CognItive deficits, Manoj fall risk due to instabilty, Muscle weakness Homebound Status Due to the above stated illness, injury or surgical procedure (medical condition or diagnosis) and associated clinical findings, the patient is homebound because of his/her inability to leave home except with aid of a supportive device and/or person AND leaving the home requires a considerable and taxing effort or is medically contraindicated. Pt req the following assistanc: [facility] Nursing Orders Home Health Services Order: Nursing Services, Television News Reporter-Evaluate & Treat, Physical Therapy-Evaluate & Treat Home Health Infusion Therapy Line Start Date: Jun 10, 2019 Certify Stmt I certify that this patient is under my care and that I, a nurse practitioner or a physician; a assistant womens volleyball coach working with me, had a face to face encounter that - meets the physician face to face encounter requirements with this patient as dated. BAYRON JASMINE DO Jun 16, 2019 15:53
--- NOTE | 2019-06-16 15:54 | Discharge Summary ---
Discharge Summary Hospital Course Was the Problem List Reviewed?: Yes Hospital Course Date of Admission: Jun 14, 2019 at 15:21 Admission Diagnosis : Family Physician/Provider: Chavez Lynn Date of Discharge: 06/16/19 Discharge Diagnosis: Severe anemia, transfusion required, chronic pain Hospital Course: Patient had an uncomplicated hospital course after she was admitted was given blood transfusion and hematology consulted and will have further workup as an outpatient. Chronic pain medication maintained by John Lynn and no changes were made. Overall poor prognosis considering her chronic debility and severe idalia rbidities the left close follow-up at the clinic and Dr. Weiss for hematology evaluation. Labs and Pending Lab Test: Laboratory Tests 06/15/19 16:09: Glucometer 187H 06/15/19 21:40: Glucometer 147H 06/16/19 05:55: White Blood Count 5.2, Red Blood Count 3.19L, Hemoglobin 8.4L, Hematocrit 28L, Mean Corpuscular Volume 89, Mean Corpuscular Hemoglobin 26, Mean Corpuscular Hemoglobin Concent 30L, Red Cell Distribution Width 14.9H, Platelet Count 138, Mean Platelet Volume 12.3H, Neutrophils (%) (Auto) 52, Lymphocytes (%) (Auto) 34, Monocytes (%) (Auto) 12, Eosinophils (%) (Auto) 2, Basophils (%) (Auto) 1, Neutrophils # (Auto) 2.7, Lymphocytes # (Auto) 1.7, Monocytes # (Auto) 0.6, Eosinophils # (Auto) 0.1, Basophils # (Auto) 0.0, Sodium Level 140, Potassium Level 3.5L, Chloride Level 100, Carbon Dioxide Level 26, Anion Gap 14, Blood Urea Nitrogen 20H, Creatinine 1.02, Estimat Glomerular Filtration Rate 55, BUN/Creatinine Ratio 20, Glucose Level 96, Calcium Level 8.5, Corrected Calcium 9.1, Total Bilirubin 0.8, Aspartate Amino Transf (AST/SGOT) 16, Alanine Aminotra nsferase (ALT/SGPT) 13, Alkaline Phosphatase 145H, Total Protein 5.8L, Albumin 3.3 06/16/19 11:25: Glucometer 113H Microbiology 06/10/19 Blood Culture - Final, Complete No growth Home Meds Active Reported 24Hour Allergy (Cetirizine HCl) 10 Mg Tablet 10 Mg PO DAILY Fluticasone-Salmeterol 250-50 (Fluticasone Propion/Salmeterol) 1 Each Blst.w.dev 1 Puff INH BID Fluticasone Propionate 16 Gm [place].susp 1 [place] NS DAILY Nicotine Patch (Nicotine) 1 Each Patch.td24 1 Patch TD DAILY Cyclobenzaprine HCl 10 Mg Tablet 10 Mg PO TID PRN Montelukast Sodium 10 Mg Tablet 10 Mg PO DAILY Minocycline HCl 100 Mg Capsule 100 Mg PO BID 10 Days 10 DAY SUPPLY FILLED 06-02-19 Percocet 10-325 mg Tablet (Oxycodone HCl/Acetaminophen) 1 Each Tablet 1 Tab PO Q6H PRN Alprazolam 2 Mg Tablet 1 Mg PO QID TAKES 1/2 (2MG) TABLET Alprazolam 2 Mg Tablet 2 Mg PO HS Meloxicam 7.5 Mg Tablet 7.5 Mg PO DAILY Lidocaine 5% Patch (Lidocaine) 1 Each Adh..patch 1 Each TP Q12H PRN MDD 2 2 patches max for 12 hours, then 12 hours patch-free period. Hydrochlorothiazide 25 Mg Tablet 25 Mg PO DAILY LAST FILLED #90 02-19-19 Cyanocobalamin Injection (Cyanocobalamin) 1,000 Mcg/Ml Inj 1,000 Mcg IM MONTHLY Diphenhydramine HCl 25 Mg Tablet 25 Mg PO HS PRN Pramipexole Dihydrochloride (Pramipexole Di-HCl) 1 Mg Tablet 2 Mg PO HS TAKES 2 (1MG) TABLETS Potassium Chloride 10 Meq Capsule.er 20 Meq PO DAILY TAKES 2 (10MEQ) CAPSULES Gabapentin 600 Mg Tablet 600 Mg PO TID Simvastatin 40 Mg Tablet 40 Mg PO HS Metformin HCl 500 Mg Tablet 500 Mg PO BID Omeprazole 20 Mg Capsule.dr 20 Mg PO DAILY Proair Hfa (Albuterol Sulfate) 1 Puff Puff 2 Puff IH Q4H PRN 1 PUFF = 90 MCG Ferrous Sulfate 325 Mg Tablet 325 Mg PO DAILY Propranolol HCl 40 Mg Tablet 40 Mg PO BID Lotrisone Cream (Clotrimazole/Betamethasone Dip) 15 Gm Cream..g. TP BID PRN Vitamin C (Ascorbic Acid) 500 Mg Capsule.er 500 Mg PO DAILY Iprat-Albut 0.5-3(2.5) mg/3 ml (Ipratropium/Albuterol Sulfate) 3 Ml Ampul.neb 3 Ml IH QID PRN Assessment/Pt Instructions [facility] in one week Discharge Planning: <30 minutes discharge planning Discharge Instructions Discharge Diet: No Restrictions, ADA Diet Activity as Tolerated: Yes Discharge Physical Examination Vital Signs Vital Signs Date Time Temp Pulse Resp B/P (MAP) Pulse Ox O2 Delivery O2 Flow Rate FiO2 06/16/19 10:17 93 Nasal Cannula 1.00 06/16/19 07:20 37.0 60 20 131/66 (87) General Appearance: No Apparent Distress, WD/WN, Chronically ill Allergies: Coded Allergies: Sulfa (Sulfonamide Antibiotics) (Verified Allergy, Unknown, 06/10/19) ceftriaxone (Verified Allergy, Unknown, RASH, 08/12/18) Discharge Summary Date of Admission Jun 14, 2019 at 15:21 Date of Discharge Discharge Date: Jun 16, 2019 Clinical Quality Measures DVT/VTE Risk/Contraindication: Risk Factor Score Per Nursin RFS Level Per Nursing on Admit: 4+=Very High BAYRON JASMINE DO Jun 16, 2019 15:54
[2019-06-16 16:43] VITALS: BP 144/60
[2019-06-16] MEDS ORDERED: SENNA W/DOCUSATE (SENOKOT S) TABLET PO SCH (21:00)
[2019-06-16] MEDS ORDERED: POLYETHYLENE GLYCOL 17 GM (MIRALAX) PACK PO SCH (21:00)
== END 2019-06-16 18:10 | disposition home or self-care (01) | DRG 809 ==
LOC: EDUNIT# 13:26 → ER 13:28 → 4TH 15:48 → OBSVTOIN 06-14 15:21
PROVIDERS: ADMIT Family Medicine; ATTEND Internal Medicine
DX: D61.811 Other drug-induced pancytopenia (principal); L97.229 Non-pressure chronic ulcer of left calf with unspecified severity; E11.622 Type 2 diabetes mellitus with other skin ulcer; F41.9 Anxiety disorder, unspecified; E11.40 Type 2 diabetes mellitus with diabetic neuropathy, unspecified; F32.9 Major depressive disorder, single episode, unspecified; F44.9 Dissociative and conversion disorder, unspecified; M72.9 Fibroblastic disorder, unspecified; I11.0 Hypertensive heart disease with heart failure; I50.9 Heart failure, unspecified; M79.7 Fibromyalgia; G89.29 Other chronic pain; T36.4X5A Adverse effect of tetracyclines, initial encounter; E66.9 Obesity, unspecified; Z68.35 Body mass index [BMI] 35.0-35.9, adult; Z79.84 Long term (current) use of oral hypoglycemic drugs; Z87.891 Personal history of nicotine dependence; Z90.49 Acquired absence of other specified parts of digestive tract; Z90.710 Acquired absence of both cervix and uterus
CPT/HCPCS: 36415; 71045; 80048; 80053; 80306; 81000; 82728; 82962; 83010; 83540; 83605; 83615; 85007; 85014; 85018; 85025; 85027; 85045; 86141; 86850; 86900; 86901; 86920; 87040; 93926; 94640; 94760; 96374; 96375; G0378

== ENCOUNTER → 2019-06-25 | Outpatient (CLI) | payer MEDICAID ==
[~2019-06-25] MED LIST changes: +ALPR2TAB6 PO; +CITA40TA11 PO; +CNC1KV IM; +DIPH25TA29 PO; +ERYT-96 PO; +FLUT12AE4 IH; +FLUT16SP22 NS; +FLUT1BLS12 INH; +FURO40TA4 PO; +LIDO700A45 TP; +MINO100C2 PO; +MONT10TA24 PO; +NICO-588 TD; +PRAM1TAB5 PO; +[UNRECOGNIZED DRUG - CODE] PO
[2019-06-25 16:36] LABS: BASOPHILS % (AUTO) 1 % (0-10); EOSINOPHILS # (AUTO) 0.2 10^3/uL (0.0-0.3); EOSINOPHILS % (AUTO) 3 % (0-10); HEMATOCRIT 25 % (35-52); HEMOGLOBIN 7.3 G/DL (11.5-16.0); LYMPHOCYTES # (AUTO) 1.4 X 10^3 (1.0-4.0); LYMPHOCYTES % (AUTO) 26 % (12-44); MEAN CORPUSCULAR HEMOGLOBIN 26 PG (25-34); MEAN CORPUSCULAR HGB CONC 30 G/DL (32-36); MEAN CORPUSCULAR VOLUME 86 FL (80-99); MEAN PLATELET VOLUME 11.8 FL (7.4-10.4); MONOCYTES # (AUTO) 0.5 X 10^3 (0.0-1.0); MONOCYTES % (AUTO) 9 % (0-12); NEUTROPHILS # (AUTO) 3.3 X 10^3 (1.8-7.8); NEUTROPHILS % (AUTO) 62 % (42-75); PLATELET COUNT 209 10^3/uL (130-400); RED CELL DISTRIBUTION WIDTH 15.1 % (10.0-14.5); WHITE BLOOD COUNT 5.3 10^3/uL (4.3-11.0)
== END ==
LOC: LAB 16:18
PROVIDERS: ATTEND Nurse Practitioner Community Health
DX: R53.1 Weakness (principal)
CPT/HCPCS: 36415; 85025

== ENCOUNTER 2019-08-29 09:24 | Day surgery (SDC) | payer MEDICAID ==
[~2019-08-29] VITALS: Ht 154.9 cm; Wt 85.3 kg
[2019-08-29] VITALS (15 sets, daily range): BP systolic 100–180; BP diastolic 46–81
[~2019-08-29 09:24] MED LIST changes: -MINO100C2 PO; +MINO100C5 PO; -MONT10TA24 PO; +MONT10TA26 PO; -OMEP20CA13 PO; +OMEP20CA18 PO; +ONDN4T PO; +PANT40TA2 PO; +SIMV40TA25 PO
[2019-08-29] MEDS ORDERED: NS IV 1000 ML 1,000 ML IV STA (09:50)
[2019-08-29] MEDS ORDERED: MIDAZOLAM 2 MG/2 ML (VERSED) VIAL IVP ONE (10:00)
[2019-08-29] MEDS ORDERED: LIDOCAINE 1% INJ 20 ML 20 ML VIAL INJ ONE (10:00)
[2019-08-29] MEDS ORDERED: fentaNYL INJECTION 100 MCG/2 ML AMP IVP ONE (10:00)
[2019-08-29 10:48] LABS: HEMATOCRIT 34 % (35-52); HEMOGLOBIN 9.8 G/DL (11.5-16.0); MEAN CORPUSCULAR HEMOGLOBIN 25 PG (25-34); MEAN CORPUSCULAR HGB CONC 29 G/DL (32-36); MEAN CORPUSCULAR VOLUME 87 FL (80-99); MEAN PLATELET VOLUME 11.8 FL (7.4-10.4); PLATELET COUNT 152 10^3/uL (130-400); WHITE BLOOD COUNT 4.7 10^3/uL (4.3-11.0)
[2019-08-29 11:00] LABS: PROTHROMBIN TIME PATIENT 13.9 SEC (12.2-14.7)
[2019-08-29 11:27] LABS: ABSOLUTE RETIC # 117 10e9/L (24-90); BASOPHILS % (AUTO) 0 % (0-10); EOSINOPHILS # (AUTO) 0.2 10^3/uL (0.0-0.3); EOSINOPHILS % (AUTO) 4 % (0-10); LYMPHOCYTES # (AUTO) 1.2 X 10^3 (1.0-4.0); LYMPHOCYTES % (AUTO) 25 % (12-44); MONOCYTES # (AUTO) 0.4 X 10^3 (0.0-1.0); MONOCYTES % (AUTO) 8 % (0-12); NEUTROPHILS # (AUTO) 2.9 X 10^3 (1.8-7.8); NEUTROPHILS % (AUTO) 63 % (42-75)
[2019-08-29] MEDS ORDERED: HYDROcodone/APAP 5 MG/325 MG (LORTAB) TAB PO PRN (12:00)
--- NOTE | 2019-08-29 12:03 | Pre-Op Note & Conscious Sedat ---
Pre-Operative Progress Note H&P Reviewed The H&P was reviewed, patient examined and no changes noted. Date H&P Reviewed: Aug 29, 2019 Time H&P Reviewed: 10:00 Pre-Op Diagnosis: anemia Conscious Sedation Pre-Proced Time 10:00 ASA Score 2 For ASA 3 and 4: Consider anesthesia and medical clearance. Also, for patients with a history of failed moderate sedation consider anesthesia. Airway Lungs Heart ASA score ASA 1: a normal healthy patient ASA 2: a patient with a mild systemic disease (mid diabetes, controlled hypertension, obesity ASA 3: a patient with a severe systemic disease that limits activity (angina, COPD, prior Myocardial infarction) ASA 4: a patient with an incapacitating disease that is a constant threat to life (CHF, renal failure) ASA 5: a moribund patient not expected to survive 24 hrs. (ruptured aneurysm) ASA 6: a declared brain- patient whose organs are being harvested. For emergent operations, add the letter E after the classification Mallampati Classification Grade 2 Sedation Plan Analgesia, Amnesia, Plan communicated to team members, Discussed options with patient/fam, Discussed risks with patient/fam The patient is an appropriate candidate to undergo the planned procedure, sedation, and anesthesia. The patient immediately re-assessed prior to indication. JESSICA CRAWFORD MD Aug 29, 2019 12:03
--- NOTE | 2019-08-29 12:05 | Diagnostic Imaging Report ---
INDICATION: Anemia. TECHNIQUE: Patient was brought to the CT suite, placed on table in the prone position. Axial imaging through the pelvis was performed to evaluate appropriate entry site. The procedure was performed utilizing conscious sedation with radiology nursing and constant patient monitoring. Patient was administered a total of 100 mcg of fentanyl intravenously and 1 mg of Versed intravenously. Total procedure time was 5 minutes. Posterior pelvis was prepped and draped in the usual sterile fashion. Small amount of 1% lidocaine was utilized for local anesthesia. Bone marrow biopsy needle was advanced, placed with its tip along the posterior cortex of the right iliac bone. Needle was advanced through the cortex utilizing the bone marrow drill. A bone marrow aspirate was performed. The drill was reattached to the biopsy needle and a core biopsy was then obtained. Hemostasis was obtained using manual compression. Patient tolerated the procedure well and left the department in stable condition. IMPRESSION: Successful CT-guided bone marrow aspiration and biopsy utilizing conscious sedation. Dictated by: Dictated on workstation # [id number]
[2019-08-29 12:13] LABS: ANISOCYTOSIS MODERATE; BAND NEUTROPHILS 0 %; BASOPHILS % (MANUAL) 2 %; EOSINOPHILS % (MANUAL) 4 %; LYMPHOCYTES % (MANUAL) 23 %; MICROCYTOSIS SLIGHT; MONOCYTES % (MANUAL) 2 %; NEUTROPHILS % (MANUAL) 69 %; POLYCHROMASIA SLIGHT
== END 2019-08-29 14:05 | disposition home or self-care (01) ==
LOC: RAD 09:24 → SDC 11:57 → RAD 14:05
PROVIDERS: ATTEND Internal Medicine Hematology & Oncology
DX: D50.9 Iron deficiency anemia, unspecified (principal); M19.90 Unspecified osteoarthritis, unspecified site; J44.9 Chronic obstructive pulmonary disease, unspecified; E11.9 Type 2 diabetes mellitus without complications; G51.0 Bell's palsy; M79.7 Fibromyalgia; I10 Essential (primary) hypertension; G47.10 Hypersomnia, unspecified; G40.909 Epilepsy, unspecified, not intractable, without status epilepticus; G47.50 Parasomnia, unspecified; M48.061 Spinal stenosis, lumbar region without neurogenic claudication; M47.896 Other spondylosis, lumbar region; J30.1 Allergic rhinitis due to pollen; F32.9 Major depressive disorder, single episode, unspecified; F17.210 Nicotine dependence, cigarettes, uncomplicated; Z88.2 Allergy status to sulfonamides; Z88.1 Allergy status to other antibiotic agents; Z90.710 Acquired absence of both cervix and uterus; Z90.89 Acquired absence of other organs; Z79.84 Long term (current) use of oral hypoglycemic drugs; Z90.49 Acquired absence of other specified parts of digestive tract; Z79.82 Long term (current) use of aspirin; Z79.899 Other long term (current) drug therapy; Z82.3 Family history of stroke; Z80.9 Family history of malignant neoplasm, unspecified
CPT/HCPCS: 36415; 38222; 77012; 85007; 85025; 85027; 85045; 85610; 85730; 99156

== ENCOUNTER 2019-09-03 14:21 | Outpatient (RCR) | payer MEDICAID ==
[2019-07-14 13:27] LABS: BASOPHILS # (AUTO) 0.1 10^3/uL (0.0-0.1); BASOPHILS % (AUTO) 1 % (0-10); EOSINOPHILS # (AUTO) 0.2 10^3/uL (0.0-0.3); EOSINOPHILS % (AUTO) 2 % (0-10); HEMATOCRIT 21 % (35-52); LYMPHOCYTES # (AUTO) 1.5 X 10^3 (1.0-4.0); LYMPHOCYTES % (AUTO) 23 % (12-44); MEAN CORPUSCULAR HEMOGLOBIN 24 PG (25-34); MEAN CORPUSCULAR HGB CONC 29 G/DL (32-36); MEAN CORPUSCULAR VOLUME 84 FL (80-99); MEAN PLATELET VOLUME 11.8 FL (7.4-10.4); MONOCYTES # (AUTO) 0.7 X 10^3 (0.0-1.0); MONOCYTES % (AUTO) 11 % (0-12); NEUTROPHILS # (AUTO) 3.9 X 10^3 (1.8-7.8); NEUTROPHILS % (AUTO) 62 % (42-75); PLATELET COUNT 181 10^3/uL (130-400); RED CELL DISTRIBUTION WIDTH 21.2 % (10.0-14.5); WHITE BLOOD COUNT 6.2 10^3/uL (4.3-11.0)
[2019-07-14 13:29] LABS: HEMOGLOBIN 6.1 G/DL (11.5-16.0)
[2019-07-14 13:45] LABS: ALANINE AMINOTRANSFERASE 25 U/L (0-55); ALBUMIN 3.8 GM/DL (3.2-4.5); ALKALINE PHOSPHATASE 136 U/L (40-136); BILIRUBIN,TOTAL 0.5 MG/DL (0.1-1.0); BUN/CREATININE RATIO 15; CALCIUM 8.8 MG/DL (8.5-10.1); CARBON DIOXIDE 30 MMOL/L (21-32); CHLORIDE 101 MMOL/L (98-107); CREATININE SERUM 0.75 MG/DL (0.60-1.30); GFR ESTIMATED > 60; GLUCOSE 90 MG/DL (70-105); POTASSIUM 3.4 MMOL/L (3.6-5.0); SODIUM 140 MMOL/L (135-145); TOTAL PROTEIN 6.5 GM/DL (6.4-8.2)
[2019-07-25 13:45] LABS: BASOPHILS % (AUTO) 1 % (0-10); EOSINOPHILS # (AUTO) 0.2 10^3/uL (0.0-0.3); EOSINOPHILS % (AUTO) 4 % (0-10); HEMATOCRIT 28 % (35-52); HEMOGLOBIN 8.1 G/DL (11.5-16.0); LYMPHOCYTES # (AUTO) 1.1 X 10^3 (1.0-4.0); LYMPHOCYTES % (AUTO) 27 % (12-44); MEAN CORPUSCULAR HEMOGLOBIN 25 PG (25-34); MEAN CORPUSCULAR HGB CONC 29 G/DL (32-36); MEAN CORPUSCULAR VOLUME 88 FL (80-99); MEAN PLATELET VOLUME 11.8 FL (7.4-10.4); MONOCYTES # (AUTO) 0.4 X 10^3 (0.0-1.0); MONOCYTES % (AUTO) 9 % (0-12); NEUTROPHILS # (AUTO) 2.5 X 10^3 (1.8-7.8); NEUTROPHILS % (AUTO) 59 % (42-75); PLATELET COUNT 155 10^3/uL (130-400); RED CELL DISTRIBUTION WIDTH 18.8 % (10.0-14.5); WHITE BLOOD COUNT 4.2 10^3/uL (4.3-11.0)
[2019-08-11 13:50] LABS: BASOPHILS % (AUTO) 1 % (0-10); EOSINOPHILS # (AUTO) 0.2 10^3/uL (0.0-0.3); EOSINOPHILS % (AUTO) 4 % (0-10); HEMATOCRIT 25 % (35-52); LYMPHOCYTES # (AUTO) 1.2 X 10^3 (1.0-4.0); LYMPHOCYTES % (AUTO) 28 % (12-44); MEAN CORPUSCULAR HEMOGLOBIN 23 PG (25-34); MEAN CORPUSCULAR HGB CONC 28 G/DL (32-36); MEAN CORPUSCULAR VOLUME 82 FL (80-99); MEAN PLATELET VOLUME 11.5 FL (7.4-10.4); MONOCYTES # (AUTO) 0.3 X 10^3 (0.0-1.0); MONOCYTES % (AUTO) 7 % (0-12); NEUTROPHILS # (AUTO) 2.6 X 10^3 (1.8-7.8); NEUTROPHILS % (AUTO) 61 % (42-75); PLATELET COUNT 169 10^3/uL (130-400); WHITE BLOOD COUNT 4.3 10^3/uL (4.3-11.0)
[2019-08-11 13:57] LABS: HEMOGLOBIN 6.9 G/DL (11.5-16.0)
[2019-08-11 14:19] LABS: ALANINE AMINOTRANSFERASE 19 U/L (0-55); ALBUMIN 3.8 GM/DL (3.2-4.5); ALKALINE PHOSPHATASE 145 U/L (40-136); BILIRUBIN,TOTAL 0.5 MG/DL (0.1-1.0); BUN/CREATININE RATIO 16; CALCIUM 8.7 MG/DL (8.5-10.1); CARBON DIOXIDE 26 MMOL/L (21-32); CHLORIDE 102 MMOL/L (98-107); CREATININE SERUM 0.81 MG/DL (0.60-1.30); GFR ESTIMATED > 60; GLUCOSE 162 MG/DL (70-105); POTASSIUM 3.4 MMOL/L (3.6-5.0); SODIUM 138 MMOL/L (135-145); TOTAL PROTEIN 6.4 GM/DL (6.4-8.2)
[2019-08-20 15:29] LABS: BASOPHILS % (AUTO) 1 % (0-10); EOSINOPHILS # (AUTO) 0.2 10^3/uL (0.0-0.3); EOSINOPHILS % (AUTO) 4 % (0-10); HEMATOCRIT 28 % (35-52); HEMOGLOBIN 8.2 G/DL (11.5-16.0); LYMPHOCYTES % (AUTO) 24 % (12-44); MEAN CORPUSCULAR HEMOGLOBIN 24 PG (25-34); MEAN CORPUSCULAR HGB CONC 29 G/DL (32-36); MEAN CORPUSCULAR VOLUME 83 FL (80-99); MEAN PLATELET VOLUME 12.1 FL (7.4-10.4); MONOCYTES # (AUTO) 0.3 X 10^3 (0.0-1.0); MONOCYTES % (AUTO) 7 % (0-12); NEUTROPHILS # (AUTO) 2.6 X 10^3 (1.8-7.8); NEUTROPHILS % (AUTO) 65 % (42-75); PLATELET COUNT 183 10^3/uL (130-400); RED CELL DISTRIBUTION WIDTH 17.9 % (10.0-14.5); WHITE BLOOD COUNT 4.1 10^3/uL (4.3-11.0)
[~2019-09-03 14:21] MED LIST changes: +ACETAMINOPHEN 500 MG TAB (TYLENOL) CANCER CTR ONE; +FERRIC CARBOXYMALTOSE (CANCER) 750 MG in NS (IVPB) CANCER CENTER 250 ML IV SCH; +NS IV 500 ML (CANCER CENTER) 500 ML ONE
[2019-09-03 14:40] LABS: BASOPHILS % (AUTO) 1 % (0-10); EOSINOPHILS # (AUTO) 0.2 10^3/uL (0.0-0.3); EOSINOPHILS % (AUTO) 4 % (0-10); HEMATOCRIT 36 % (35-52); HEMOGLOBIN 11.1 G/DL (11.5-16.0); LYMPHOCYTES # (AUTO) 1.1 X 10^3 (1.0-4.0); LYMPHOCYTES % (AUTO) 22 % (12-44); MEAN CORPUSCULAR HEMOGLOBIN 27 PG (25-34); MEAN CORPUSCULAR HGB CONC 31 G/DL (32-36); MEAN CORPUSCULAR VOLUME 88 FL (80-99); MEAN PLATELET VOLUME 11.7 FL (7.4-10.4); MONOCYTES # (AUTO) 0.4 X 10^3 (0.0-1.0); MONOCYTES % (AUTO) 8 % (0-12); NEUTROPHILS # (AUTO) 3.2 X 10^3 (1.8-7.8); NEUTROPHILS % (AUTO) 65 % (42-75); PLATELET COUNT 143 10^3/uL (130-400); RED CELL DISTRIBUTION WIDTH 24.4 % (10.0-14.5); WHITE BLOOD COUNT 4.9 10^3/uL (4.3-11.0)
== END 2019-10-12 | disposition home or self-care (01) ==
LOC: ONC 14:21
PROVIDERS: ATTEND Internal Medicine Hematology & Oncology
DX: D64.9 Anemia, unspecified (principal); K92.2 Gastrointestinal hemorrhage, unspecified; K44.9 Diaphragmatic hernia without obstruction or gangrene; K22.10 Ulcer of esophagus without bleeding; I25.10 Atherosclerotic heart disease of native coronary artery without angina pectoris; I48.91 Unspecified atrial fibrillation; E66.9 Obesity, unspecified; E11.9 Type 2 diabetes mellitus without complications; F41.9 Anxiety disorder, unspecified; J44.9 Chronic obstructive pulmonary disease, unspecified; I10 Essential (primary) hypertension; M79.7 Fibromyalgia; Z79.899 Other long term (current) drug therapy
CPT/HCPCS: 36415; 36430; 80053; 82728; 83540; 83550; 83883; 84155; 84165; 84443; 85025; 86850; 86900; 86901; 86920; 96365; 99213

== ENCOUNTER → 2019-09-10 | Outpatient (CLI) | payer MEDICAID ==
[~2019-09-10] MED LIST changes: -ACETAMINOPHEN 500 MG TAB (TYLENOL) CANCER CTR ONE; -FERRIC CARBOXYMALTOSE (CANCER) 750 MG in NS (IVPB) CANCER CENTER 250 ML IV SCH; -NS IV 500 ML (CANCER CENTER) 500 ML ONE
== END | disposition home or self-care (01) ==
LOC: PREOP 05:35
PROVIDERS: ATTEND Surgery
DX: Z01.818 Encounter for other preprocedural examination (principal)

== ENCOUNTER → 2019-10-29 | Outpatient (CLI) | payer MEDICAID ==
[2019-10-29 13:49] LABS: BASOPHILS % (AUTO) 1 % (0-10); EOSINOPHILS # (AUTO) 0.1 10^3/uL (0.0-0.3); EOSINOPHILS % (AUTO) 2 % (0-10); HEMATOCRIT 43 % (35-52); LYMPHOCYTES # (AUTO) 1.4 X 10^3 (1.0-4.0); LYMPHOCYTES % (AUTO) 22 % (12-44); MEAN CORPUSCULAR HEMOGLOBIN 29 PG (25-34); MEAN CORPUSCULAR HGB CONC 32 G/DL (32-36); MEAN CORPUSCULAR VOLUME 89 FL (80-99); MEAN PLATELET VOLUME 11.3 FL (7.4-10.4); MONOCYTES # (AUTO) 0.5 X 10^3 (0.0-1.0); MONOCYTES % (AUTO) 8 % (0-12); NEUTROPHILS # (AUTO) 4.2 X 10^3 (1.8-7.8); NEUTROPHILS % (AUTO) 68 % (42-75); PLATELET COUNT 179 10^3/uL (130-400); RED CELL DISTRIBUTION WIDTH 16.5 % (10.0-14.5); WHITE BLOOD COUNT 6.2 10^3/uL (4.3-11.0)
== END ==
LOC: EDSTATUS 10-13 15:08 → ONC 13:21
PROVIDERS: ATTEND Internal Medicine Hematology & Oncology
DX: D50.9 Iron deficiency anemia, unspecified (principal); M19.90 Unspecified osteoarthritis, unspecified site; J44.9 Chronic obstructive pulmonary disease, unspecified; E11.9 Type 2 diabetes mellitus without complications; G51.0 Bell's palsy; M79.7 Fibromyalgia; I10 Essential (primary) hypertension; G47.10 Hypersomnia, unspecified; G40.909 Epilepsy, unspecified, not intractable, without status epilepticus; G47.50 Parasomnia, unspecified; M48.061 Spinal stenosis, lumbar region without neurogenic claudication; M47.896 Other spondylosis, lumbar region; J30.1 Allergic rhinitis due to pollen; F32.9 Major depressive disorder, single episode, unspecified; F17.210 Nicotine dependence, cigarettes, uncomplicated; Z88.2 Allergy status to sulfonamides; Z88.1 Allergy status to other antibiotic agents; Z90.710 Acquired absence of both cervix and uterus; Z90.89 Acquired absence of other organs; Z79.84 Long term (current) use of oral hypoglycemic drugs; Z90.49 Acquired absence of other specified parts of digestive tract; Z79.82 Long term (current) use of aspirin; Z79.899 Other long term (current) drug therapy; Z82.3 Family history of stroke; Z80.9 Family history of malignant neoplasm, unspecified; D64.9 Anemia, unspecified; K92.2 Gastrointestinal hemorrhage, unspecified; K44.9 Diaphragmatic hernia without obstruction or gangrene; K22.10 Ulcer of esophagus without bleeding; I25.10 Atherosclerotic heart disease of native coronary artery without angina pectoris
CPT/HCPCS: 85025; 99213

== ENCOUNTER → 2020-03-31 | Outpatient (CLI) | payer MEDICAID ==
[~2020-03-31] VITALS: Ht 160 cm; Wt 87.0 kg
[~2020-03-31] MED LIST changes: -OXYC-465 PO; +OXYC-556 PO
--- NOTE | 2020-03-31 12:40 | Diagnostic Imaging Report ---
INDICATION: Routine screening. Comparison is made with prior mammogram 05/31/2017 and 04/21/2016. 2-D and 3-D bilateral screening mammography was performed with CAD. Scattered fibroglandular densities are identified bilaterally. The parenchymal pattern is stable. No mass or malignant appearing microcalcifications are seen. Axillae are unremarkable. IMPRESSION: BI-RADS Category 1 No mammographic features suspicious for malignancy are identified. ACR BI-RADS Category 1: Negative. Result letter will be mailed to the patient. Note: At least 10% of breast cancer is not imaged by mammography. Dictated by: Dictated on workstation # [id number]
== END ==
LOC: RAD 09:39
PROVIDERS: ATTEND Nurse Practitioner Community Health
DX: Z12.31 Encounter for screening mammogram for malignant neoplasm of breast (principal)
CPT/HCPCS: 77063; 77067

== ENCOUNTER → 2020-03-31 | Outpatient (CLI) | payer MEDICAID ==
[~2020-03-31] VITALS: Ht 160 cm; Wt 87.0 kg
[~2020-03-31] MED LIST changes: +CATHETER FLUSH 10 ML SYR IV PRN; +REGADENOSON 0.4 MG/5 ML SYR (LEXISCAN) IV ONE
[2020-03-31 11:32] LABS: ALANINE AMINOTRANSFERASE 19 U/L (0-55); ALKALINE PHOSPHATASE 124 U/L (40-136); BUN/CREATININE RATIO 17; CALCIUM 8.9 MG/DL (8.5-10.1); CARBON DIOXIDE 27 MMOL/L (21-32); CHLORIDE 105 MMOL/L (98-107); CHOLESTEROL 194 MG/DL (< 200); CREATININE SERUM 0.81 MG/DL (0.60-1.30); GFR ESTIMATED > 60; GLUCOSE 114 MG/DL (70-105); HDL CHOLESTEROL 29 MG/DL (40-60); POTASSIUM 3.9 MMOL/L (3.6-5.0); SODIUM 140 MMOL/L (135-145); TOTAL PROTEIN 7.2 GM/DL (6.4-8.2); TRIGLYCERIDES 182 MG/DL (<150); VLDL CHOLESTEROL 36 MG/DL (5-40)
[2020-03-31 13:02] VITALS: BP 166/60
--- NOTE | 2020-04-05 11:03 | Cardiology Stress Test Report ---
Stress Test Report Date of Procedure/Referring: Date of Procedure: Mar 31, 2020 PCP Maegan Alston Admitting Physician Center/[facility] Indications: CP Baseline Heart Rate: 74 Baseline Blood Pressure: Blood Pressure Systolic: 166 Blood Pressure Diastolic: 60 Baseline Vitals Vital Signs Date Time Temp Pulse Resp B/P (MAP) Pulse Ox O2 Delivery O2 Flow Rate FiO2 03/31/20 13:02 74 166/60 (95) 99 Baseline EKG: Baseline EKG: NSR Summary After explaining the procedure to the patient, she signed a consent and then brought to the stress nuclear laboratory. Patient received 0.4 mg Lexiscan for stress test, ECG, heart rate and blood pressure were monitored continuously. Resting and stress dose of radio tracer were injected, imaging was acquired and reviewed in short axis, horizontal long axis and vertical long axis views. TID: 0.95 SSS: 4 SDS: 4 EF: 74 1. Patient tolerated Lexiscan well 2. Mild ischemia involving the mid to apical inferior wall with mild reversibility 3. Normal left ventricular size, EF 74 percent CONNOR GUTIERRES MD Apr 05, 2020 11:03
== END ==
LOC: CARD 09:40
PROVIDERS: ATTEND Physician Assistant
DX: I10 Essential (primary) hypertension (principal); E11.9 Type 2 diabetes mellitus without complications; I65.29 Occlusion and stenosis of unspecified carotid artery; R07.89 Other chest pain
CPT/HCPCS: 78452; 80053; 80061; 93017; 93306; A9502; 36415

== ENCOUNTER 2020-04-28 13:14 | Day surgery (SDC) | payer MEDICAID ==
[~2020-04-28] VITALS: Ht 160 cm; Wt 82.0 kg
[2020-04-28] VITALS (9 sets, daily range): BP systolic 98–138; BP diastolic 52–72
[~2020-04-28 13:14] MED LIST changes: -ASCO500C15 PO; +ASCO500C18 PO; -CATHETER FLUSH 10 ML SYR IV PRN; -REGADENOSON 0.4 MG/5 ML SYR (LEXISCAN) IV ONE
[2020-04-28] MEDS ORDERED: NS IV 1000 ML 1,000 ML IV SCH ×2 (13:17→15:26)
[2020-04-28] MEDS ORDERED: LIDOCAINE 1% INJ 20 ML 20 ML VIAL ONE (13:21)
[2020-04-28] MEDS ORDERED: NS IV 1000 ML 1,000 ML ONE (13:21)
[2020-04-28] MEDS ORDERED: HEParin (CATH LAB) 2,000 ML IV ONE (13:21)
--- NOTE | 2020-04-28 13:58 | Diagnostic Imaging Report ---
INDICATION: Pre heart catheterization and chest pain. TIME OF EXAM: 01:56 p.m. COMPARISON: Correlation is made with prior chest from 06/30/2019. FINDINGS: Heart size is stable. Moderate-sized hiatal hernia is again noted. There is a slightly nodular density projected in the left ray-qz-jrrsz lung field, indeterminate. This was not visualized on prior radiograph. Otherwise, the lungs are clear. There is no effusion or pneumothorax. IMPRESSION: Nodular density in the left upper lung field, indeterminate. CT chest would be recommended for further evaluation. No other significant abnormality is seen. Dictated by: Dictated on workstation # [id number]
[2020-04-28 14:04] LABS: MEAN PLATELET VOLUME 12.9 fL (9.0-12.2); WHITE BLOOD COUNT 4.4 10^3/uL (4.3-11.0)
[2020-04-28 14:07] LABS: HEMOGLOBIN 6.7 g/dL (11.5-16.0)
[2020-04-28 14:16] LABS: PROTHROMBIN TIME PATIENT 13.7 SEC (12.2-14.7)
[2020-04-28] MEDS ORDERED: ASPI-1238 PO ×2 (14:30)
[2020-04-28] MEDS ORDERED: OMEP20CA18 PO (14:30)
[2020-04-28] MEDS ORDERED: OXYC1TAB12 PO ×2 (14:30)
[2020-04-28] MEDS ORDERED: AMIT25TA9 PO (14:30)
[2020-04-28] MEDS ORDERED: PANT40TA2 PO ×2 (14:30)
[2020-04-28] MEDS ORDERED: GABA300C PO ×2 (14:30)
[2020-04-28] MEDS ORDERED: ONDA8TAB15 PO ×2 (14:30)
[2020-04-28] MEDS ORDERED: HYDR25TA4 PO ×2 (14:30)
[2020-04-28] MEDS ORDERED: METF500T PO ×3 (14:30→15:28)
[2020-04-28] MEDS ORDERED: CITA40TA19 PO ×2 (14:30)
[2020-04-28] MEDS ORDERED: POLY17PO6 PO ×2 (14:30)
[2020-04-28] MEDS ORDERED: NICO1PAT34 TD (14:30)
[2020-04-28] MEDS ORDERED: FLUT12AE4 IH ×2 (14:30)
[2020-04-28] MEDS ORDERED: POTA-51 PO (14:30)
[2020-04-28] MEDS ORDERED: DOCU100T2 PO ×2 (14:30)
[2020-04-28] MEDS ORDERED: FURO40TA4 PO ×2 (14:30)
[2020-04-28] MEDS ORDERED: MELO7.5T46 PO ×2 (14:30)
[2020-04-28 14:32] LABS: ALANINE AMINOTRANSFERASE 13 U/L (0-55); ALBUMIN 4.1 GM/DL (3.2-4.5); ALKALINE PHOSPHATASE 144 U/L (40-136); BILIRUBIN,TOTAL 1.4 MG/DL (0.1-1.0); BUN/CREATININE RATIO 12; CALCIUM 9.2 MG/DL (8.5-10.1); CARBON DIOXIDE 28 MMOL/L (21-32); CHLORIDE 104 MMOL/L (98-107); CREATININE SERUM 0.81 MG/DL (0.60-1.30); GFR ESTIMATED > 60; GLUCOSE 102 MG/DL (70-105); POTASSIUM 3.8 MMOL/L (3.6-5.0); SODIUM 140 MMOL/L (135-145); TOTAL PROTEIN 7.4 GM/DL (6.4-8.2)
[2020-04-28] MEDS ORDERED: CLOT15CR6 TP ×2 (14:34)
[2020-04-28] MEDS ORDERED: MIDAZOLAM 5 MG/5 ML (VERSED) VIAL ONE (14:37)
[2020-04-28] MEDS ORDERED: HEParin 1000 UNIT/ML (10ML VIAL) FOR BOLUS ONE (14:37)
[2020-04-28] MEDS ORDERED: NITRO DRIP 25000 MCG/D5W 250 ML IV ONE (14:37)
[2020-04-28] MEDS ORDERED: VERAPAMIL 5 MG/2 ML (CALAN) VIAL IV ONE (14:37)
[2020-04-28] MEDS ORDERED: fentaNYL INJECTION 100 MCG/2 ML AMP ONE (14:37)
[2020-04-28] MEDS ORDERED: ALPR2TAB6 PO ×2 (15:08)
[2020-04-28] MEDS ORDERED: PRAM1TAB2 PO ×2 (15:08)
--- NOTE | 2020-04-28 15:14 | NUR ---
I SPOKE WITH PATIENT AND WENT THROUGH THE MED LIST BROUGHT FROM HOME TO COMPLETE THIS MED REC. PT DID NOT BRING ANY OF HER MEDICATIONS WITH HER, SHE DID HAVE A MEDICATION LIST THAT WAS LAST UPDATED FEB 2020. HOWEVER WHEN GOING THRU THE MED LIST AND SPEAKING WITH HER PHARMACY THE LIST DID NOT APPEAR TO BE CURRENT PATIENT SAID THAT SHE TAKES AMITRIPTYLINE 25MG PRN BUT [facility] SAID THAT THEY HAVEN'T FILLED THAT. [facility] SAID THAT SHE RECENTLY PICKED UP LIDOCAINE PATCH 5% ON 04/14/20 #30 BUT PATIENT DIDN'T TELL ME SHE WAS TAKING IT SO I LEFT IT OFF OF THE MED REC. 06/17/19 LOTRISONE CM 08/18/19 METFORMIN 500MG #180/90DS 09/17/19 ONDANSETRON 4MG #30 01/16/20 GABAPENTIN 300MG #60/30DS 02/16/20 SINGULAIR 10MG #90/90DS 03/15/20 POTASSIUM CHLORIDE 10MEQ !180/90DS 03/15/20 MELOXICAM 7.5MG #90/90DS 03/15/20 HYDROCHLORTHIAZIDE 25MG #90/90DS 04/14/20 ALPRAZOLAM 2MG #84 04/14/20 ALBUTEROL-IPRATROPIUM NEBS #360 04/14/20 FLONASE #1 04/14/20 PROAIR #1 04/14/20 ADVAIR #1 04/14/20 CELEXA 40MG #30/30DS 04/14/20 CYCLOBENZAPRINE 10MG #90 04/14/20 LASIX 40MG #60/30DS 04/14/20 MIRAPEX 1MG#60/60DS 04/14/20 NICOTINE PATCH 14MG #/DS 04/14/20 PERCOCET 10MG-325MG #112 04/14/20 PROPRANOLOL 40MG #60/BID OTC: ASPIRIN FERROUS SULFATE CETIRIZINE MIRALAX DOCUSATE SODIUM
[2020-04-28] MEDS ORDERED: ROSU10TA28 PO ×2 (15:18)
--- NOTE | 2020-04-28 15:26 | Cardiac Procedure Note-CS/ASA ---
Pre-Procedure Note Pre-Op Procedure Note H&P Reviewed The H&P was reviewed, patient examined and no changes noted. Date H&P Reviewed: Apr 28, 2020 Time H&P Reviewed: 15:25 Conscious Sedation Pre-Proced Time 15:25 ASA Score 3 For ASA 3 and 4: Consider anesthesia and medical clearance. Also, for patients with a history of failed moderate sedation consider anesthesia. Airway Lungs Heart ASA score ASA 1: a normal healthy patient ASA 2: a patient with a mild systemic disease (mid diabetes, controlled hypertension, obesity x ASA 3: a patient with a severe systemic disease that limits activity (angina, COPD, prior Myocardial infarction) ASA 4: a patient with an incapacitating disease that is a constant threat to life (CHF, renal failure) ASA 5: a moribund patient not expected to survive 24 hrs. (ruptured aneurysm) ASA 6: a declared brain- patient whose organs are being harvested. For emergent operations, add the letter E after the classification Mallampati Classification Grade 3 Sedation Plan Analgesia, Amnesia, Plan communicated to team members, Discussed options with patient/fam, Discussed risks with patient/fam The patient is an appropriate candidate to undergo the planned procedure, sedation, and anesthesia. The patient immediately re-assessed prior to indication. CONNOR GUTIERRES MD Apr 28, 2020 15:26
--- NOTE | 2020-04-28 15:29 | Discharge Inst-Post CATH ---
Discharge Inst-CATH/EP Problems Reviewed?: Yes Post Cardiac Cath/EP D/C Inst Follow Up/Plan Hold metformin for [address] Selby as soon as possible for evaluation for anemia Appointment with Dr. GUTIERRES's office in 4-6 weeks <b>CARDIAC CATH/EP PROCEDURE DISCHARGE INSTRUCTIONS</b> ACTIVITY * Go Home directly and rest. * Limit activity of the leg (or wrist if it was used) for 7 days including aerobics, swimming, jogging, bicycling, etc. * Restrict stair-climbing for 7 days if possible, if not, climb up with your non-cath leg, then bring together on the same step. * Avoid lifting, pushing, pulling or excessive movement of the affected extremity for 7 days. * Customary sexual activity may be resumed after 2 days-use caution not to use a position that strains or causes pain to the affected extremity. * No driving for 24 hours. * NO SMOKING. * Avoid straining for bowel movements for 7 days. * Gentle walking on level ground is allowed. * Returning to work will depend on the type of procedure and the results. Your doctor will discuss this with you. CALL YOUR DOCTOR FOR ANY OF THE FOLLOWING: *If bleeding from the puncture site occurs- Apply gentle pressure to site with clean cloth and call your doctor or EMS. * If a knot or lump forms under the skin, increases in size, or causes pain. * If bruising appears to be worsening or moving further down your leg instead of disappearing. * Temperature above 101 F. CARE OF YOUR GROIN INCISION; * Bruising or purple discoloration of the skin near the puncture site is common. * You may shower only, no bathtub bathing for 5 days. Be careful to avoid slipping as your leg may feel stiff. * If a closure device was used on your femoral artery, please see the attached guide regarding care of the device and your leg. * Leave dressing on FOR 24 hours. CARE OF YOUR WRIST INCISION; * Bruising or purple discoloration of the skin near the puncture site is common. * You may shower. * DO NOT submerge wrist. * Leave dressing on FOR 24 hours. CONNOR GUTIERRES MD Apr 28, 2020 15:29
--- NOTE | 2020-04-28 15:36 | Cardiac Cath Report ---
Cardiac Cath Report Physician (s)/Grating Machine Operator (s) Physician CONNOR GUTIERRES MD Pre-Procedure Diagnosis Pre-Procedure Diagnosis: coronary artery disease Post-Procedure Note Procedure Start Date: Apr 28, 2020 Name of Procedure: Left heart catheterization Findings/Procedure Note PROCEDURE NOTE: 65-year-old lady with history of anemia, hypertension, had an abnormal stress test, scheduled for cardiac catheterization. After explaining the procedure to the patient, all pros and cons were explained, all questions were answered. The patient signed the consent and then she was placed on the cardiac catheterization laboratory. Groin was prepped SL fashion local anesthesia was used. Sheath placed in the right radial artery, tiger catheter advanced to the left system and left ventricular cavity, angiogram was done, pressure was measured, I was unable to intubate the right coronary system well, I used FR catheter and did angiogram to the right system At the end of the procedure the sheath was removed. Vascular band was used FINDINGS: Hemodynamics LV 130/19, end-diastolic pressure of 19 Aorta 124/60 mean of 88 ANATOMY: Left Main has mild ostial stenosis Left Anterior Descending is slightly tortuous with mild disease in the midportion nonobstructive disease Left Circumflex has mild disease nonobstructive disease Right Coronory Artery is dominant artery with ostial 50-60 percent stenosis nonobstructive disease midportion has 40-50 percent stenosis LV Gram was not done, pressure was measured CONCLUSION: 1. 50-60 percent ostial right coronary artery stenosis, 40-50 percent midright coronary artery stenosis, nonobstructive disease 2. Mild ostial left main coronary artery stenosis, mild disease in the mid LAD nonobstructive disease DISCUSSION AND RECOMMENDATION: Medical therapy for Coumadin no intervention is warranted Anesthesia Type: Conscious Sedation Estimated blood loss (mL): 10 ml Contrast Amount: 87 ml Post-Procedure Diagnosis Post-operative diagnosis: Chest pain Coronary artery disease Anemia Hypertension CONNOR GUTIERRES MD Apr 28, 2020 15:36
== END 2020-04-28 19:00 ==
LOC: CATH 13:14
PROVIDERS: ATTEND Internal Medicine Cardiovascular Disease
DX: I25.10 Atherosclerotic heart disease of native coronary artery without angina pectoris (principal); D64.9 Anemia, unspecified; I10 Essential (primary) hypertension; R94.39 Abnormal result of other cardiovascular function study; E78.2 Mixed hyperlipidemia; I36.1 Nonrheumatic tricuspid (valve) insufficiency; M48.061 Spinal stenosis, lumbar region without neurogenic claudication; G47.50 Parasomnia, unspecified; F32.9 Major depressive disorder, single episode, unspecified; J44.9 Chronic obstructive pulmonary disease, unspecified; G47.10 Hypersomnia, unspecified; M51.36 Other intervertebral disc degeneration, lumbar region; M19.90 Unspecified osteoarthritis, unspecified site; I65.23 Occlusion and stenosis of bilateral carotid arteries; F41.9 Anxiety disorder, unspecified; E66.9 Obesity, unspecified; Z68.32 Body mass index [BMI] 32.0-32.9, adult; Z79.82 Long term (current) use of aspirin; Z79.51 Long term (current) use of inhaled steroids; Z79.899 Other long term (current) drug therapy; Z88.2 Allergy status to sulfonamides; Z88.1 Allergy status to other antibiotic agents; Z90.710 Acquired absence of both cervix and uterus; Z80.9 Family history of malignant neoplasm, unspecified; Z82.3 Family history of stroke
CPT/HCPCS: 71045; 80053; 85027; 85610; 85730; 87081; 93458; C1894; 36415

== ENCOUNTER → 2020-05-04 | Outpatient (CLI) | payer MEDICAID ==
[~2020-05-04] MED LIST changes: +ASPI-1238 PO; +CLOT15CR6 TP; +GABA300C PO; +METF500T PO; +ONDA8TAB15 PO; +POTA-51 PO; +PRAM1TAB2 PO; +ROSU10TA28 PO
--- NOTE | 2020-05-04 14:49 | Diagnostic Imaging Report ---
EXAMINATION: CT Chest without contrast. TECHNIQUE: Multiple contiguous axial images were obtained through the chest without the use of intravenous contrast. All CT scans use one or more of the following dose optimizing techniques: automated exposure control, MA and/or KvP adjustment based on a patient size and exam type, or iterative reconstruction. HISTORY: Pulmonary nodule evaluation. COMPARISON: Chest radiograph 04/28/2020, CT chest 08/15/2018. FINDINGS: Thyroid: The thyroid is normal. Mediastinum: Heart size is normal without significant pericardial effusion. Calcifications of the aorta and coronary vessels. Thoracic aorta is normal in caliber. No suspicious lymphadenopathy. Calcified mediastinal and hilar lymph nodes. Lungs and airways: Emphysematous changes in both lungs without consolidation, pleural effusion, or pneumothorax. Scattered calcified granulomas are present. No new suspicious pulmonary nodule. The airways are normal. Upper abdomen: Scattered calcified granulomas within the spleen. Cholecystectomy. Vascular calcifications without aneurysm. A moderate hiatal hernia is present. Musculoskeletal: Degenerative changes of the spine without suspicious osseous lesion or compression fracture. IMPRESSION: 1. Calcified granulomatous disease, which may correspond to the opacity seen on prior chest radiograph. No new suspicious pulmonary nodule. 2. Emphysema. No other acute abnormality in the chest. Dictated by: Dictated on workstation # [id number]
== END ==
LOC: RAD 14:15
PROVIDERS: ATTEND Internal Medicine Cardiovascular Disease
DX: R91.1 Solitary pulmonary nodule (principal); J84.10 Pulmonary fibrosis, unspecified; J43.9 Emphysema, unspecified
CPT/HCPCS: 71250

== ENCOUNTER 2020-05-20 09:29 | Outpatient (CLI) | payer MEDICAID ==
[2020-05-20] VITALS (8 sets, daily range): BP systolic 115–154; BP diastolic 45–68
[~2020-05-20 09:29] MED LIST changes: -MONT10TA26 PO; +MONT10TA97 PO; -NICO-588 TD; +NICO-685 TD
[2020-05-20] MEDS ORDERED: ACETAMINOPHEN 500 MG TAB (TYLENOL) ONE (10:19)
[2020-05-20] MEDS ORDERED: diphenhydrAMINE 25 MG TAB (BENADRYL) PO NR (11:00)
[2020-05-20] MEDS ORDERED: NS IV 500 ML 500 ML IV SCH (11:00)
[2020-05-20] MEDS ORDERED: ACETAMINOPHEN 500 MG TAB (TYLENOL) PO NR (11:00)
== END 2020-05-20 16:05 | disposition home or self-care (01) ==
LOC: SDC 09:29
PROVIDERS: ATTEND Nurse Practitioner Community Health
DX: D50.0 Iron deficiency anemia secondary to blood loss (chronic) (principal)
CPT/HCPCS: 36430; 85014; 85018; 86850; 86900; 86901; 86920; P9016; 36415

== ENCOUNTER → 2020-07-20 | Outpatient (CLI) | payer MEDICAID ==
[~2020-07-20] MED LIST changes: +FERRIC CARBOXYMALTOSE (CANCER) 750 MG in NS (IVPB) CANCER CENTER 250 ML IV SCH; +MONT10TA32 PO; -MONT10TA97 PO; -OXYC-471 PO; +OXYC1TAB11 PO
[2020-07-20 13:29] LABS: BASOPHILS % (AUTO) 1 % (0-10); EOSINOPHILS # (AUTO) 0.1 10^3/uL (0.0-0.3); EOSINOPHILS % (AUTO) 2 % (0-10); HEMATOCRIT 22 % (35-52); LYMPHOCYTES # (AUTO) 0.8 10^3/uL (1.0-4.0); LYMPHOCYTES % (AUTO) 22 % (12-44); MEAN CORPUSCULAR HEMOGLOBIN 20 pg (25-34); MEAN CORPUSCULAR HGB CONC 27 g/dL (32-36); MEAN CORPUSCULAR VOLUME 75 fL (80-99); MEAN PLATELET VOLUME 12.2 fL (9.0-12.2); MONOCYTES # (AUTO) 0.2 10^3/uL (0.0-1.0); MONOCYTES % (AUTO) 6 % (0-12); NEUTROPHILS # (AUTO) 2.5 10^3/uL (1.8-7.8); NEUTROPHILS % (AUTO) 70 % (42-75); PLATELET COUNT 156 10^3/uL (130-400); WHITE BLOOD COUNT 3.6 10^3/uL (4.3-11.0)
[2020-07-20 13:32] LABS: HEMOGLOBIN 5.9 g/dL (11.5-16.0)
[2020-07-20 13:54] LABS: ALANINE AMINOTRANSFERASE 8 U/L (0-55); ALBUMIN 3.8 GM/DL (3.2-4.5); ALKALINE PHOSPHATASE 132 U/L (40-136); BILIRUBIN,TOTAL 1.2 MG/DL (0.1-1.0); BUN/CREATININE RATIO 12; CALCIUM 8.8 MG/DL (8.5-10.1); CARBON DIOXIDE 24 MMOL/L (21-32); CHLORIDE 103 MMOL/L (98-107); CREATININE SERUM 0.81 MG/DL (0.60-1.30); GFR ESTIMATED > 60; GLUCOSE 163 MG/DL (70-105); POTASSIUM 3.2 MMOL/L (3.6-5.0); SODIUM 138 MMOL/L (135-145); TOTAL PROTEIN 6.9 GM/DL (6.4-8.2)
== END ==
LOC: ONC 13:16
PROVIDERS: ATTEND Internal Medicine Hematology & Oncology
DX: Z51.11 Encounter for antineoplastic chemotherapy (principal); D50.9 Iron deficiency anemia, unspecified; K44.9 Diaphragmatic hernia without obstruction or gangrene; I25.10 Atherosclerotic heart disease of native coronary artery without angina pectoris; J44.9 Chronic obstructive pulmonary disease, unspecified; E66.9 Obesity, unspecified; T81.89XA Other complications of procedures, not elsewhere classified, initial encounter; K29.50 Unspecified chronic gastritis without bleeding; F41.8 Other specified anxiety disorders; E78.2 Mixed hyperlipidemia; E11.9 Type 2 diabetes mellitus without complications; I50.9 Heart failure, unspecified; I11.0 Hypertensive heart disease with heart failure; G47.10 Hypersomnia, unspecified; G40.509 Epileptic seizures related to external causes, not intractable, without status epilepticus
CPT/HCPCS: 80053; 82728; 83540; 85025; 86850; 86900; 86901; 86920; 96365; G0463

== ENCOUNTER 2020-08-30 14:13 | Outpatient (RCR) | payer MEDICAID ==
[2020-07-27 14:54] LABS: BASOPHILS % (AUTO) 1 % (0-10); EOSINOPHILS # (AUTO) 0.1 10^3/uL (0.0-0.3); EOSINOPHILS % (AUTO) 4 % (0-10); HEMATOCRIT 28 % (35-52); HEMOGLOBIN 8.1 g/dL (11.5-16.0); LYMPHOCYTES # (AUTO) 0.8 10^3/uL (1.0-4.0); LYMPHOCYTES % (AUTO) 25 % (12-44); MEAN CORPUSCULAR HEMOGLOBIN 23 pg (25-34); MEAN CORPUSCULAR HGB CONC 29 g/dL (32-36); MEAN CORPUSCULAR VOLUME 81 fL (80-99); MONOCYTES # (AUTO) 0.2 10^3/uL (0.0-1.0); MONOCYTES % (AUTO) 6 % (0-12); NEUTROPHILS # (AUTO) 2.1 10^3/uL (1.8-7.8); NEUTROPHILS % (AUTO) 64 % (42-75); PLATELET COUNT 147 10^3/uL (130-400); WHITE BLOOD COUNT 3.2 10^3/uL (4.3-11.0)
[~2020-08-30 14:13] MED LIST changes: +NS IV 500 ML (CANCER CENTER) 500 ML ONE
[2020-08-30 14:28] LABS: BASOPHILS # (AUTO) 0.1 10^3/uL (0.0-0.1); BASOPHILS % (AUTO) 1 % (0-10); EOSINOPHILS # (AUTO) 0.1 10^3/uL (0.0-0.3); EOSINOPHILS % (AUTO) 3 % (0-10); HEMATOCRIT 43 % (35-52); MEAN CORPUSCULAR VOLUME 88 fL (80-99)
[2020-08-30 14:30] LABS: HEMOGLOBIN 13.5 g/dL (11.5-16.0); LYMPHOCYTES # (AUTO) 1.4 10^3/uL (1.0-4.0); LYMPHOCYTES % (AUTO) 27 % (12-44); MEAN CORPUSCULAR HEMOGLOBIN 27 pg (25-34); MEAN CORPUSCULAR HGB CONC 31 g/dL (32-36); MEAN PLATELET VOLUME 11.8 fL (9.0-12.2); MONOCYTES # (AUTO) 0.3 10^3/uL (0.0-1.0); MONOCYTES % (AUTO) 7 % (0-12); NEUTROPHILS # (AUTO) 3.1 10^3/uL (1.8-7.8); NEUTROPHILS % (AUTO) 62 % (42-75); PLATELET COUNT 134 10^3/uL (130-400); WHITE BLOOD COUNT 5.1 10^3/uL (4.3-11.0)
[2020-08-30 14:48] LABS: ALANINE AMINOTRANSFERASE 28 U/L (0-55); ALBUMIN 4.1 GM/DL (3.2-4.5); ALKALINE PHOSPHATASE 138 U/L (40-136); BILIRUBIN,TOTAL 0.9 MG/DL (0.1-1.0); BUN/CREATININE RATIO 9; CARBON DIOXIDE 25 MMOL/L (21-32); CHLORIDE 105 MMOL/L (98-107); CREATININE SERUM 0.82 MG/DL (0.60-1.30); GFR ESTIMATED > 60; GLUCOSE 86 MG/DL (70-105); POTASSIUM 3.2 MMOL/L (3.6-5.0); SODIUM 139 MMOL/L (135-145); TOTAL PROTEIN 7.6 GM/DL (6.4-8.2)
== END 2020-10-19 | disposition home or self-care (01) ==
LOC: ONC 14:13
PROVIDERS: ATTEND Internal Medicine Hematology & Oncology
DX: D50.9 Iron deficiency anemia, unspecified (principal); K44.9 Diaphragmatic hernia without obstruction or gangrene; K29.50 Unspecified chronic gastritis without bleeding; I25.10 Atherosclerotic heart disease of native coronary artery without angina pectoris; E66.9 Obesity, unspecified; J44.9 Chronic obstructive pulmonary disease, unspecified; T81.89XA Other complications of procedures, not elsewhere classified, initial encounter; I10 Essential (primary) hypertension; E11.9 Type 2 diabetes mellitus without complications; E78.2 Mixed hyperlipidemia; F41.8 Other specified anxiety disorders
CPT/HCPCS: 36415; 36430; 80053; 82728; 83540; 85025; 96365; 99213

== ENCOUNTER 2021-01-28 17:09 | Observation (INO) | payer MEDICARE, MEDICAID ==
[2021-01-28] VITALS (7 sets, daily range): BP systolic 110–148; BP diastolic 54–75
[~2021-01-28] VITALS: Ht 158 cm; Wt 68.0 kg
[~2021-01-28 17:09] MED LIST changes: -FERRIC CARBOXYMALTOSE (CANCER) 750 MG in NS (IVPB) CANCER CENTER 250 ML IV SCH; -NS IV 500 ML (CANCER CENTER) 500 ML ONE
[2021-01-28 17:34] LABS: BASOPHILS % (AUTO) 1 % (0-10); EOSINOPHILS % (AUTO) 0 % (0-10); LYMPHOCYTES % (AUTO) 19 % (12-44); MEAN CORPUSCULAR HEMOGLOBIN 22 pg (25-34); MEAN CORPUSCULAR HGB CONC 27 g/dL (32-36); MEAN CORPUSCULAR VOLUME 81 fL (80-99); MEAN PLATELET VOLUME 12.3 fL (9.0-12.2); MONOCYTES # (AUTO) 0.3 10^3/uL (0.0-1.0); MONOCYTES % (AUTO) 6 % (0-12); NEUTROPHILS # (AUTO) 3.6 10^3/uL (1.8-7.8); NEUTROPHILS % (AUTO) 73 % (42-75); PLATELET COUNT 195 10^3/uL (130-400)
[2021-01-28 17:37] LABS: HEMATOCRIT 19 % (35-52); HEMOGLOBIN 5.1 g/dL (11.5-16.0)
[2021-01-28 17:46] LABS: ALBUMIN 3.6 GM/DL (3.2-4.5); POTASSIUM 3.6 MMOL/L (3.6-5.0)
[2021-01-28 17:48] LABS: TOTAL PROTEIN 6.6 GM/DL (6.4-8.2)
[2021-01-28 17:50] LABS: BILIRUBIN,TOTAL 0.7 MG/DL (0.1-1.0)
[2021-01-28 17:52] LABS: CREATININE SERUM 0.89 MG/DL (0.60-1.30)
--- NOTE | 2021-01-28 17:59 | Diagnostic Imaging Report ---
CLINICAL INDICATION: Patient with shortness of air. EXAM: Portable chest x-ray, upright view. COMPARISONS: Chest x-ray dated 04/28/2020. FINDINGS: Lungs/pleura: There is interval irregularity of the left heart border which may represent atelectasis versus infiltrate in the lingular region. The remainder of the lungs are clear. There is no pneumothorax. There is no pleural effusion. Mediastinum: Moderate-sized hiatal hernia is again noted but slightly increased in the interim. Pulmonary vasculature: Unremarkable. Heart: Unremarkable. Bones/extrathoracic soft tissue: Unremarkable. IMPRESSION: 1: There are interval airspace opacities obscuring the left heart border, which may represent atelectasis versus infiltrate in the lingular region. The remainder of the lungs are clear. 2: Slightly increased size of the moderate hiatal hernia. Dictated by: Dictated on workstation # [id number]
[2021-01-28] MEDS ORDERED: NS IV 500 ML 500 ML IV ONE (18:15)
--- NOTE | 2021-01-28 18:25 | ED General ---
General Chief Complaint: General Problems/Pain Stated Complaint: ANEMIA Nursing Triage Note: ARRIVED VIA AMB FROM [facility] FOR [facility]. Source of Information: Patient Exam Limitations: No Limitations History of Present Illness Date Seen by Provider: Jan 28, 2021 Time Seen by Provider: 18:20 Initial Comments To ER by private vehicle from [place] emergency room with reports of anemia. She was seen at [facility] today for weakness x1 week. History of anemia secondary to iron deficiency led to a CBC which revealed a hemoglobin of 4.9. She was then transferred to the emergency room at [facility] where she refused to allow work-up and signed out AGAINST MEDICAL ADVICE to come here to the emergency room. She is on Lasix for history of congestive heart failure. She takes oral iron and also receives IV iron infusion most recently about 6 months ago. She denies dark or bloody stools. She has chronic unchanged shortness of breath and she is oxygen dependent at home. She is unvaccinated against Covid. She did test positive for Covid at [facility] [place] [facility] on January 07 of this year (I called [place] to confirm this myself). Timing/Duration: 1 Week Severity: Moderate Associated Systoms: Denies Symptoms Allergies and Home Medications Allergies Coded Allergies: Sulfa (Sulfonamide Antibiotics) (Verified Allergy, Unknown, 06/10/19) ceftriaxone (Verified Allergy, Unknown, RASH, 08/12/18) Home Medications Albuterol Sulfate 1 Puff Puff, 2 PUFF IH Q4H PRN for SHORTNESS OF BREATH, (Reported) Alprazolam 2 Mg Tablet, 2 MG PO TID, (Reported) Aspirin 81 Mg Tablet.dr, 81 MG PO DAILY, (Reported) Cetirizine HCl 10 Mg Tablet, 10 MG PO DAILY, (Reported) Citalopram Hydrobromide 40 Mg Tablet, 40 MG PO DAILY, (Reported) Clotrimazole/Betamethasone Dip 15 Gm Cream..g., 1 APPLIC TP BID, (Reported) Cyclobenzaprine HCl 10 Mg Tablet, 10 MG PO TID PRN for MUSCLE SPASMS, (Reported) Docusate Sodium 100 Mg Tablet, 100 MG PO DAILY PRN for CONSTIPATION-1ST LINE, (Reported) Ferrous Sulfate 325 Mg Tablet, 325 MG PO BID, (Reported) Fluticasone Propionate 16 Gm [place].susp, 1 SPRAY NS DAILY PRN for ALLERGIES, (Reported) Fluticasone/Salmeterol 12 Gm Hfa.aer.ad, 2 PUFF IH BID, (Reported) Furosemide 40 Mg Tablet, 40 MG PO BID, (Reported) Gabapentin 300 Mg Capsule, 300 MG PO BID, (Reported) LAST FILLED 01/16/2020 #60 Hydrochlorothiazide 25 Mg Tablet, 25 MG PO DAILY, (Reported) Ipratropium/Albuterol Sulfate 3 Ml Ampul.neb, 3 ML IH QID PRN for SHORTNESS OF BREATH, (Reported) Meloxicam 7.5 Mg Tablet, 7.5 MG PO DAILY PRN for ARTHITIS, (Reported) Metformin HCl 500 Mg Tablet, 500 MG PO BID Metformin for 48 hours Prescribed by: CONNOR GUTIERRES on 04/28/20 1528 Montelukast Sodium 10 Mg Tablet, 10 MG PO DAILY, (Reported) Nicotine 1 Each Patch.td24, 14 MG TD DAILY, (Reported) Ondansetron HCl 8 Mg Tablet, 8 MG PO TID PRN for NAUSEA/VOMITING-1ST LINE, (Reported) Oxycodone HCl/Acetaminophen 1 Each Tablet, 1 TAB PO Q8H PRN for PAIN-MODERATE, (Reported) Pantoprazole Sodium 40 Mg Tablet.dr, 40 MG PO DAILY, (Reported) Polyethylene Glycol 3350 17 Gm Powd.pack, 17 GM PO DAILY PRN for CONSTIPATION- 2ND LINE, (Reported) Potassium Chloride 10 Meq Capsule.er, 20 MEQ PO DAILY, (Reported) TAKES 2 (10MEQ) CAPSULES Pramipexole Di-HCl 1 Mg Tablet, 1 MG PO DAILY, (Reported) Propranolol HCl 40 Mg Tablet, 40 MG PO BID, (Reported) Rosuvastatin Calcium 10 Mg Tablet, 10 MG PO DAILY, (Reported) Patient Home Medication List Home Medication List Reviewed: Yes Review of Systems Review of Systems Constitutional: see HPI; No chills, No fever EENTM: see HPI Respiratory: see HPI, dyspnea on exertion Genitourinary: no symptoms reported Musculoskeletal: no symptoms reported Skin: no symptoms reported Psychiatric/Neurological: No Symptoms Reported Hematologic/Lymphatic: No Symptoms Reported Past Ypbaohz-Mqkskq-Jakdem Hx Patient Social History Smoking Status: Former Smoker Substance use?: No Alcohol Use?: No Immunizations Up To Date Tetanus Booster (TDap): Unknown Seasonal Allergies Seasonal Allergies: Yes Past Medical History Surgeries: Yes (R KNEE SCOPE x3/ CARPAL TUNNEL/ CUBITAL TUNNEL) Hysterectomy, Orthopedic Respiratory: Yes (COPD, O2 AT NIGHT 2.5-3L) COPD Cardiac: Yes Hypertension Neurological: Yes (STRESS SEIZURE) Headaches /Migraines, Neuropathy 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 Sexually Transmitted Disease: No HIV/AIDS: No Genitourinary: No Gastrointestinal: Yes Gastroesophageal Reflux, Diverticulosis, Ulcer Musculoskeletal: Yes (SPINAL STENOSIS) Degenerate Disk Disease, Arthritis, Fibromyalgia, Chronic Back Pain Endocrine: Yes Diabetes, Non-Insulin dep HEENT: Yes Loss of Vision: Bilateral Hearing Impairment: Denies Cancer: No Psychosocial: Yes Anxiety, Depression Integumentary: No Blood Disorders: Yes (CHRONIC ANEMIA) Adverse Reaction/Blood Tranf: Yes (HAS HAD BLOOD WITH NO PROBLEMS) Family Medical History FH: breast cancer in first degree relative G8 SISTER FH: multiple myeloma 19 FATHER FH: uterine cancer 19 MOTHER grandmother G8 SISTER No Pertinent Family Hx Physical Exam Vital Signs Vital Signs - First Documented 01/28/21 01/28/21 17:15 18:19 Temp 36.7 Pulse 111 Resp 16 B/P (MAP) 110/54 Pulse Ox 100 O2 Delivery Nasal Cannula O2 Flow Rate 3.00 Capillary Refill : Less Than 3 Seconds Height, Weight, BMI Height: 5'2.00" Weight: 150lbs. 0.0oz. 68.941394gq; 27.00 BMI Method:Stated General Appearance: No Apparent Distress, WD/WN, Chronically ill Eyes: Bilateral Eye Normal Inspection, Bilateral Eye PERRL, Bilateral Eye EOMI Neck: Full Range of Motion, Normal Inspection Respiratory: Lungs Clear, Normal Breath Sounds, No Accessory Muscle Use, No Respiratory Distress Cardiovascular: Regular Rate, Rhythm, Normal Peripheral Pulses Gastrointestinal: Normal Bowel Sounds, Non Tender, Soft Extremity: Normal Capillary Refill, Normal Inspection Neurologic/Psychiatric: Alert, Oriented x3 Skin: Normal Color, Warm/Dry Progress/Results/Core Measures Suspected Sepsis SIRS Temperature: Pulse: 111 Respiratory Rate: 16 Laboratory Tests 01/28/21 17:27: White Blood Count 5.0 Blood Pressure / Mean: Laboratory Tests 01/28/21 17:27: Creatinine 0.89, INR Comment 1.0, Platelet Count 195, Total Bilirubin 0.7 Results/Orders Lab Results Laboratory Tests Test 01/28/21 17:27 01/28/21 19:00 01/28/21 19:23 Range/Units White Blood Count 5.0 4.3-11.0 10^3/uL Red Blood Count 2.32 L 2.34 L 3.80-5.11 10^6/uL Hemoglobin 5.1 *L 11.5-16.0 g/dL Hematocrit 19 *L 35-52 % Mean Corpuscular Volume 81 80-99 fL Mean Corpuscular Hemoglobin 22 L 25-34 pg Mean Corpuscular Hemoglobin Concent 27 L 32-36 g/dL Red Cell Distribution Width 17.3 H 10.0-14.5 % Platelet Count 195 130-400 10^3/uL Mean Platelet Volume 12.3 H 9.0-12.2 fL Immature Granulocyte % (Auto) 0 % Neutrophils (%) (Auto) 73 42-75 % Lymphocytes (%) (Auto) 19 12-44 % Monocytes (%) (Auto) 6 0-12 % Eosinophils (%) (Auto) 0 0-10 % Basophils (%) (Auto) 1 0-10 % Neutrophils # (Auto) 3.6 1.8-7.8 10^3/uL Lymphocytes # (Auto) 1.0 1.0-4.0 10^3/uL Monocytes # (Auto) 0.3 0.0-1.0 10^3/uL Eosinophils # (Auto) 0.0 0.0-0.3 10^3/uL Basophils # (Auto) 0.0 0.0-0.1 10^3/uL Immature Granulocyte # (Auto) 0.0 0.0-0.1 10^3/uL Prothrombin Time 13.3 12.2-14.7 SEC INR Comment 1.0 0.8-1.4 Sodium Level 140 135-145 MMOL/L Potassium Level 3.6 3.6-5.0 MMOL/L Chloride Level 106 98-107 MMOL/L Carbon Dioxide Level 23 21-32 MMOL/L Anion Gap 11 5-14 MMOL/L Blood Urea Nitrogen 16 7-18 MG/DL Creatinine 0.89 0.60-1.30 MG/DL Estimat Glomerular Filtration Rate 64 BUN/Creatinine Ratio 18 Glucose Level 117 H 70-105 MG/DL Calcium Level 9.0 8.5-10.1 MG/DL Corrected Calcium 9.3 8.5-10.1 MG/DL Total Bilirubin 0.7 0.1-1.0 MG/DL Aspartate Amino Transf (AST/SGOT) 21 5-34 U/L Alanine Aminotransferase (ALT/SGPT) 15 0-55 U/L Alkaline Phosphatase 141 H 40-136 U/L B-Type Natriuretic Peptide 30.6 <100.0 PG/ML Total Protein 6.6 6.4-8.2 GM/DL Albumin 3.6 3.2-4.5 GM/DL Absolute Reticulocyte Count 63 24-90 10e9/uL Percent Reticulocyte Count 2.69 H 0.50-2.40 % My Orders Orders - AVNI WATTERS DENTAL EQUIPMENT REPAIRER Red Cells Leukocytes Reduced (01/28/21 17:25) BNP (01/28/21 17:25) Chest 1 View, Ap/Pa Only (01/28/21 17:25) Cbc With Automated Diff (01/28/21 17:25) Comprehensive Metabolic Panel (01/28/21 17:25) Ed Iv/Invasive Line Start (01/28/21 17:25) Type And Screen (01/28/21 17:25) Ed Iv/Invasive Line Start (01/28/21 18:13) Ns Iv 500 Ml (Sodium Chloride 0.9%) (01/28/21 18:15) Iron Test (Fe) (01/28/21 18:33) Iron Tibc %Sat & Ferritin (01/28/21 18:33) Reticulocyte Count (01/28/21 18:33) Covid 19 Inhouse Test (01/28/21 18:33) Influenza A And B By Pcr (01/28/21 18:33) Acetaminophen/Codeine Tablet (Tylenol W/ (01/28/21 19:00) Protime With Inr (01/28/21 18:50) Ekg Tracing (01/28/21 18:57) Medications Given in ED Current Medications Medications Dose Ordered Sig/Megan Route Start Time Stop Time Status Last Admin Dose Admin Acetaminophen/ Codeine Phosphate 1 tab ONCE ONCE PO 01/28/21 19:00 01/28/21 19:01 DC 01/28/21 18:54 1 TAB Sodium Chloride 500 ml @ 0 mls/hr Q0M ONCE IV 01/28/21 18:15 01/28/21 18:16 DC 01/28/21 18:25 500 MLS/HR Vital Signs/I&O 01/28/21 01/28/21 01/28/21 17:15 18:19 18:43 Temp 36.7 36.5 37.1 Pulse 111 99 101 Resp 16 16 16 B/P (MAP) 110/54 146/69 Pulse Ox 100 100 100 O2 Delivery Nasal Cannula Nasal Cannula O2 Flow Rate 3.00 3.00 Capillary Refill : Less Than 3 Seconds Departure Communication (Admissions) admit to Dr. Powell, will admit consult cardiology for her history of CHF and KIDO from surgery. Family Conversation EKG shows sinus rhythm rate of [address] segment change no ectopy normal intervals NAME: NANCI [facility]BDUL [facility] REC#: [id number] PT STATUS: REG ER : 1955 PHYSICIAN: AVNI WATTERS APRN ADMIT DATE: 01/28/21/ER Draft Date of Exam:01/28/21 CHEST 1 VIEW, AP/PA ONLY CLINICAL INDICATION: Patient with shortness of air. EXAM: Portable chest x-ray, upright view. COMPARISONS: Chest x-ray dated 04/28/2020. FINDINGS: Lungs/pleura: There is interval irregularity of the left heart border which may represent atelectasis versus infiltrate in the lingular region. The remainder of the lungs are clear. There is no pneumothorax. There is no pleural effusion. Mediastinum: Moderate-sized hiatal hernia is again noted but slightly increased in the interim. Pulmonary vasculature: Unremarkable. Heart: Unremarkable. Bones/extrathoracic soft tissue: Unremarkable. IMPRESSION: 1: There are interval airspace opacities obscuring the left heart border, which may represent atelectasis versus infiltrate in the lingular region. The remainder of the lungs are clear. 2: Slightly increased size of the moderate hiatal hernia. Dictated on workstation # [id number] Dict: 01/28/211754 Trans: 01/28/211758 [id number] Interpreted by: JULIO MARTIN MD Electronically signed by: Impression Primary Impression: Anemia Disposition: ADMITTED INPATIENT Condition: Stable Admissions Decision to Admit Reason: Admit from ER (General) Decision to Admit/Date: Jan 28, 2021 Time/Decision to Admit Time: 19:05 Departure-Patient Inst. Referrals: ELOINA PHILIP MD (PCP/Family) Primary Care Physician AVNI WATTERS APRN Jan 28, 2021 18:25
[2021-01-28] MEDS ORDERED: APAP 300 MG/CODEINE 30 MG (TYLENOL #3) TAB PO ONE (19:00)
[2021-01-28 19:05] LABS: PROTHROMBIN TIME PATIENT 13.3 SEC (12.2-14.7)
[2021-01-28 19:05] LABS: RETICULOCYTE % 2.69 % (0.50-2.40)
[2021-01-28] MEDS ORDERED: LORazepam 0.5 MG (ATIVAN) TABLET PO PRN (21:15)
[2021-01-28] MEDS ORDERED: FUROSEMIDE 40 MG/4 ML INJ (LASIX) IVP ONE (21:15)
--- NOTE | 2021-01-28 22:18 | CONSULTATION REPORT ---
DATE OF SERVICE: ATTENDING PRIMARY CARE PHYSICIAN: Dr. Brando Davies. ADMITTING PHYSICIAN: Dr. Powell. HISTORY OF PRESENT ILLNESS: The patient is a 65-year-old female, who came by private vehicle from [facility] for anemia. She reports weakness for the past week and also does have a history of iron deficiency anemia. Her hemoglobin was 4.9. She was going to be admitted; however, did leave against medical advice. She also does have a history of congestive heart failure. She also does have chronic shortness of breath and is oxygen dependent at home. She also was positive for COVID on 01/07/2021. She also does have a history of gastroesophageal reflux disease and peptic ulcer disease. PAST MEDICAL HISTORY: Iron deficiency anemia, COPD, congestive heart failure, neuropathy, migraine headaches, gastroesophageal reflux disease, history of diverticulosis, peptic ulcer disease, fibromyalgia, degenerative joint disease, non-insulin dependent diabetes. PAST SURGICAL HISTORY: Right knee arthroscopy x3, carpal tunnel release, cubital tunnel release, hysterectomy. ALLERGIES: SULFA, CEFTRIAXONE. MEDICATIONS: Albuterol, alprazolam, aspirin, cetirizine, citalopram, cyclobenzaprine, Colace, iron, fluticasone spray, furosemide, gabapentin, hydrochlorothiazide, meloxicam, metformin, montelukast, oxycodone, Protonix, MiraLax, potassium, pramipexole, propranolol, rosuvastatin. SOCIAL HISTORY: Previous smoker, negative alcohol. FAMILY HISTORY: Sister, breast cancer. Father, multiple myeloma. Mother and sister, uterine cancer. VITAL SIGNS: Temperature 37.1, blood pressure 148/57, pulse 91, respirations 16 on 2 liters nasal cannula. REVIEW OF SYSTEMS: Well-nourished female, currently in no acute distress. She is experiencing shortness of breath; however, no increase in severity. No chest pain, palpitations, diaphoresis. No nausea, vomiting. History of constipation. No known red blood per rectum, no dark tarry stools. No fever, chills, no recent inadvertent weight loss. All other review of systems negative. PHYSICAL EXAMINATION: CHEST: Distant breath sounds and scattered wheezes bilaterally. HEART: Regular, no murmurs. EXTREMITIES: No lower extremity edema, negative Homans sign. HEENT: No scleral icterus. NECK: No cervical lymphadenopathy. ABDOMEN: Soft, nontender, nondistended. SKIN: Warm, dry. LABORATORY DATA: WBC 5.0, hemoglobin 5.1, hematocrit 19, platelets 195. BUN 16, creatinine 0.89. ASSESSMENT AND PLAN: A 65-year-old female with symptomatic anemia as well as iron deficiency anemia. She will undergo resuscitation with IV fluids as well as packed red blood cell transfusion. Once resuscitated, she will likely need an EGD as well as colonoscopy. Job ID: [id number] DocumentID: [id number] Dictated Date: 01/28/2021 21:46:37 Protein Purification Scientist Date: 01/28/2021 22:17:52 Dictated By: WESTLEY CABRERA MD
[2021-01-28] MEDS: APAP 300 MG/CODEINE 30 MG (TYLENOL #3) TAB PO PRN (23:03)
[2021-01-29] VITALS: BP 136/60
[2021-01-29 02:38] VITALS: BP 120/51
[2021-01-29] MEDS: APAP 300 MG/CODEINE 30 MG (TYLENOL #3) TAB PO PRN ×3 (03:15→12:24)
[2021-01-29 03:20] LABS: BASOPHILS # (AUTO) 0.1 10^3/uL (0.0-0.1); BASOPHILS % (AUTO) 1 % (0-10)
[2021-01-29 03:22] LABS: EOSINOPHILS # (AUTO) 0.1 10^3/uL (0.0-0.3); EOSINOPHILS % (AUTO) 1 % (0-10); HEMATOCRIT 32 % (35-52); LYMPHOCYTES # (AUTO) 1.4 10^3/uL (1.0-4.0); LYMPHOCYTES % (AUTO) 28 % (12-44); MEAN CORPUSCULAR HEMOGLOBIN 27 pg (25-34); MEAN CORPUSCULAR HGB CONC 31 g/dL (32-36); MEAN CORPUSCULAR VOLUME 85 fL (80-99); MEAN PLATELET VOLUME 12.9 fL (9.0-12.2); MONOCYTES # (AUTO) 0.5 10^3/uL (0.0-1.0); MONOCYTES % (AUTO) 10 % (0-12); NEUTROPHILS # (AUTO) 2.9 10^3/uL (1.8-7.8); NEUTROPHILS % (AUTO) 60 % (42-75); PLATELET COUNT 151 10^3/uL (130-400); WHITE BLOOD COUNT 4.9 10^3/uL (4.3-11.0)
[2021-01-29 03:44] LABS: ALBUMIN 3.5 GM/DL (3.2-4.5); BILIRUBIN,TOTAL 2.6 MG/DL (0.1-1.0); CALCIUM 8.9 MG/DL (8.5-10.1); CREATININE SERUM 0.83 MG/DL (0.60-1.30); POTASSIUM 3.8 MMOL/L (3.6-5.0); TOTAL PROTEIN 6.5 GM/DL (6.4-8.2)
[2021-01-29 04:00] VITALS: BP 120/51
[2021-01-29 08:20] VITALS: BP 139/45
--- NOTE | 2021-01-29 10:55 | Consultation-Cardiology ---
HPI-Cardiology Cardiology Consultation: Date of Consultation 01/29/2021 Date of Admission 01/28/2021 Attending Physician Queenie Powell DO Admitting Physician Eloina Davies MD Consulting Physician ELOINA WATERS JR, MD HPI: Time Seen by a Provider: 10:54 Chief Complaint: Reason for consultation: Coronary artery disease now with severe anemia. I had the pleasure of seeing Nupur in the cardiac stepdown unit this morning at [facility]. She normally follows with one of my partners, Dr. Burns. She has a history of moderate coronary artery disease noted at cardiac catheterization in April,. She has not required coronary revascularization. She has a history of chronic anemia initially felt to be due to gastric ulcers in the past but now possibly due to some sort of bone marrow disorder. She follows with hematology for intermittent iron infusions and blood transfusions. Over the past month she has had increasing fatigue. This is gradually worsened. She has gotten to the point that just walking around in her house will make her tired and exhausted. She has not been short of breath per se. She has chronically dark stool due to the oral iron that she has been taking. She denies any blood in the stool or vomiting blood. She was so tired and exhausted yesterday that she came to the emergency room. She was found to have severe anemia and was ordered for 3 blood transfusions. Because of her cardiac history and a question of possible heart failure in the past, a cardiology consultation was requested by the emergency room provider. She believes that there is a history of systolic heart failure in her medical record but she does not remember ever being treated for heart failure. Furthermore, her previous echocardiograms have not shown a reduced ejection fraction. She denies any chest discomfort, paroxysmal nocturnal dyspnea, orthopnea, palpitations, or syncope. She has chronic bilateral lower extremity edema that has been unchanged. Yesterday she was also very dizzy and this was what prompted her to be seen in the emergency room. Certain portions of this document may have been dictated utilizing voice recognition technology. Inherent to this technology, typographical and gramm atical errors may exist. As much as I am diligent to identify and correct these mistakes, some errors may remain in the document. Review of Systems-Cardiology Review of Systems Other comments Review of 10 organ systems is as per the history of present illness, otherwise negative. XQH-[id number]-Kjkiyx Hx Patient Social History Smoking Status: Former Smoker 2nd Hand Smoke Exposure: Yes Have you traveled recently?: No Alcohol Use?: No Pt feels they are or have been: No Immunizations Up To Date Tetanus Booster (TDap): Unknown Date of Pneumonia Vaccine: Jun 02, 2014 Date of Influenza Vaccine: Mar 18, 2020 Past Medical History PMH As described under Assessment. Family Medical History Family History: FH: breast cancer in first degree relative G8 SISTER FH: multiple myeloma 19 FATHER FH: uterine cancer 19 MOTHER grandmother G8 SISTER Allergies and Home Medications Allergies Coded Allergies: Sulfa (Sulfonamide Antibiotics) (Verified Allergy, Unknown, 06/10/19) ceftriaxone (Verified Allergy, Unknown, RASH, 08/12/18) Home Medications Albuterol Sulfate 1 Puff Puff, 2 PUFF IH Q4H PRN for SHORTNESS OF BREATH, (Reported) Alprazolam 2 Mg Tablet, 2 MG PO TID, (Reported) Aspirin 81 Mg Tablet.dr, 81 MG PO DAILY, (Reported) Cetirizine HCl 10 Mg Tablet, 10 MG PO DAILY, (Reported) Citalopram Hydrobromide 40 Mg Tablet, 40 MG PO DAILY, (Reported) Clotrimazole/Betamethasone Dip 15 Gm Cream..g., 1 APPLIC TP BID, (Reported) Cyclobenzaprine HCl 10 Mg Tablet, 10 MG PO TID PRN for MUSCLE SPASMS, (Reported) Docusate Sodium 100 Mg Tablet, 100 MG PO DAILY PRN for CONSTIPATION-1ST LINE, (Reported) Ferrous Sulfate 325 Mg Tablet, 325 MG PO BID, (Reported) Fluticasone Propionate 16 Gm [place].susp, 1 SPRAY NS DAILY PRN for ALLERGIES, (Reported) Fluticasone/Salmeterol 12 Gm Hfa.aer.ad, 2 PUFF IH BID, (Reported) Furosemide 40 Mg Tablet, 40 MG PO BID, (Reported) Gabapentin 300 Mg Capsule, 300 MG PO BID, (Reported) LAST FILLED 01/16/2020 #60 Hydrochlorothiazide 25 Mg Tablet, 25 MG PO DAILY, (Reported) Ipratropium/Albuterol Sulfate 3 Ml Ampul.neb, 3 ML IH QID PRN for SHORTNESS OF BREATH, (Reported) Meloxicam 7.5 Mg Tablet, 7.5 MG PO DAILY PRN for ARTHITIS, (Reported) Metformin HCl 500 Mg Tablet, 500 MG PO BID Metformin for 48 hours Prescribed by: CONNOR BURNS on 04/28/20 1528 Montelukast Sodium 10 Mg Tablet, 10 MG PO DAILY, (Reported) Nicotine 1 Each Patch.td24, 14 MG TD DAILY, (Reported) Ondansetron HCl 8 Mg Tablet, 8 MG PO TID PRN for NAUSEA/VOMITING-1ST LINE, (Reported) Oxycodone HCl/Acetaminophen 1 Each Tablet, 1 TAB PO Q8H PRN for PAIN-MODERATE, (Reported) Pantoprazole Sodium 40 Mg Tablet.dr, 40 MG PO DAILY, (Reported) Polyethylene Glycol 3350 17 Gm Powd.pack, 17 GM PO DAILY PRN for CONSTIPATION- 2ND LINE, (Reported) Potassium Chloride 10 Meq Capsule.er, 20 MEQ PO DAILY, (Reported) TAKES 2 (10MEQ) CAPSULES Pramipexole Di-HCl 1 Mg Tablet, 1 MG PO DAILY, (Reported) Propranolol HCl 40 Mg Tablet, 40 MG PO BID, (Reported) Rosuvastatin Calcium 10 Mg Tablet, 10 MG PO DAILY, (Reported) Patient Home Medication List Home Medication List Reviewed: Yes Exam Vital Signs Vital Signs Date Time Temp Pulse Resp B/P (MAP) Pulse Ox O2 Delivery O2 Flow Rate FiO2 01/29/21 08:20 36.6 91 16 139/45 (76) 91 01/29/21 04:00 Nasal Cannula 2.00 2.00 Physical Exam General: Alert. No acute distress. Well nourished and appears stated age. Eye: Extraocular movements are intact. Conjunctivae are clear. There are no xanthelasma. HENT: Normocephalic. Atraumatic. Carotid pulsations 2/2 without bruits. Neck: Jugular venous pressure does not appear elevated. No thyromegaly appreciated. Respiratory: Lungs are clear to auscultation. Respirations are non-labored. Breath sounds are equal. Symmetrical chest wall expansion. Cardiovascular: Normal rate. Regular rhythm. No murmur. No gallop. Point of maximal impulse is not appear displaced. Good pulses equal in all extremities. No edema. Gastrointestinal: Soft. Normal bowel sounds. Skin: Skin turgor is normal. There is no pallor. Musculoskeletal: No kyphosis or scoliosis appreciated. Neurologic: Alert and oriented to person, place, time. Cranial nerves 3-12 appear grossly intact. The patient has good motor tone strength in the upper and lower extremities bilaterally. Psychiatric: Cooperative. Appropriate mood & affect. Labs Laboratory Tests Test 01/28/21 17:27 01/28/21 19:00 01/28/21 19:23 01/29/21 03:07 Range/Units White Blood Count 5.0 4.9 4.3-11.0 10^3/uL Red Blood Count 2.32 L 2.34 L 3.77 L 3.80-5.11 10^6/uL Hemoglobin 5.1 *L 10.0 #L 11.5-16.0 g/dL Hematocrit 19 *L 32 L 35-52 % Mean Corpuscular Volume 81 85 80-99 fL Mean Corpuscular Hemoglobin 22 L 27 25-34 pg Mean Corpuscular Hemoglobin Concent 27 L 31 L 32-36 g/dL Red Cell Distribution Width 17.3 H 16.1 H 10.0-14.5 % Platelet Count 195 151 130-400 10^3/uL Mean Platelet Volume 12.3 H 12.9 H 9.0-12.2 fL Immature Granulocyte % (Auto) 0 0 % Neutrophils (%) (Auto) 73 60 42-75 % Lymphocytes (%) (Auto) 19 28 12-44 % Monocytes (%) (Auto) 6 10 0-12 % Eosinophils (%) (Auto) 0 1 0-10 % Basophils (%) (Auto) 1 1 0-10 % Neutrophils # (Auto) 3.6 2.9 1.8-7.8 10^3/uL Lymphocytes # (Auto) 1.0 1.4 1.0-4.0 10^3/uL Monocytes # (Auto) 0.3 0.5 0.0-1.0 10^3/uL Eosinophils # (Auto) 0.0 0.1 0.0-0.3 10^3/uL Basophils # (Auto) 0.0 0.1 0.0-0.1 10^3/uL Immature Granulocyte # (Auto) 0.0 0.0 0.0-0.1 10^3/uL Prothrombin Time 13.3 12.2-14.7 SEC INR Comment 1.0 0.8-1.4 Sodium Level 140 140 135-145 MMOL/L Potassium Level 3.6 3.8 3.6-5.0 MMOL/L Chloride Level 106 106 98-107 MMOL/L Carbon Dioxide Level 23 29 21-32 MMOL/L Anion Gap 11 5 5-14 MMOL/L Blood Urea Nitrogen 16 14 7-18 MG/DL Creatinine 0.89 0.83 0.60-1.30 MG/DL Estimat Glomerular Filtration Rate 64 69 BUN/Creatinine Ratio 18 17 Glucose Level 117 H 96 70-105 MG/DL Calcium Level 9.0 8.9 8.5-10.1 MG/DL Corrected Calcium 9.3 9.3 8.5-10.1 MG/DL Total Bilirubin 0.7 2.6 H 0.1-1.0 MG/DL Aspartate Amino Transf (AST/SGOT) 21 19 5-34 U/L Alanine Aminotransferase (ALT/SGPT) 15 15 0-55 U/L Alkaline Phosphatase 141 H 138 H 40-136 U/L B-Type Natriuretic Peptide 30.6 <100.0 PG/ML Total Protein 6.6 6.5 6.4-8.2 GM/DL Albumin 3.6 3.5 3.2-4.5 GM/DL Absolute Reticulocyte Count 63 24-90 10e9/uL Percent Reticulocyte Count 2.69 H 0.50-2.40 % Influenza Type A (RT-PCR) Not Detected Not Detecte Influenza Type B (RT-PCR) Not Detected Not Detecte SARS-CoV-2 RNA (RT-PCR) Not Detected Not Detecte Percent Immature Platelet Fraction 12.0 H 0.0-7.6 % Radiology CARDIAC CATHETERIZATION (04/28/2020): 1.Mildly elevated left ventricular end-diastolic pressure. 2.Mild to moderate coronary artery disease involving the ostium of the left main coronary artery, mid left anterior descending coronary artery and ostium and mid segments of the right coronary artery. ECHOCARDIOGRAM (03/31/2020): 1. Normal left ventricular chamber size, wall thickness and systolic function with an estimated ejection fraction of 55-65%. 2. Grade 1 diastolic dysfunction. 3. The left atrium is mildly dilated at 4.7 cm. 4. The estimated pulmonary artery systolic pressure is 30-35 mmHg. ECG Impression ECG Comment ELECTROCARDIOGRAM (10/28/2020): Sinus rhythm, normal tracing. Diagnosis/Problems Diagnosis/Problems (1) Coronary artery disease without angina pectoris Assessment & Plan: She has mild to moderate coronary artery disease as outlined above. She is not having any angina. She has not required revascularization. She has a normal electrocardiogram and an undetectable troponin level. I did not see any notes in the previous medical records or office visit notes from Dr. Burns about systolic heart failure. She has received blood transfusions overnight and is not having shortness of breath. Actually, she feels quite well at this point. She has an appointment to see Dr. Burns next month. From a cardiac standpoint, the patient can be discharged home. (2) Primary hypertension Assessment & Plan: Despite the severe anemia, she has not been having hypotension. I recommend she resume her outpatient antihypertensive medication. (3) Mixed hyperlipidemia Assessment & Plan: Goal LDL less than 100 mg/dL. Resume rosuvastatin. I will add a lipid panel to this morning's blood sample. (4) Anemia Status: Acute Assessment & Plan: She has received blood transfusions overnight and now feels better. She has been seen by general surgery who does not plan any endoscopy at this point in time. She also follows with hematology for chronic management of the anemia. (5) Type 2 diabetes mellitus with complication Assessment & Plan: This will be managed by the hospitalist. ELOINA WATERS JR, MD Jan 29, 2021 10:55
--- NOTE | 2021-01-29 10:58 | Progress Note ---
Subjective Date Seen by a Provider: Jan 29, 2021 Time Seen by a Provider: 10:00 Subjective/Events-last exam doing much better. Hb elevation appropriate. has had EGD and colonoscopy within past year. iron deficiency anemia has been a chronic issue. Objective Exam Vital Signs Date Time Temp Pulse Resp B/P (MAP) Pulse Ox O2 Delivery O2 Flow Rate FiO2 01/29/21 08:20 36.6 91 16 139/45 (76) 91 01/29/21 07:00 92 01/29/21 04:00 36.5 79 14 120/51 (74) 100 Nasal Cannula 2.00 2.00 01/29/21 04:00 36.5 01/29/21 03:15 36.5 01/29/21 02:38 79 14 120/51 100 Nasal Cannula 2.00 01/29/21 01:00 90 01/29/21 00:00 36.5 85 14 136/60 (85) 100 Nasal Cannula 2.00 2.00 01/28/21 23:45 85 14 136/60 100 Nasal Cannula 2.00 01/28/21 23:33 36.5 01/28/21 23:29 36.5 90 20 141/75 100 Nasal Cannula 2.00 01/28/21 23:05 90 20 146/64 100 Nasal Cannula 2.00 01/28/21 20:59 100 Nasal Cannula 2.00 01/28/21 20:38 91 16 148/57 100 Nasal Cannula 2.00 01/28/21 20:37 92 16 148/57 100 Nasal Cannula 2.00 01/28/21 20:32 91 01/28/21 18:43 37.1 101 16 146/69 100 3.00 01/28/21 18:19 36.5 99 16 110/54 100 Nasal Cannula 3.00 01/28/21 17:15 36.7 111 16 100 Nasal Cannula I & O 01/29/21 07:00 Intake Total 450 ml Balance 450 ml Capillary Refill : Less Than 3 Seconds General Appearance: No Apparent Distress HEENT: PERRL/EOMI Neck: Full Range of Motion Respiratory: Chest Non Tender, Lungs Clear Cardiovascular: Regular Rate, Rhythm Gastrointestinal: normal bowel sounds, non tender, soft Extremity: Normal Capillary Refill Neurologic/Psychiatric: Alert, Oriented x3 Skin: Normal Color Lymphatic: No Adenopathy Results Lab Laboratory Tests 01/28/21 17:27: White Blood Count 5.0, Red Blood Count 2.32L, Hemoglobin 5.1*L, Hematocrit 19*L, Mean Corpuscular Volume 81, Mean Corpuscular Hemoglobin 22L, Mean Corpuscular Hemoglobin Concent 27L, Red Cell Distribution Width 17.3H, Platelet Count 195, Mean Platelet Volume 12.3H, Immature Granulocyte % (Auto) 0, Neutrophils (%) (Auto) 73, Lymphocytes (%) (Auto) 19, Monocytes (%) (Auto) 6, Eosinophils (%) (Auto) 0, Basophils (%) (Auto) 1, Neutrophils # (Auto) 3.6, Lymphocytes # (Auto) 1.0, Monocytes # (Auto) 0.3, Eosinophils # (Auto) 0.0, Basophils # (Auto) 0.0, Immature Granulocyte # (Auto) 0.0, Prothrombin Time 13.3, INR Comment 1.0, Sodium Level 140, Potassium Level 3.6, Chloride Level 106, Carbon Dioxide Level 23, Anion Gap 11, Blood Urea Nitrogen 16, Creatinine 0.89, Estimat Glomerular Filtration Rate 64, BUN/Creatinine Ratio 18, Glucose Level 117H, Calcium Level 9.0, Corrected Calcium 9.3, Total Bilirubin 0.7, Aspartate Amino Transf (AST/SGOT) 21, Alanine Aminotransferase (ALT/SGPT) 15, Alkaline Phosphatase 141H , B-Type Natriuretic Peptide 30.6, Total Protein 6.6, Albumin 3.6 01/28/21 19:00: Red Blood Count 2.34L, Absolute Reticulocyte Count 63, Percent Reticulocyte Count 2.69H 01/28/21 19:23: Influenza Type A (RT-PCR) Not Detected, Influenza Type B (RT-PCR) Not Detected, SARS-CoV-2 RNA (RT-PCR) Not Detected 01/29/21 03:07: White Blood Count 4.9, Red Blood Count 3.77L, Hemoglobin 10.0#L, Hematocrit 32L, Mean Corpuscular Volume 85, Mean Corpuscular Hemoglobin 27, Mean Corpuscular Hemoglobin Concent 31L, Red Cell Distribution Width 16.1H, Platelet Count 151, Mean Platelet Volume 12.9H, Immature Granulocyte % (Auto) 0, Neutrophils (%) (Auto) 60, Lymphocytes (%) (Auto) 28, Monocytes (%) (Auto) 10, Eosinophils (%) (Auto) 1, Basophils (%) (Auto) 1, Neutrophils # (Auto) 2.9, Lymphocytes # (Auto) 1.4, Monocytes # (Auto) 0.5, Eosinophils # (Auto) 0.1, Basophils # (Auto) 0.1, Immature Granulocyte # (Auto) 0.0, Sodium Level 140, Potassium Level 3.8, Chloride Level 106, Carbon Dioxide Level 29, Anion Gap 5, Blood Urea Nitrogen 14, Creatinine 0.83, Estimat Glomerular Filtration Rate 69, BUN/Creatinine Ratio 17, Glucose Level 96, Calcium Level 8.9, Corrected Calcium 9.3, Total Bilirubin 2.6H, Aspartate Amino Transf (AST/SGOT) 19, Alanine Aminotransferase (ALT/SGPT) 15, Alkaline Phosphatase 138H, Total Protein 6.5, Albumin 3.5, Percent Immature Platelet Fraction 12.0H Assessment/Plan Assessment/Plan Assess & Plan/Chief Complaint iron deficiency anemia. no clinical signs of GI bleed. has had recent endoscopies. regular diet and home when ok with PMD WESTLEY CABRERA MD Jan 29, 2021 10:57
[2021-01-29 11:20] LABS: TRIGLYCERIDES 123 MG/DL (<150); VLDL CHOLESTEROL 25 MG/DL (5-40)
--- NOTE | 2021-01-29 11:24 | History & Physical-Hospitalist ---
History of Present Illness Date Seen 01/29/21 Attending Physician Queenie Powell DO PCP Brando Davies MD Referring Physician Date of Admission Jan 28, 2021 at 18:48 Home Medications & Allergies Home Medications Reviewed patient Home Medication Reconciliation performed by pharmacy medication reconciliations pharmacy order entry technician and/or nursing. Patients Allergies have been reviewed. Allergies Allergies Coded Allergies Sulfa (Sulfonamide Antibiotics) (Verified Allergy, Unknown, 06/10/19) ceftriaxone (Verified Allergy, Unknown, RASH, 08/12/18) Past Soqntqz-Hxaztt-Pofgnv Hx Patient Social History Tobacco Use?: No Smoking Status: Former Smoker Substance use?: No Alcohol Use?: No Pt feels they are or have been: No Immunizations Up To Date Date of Influenza Vaccine: Mar 18, 2020 Date of Pneumonia Vaccine: Jun 02, 2014 Seasonal Allergies Seasonal Allergies: Yes Current Status status: No status: No Advance Directives: No Communicates: Verbally Primary Language: Tajik Preferred Spoken Language: Tajik Is interpretation needed?: No Sensory deficits: Vision impairment Past Medical History Surgeries: Hysterectomy, Orthopedic COPD Hypertension Headaches /Migraines, Neuropathy 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 Sexually Transmitted Disease: No HIV/AIDS: No Gastroesophageal Reflux, Diverticulosis, Ulcer Degenerate Disk Disease, Arthritis, Fibromyalgia, Chronic Back Pain Diabetes, Non-Insulin dep Loss of Vision: Bilateral Hearing Impairment: Denies Anxiety, Depression Blood Disorders: Yes (CHRONIC ANEMIA) Adverse Reaction/Blood Tranf: Yes (HAS HAD BLOOD WITH NO PROBLEMS) PMHx: Anxiety DMII Neuropathy Fibromyalgia Depression Conversion disorder Chronic fatigue HTN CHF Iron deficiency anemia Neurofibromatosis type 1 Peptic ulcer disease SurgHx: Cholecystectomy Hysterectomy Right shoulder surgery Right knee meniscus repair Right elbow and hand surgery Cataract Family Medical History FH: breast cancer in first degree relative G8 SISTER FH: multiple myeloma 19 FATHER FH: uterine cancer 19 MOTHER grandmother G8 SISTER No Pertinent Family Hx Physical Exam Physical Exam Vital Signs Vital Signs - First Documented 01/28/21 01/28/21 17:15 18:19 Temp 36.7 Pulse 111 Resp 16 B/P (MAP) 110/54 Pulse Ox 100 O2 Delivery Nasal Cannula O2 Flow Rate 3.00 Capillary Refill : Less Than 3 Seconds Height, Weight, BMI Height: 5'2.00" Weight: 150lbs. 0.0oz. 68.236204bt; 27.23 BMI Method:Stated Results Results/Procedures Labs Laboratory Tests 01/28/21 17:27 01/29/21 03:07 Patient resulted labs reviewed. QUEENIE POWELL DO Jan 29, 2021 11:24
[2021-01-29 11:25] LABS: CHOLESTEROL 187 MG/DL (< 200)
[2021-01-29 11:26] LABS: HDL CHOLESTEROL 44 MG/DL (40-60)
[2021-01-29] MEDS ORDERED: ACET1TAB43 PO (11:42)
--- NOTE | 2021-01-29 11:44 | Short Stay Summary-Hospitalist ---
History of Present Illness HPI/Chief Complaint Chief complaint: Severe anemia with symptoms History of present illness: This is a 65-year-old white female clinic patient of [facility] and Dr. Weiss with a past medical history of severe chronic iron deficiency anemia who presented to the ER with shortness of breath. Covid swab was negative. She has a history of transfusion dependent iron deficiency anemia. Cardiology evaluated her due to congestive heart failure and high risk for volume overload. She received 3 units of packed red blood cells and her hemoglobin is 10 currently. Admission hemoglobin was 4.0. Patient is ready to go home. Source: patient Exam Limitations: no limitations Date Seen 01/29/21 Time Seen by a Provider: 11:00 Attending Physician Queenie Powell David F MD Referring Physician Date of Admission Jan 28, 2021 at 18:48 Home Medications & Allergies Home Medications Reviewed patient Home Medication Reconciliation performed by pharmacy medication reconciliations veterinary technician instructor and/or nursing. Patients Allergies have been reviewed. Allergies Allergies Coded Allergies Sulfa (Sulfonamide Antibiotics) (Verified Allergy, Unknown, 06/10/19) ceftriaxone (Verified Allergy, Unknown, RASH, 08/12/18) Past Ajgrmme-Ufpgsv-Axarmc Hx Patient Social History Marrital Status: single Employed/Student: unemployed Tobacco Use?: No Smoking Status: Former Smoker Substance use?: No Alcohol Use?: No Pt feels they are or have been: No Immunizations Up To Date Date of Influenza Vaccine: Mar 18, 2020 Date of Pneumonia Vaccine: Jun 02, 2014 Seasonal Allergies Seasonal Allergies: Yes Current Status status: No status: No Advance Directives: No Communicates: Verbally Primary Language: German Preferred Spoken Language: German Is interpretation needed?: No Sensory deficits: Vision impairment Past Medical History Surgeries: Hysterectomy, Orthopedic COPD Hypertension Headaches /Migraines, Neuropathy 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 Sexually Transmitted Disease: No HIV/AIDS: No Gastroesophageal Reflux, Diverticulosis, Ulcer Degenerate Disk Disease, Arthritis, Fibromyalgia, Chronic Back Pain Diabetes, Non-Insulin dep Loss of Vision: Bilateral Hearing Impairment: Denies Anxiety, Depression Blood Disorders: Yes (CHRONIC ANEMIA) Adverse Reaction/Blood Tranf: Yes (HAS HAD BLOOD WITH NO PROBLEMS) PMHx: Anxiety DMII Neuropathy Fibromyalgia Depression Conversion disorder Chronic fatigue HTN CHF Iron deficiency anemia Neurofibromatosis type 1 Peptic ulcer disease SurgHx: Cholecystectomy Hysterectomy Right shoulder surgery Right knee meniscus repair Right elbow and hand surgery Cataract Family Medical History FH: breast cancer in first degree relative G8 SISTER FH: multiple myeloma 19 FATHER FH: uterine cancer 19 MOTHER grandmother G8 SISTER No Pertinent Family Hx Review of Systems Constitutional: see HPI, dizziness, malaise, weakness Physical Exam Physical Exam Vital Signs Vital Signs - First Documented 01/28/21 01/28/21 17:15 18:19 Temp 36.7 Pulse 111 Resp 16 B/P (MAP) 110/54 Pulse Ox 100 O2 Delivery Nasal Cannula O2 Flow Rate 3.00 Capillary Refill : Less Than 3 Seconds Height, Weight, BMI Height: 5'2.00" Weight: 150lbs. 0.0oz. 68.442038lb; 27.23 BMI Method:Stated General Appearance: No Apparent Distress, Chronically ill Eyes: Bilateral Eye Normal Inspection, Bilateral Eye PERRL, Bilateral Eye EOMI HEENT: PERRL/EOMI Neck: Full Range of Motion Respiratory: Chest Non Tender, Lungs Clear Cardiovascular: Regular Rate, Rhythm Gastrointestinal: Normal Bowel Sounds, Non Tender, Soft Extremity: Normal Capillary Refill Neurologic/Psychiatric: Alert, Oriented x3 Skin: Normal Color Lymphatic: No Adenopathy Results Results/Procedures Labs Laboratory Tests 01/28/21 17:27 01/29/21 03:07 Patient resulted labs reviewed. Short Stay Diagnosis Discharge Diagnosis-Short Stay Admission Diagnosis Assessment: Severe symptomatic anemia History of iron deficiency anemia receives iron infusions per Dr. Weiss Transfusions in the past Up-to-date on all scopes Final Discharge Diagnosis Assessment: Severe symptomatic anemia History of iron deficiency anemia receives iron infusions per Dr. Weiss Transfusions in the past Up-to-date on all scopes Conclusion Plan Supportive care Discharge home Diagnosis/Problems Diagnosis/Problems (1) Anemia Status: Acute (2) Transfusion of blood during current hospitalisation (3) Debility QUEENIE POWELL DO Jan 29, 2021 11:44
[2021-01-29 12:00] VITALS: BP 125/58
[2021-01-29] MEDS ORDERED: CATHETER FLUSH 10 ML SYR IV PRN (12:30)
[2021-01-29] MEDS ORDERED: ONDANSETRON 4 MG/2 ML (SDV) Z0FRAN IVP PRN (12:30)
[2021-01-29] MEDS ORDERED: CATHETER FLUSH 10 ML SYR IV SCH (14:00)
== END 2021-01-29 15:00 | disposition home or self-care (01) ==
LOC: EDUNIT# 17:09 → ER 17:13 → INTOOBSV 18:48 → CSD 18:48
PROVIDERS: ADMIT Internal Medicine; ATTEND Internal Medicine
DX: D64.9 Anemia, unspecified (principal); E87.71 Transfusion associated circulatory overload; R53.81 Other malaise; F41.9 Anxiety disorder, unspecified; E11.40 Type 2 diabetes mellitus with diabetic neuropathy, unspecified; J44.9 Chronic obstructive pulmonary disease, unspecified; G43.909 Migraine, unspecified, not intractable, without status migrainosus; F32.9 Major depressive disorder, single episode, unspecified; K21.9 Gastro-esophageal reflux disease without esophagitis; M19.90 Unspecified osteoarthritis, unspecified site; I11.0 Hypertensive heart disease with heart failure; I50.9 Heart failure, unspecified; Z79.82 Long term (current) use of aspirin; Z79.51 Long term (current) use of inhaled steroids; Z79.84 Long term (current) use of oral hypoglycemic drugs; Z79.899 Other long term (current) drug therapy; Z87.11 Personal history of peptic ulcer disease; Z87.891 Personal history of nicotine dependence
CPT/HCPCS: 36430; 71045; 80053 ×2; 80061; 82728; 82947; 83540; 83550; 83880; 85025 ×2; 85045; 85610; 86850; 86900; 86901; 86920; 87636; 93005; 99284; G0378; P9016; 36415

== ENCOUNTER 2021-03-01 13:48 | Outpatient (RCR) | payer MEDICARE, MEDICAID ==
[~2021-03-01 13:48] MED LIST changes: +ACET1TAB43 PO; -CITA40TA11 PO; +CITA40TA13 PO; +CYCL10TA25 PO; -CYCL10TA9 PO; +MONT-40 PO; -MONT10TA32 PO; +ONDA-106 PO; -ONDA8TAB15 PO; +POTA-179 PO
[2021-03-01 13:58] LABS: BASOPHILS # (AUTO) 0.1 10^3/uL (0.0-0.1); BASOPHILS % (AUTO) 1 % (0-10); EOSINOPHILS # (AUTO) 0.1 10^3/uL (0.0-0.3); EOSINOPHILS % (AUTO) 1 % (0-10); HEMATOCRIT 32 % (35-52); LYMPHOCYTES # (AUTO) 1.1 10^3/uL (1.0-4.0); LYMPHOCYTES % (AUTO) 22 % (12-44); MEAN CORPUSCULAR HEMOGLOBIN 24 pg (25-34); MEAN CORPUSCULAR HGB CONC 29 g/dL (32-36); MEAN CORPUSCULAR VOLUME 82 fL (80-99); MEAN PLATELET VOLUME 12.5 fL (9.0-12.2); MONOCYTES # (AUTO) 0.3 10^3/uL (0.0-1.0); MONOCYTES % (AUTO) 7 % (0-12); NEUTROPHILS # (AUTO) 3.4 10^3/uL (1.8-7.8); NEUTROPHILS % (AUTO) 69 % (42-75); PLATELET COUNT 205 10^3/uL (130-400)
[2021-03-01 14:20] LABS: ALBUMIN 4.1 GM/DL (3.2-4.5); BILIRUBIN,TOTAL 1.1 MG/DL (0.1-1.0); CALCIUM 9.9 MG/DL (8.5-10.1); CREATININE SERUM 0.79 MG/DL (0.60-1.30); POTASSIUM 3.5 MMOL/L (3.6-5.0); TOTAL PROTEIN 7.5 GM/DL (6.4-8.2)
[2021-03-01] MEDS ORDERED: FERRIC CARBOXYMALTOSE (CANCER) 750 MG in NS (IVPB) CANCER CENTER 250 ML IV SCH (14:45)
[2021-04-01] MEDS ORDERED: LIDO700A45 TOP (12:10)
[2021-04-01] MEDS ORDERED: FLUT1BLS12 INH (12:10)
[2021-04-01] MEDS ORDERED: METF-397 PO (12:10)
[2021-04-01] MEDS ORDERED: PROP40TA5 PO (12:10)
[2021-04-01] MEDS ORDERED: CITA40TA13 PO (12:10)
[2021-04-01] MEDS ORDERED: PRAM1TAB5 PO (12:10)
[2021-04-01] MEDS ORDERED: DIPH-958 PO (12:10)
[2021-04-01] MEDS ORDERED: CETI10TA17 PO (12:10)
[2021-04-01] MEDS ORDERED: FERR325T24 PO (12:10)
[2021-04-01] MEDS ORDERED: PANT40TA52 PO (12:10)
[2021-04-01] MEDS ORDERED: DOCU100C37 PO (12:10)
[2021-04-01] MEDS ORDERED: NITR0.4T42 SL (12:50)
[2021-04-01] MEDS ORDERED: ISOS30TA82 PO (12:50)
[2021-04-06] MEDS ORDERED: GABA300C PO (11:20)
[2021-04-06] MEDS ORDERED: CLOP75TA28 PO (11:20)
[2021-04-06] MEDS ORDERED: OXYC1TAB87 PO (11:20)
[2021-04-06] MEDS ORDERED: METF-397 PO (11:20)
[2021-04-06] MEDS ORDERED: FURO40TA4 PO (11:20)
[2021-04-06] MEDS ORDERED: PANT40TA52 PO (11:20)
[2021-04-06] MEDS ORDERED: ASPI-1238 PO (11:20)
== END 2021-05-30 | disposition home or self-care (01) ==
LOC: ONC 13:48
PROVIDERS: ATTEND Internal Medicine Hematology & Oncology
DX: D50.9 Iron deficiency anemia, unspecified (principal); K44.9 Diaphragmatic hernia without obstruction or gangrene; K29.50 Unspecified chronic gastritis without bleeding; I25.10 Atherosclerotic heart disease of native coronary artery without angina pectoris; E66.9 Obesity, unspecified; J44.9 Chronic obstructive pulmonary disease, unspecified; I10 Essential (primary) hypertension; E11.9 Type 2 diabetes mellitus without complications; E78.2 Mixed hyperlipidemia; F41.8 Other specified anxiety disorders; I48.91 Unspecified atrial fibrillation; K21.9 Gastro-esophageal reflux disease without esophagitis; Z72.0 Tobacco use
CPT/HCPCS: 80053; 82728; 83540; 83550; 85025; G0463

== ENCOUNTER 2021-03-31 21:50 | Inpatient (IN) | payer MEDICARE, MEDICAID ==
[~2021-03-31] VITALS: Ht 157.5 cm; Wt 71.1 kg
[~2021-03-31 21:50] MED LIST changes: +CITA40TA11 PO; -CITA40TA13 PO; -CYCL10TA25 PO; +CYCL10TA9 PO; -MONT-40 PO; +MONT10TA32 PO; -ONDA-106 PO; +ONDA8TAB15 PO; -POTA-179 PO
[2021-03-31] MEDS ORDERED: ONDANSETRON 4 MG/2 ML (SDV) Z0FRAN IVP ONE (22:15)
[2021-03-31] MEDS ORDERED: ASPIRIN 81 MG CHEW (CHILDREN'S ASA) PO ONE (22:15)
[2021-03-31] MEDS ORDERED: fentaNYL INJ 100 MCG/2 ML AMP IVP ONE ×2 (22:15→23:30)
--- NOTE | 2021-03-31 22:17 | ED Chest Pain ---
General Chief Complaint: Chest Pain Stated Complaint: CHEST PAIN, STROKE SYMPTOMS Source: patient Exam Limitations: no limitations History of Present Illness Date Seen by Provider: Mar 31, 2021 Time Seen by Provider: 22:05 Initial Comments Patient is a 66yo female who presents to the ER with a chief complaint of substernal Chest pain, shortness of breath, arm pain onset about 2-3 days ago. Patient currently rating her pain a "9 or 10". Patient states that the chest discomfort and arm pain comes and goes with any exertion/activity. Patient has a history of iron deficiency anemia, had a recent hospitalization in January of this year and required 3 units of blood after having been found to have a hemoglobin of 4.9. Patient states the last time she saw her senior product analyst was in early February. She has missed her visits because her care worker has been unable to provide her with transportation. She denies any recent fevers, chills, cough or congestion. No nausea vomiting, diarrhea black or bloody stools. No urinary complaints. Timing/Duration: intermittent, 2-3 days Severity/Quality: severe, aching, pressure Radiation: arms Activities at Onset: activity Prior CP/Workup: cardiac cath ASA po FIELD KILN BURNER: Yes (Baby aspirin this morning) NTG SL FIELD KILN BURNER: No Associated Symptoms: dizziness, weakness Allergies and Home Medications Allergies Coded Allergies: Sulfa (Sulfonamide Antibiotics) (Verified Allergy, Unknown, 06/10/19) ceftriaxone (Verified Allergy, Unknown, RASH, 08/12/18) Patient Home Medication List Home Medication List Reviewed: Yes Albuterol Sulfate (Proair Hfa) 1 Puff Puff, 2 PUFF IH Q4H PRN for SHORTNESS OF BREATH, (Reported) Entered as Reported by: CLIVE MORGAN on 08/02/17 1259 Last Action: Reviewed Aspirin (Aspirin EC) 81 Mg Tablet.dr, 81 MG PO DAILY, (Reported) Entered as Reported by: BLAIR LANE on 04/28/20 1430 Last Action: Reviewed Cetirizine HCl (Cetirizine HCl) 10 Mg Tablet, 10 MG PO DAILY, (Reported) Entered as Reported by: PATRICK STARKS on 04/01/21 1210 Last Action: Reviewed Citalopram Hydrobromide (Citalopram HBr) 40 Mg Tablet, 40 MG PO 1200, (Reported) Entered as Reported by: PATRCIK STARKS on 04/01/211209 Last Action: Reviewed Cyclobenzaprine HCl (Cyclobenzaprine HCl) 10 Mg Tablet, 10 MG PO TID PRN for MUSCLE SPASMS, (Reported) Entered as Reported by: PREMA KNOWLES on 06/12/19 1030 Last Action: Reviewed Diphenhydramine HCl (Banophen) 25 Mg Capsule, 25 MG PO HS PRN for ALLERGY SYMPTOMS/SLEEP, (Reported) Entered as Reported by: PATRICK STARKS on 04/01/211209 Last Action: Reviewed Docusate Sodium (Docusate Sodium) 100 Mg Capsule, 100-200 MG PO BID PRN for CONSTIPATION-1ST LINE, (Reported) Entered as Reported by: PATRICK STARKS on 04/01/211209 Last Action: Reviewed Ferrous Sulfate (Ferosul) 325 Mg Tablet, 325 MG PO BID, (Reported) Entered as Reported by: PATRICK STARKS on 04/01/211209 Last Action: Reviewed Fluticasone Propion/Salmeterol (Fluticasone-Salmeterol 250-50) 1 Each Bls t.w.dev, 1 PUFF INH BID PRN for SHORTNESS OF BREATH, (Reported) Entered as Reported by: PATRICK STARKS on 04/01/211209 Last Action: Reviewed Fluticasone Propionate (Fluticasone Propionate) 16 Gm Hammett.susp, 1-2 SPRAY NS DAILY PRN for CONGESTION, (Reported) Entered as Reported by: PREMA KNOWLES on 06/12/19 103 Last Action: Reviewed Furosemide (Furosemide) 40 Mg Tablet, 40 MG PO DAILY, (Reported) Entered as Reported by: BLAIR LANE on 04/28/201429 Last Action: Reviewed Gabapentin (Neurontin) 300 Mg Capsule, 300 MG PO BID, (Reported) Entered as Reported by: BLAIR LANE on 04/28/201429 Last Action: Reviewed Hydrochlorothiazide (Hydrochlorothiazide) 25 Mg Tablet, 25 MG PO DAILY, (Reported) Entered as Reported by: BLAIR LANE on 04/28/201429 Last Action: Reviewed Ipratropium/Albuterol Sulfate (Iprat-Albut 0.5-3(2.5) mg/3 ml) 3 Ml Ampul.neb, 3 ML IH QID PRN for SHORTNESS OF BREATH, (Reported) Entered as Reported by: KULWINDER PRADO on 12/30/15 2189 Last Action: Reviewed Isosorbide Mononitrate (Isosorbide Mononitrate ER) 30 Mg Tab.er.24h, 30 MG PO DAILY Prescribed by: ELOINA WATERS JR, MD on 04/01/21 1250 Lidocaine (Lidocaine 5% Patch) 1 Each Adh..patch, 1 PAT TOP DAILY, (Reported) Entered as Reported by: PATRICK STARKS on 04/01/21 1210 Last Action: Reviewed Meloxicam (Meloxicam) 7.5 Mg Tablet, 7.5 MG PO DAILY, (Reported) Entered as Reported by: BLAIR LANE on 04/28/20 1430 Last Action: Reviewed Metformin HCl (Metformin HCl) 500 Mg Tablet, 500 MG PO BIDAC, (Reported) Entered as Reported by: PATRICK STARKS on 04/01/21 1210 Last Action: Reviewed Nitroglycerin (Nitroglycerin) 0.4 Mg Tab.subl, 0.4 MG SL NEEDED PRN for CHEST PAIN (ANGINA) Prescribed by: ELOINA WATERS JR, MD on 04/01/21 1250 Pantoprazole Sodium (Pantoprazole Sodium) 40 Mg Tablet.dr, 40 MG PO DAILY, (Reported) Entered as Reported by: PATRICK STARKS on 04/01/21 1210 Last Action: Reviewed Polyethylene Glycol 3350 (Miralax) 17 Gm Powd.pack, 17 GM PO DAILY PRN for CONSTIPATION-2ND LINE, (Reported) Entered as Reported by: BLAIR LANE on 04/28/20 1430 Last Action: Reviewed Potassium Chloride (Potassium Chloride) 10 Meq Capsule.er, 20 MEQ PO DAILY, (Reported) Entered as Reported by: MOOK SCHMIDT on 08/10/18 1007 Last Action: Reviewed Pramipexole Di-HCl (Mirapex) 1 Mg Tablet, 1 MG PO HS, (Reported) Entered as Reported by: BLAIR LANE on 04/28/20 1508 Last Action: Reviewed Pramipexole Di-HCl (Pramipexole Dihydrochloride) 1 Mg Tablet, 1 MG PO HS PRN for RESTLESSNESS, (Reported) Entered as Reported by: PATRICK STARKS on 04/01/21 1210 Last Action: Reviewed Propranolol HCl (Propranolol HCl) 40 Mg Tablet, 40 MG PO DAILY, (Reported) Entered as Reported by: CLIVE MORGAN on 08/02/17 1259 Last Action: Reviewed Propranolol HCl (Propranolol HCl) 40 Mg Tablet, 40 MG PO 1800 PRN for BLOOD PRESSURE, (Reported) Entered as Reported by: PATRICK STARKS on 04/01/21 1210 Last Action: Reviewed Rosuvastatin Calcium (Rosuvastatin Calcium) 10 Mg Tablet, 10 MG PO DAILY, (Reported) Entered as Reported by: BLAIR LANE on 04/28/20 1518 Last Action: Reviewed Discontinued Medications Acetaminophen with Codeine (Acetaminophen-Cod #3 Tablet) 1 Each Tablet, 1 TAB PO Q4H PRN for PAIN-MODERATE (5-7) Discontinued Reason: Duplicate Order Prescribed by: BAYRON JASMINE on 01/29/21 1143 Last Action: Discontinued Cetirizine HCl (24Hour Allergy) 10 Mg Tablet, 10 MG PO DAILY, (Reported) Discontinued Reason: Duplicate Order Entered as Reported by: PREMA KNOWLES on 06/12/19 1030 Last Action: Discontinued Citalopram Hydrobromide (Celexa) 40 Mg Tablet, 40 MG PO DAILY, (Reported) Discontinued Reason: Duplicate Order Entered as Reported by: BLAIR LANE on 04/28/20 1430 Last Action: Discontinued Clotrimazole/Betamethasone Dip (Clotrimazole-Betamethasone Crm) 15 Gm Cream..g., 1 APPLIC TP BID, (Reported) Discontinued Reason: No Longer Taking Entered as Reported by: BLAIR LANE on 04/28/20 1434 Last Action: Discontinued Docusate Sodium (Docusate Sodium) 100 Mg Tablet, 100 MG PO DAILY PRN for CONSTIPATION-1ST LINE, (Reported) Discontinued Reason: Duplicate Order Entered as Reported by: BLAIR LANE on 04/28/20 1430 Last Action: Discontinued Ferrous Sulfate (Ferrous Sulfate) 325 Mg Tablet, 325 MG PO BID, (Reported) Discontinued Reason: Duplicate Order Entered as Reported by: CLIVE MORGAN on 08/02/17 1259 Last Action: Discontinued Fluticasone/Salmeterol (Advair Hfa 115-21 Mcg Inhaler) 12 Gm Hfa.aer.ad, 2 PUFF IH BID, (Reported) Discontinued Reason: Duplicate Order Entered as Reported by: BLAIR LANE on 04/28/201429 Last Action: Discontinued Metformin HCl (Glucophage) 500 Mg Tablet, 500 MG PO BID Discontinued Reason: Duplicate Order Prescribed by: CONNOR GUTIERRES on 04/28/20 1528 Last Action: Discontinued Montelukast Sodium (Montelukast Sodium) 10 Mg Tablet, 10 MG PO DAILY, (Reported) Discontinued Reason: No Longer Taking Entered as Reported by: PREMA KNOWLES on 06/12/19 1030 Last Action: Discontinued Ondansetron HCl (Ondansetron HCl) 8 Mg Tablet, 8 MG PO TID PRN for NAUSEA/VOMITING-1ST LINE, (Reported) Discontinued Reason: No Longer Taking Entered as Reported by: BLAIR LANE on 04/28/201429 Last Action: Discontinued Pantoprazole Sodium (Protonix) 40 Mg Tablet.dr, 40 MG PO DAILY, (Reported) Discontinued Reason: Duplicate Order Entered as Reported by: BLAIR LANE on 04/28/201429 Last Action: Discontinued Review of Systems Review of Systems Constitutional: see HPI, dizziness, malaise, weakness EENTM: No Symptoms Reported Respiratory: SOA With Exertion Cardiovascular: Chest Pain Gastrointestinal: No Symptoms Reported Genitourinary: No Symptoms Reported Musculoskeletal: joint pain (Feet and legs), muscle cramps (Right foot) Skin: no symptoms reported Psychiatric/Neurological: Anxiety All Other Systems Reviewed Negative Unless Noted: Yes Past Affzvyh-Kvorxm-Hzbexi Hx Immunizations Up To Date Tetanus Booster (TDap): Unknown Seasonal Allergies Seasonal Allergies: Yes Past Medical History Surgeries: Yes (R KNEE SCOPE x3/ CARPAL TUNNEL/ CUBITAL TUNNEL) Hysterectomy, Orthopedic Respiratory: Yes (COPD, O2 AT NIGHT 2.5-3L) COPD Cardiac: Yes Hypertension Neurological: Yes (STRESS SEIZURE) Headaches /Migraines, Neuropathy Reproductive Disorders: 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: Hysterectomy Sexually Transmitted Disease: No HIV/AIDS: No Genitourinary: No Gastrointestinal: Yes Gastroesophageal Reflux, Diverticulosis, Ulcer Musculoskeletal: Yes (SPINAL STENOSIS) Degenerate Disk Disease, Arthritis, Fibromyalgia, Chronic Back Pain Endocrine: Yes Diabetes, Non-Insulin dep HEENT: Yes Loss of Vision: Bilateral Hearing Impairment: Denies Cancer: No Psychosocial: Yes Anxiety, Depression Integumentary: No Blood Disorders: Yes (CHRONIC ANEMIA) Adverse Reaction/Blood Tranf: Yes (HAS HAD BLOOD WITH NO PROBLEMS) Family Medical History FH: breast cancer in first degree relative G8 SISTER FH: multiple myeloma 19 FATHER FH: uterine cancer 19 MOTHER grandmother G8 SISTER No Pertinent Family Hx Physical Exam Vital Signs Vital Signs - First Documented 03/31/21 21:53 Temp 36.7 Pulse 100 Resp 18 B/P (MAP) 148/69 (95) Pulse Ox 100 O2 Delivery Room Air Capillary Refill : Height, Weight, BMI Height: 5'2.00" Weight: 150lbs. 0.0oz. 68.278712lj; 27.23 BMI Method:Stated General Appearance: WD/WN, Anxious HEENT: Pale Conjunctivae (L), Pale Conjunctivae (R) Neck: Normal Inspection Respiratory: Lungs Clear, Normal Breath Sounds, No Accessory Muscle Use, No Respiratory Distress Cardiovascular: Regular Rate, Rhythm, Normal Peripheral Pulses Gastrointestinal: Non Tender, Soft Extremity: Normal Inspection Neurologic/Psychiatric: Alert, Oriented x3, No Motor/Sensory Deficits, Normal Mood/Affect Skin: Warm/Dry, Pallor Progress/Results/Core Measures Results/Orders Lab Results Laboratory Tests Test 03/31/21 22:00 03/31/21 22:12 Range/Units Glucometer 119 H 70-110 MG/DL White Blood Count 5.8 4.3-11.0 10^3/uL Red Blood Count 2.58 L 3.80-5.11 10^6/uL Hemoglobin 5.1 *L 11.5-16.0 g/dL Hematocrit 19 *L 35-52 % Mean Corpuscular Volume 75 L 80-99 fL Mean Corpuscular Hemoglobin 20 L 25-34 pg Mean Corpuscular Hemoglobin Concent 26 L 32-36 g/dL Red Cell Distribution Width 17.3 H 10.0-14.5 % Platelet Count 256 130-400 10^3/uL Mean Platelet Volume 12.2 9.0-12.2 fL Immature Granulocyte % (Auto) 0 % Neutrophils (%) (Auto) 74 42-75 % Lymphocytes (%) (Auto) 16 12-44 % Monocytes (%) (Auto) 7 0-12 % Eosinophils (%) (Auto) 2 0-10 % Basophils (%) (Auto) 1 0-10 % Neutrophils # (Auto) 4.3 1.8-7.8 10^3/uL Lymphocytes # (Auto) 0.9 L 1.0-4.0 10^3/uL Monocytes # (Auto) 0.4 0.0-1.0 10^3/uL Eosinophils # (Auto) 0.1 0.0-0.3 10^3/uL Basophils # (Auto) 0.0 0.0-0.1 10^3/uL Immature Granulocyte # (Auto) 0.0 0.0-0.1 10^3/uL Sodium Level 140 135-145 MMOL/L Potassium Level 3.6 3.6-5.0 MMOL/L Chloride Level 106 98-107 MMOL/L Carbon Dioxide Level 19 L 21-32 MMOL/L Anion Gap 15 H 5-14 MMOL/L Blood Urea Nitrogen 9 7-18 MG/DL Creatinine 0.85 0.60-1.30 MG/DL Estimat Glomerular Filtration Rate 67 BUN/Creatinine Ratio 11 Glucose Level 125 H 70-105 MG/DL Calcium Level 9.4 8.5-10.1 MG/DL Corrected Calcium 9.5 8.5-10.1 MG/DL Total Bilirubin 1.1 H 0.1-1.0 MG/DL Aspartate Amino Transf (AST/SGOT) 14 5-34 U/L Alanine Aminotransferase (ALT/SGPT) 13 0-55 U/L Alkaline Phosphatase 176 H 40-136 U/L Total Creatine Kinase 40 29-168 U/L Troponin I < 0.028 <0.028 NG/ML Total Protein 7.5 6.4-8.2 GM/DL Albumin 3.9 3.2-4.5 GM/DL My Orders Orders - BILL CEDILLO MD Ed Iv/Invasive Line Start (03/31/21 22:13) Type And Screen (03/31/21 22:13) Cbc With Automated Diff (03/31/21 22:13) Comprehensive Metabolic Panel (03/31/21 22:13) Troponin I (03/31/21 22:13) Creatine Kinase (03/31/21 22:13) Ekg Tracing (03/31/21 22:13) Aspirin Chewable Tablet (Baby Aspirin Ch (03/31/21 22:15) Fentanyl Inj (Sublimaze Injection) (03/31/21 22:15) Ondansetron Injection (Zofran Injectio (03/31/21 22:15) Red Cells Leukocytes Reduced (03/31/21 23:25) Fentanyl Inj (Sublimaze Injection) (03/31/21 23:30) Ekg Tracing (03/31/21 23:29) Medications Given in ED Vital Signs/I&O 03/31/21 21:53 Temp 36.7 Pulse 100 Resp 18 B/P (MAP) 148/69 (95) Pulse Ox 100 O2 Delivery Room Air Initial ECG Impression Date: Mar 31, 2021 Initial ECG Impression Time: 21:54 Initial ECG Rate: 99 Initial ECG Rhythm: Normal Sinus Initial ECG Intervals NE 184 QRS 90 QTc 424 Initial ECG Comparisson: Changed Comment Patient has [address] segment depression in leads V5 and V6, no ST segment elevation is noted, no ectopy. She is in a normal sinus rhythm EKG : EKG Time: 23:31 Rate: 99 Rhythm: Normal Sinus Intervals NE 131 QRS 100 QTc 428 ECG Comparisson: Changed Comment ST segment depression previously noted in leads V5 and V6 has improved on his EKG Departure Communication (Admissions) Time/Spoke to Admitting Phy: 23:[address] Cortes Impression Primary Impression: Chest pain Qualified Codes: I20.0 - Unstable angina Additional Impression: Anemia Qualified Codes: D64.9 - Anemia, unspecified Disposition: ADMITTED INPATIENT Condition: Stable Admissions Decision to Admit Reason: Admit from ER (General) Decision to Admit/Date: Mar 31, 2021 Time/Decision to Admit Time: 22:25 Departure-Patient Inst. Referrals: ELOINA PHILIP MD (PCP/Family) Primary Care Physician Scripts Nitroglycerin (Nitroglycerin) 0.4 Mg Tab.subl 0.4 MG SL NEEDED PRN for CHEST PAIN (ANGINA), #25 TAB 3 Refills Prov: ELOINA WATERS JR, MD 04/01/21 Isosorbide Mononitrate (Isosorbide Mononitrate ER) 30 Mg Tab.er.24h 30 MG PO DAILY, #30 TAB 11 Refills Prov: ELOINA WATERS JR, MD 04/01/21 BILL CEDILLO MD Mar 31, 2021 22:17
[2021-03-31 22:22] LABS: BASOPHILS % (AUTO) 1 % (0-10); EOSINOPHILS # (AUTO) 0.1 10^3/uL (0.0-0.3); EOSINOPHILS % (AUTO) 2 % (0-10); LYMPHOCYTES # (AUTO) 0.9 10^3/uL (1.0-4.0); LYMPHOCYTES % (AUTO) 16 % (12-44); MEAN CORPUSCULAR HEMOGLOBIN 20 pg (25-34); MEAN CORPUSCULAR HGB CONC 26 g/dL (32-36); MEAN CORPUSCULAR VOLUME 75 fL (80-99); MEAN PLATELET VOLUME 12.2 fL (9.0-12.2); MONOCYTES # (AUTO) 0.4 10^3/uL (0.0-1.0); MONOCYTES % (AUTO) 7 % (0-12); NEUTROPHILS # (AUTO) 4.3 10^3/uL (1.8-7.8); NEUTROPHILS % (AUTO) 74 % (42-75); PLATELET COUNT 256 10^3/uL (130-400); WHITE BLOOD COUNT 5.8 10^3/uL (4.3-11.0)
[2021-03-31 22:29] LABS: HEMATOCRIT 19 % (35-52); HEMOGLOBIN 5.1 g/dL (11.5-16.0)
[2021-03-31 22:45] LABS: ALANINE AMINOTRANSFERASE 13 U/L (0-55); ALBUMIN 3.9 GM/DL (3.2-4.5); ALKALINE PHOSPHATASE 176 U/L (40-136); BILIRUBIN,TOTAL 1.1 MG/DL (0.1-1.0); BUN/CREATININE RATIO 11; CALCIUM 9.4 MG/DL (8.5-10.1); CARBON DIOXIDE 19 MMOL/L (21-32); CHLORIDE 106 MMOL/L (98-107); CREATINE KINASE 40 U/L (29-168); CREATININE SERUM 0.85 MG/DL (0.60-1.30); GFR ESTIMATED 67; GLUCOSE 125 MG/DL (70-105); POTASSIUM 3.6 MMOL/L (3.6-5.0); SODIUM 140 MMOL/L (135-145); TOTAL PROTEIN 7.5 GM/DL (6.4-8.2)
[2021-03-31] MEDS ORDERED: LORazepam INJ 2 MG/ML (ATIVAN) VIAL IVP STA (23:37)
[2021-04-01] VITALS (14 sets, daily range): BP systolic 107–148; BP diastolic 42–99
[2021-04-01] MEDS ORDERED: NS IV 500 ML 500 ML ONE (00:46)
[2021-04-01] MEDS ORDERED: CATHETER FLUSH 10 ML SYR IV PRN (01:00)
[2021-04-01] MEDS: NS IV 500 ML 500 ML IV SCH ×2 (01:06→17:14)
[2021-04-01] MEDS ORDERED: RT-ALBUTEROL/IPRATROPIUM 3 ML (DUONEB) VIAL INH PRN (01:45)
[2021-04-01] MEDS: fentaNYL INJ 100 MCG/2 ML AMP IV PRN ×6 (01:55→23:48)
[2021-04-01 04:30] LABS: BASOPHILS % (AUTO) 1 % (0-10); EOSINOPHILS # (AUTO) 0.2 10^3/uL (0.0-0.3); EOSINOPHILS % (AUTO) 3 % (0-10); HEMATOCRIT 21 % (35-52); LYMPHOCYTES # (AUTO) 1.1 10^3/uL (1.0-4.0); LYMPHOCYTES % (AUTO) 19 % (12-44); MEAN CORPUSCULAR HEMOGLOBIN 22 pg (25-34); MEAN CORPUSCULAR HGB CONC 28 g/dL (32-36); MEAN CORPUSCULAR VOLUME 77 fL (80-99); MEAN PLATELET VOLUME 12.8 fL (9.0-12.2); MONOCYTES # (AUTO) 0.4 10^3/uL (0.0-1.0); MONOCYTES % (AUTO) 7 % (0-12); NEUTROPHILS # (AUTO) 4.1 10^3/uL (1.8-7.8); NEUTROPHILS % (AUTO) 71 % (42-75); PLATELET COUNT 217 10^3/uL (130-400); WHITE BLOOD COUNT 5.7 10^3/uL (4.3-11.0)
[2021-04-01 04:33] LABS: HEMOGLOBIN 5.9 g/dL (11.5-16.0)
[2021-04-01] MEDS: CATHETER FLUSH 10 ML SYR IV SCH ×3 (05:56→21:35)
[2021-04-01] MEDS: KCL 20 MEQ TAB (K-DUR) PO SCH (06:11)
[2021-04-01] MEDS: PANTOPRAZOLE 40 MG (PROTONIX) TAB PO SCH (06:11)
[2021-04-01] MEDS ORDERED: FLU QUAD HIGH DOSE 240 MCG/0.7 ML 2021-22 (FLUZONE) IM ONE (06:45)
--- NOTE | 2021-04-01 07:48 | Diagnostic Imaging Report ---
EXAMINATION: Chest 1 view HISTORY: Dyspnea COMPARISON: 01/28/2021 FINDINGS: Heart size and pulmonary vasculature are normal. There is redemonstrated moderate hiatal hernia. Stable mild interstitial opacities in the left lung base. No pleural effusion or pneumothorax. The osseous structures are intact. IMPRESSION: 1. Stable hiatal hernia with left basilar atelectasis or consolidation. Dictated by: Dictated on workstation # [id number]
[2021-04-01] MEDS: ASPIRIN E.C. 81 MG (ECOTRIN) TAB PO SCH (09:13)
[2021-04-01] MEDS: metFORMIN 500 MG (GLUCOPHAGE) TAB PO SCH ×2 (09:13→17:13)
[2021-04-01] MEDS: PROPRANOLOL 20 MG (INDERAL) TABLET PO SCH ×2 (09:13→20:19)
[2021-04-01] MEDS: FUROSEMIDE 40 MG/4 ML INJ (LASIX) IV SCH ×2 (09:13→15:50)
--- NOTE | 2021-04-01 09:27 | History & Physical ---
TOÑA MEI 04/01/21 0927: HPI History of Present Illness: Nupur is a 66 year old female who presents with iron deficiency anemia. This is a chronic problem for her. She started to feel unwell on Sunday and Sunday. She slowly got worse throughout the week. She experienced weakness, pain in her arms, legs and chest, shortness of breath on exertion, nausea, leg swelling, and weakness of her legs. Her chest pain feels sharp and stabbing. Last week she was supposed to have an iron infusion but her transportation to her appointment failed. Upon admission to the hospital her hemoglobin was 5.4 and she received two RBC transfusions, raising her hemoglobin to 8.2 She reports that she is feeling better today but is still symptomatic. After consulting with her provider who follows her anemia, an iron infusion was ordered and will occur today. Source: patient Exam Limitations: no limitations Date seen by provider: Apr 01, 2021 Time Seen by Provider: 11:30 Attending Physician Chyna Cortes MD PCP Brando Davies MD Consult Date of Admission Mar 31, 2021 at 23:33 Home Medications Home Medications Reviewed patient Home Medication Reconciliation performed by pharmacy medication reconciliations assessment technician and/or nursing. Patients Allergies have been reviewed. Allergies Coded Allergies: Sulfa (Sulfonamide Antibiotics) (Verified Allergy, Unknown, 06/10/19) ceftriaxone (Verified Allergy, Unknown, RASH, 08/12/18) GSY-Eupeyv-Bvdvjq Hx Patient Social History Smoking Status: Former Smoker 2nd Hand Smoke Exposure: Yes Recent Hopitalizations: No Alcohol Use?: No Have you traveled recently?: No Immunizations Up To Date Tetanus Booster (TDap): Unknown Date of Pneumonia Vaccine: Jun 02, 2014 Date of Influenza Vaccine: Mar 18, 2020 Past Medical History PMHx: Anxiety COPD DMII Neuropathy Fibromyalgia Depression Conversion disorder Chronic fatigue HTN CHF Iron deficiency anemia Neurofibromatosis type 1 Peptic ulcer disease Venous insufficiency Hammer toes of right foot, acquired Seasonal allergies GERD without esophagitis Gastroparesis Uncomlicated ppioid dependence Benzodiazapine dependence, continuous Pseudoseizure Frequent urinary incontinence Atherosclerosis Cough Myalgia Pressure injury of buttock stage 1, unspecified laterality SurgHx: Cholecystectomy Hysterectomy Right shoulder surgery Right knee meniscus repair Right elbow and hand surgery Cataract Family Medical History Significant Family History: No Pertinent Family Hx Family History: FH: breast cancer in first degree relative G8 SISTER FH: multiple myeloma 19 FATHER FH: uterine cancer 19 MOTHER grandmother G8 SISTER Review of Systems (CHC) Constitutional: No chills; dizziness, weakness EENTM: No hearing loss, No vision loss Respiratory: short of breath (on exertion) Cardiovascular: chest pain, edema; No palpitations Gastrointestinal: no symptoms reported Genitourinary: no symptoms reported : No Musculoskeletal: muscle pain (fibromyalgia; pain in arms, legs, and chest) Psychiatric/Neurological: Denies Headache; Weakness All Other Systems Reviewed Negative Unless Noted: Yes Physical Exam-([facility]) Physical Exam Vital Signs VS - Last 72 Hours, by Label 03/31/21 04/01/21 04/01/21 04/01/21 21:53 00:11 00:35 00:56 Temp 36.7 36.7 36.1 Pulse 100 94 92 91 Resp 18 16 20 B/P (MAP) 148/69 (95) 141/97 142/53 (82) Pulse Ox 100 95 97 O2 Delivery Room Air Room Air Room Air 04/01/21 04/01/21 04/01/21 04/01/21 01:00 01:06 01:21 01:35 Temp 36.0 36.1 36.7 Pulse 85 90 100 Resp 20 18 B/P (MAP) 141/57 107/60 Pulse Ox 99 97 97 100 O2 Delivery Room Air Room Air Room Air FiO2 21 04/01/21 04/01/21 04/01/21 04/01/21 04:23 05:54 06:09 07:00 Temp 36.2 36.9 36.7 Pulse 105 86 84 87 Resp 20 18 20 B/P (MAP) 137/55 (82) 128/55 131/51 Pulse Ox 99 95 95 O2 Delivery Room Air Room Air Room Air 04/01/21 04/01/21 04/01/21 04/01/21 07:44 08:27 08:36 11:34 Temp 37.0 36.5 36.4 Pulse 85 84 74 Resp 16 14 14 B/P (MAP) 135/67 (89) 123/52 111/97 (102) Pulse Ox 98 98 97 98 O2 Delivery Room Air Room Air Room Air Room Air 04/01/21 04/01/21 12:35 15:10 Temp 36.8 Pulse 70 73 Resp 16 B/P (MAP) 111/55 (73) Pulse Ox 95 O2 Delivery Room Air Capillary Refill : Less Than 3 Seconds General Appearance: no apparent distress Respiratory: lungs clear, normal breath sounds, no respiratory distress, no accessory muscle use Cardiovascular: regular rate, rhythm, no gallop, no murmur, other (+1 peripheral edema of lower extremity bilaterally) Gastrointestinal: normal bowel sounds, non tender, soft Skin: normal color, warm/dry Assessment/Plan Assessment/Plan Admission Dx Iron deficiency anemia requiring transfusion Admission Status: Inpatient Order (span 2 midnights) Reason for Inpatient Admission: Iron deficiency anemia requiring transfusion (1) Transfusion of blood during current hospitalisation Status: Acute Assessment & Plan: 2 RBC transfusions conducted. Monitor hemoglobin. (2) Anemia Status: Acute Assessment & Plan: 2 RBC transfusions completed. Monitor hemoglobin. Give iron dextran 1000mg for iron infusion. Monitor for signs of anaphylaxis/hypersensitivity reaction. Give hydrocortisone 100mg, epinephrine once and then as needed, and diphenhydramine 25mg. Qualifiers: Qualified Codes: D64.9 - Anemia, unspecified (3) Chest pain Status: Acute Assessment & Plan: Troponins were negative; monitor and treat with nitroglycerin PRN. Qualifiers: Qualified Codes: I20.0 - Unstable angina (4) Fibromyalgia Status: Chronic Assessment & Plan: Monitor and continue fentanyl for pain management. (5) Diabetes mellitus Status: Chronic Assessment & Plan: Continue metformin 500mg BID with meals. Monitor blood glucose. (6) Hypokalemia Status: Acute Assessment & Plan: Replace with potassium chloride 20 meq. Monitor and re-check chemistry panel (7) Primary hypertension Assessment & Plan: Continue propanolol 40mg for blood pressure control. Monitor blood pressure. (8) Chronic pain Status: Chronic Assessment & Plan: Monitor and continue fentanyl for pain management. (9) GERD (gastroesophageal reflux disease) Status: Chronic Assessment & Plan: Monitor and continue pantoprazole for symptom management. (10) Shortness of breath Status: Acute Assessment & Plan: Monitor and continue albuterol 2.5mg and albuterol/ipratropium Clinical Quality Measures AMI/AHF: ASA po Prior to arrival: Yes (Baby aspirin this morning) CHYNA CORTES MD 04/01/21 4903: Home Medications Allergies Coded Allergies: Sulfa (Sulfonamide Antibiotics) (Verified Allergy, Unknown, 06/10/19) ceftriaxone (Verified Allergy, Unknown, RASH, 08/12/18) URD-Gutymd-Yxovud Hx Family Medical History Family History: FH: breast cancer in first degree relative G8 SISTER FH: multiple myeloma 19 FATHER FH: uterine cancer 19 MOTHER grandmother G8 SISTER Supervisory-Addendum Brief Verification & Attestation Participated in pt care: history, MDM, physical Personally performed: exam, history Care discussed with: Medical Student Procedures: n/a Verification and Attestation of Medical Student E/M Service A medical student performed and documented this service in my presence. I reviewed and verified all information documented by the medical student and made modifications to such information, when appropriate. I personally performed the physical exam and medical decision making. Chyna Cortes, Apr 01, 2021,16:33 TOÑA MEI Apr 01, 2021 09:27 CHYNA CORTES MD Apr 01, 2021 16:33
[2021-04-01] MEDS ORDERED: NS IV 500 ML 500 ML IV SCH ×3 (09:30→11:45)
--- NOTE | 2021-04-01 09:49 | Oncology Consultation ---
Visit Information Visit Information Date of Admission Mar 31, 2021 at 23:33 Attending Physician Olivia Cortes MD Admitting Physician Brando Davies MD Chief Complaint Symptomatic anemia, Hb 5.9 Interval History Ms. Torres is a 66 year old patient known to me in the past for anemia. She had multiple GI work up in the past as well as bone marrow exam on 08/29/2019 showed NO MDS and No ringsider blast anemia. SPEP was normal. GI work up did not reveal the source of bleeding except hiatal hernia and chronic gastritis. Surgeon did not want to repair the hiatal hernia due to high risk. She could not tolerate oral iron pills. So we have been given her IV iron periodically and she responded to the IV iron well. However, she is extremely NON-complains. We called her multiple times and scheduled and rescheduled her 3 times for IV iron infusion over a month but she always came up with excuses of "no transportation or other reasons that she could not come." She now ended up in the ER with Hb 5.9 again and chest pain, similar patterns as she had before multiple times. I consulted the patient on: 04/01/21 09:44 Time Seen by Provider: 09:55 Review of Systems Constitutional: see HPI Health Status Allergies Coded Allergies: Sulfa (Sulfonamide Antibiotics) (Verified Allergy, Unknown, 06/10/19) ceftriaxone (Verified Allergy, Unknown, RASH, 08/12/18) Home Medications Albuterol Sulfate (Proair Hfa) 1 Puff Puff, 2 PUFF IH Q4H PRN for SHORTNESS OF BREATH, (Reported) Aspirin (Aspirin EC) 81 Mg Tablet.dr, 81 MG PO DAILY, (Reported) Cetirizine HCl (Cetirizine HCl) 10 Mg Tablet, 10 MG PO DAILY, (Reported) Citalopram Hydrobromide (Citalopram HBr) 40 Mg Tablet, 40 MG PO 1200, (Reported) Cyclobenzaprine HCl (Cyclobenzaprine HCl) 10 Mg Tablet, 10 MG PO TID PRN for MUSCLE SPASMS, (Reported) Diphenhydramine HCl (Banophen) 25 Mg Capsule, 25 MG PO HS PRN for ALLERGY SYMPTOMS/SLEEP, (Reported) Docusate Sodium (Docusate Sodium) 100 Mg Capsule, 100-200 MG PO BID PRN for CONSTIPATION-1ST LINE, (Reported) Ferrous Sulfate (Ferosul) 325 Mg Tablet, 325 MG PO BID, (Reported) Fluticasone Propion/Salmeterol (Fluticasone-Salmeterol 250-50) 1 Each Blst.w. dev, 1 PUFF INH BID PRN for SHORTNESS OF BREATH, (Reported) Fluticasone Propionate (Fluticasone Propionate) 16 Gm [place].susp, 1-2 SPRAY NS DAILY PRN for CONGESTION, (Reported) Furosemide (Furosemide) 40 Mg Tablet, 40 MG PO DAILY, (Reported) Gabapentin (Neurontin) 300 Mg Capsule, 300 MG PO BID, (Reported) Hydrochlorothiazide (Hydrochlorothiazide) 25 Mg Tablet, 25 MG PO DAILY, (Reported) Ipratropium/Albuterol Sulfate (Iprat-Albut 0.5-3(2.5) mg/3 ml) 3 Ml Ampul.neb, 3 ML IH QID PRN for SHORTNESS OF BREATH, (Reported) Isosorbide Mononitrate (Isosorbide Mononitrate ER) 30 Mg Tab.er.24h, 30 MG PO DAILY, #30 Ref 11 Prescribed by: BRANDO WATERS JR, MD on 04/01/21 1250 Lidocaine (Lidocaine 5% Patch) 1 Each Adh..patch, 1 PAT TOP DAILY, (Reported) APPLY TO LOWER BACK Meloxicam (Meloxicam) 7.5 Mg Tablet, 7.5 MG PO DAILY, (Reported) Metformin HCl (Metformin HCl) 500 Mg Tablet, 500 MG PO BIDAC, (Reported) Nitroglycerin (Nitroglycerin) 0.4 Mg Tab.subl, 0.4 MG SL NEEDED PRN for CHEST PAIN (ANGINA), #25 Ref 3 Prescribed by: BRANDO WATERS JR, MD on 04/01/21 1250 Pantoprazole Sodium (Pantoprazole Sodium) 40 Mg Tablet.dr, 40 MG PO DAILY, (Reported) Polyethylene Glycol 3350 (Miralax) 17 Gm Powd.pack, 17 GM PO DAILY PRN for CONSTIPATION-2ND LINE, (Reported) Potassium Chloride (Potassium Chloride) 10 Meq Capsule.er, 20 MEQ PO DAILY, (Reported) TAKES 2 (10MEQ) CAPSULES Pramipexole Di-HCl (Mirapex) 1 Mg Tablet, 1 MG PO HS, (Reported) TAKES 1 TAB AT BEDTIME, AND MAY TAKE A 2ND TAB IF NEEDED Pramipexole Di-HCl (Pramipexole Dihydrochloride) 1 Mg Tablet, 1 MG PO HS PRN for RESTLESSNESS, (Reported) Propranolol HCl (Propranolol HCl) 40 Mg Tablet, 40 MG PO DAILY, (Reported) Propranolol HCl (Propranolol HCl) 40 Mg Tablet, 40 MG PO 1800 PRN for BLOOD PRESSURE, (Reported) Rosuvastatin Calcium (Rosuvastatin Calcium) 10 Mg Tablet, 10 MG PO DAILY, (Reported) [id number]-[id number]-Aeootc Hx Patient Social History Smoking Status: Former Smoker Type Used: Cigarettes 2nd Hand Smoke Exposure: Yes Recent Hopitalizations: No Alcohol Use?: No Have you traveled recently?: No Immunizations Up To Date Tetanus Booster (TDap): Unknown Date of Pneumonia Vaccine: Jun 02, 2014 Date of Influenza Vaccine: Mar 18, 2020 Family Medical History Significant Family History: No Pertinent Family Hx Family History: FH: breast cancer in first degree relative G8 SISTER FH: multiple myeloma 19 FATHER FH: uterine cancer 19 MOTHER grandmother G8 SISTER Physical Exam Vital Signs Vital Signs - First Documented 03/31/21 04/01/21 21:53 01:35 Temp 36.7 Pulse 100 Resp 18 B/P (MAP) 148/69 (95) Pulse Ox 100 O2 Delivery Room Air FiO2 21 Capillary Refill : Less Than 3 Seconds Height, Weight, BMI Height: 5'2.00" Weight: 150lbs. 0.0oz. [id number]; 28.66 BMI Method:Stated General Appearance: No Apparent Distress HEENT: PERRL/EOMI Respiratory: No Accessory Muscle Use, No Respiratory Distress Cardiovascular: Regular Rate, Rhythm, No Edema Gastrointestinal: Non Tender, Soft Neurologic/Psychiatric: Alert, Oriented x3 Data Review Labs Laboratory Tests 03/31/21 22:12 04/01/21 04:08 04/01/21 11:21 Laboratory Tests 03/31/21 22:00: Glucometer 119H 03/31/21 22:12: Red Blood Count 2.58L, Hemoglobin 5.1*L, Hematocrit 19*L, Mean Corpuscular Volume 75L, Mean Corpuscular Hemoglobin 20L, Mean Corpuscular Hemoglobin Concent 26L, Red Cell Distribution Width 17.3H, Lymphocytes # (Auto) 0.9L, Carbon Dioxide Level 19L, Anion Gap 15H, Glucose Level 125H, Total Bilirubin 1.1H, Alkaline Phosphatase 176H 04/01/21 04:08: Red Blood Count 2.73L, Hemoglobin 5.9*L, Hematocrit 21L, Mean Corpuscular Volume 77L, Mean Corpuscular Hemoglobin 22L, Mean Corpuscular Hemoglobin Concent 28L, Red Cell Distribution Width 16.8H, Mean Platelet Volume 12.8H 04/01/21 10:45: Glucometer 139H 04/01/21 11:21: Hemoglobin 8.2#L, Hematocrit 27L 04/01/21 12:27: 04/01/21 15:08: Impression & Plan Impression & Plan A/P 1. Symptomatic anemia. No need for any further work up. Transfuse RBC to get her Hb above 9. She needs to have IV iron infusion every 1-2 months, unless surgeon wants to fix her hiatal hernia and chronic gastritis. 2. Protonix 40mg bid 3. Carafate 1g qid for 2 weeks. 4. f/u with me at cancer center in 2-3 weeks to see if she needs IV iron injection. She had 2 units of RBC and one dose of IV iron so far during the hospital stay. JULIO SUTHERLAND MD Apr 01, 2021 09:49
--- NOTE | 2021-04-01 10:29 | Consultation-Cardiology ---
HPI-Cardiology Cardiology Consultation: Date of Consultation 04/01/2021 Date of Admission 03/31/2021 Attending Physician Olivia Cortes MD Admitting Physician Eloina Davies MD Consulting Physician ELOINA WATERS JR, MD HPI: Time Seen by a Provider: 10:24 Chief Complaint: Reason for consultation: Chest pain. I had the pleasure of seeing Nupur in the cardiac stepdown unit this morning at [facility] in [place], [place]. She normally follows with one of my partners, Dr. Burns. She has a history of moderate coronary artery disease noted at cardiac catheterization in April,. She has not required coronary revascularization. She has a history of chronic anemia initially felt to be due to gastric ulcers in the past but now possibly due to some sort of bone marrow disorder. She follows with hematology for intermittent iron infusions and blood transfusions. She has a caregiver who helps bring her to her appointments for the iron infusions and unfortunately, she missed the last 2 iron infusions. She does get occasional, intermittent chest discomfort. However, over the past several days, the chest discomfort has been increasing in frequency, duration and severity. Yesterday she had more severe chest discomfort with radiation to both shoulders. She was very lightheaded. She became concerned and came to the emergency room for further evaluation. She does also have increased dyspnea when she gets the chest discomfort. She does not have any sublingual nitroglycerin. Because of the chest discomfort and her history, a cardiology consultation was requested. When I saw the patient in the cardiac stepdown unit she had already received 2 units of blood. She states her chest discomfort had been improving. She does have chronic dyspnea on exertion which she relates is due to her chronic obstructive pulmonary disease. She wears oxygen at night and with exertion around her house. She denies paroxysmal nocturnal dyspnea or orthopnea. Last evening when she was lightheaded she also felt her heart pounding in her chest. She denies syncope. She gets occasional, intermittent a nkle edema. She lives in her own apartment but has caregivers who are there both during the day and at night. Certain portions of this document may have been dictated utilizing voice recognition technology. Inherent to this technology, typographical and grammatical errors may exist. As much as I am diligent to identify and correct these mistakes, some errors may remain in the document. Review of Systems-Cardiology Review of Systems Other comments Review of 10 organ systems is as per the history of present illness, otherwise negative. All Other Systems Reviewed Negative Unless Noted: Yes YXR-Aejylx-Zgwyum Hx Patient Social History Smoking Status: Former Smoker 2nd Hand Smoke Exposure: Yes Have you traveled recently?: No Alcohol Use?: No Pt feels they are or have been: Yes Immunizations Up To Date Tetanus Booster (TDap): Unknown Date of Pneumonia Vaccine: Jun 02, 2014 Date of Influenza Vaccine: Mar 18, 2020 Past Medical History PMH As described under Assessment. Family Medical History Family History: FH: breast cancer in first degree relative G8 SISTER FH: multiple myeloma 19 FATHER FH: uterine cancer 19 MOTHER grandmother G8 SISTER Allergies and Home Medications Allergies Coded Allergies: Sulfa (Sulfonamide Antibiotics) (Verified Allergy, Unknown, 06/10/19) ceftriaxone (Verified Allergy, Unknown, RASH, 08/12/18) Patient Home Medication List Home Medication List Reviewed: Yes Albuterol Sulfate (Proair Hfa) 1 Puff Puff, 2 PUFF IH Q4H PRN for SHORTNESS OF BREATH, (Reported) Entered as Reported by: CLIVE MORGAN on 08/02/17 1259 Last Action: Reviewed Aspirin (Aspirin EC) 81 Mg Tablet.dr, 81 MG PO DAILY, (Reported) Entered as Reported by: BLAIR LANE on 04/28/20 1430 Last Action: Reviewed Cetirizine HCl (Cetirizine HCl) 10 Mg Tablet, 10 MG PO DAILY, (Reported) Entered as Reported by: PATRICK STARKS on 04/01/21 1210 Last Action: Reviewed Citalopram Hydrobromide (Citalopram HBr) 40 Mg Tablet, 40 MG PO 1200, (Reported) Entered as Reported by: PATRICK STARKS on 04/01/21 1210 Last Action: Reviewed Cyclobenzaprine HCl (Cyclobenzaprine HCl) 10 Mg Tablet, 10 MG PO TID PRN for MUSCLE SPASMS, (Reported) Entered as Reported by: PREMA KNOWLES on 06/12/19 1030 Last Action: Reviewed Diphenhydramine HCl (Banophen) 25 Mg Capsule, 25 MG PO HS PRN for ALLERGY SYMPTOMS/SLEEP, (Reported) Entered as Reported by: PATRICK STARKS on 04/01/21 1210 Last Action: Reviewed Docusate Sodium (Docusate Sodium) 100 Mg Capsule, 100-200 MG PO BID PRN for CONSTIPATION-1ST LINE, (Reported) Entered as Reported by: PATRICK STARKS on 04/01/211209 Last Action: Reviewed Ferrous Sulfate (Ferosul) 325 Mg Tablet, 325 MG PO BID, (Reported) Entered as Reported by: PATRICK STARKS on 04/01/211209 Last Action: Reviewed Fluticasone Propion/Salmeterol (Fluticasone-Salmeterol 250-50) 1 Each Blst.w.dev, 1 PUFF INH BID PRN for SHORTNESS OF BREATH, (Reported) Entered as Reported by: PATRICK STARKS on 04/01/211209 Last Action: Reviewed Fluticasone Propionate (Fluticasone Propionate) 16 Gm [place].susp, 1-2 SPRAY NS DAILY PRN for CONGESTION, (Reported) Entered as Reported by: PREMA KNOWLES on 06/12/19 1030 Last Action: Reviewed Furosemide (Furosemide) 40 Mg Tablet, 40 MG PO DAILY, (Reported) Entered as Reported by: BLAIR LANE on 04/28/201429 Last Action: Reviewed Gabapentin (Neurontin) 300 Mg Capsule, 300 MG PO BID, (Reported) Entered as Reported by: BLAIR LANE on 04/28/201429 Last Action: Reviewed Hydrochlorothiazide (Hydrochlorothiazide) 25 Mg Tablet, 25 MG PO DAILY, (Reported) Entered as Reported by: BLAIR LANE on 04/28/201429 Last Action: Reviewed Ipratropium/Albuterol Sulfate (Iprat-Albut 0.5-3(2.5) mg/3 ml) 3 Ml Ampul.neb, 3 ML IH QID PRN for SHORTNESS OF BREATH, (Reported) Entered as Reported by: KULWINDER PRADO on 12/30/15 1459 Last Action: Reviewed Lidocaine (Lidocaine 5% Patch) 1 Each Adh..patch, 1 PAT TOP DAILY, (Reported) Entered as Reported by: PATRICK STARKS on 04/01/211209 Last Action: Reviewed Meloxicam (Meloxicam) 7.5 Mg Tablet, 7.5 MG PO DAILY, (Reported) Entered as Reported by: BLAIR LANE on 04/28/201429 Last Action: Reviewed Metformin HCl (Metformin HCl) 500 Mg Tablet, 500 MG PO BIDAC, (Reported) Entered as Reported by: PATRICK STARKS on 04/01/21 121 Last Action: Reviewed Pantoprazole Sodium (Pantoprazole Sodium) 40 Mg Tablet.dr, 40 MG PO DAILY, (Reported) Entered as Reported by: PATRICK STARKS on 04/01/21 1210 Last Action: Reviewed Polyethylene Glycol 3350 (Miralax) 17 Gm Powd.pack, 17 GM PO DAILY PRN for CONSTIPATION-2ND LINE, (Reported) Entered as Reported by: BLAIR LANE on 04/28/20 1430 Last Action: Reviewed Potassium Chloride (Potassium Chloride) 10 Meq Capsule.er, 20 MEQ PO DAILY, (Reported) Entered as Reported by: MOOK SCHMIDT on 08/10/18 1007 Last Action: Reviewed Pramipexole Di-HCl (Mirapex) 1 Mg Tablet, 1 MG PO HS, (Reported) Entered as Reported by: BLAIR LANE on 04/28/20 1508 Last Action: Reviewed Pramipexole Di-HCl (Pramipexole Dihydrochloride) 1 Mg Tablet, 1 MG PO HS PRN for RESTLESSNESS, (Reported) Entered as Reported by: PATRICK STARKS on 04/01/211209 Last Action: Reviewed Propranolol HCl (Propranolol HCl) 40 Mg Tablet, 40 MG PO DAILY, (Reported) Entered as Reported by: CLIVE MORGAN on 08/02/17 1259 Last Action: Reviewed Propranolol HCl (Propranolol HCl) 40 Mg Tablet, 40 MG PO 1800 PRN for BLOOD PRESSURE, (Reported) Entered as Reported by: PATRICK STARKS on 04/01/211209 Last Action: Reviewed Rosuvastatin Calcium (Rosuvastatin Calcium) 10 Mg Tablet, 10 MG PO DAILY, (Reported) Entered as Reported by: BLAIR LANE on 04/28/20 1518 Last Action: Reviewed Discontinued Medications Acetaminophen with Codeine (Acetaminophen-Cod #3 Tablet) 1 Each Tablet, 1 TAB PO Q4H PRN for PAIN-MODERATE (5-7) Discontinued Reason: Duplicate Order Prescribed by: BAYRON JASMINE on 01/29/21 1143 Last Action: Discontinued Cetirizine HCl (24Hour Allergy) 10 Mg Tablet, 10 MG PO DAILY, (Reported) Discontinued Reason: Duplicate Order Entered as Reported by: PREMA KNOWLES on 06/12/19 1030 Last Action: Discontinued Citalopram Hydrobromide (Celexa) 40 Mg Tablet, 40 MG PO DAILY, (Reported) Discontinued Reason: Duplicate Order Entered as Reported by: BLAIR LANE on 04/28/20 1430 Last Action: Discontinued Clotrimazole/Betamethasone Dip (Clotrimazole-Betamethasone Crm) 15 Gm Cream..g., 1 APPLIC TP BID, (Reported) Discontinued Reason: No Longer Taking Entered as Reported by: BLAIR LANE on 04/28/20 1434 Last Action: Discontinued Docusate Sodium (Docusate Sodium) 100 Mg Tablet, 100 MG PO DAILY PRN for CONSTIPATION-1ST LINE, (Reported) Discontinued Reason: Duplicate Order Entered as Reported by: BLAIR LANE on 04/28/20 143 Last Action: Discontinued Ferrous Sulfate (Ferrous Sulfate) 325 Mg Tablet, 325 MG PO BID, (Reported) Discontinued Reason: Duplicate Order Entered as Reported by: CLIVE MORGAN on 08/02/17 1259 Last Action: Discontinued Fluticasone/Salmeterol (Advair Hfa 115-21 Mcg Inhaler) 12 Gm [place].aer.ad, 2 PUFF IH BID, (Reported) Discontinued Reason: Duplicate Order Entered as Reported by: BLAIR LANE on 04/28/20 143 Last Action: Discontinued Metformin HCl (Glucophage) 500 Mg Tablet, 500 MG PO BID Discontinued Reason: Duplicate Order Prescribed by: CONNOR BURNS on 04/28/20 1528 Last Action: Discontinued Montelukast Sodium (Montelukast Sodium) 10 Mg Tablet, 10 MG PO DAILY, (Reported) Discontinued Reason: No Longer Taking Entered as Reported by: PREMA KNOWLES on 06/12/19 1030 Last Action: Discontinued Ondansetron HCl (Ondansetron HCl) 8 Mg Tablet, 8 MG PO TID PRN for NAUSEA/VOMITING-1ST LINE, (Reported) Discontinued Reason: No Longer Taking Entered as Reported by: BLAIR LANE on 04/28/20 1430 Last Action: Discontinued Pantoprazole Sodium (Protonix) 40 Mg Tablet.dr, 40 MG PO DAILY, (Reported) Discontinued Reason: Duplicate Order Entered as Reported by: BLAIR LANE on 04/28/20 1430 Last Action: Discontinued Exam Vital Signs Vital Signs Date Time Temp Pulse Resp B/P (MAP) Pulse Ox O2 Delivery O2 Flow Rate FiO2 04/01/21 12:35 70 04/01/21 11:34 36.4 14 111/97 (102) 98 Room Air 04/01/21 01:35 21 Physical Exam General: Alert. No acute distress. Well nourished and appears stated age. Eye: Extraocular movements are intact. Conjunctivae are clear. There are no xanthelasma. HENT: Normocephalic. Atraumatic. Carotid pulsations 2/2 without bruits. Neck: Jugular venous pressure does not appear elevated. No thyromegaly appreciated. Respiratory: Lungs are clear to auscultation but with mildly decreased breath sounds. Respirations are non-labored. Breath sounds are equal. Symmetrical chest wall expansion. Cardiovascular: Normal rate. Regular rhythm. No murmur. No gallop. Point of maximal impulse is not appear displaced. Good pulses equal in all extremities. No edema. Gastrointestinal: Soft. Normal bowel sounds. Skin: Skin turgor is normal. There is no pallor. Musculoskeletal: No kyphosis or scoliosis appreciated. Neurologic: Alert and oriented to person, place, time. Cranial nerves 3-12 appear grossly intact. The patient has good motor tone strength in the upper and lower extremities bilaterally. Psychiatric: Cooperative. Appropriate mood & affect. Labs Laboratory Tests Test 03/31/21 22:00 03/31/21 22:12 04/01/21 04:08 04/01/21 10:45 Range/Units Glucometer 119 H 139 H 70-110 MG/DL White Blood Count 5.8 5.7 4.3-11.0 10^3/uL Red Blood Count 2.58 L 2.73 L 3.80-5.11 10^6/uL Hemoglobin 5.1 *L 5.9 *L 11.5-16.0 g/dL Hematocrit 19 *L 21 L 35-52 % Mean Corpuscular Volume 75 L 77 L 80-99 fL Mean Corpuscular Hemoglobin 20 L 22 L 25-34 pg Mean Corpuscular Hemoglobin Concent 26 L 28 L 32-36 g/dL Red Cell Distribution Width 17.3 H 16.8 H 10.0-14.5 % Platelet Count 256 217 130-400 10^3/uL Mean Platelet Volume 12.2 12.8 H 9.0-12.2 fL Immature Granulocyte % (Auto) 0 0 % Neutrophils (%) (Auto) 74 71 42-75 % Lymphocytes (%) (Auto) 16 19 12-44 % Monocytes (%) (Auto) 7 7 0-12 % Eosinophils (%) (Auto) 2 3 0-10 % Basophils (%) (Auto) 1 1 0-10 % Neutrophils # (Auto) 4.3 4.1 1.8-7.8 10^3/uL Lymphocytes # (Auto) 0.9 L 1.1 1.0-4.0 10^3/uL Monocytes # (Auto) 0.4 0.4 0.0-1.0 10^3/uL Eosinophils # (Auto) 0.1 0.2 0.0-0.3 10^3/uL Basophils # (Auto) 0.0 0.0 0.0-0.1 10^3/uL Immature Granulocyte # (Auto) 0.0 0.0 0.0-0.1 10^3/uL Sodium Level 140 135-145 MMOL/L Potassium Level 3.6 3.6-5.0 MMOL/L Chloride Level 106 98-107 MMOL/L Carbon Dioxide Level 19 L 21-32 MMOL/L Anion Gap 15 H 5-14 MMOL/L Blood Urea Nitrogen 9 7-18 MG/DL Creatinine 0.85 0.60-1.30 MG/DL Estimat Glomerular Filtration Rate 67 BUN/Creatinine Ratio 11 Glucose Level 125 H 70-105 MG/DL Calcium Level 9.4 8.5-10.1 MG/DL Corrected Calcium 9.5 8.5-10.1 MG/DL Total Bilirubin 1.1 H 0.1-1.0 MG/DL Aspartate Amino Transf (AST/SGOT) 14 5-34 U/L Alanine Aminotransferase (ALT/SGPT) 13 0-55 U/L Alkaline Phosphatase 176 H 40-136 U/L Total Creatine Kinase 40 29-168 U/L Troponin I < 0.028 < 0.028 <0.028 NG/ML Total Protein 7.5 6.4-8.2 GM/DL Albumin 3.9 3.2-4.5 GM/DL Test 04/01/21 11:21 04/01/21 12:27 Range/Units Hemoglobin 8.2 #L 11.5-16.0 g/dL Hematocrit 27 L 35-52 % Lab Scanned Report Transfusion Reaction Form [id number] Radiology CARDIAC CATHETERIZATION (04/28/2020): 1.Mildly elevated left ventricular end-diastolic pressure. 2.Mild to moderate coronary artery disease involving the ostium of the left main coronary artery, mid left anterior descending coronary artery and ostium and mid segments of the right coronary artery. REGADENOSON NUCLEAR STRESS TEST (03/31/2020): 1. Patient tolerated Lexiscan well 2. Mild ischemia involving the mid to apical inferior wall with mild reversibility 3. Normal left ventricular size, EF 74%. ECHOCARDIOGRAM (03/31/2020): 1. Normal left ventricular chamber size, wall thickness and systolic function with an estimated ejection fraction of 55-65%. 2. Grade 1 diastolic dysfunction. 3. The left atrium is mildly dilated at 4.7 cm. 4. The estimated pulmonary artery systolic pressure is 30-35 mmHg. ECG Impression ECG Comment Electrocardiogram obtained in the ER on 03/31/2021 shows sinus rhythm with nonspecific ST changes. Diagnosis/Problems Diagnosis/Problems (1) Coronary artery disease with unstable angina pectoris Assessment & Plan: She has known coronary artery disease as outlined above but nothing severe enough to warrant revascularization. However, when she gets severe anemia, suspect she gets some demand ischemia. Fortunately, she does not have any ischemic changes on her electrocardiogram and her troponin levels have been negative. She is on aspirin and beta-tricia at home. I will add a low- dose of long-acting nitrates. I will also prescribe short acting nitroglycerin to take as needed. She should continue on her statin medication. There are no indications for cardiac catheterization at this time. (2) Primary hypertension Assessment & Plan: Resume outpatient antihypertensive medication. (3) Mixed hyperlipidemia Assessment & Plan: Continue statin medication. (4) Anemia Status: Acute Assessment & Plan: She needs to make sure she has her follow-up appointments with hematology for the iron infusions. Otherwise, she will keep developing severe anemia and may require hospitalization again in the future. Given the extent of her anemia, I would avoid dual antiplatelet therapy if possible. (5) Type 2 diabetes mellitus with complication Assessment & Plan: This is being managed by the hospitalist. (6) Overweight Assessment & Plan: She needs to work on weight loss. Problem Qualifiers (1) Anemia: Anemia type: unspecified type Qualified Codes: D64.9 - Anemia, unspecified ELOINA WATERS JR, MD Apr 01, 2021 10:29
[2021-04-01] MEDS ORDERED: ISOSORBIDE MONONITRATE 30 MG (IMDUR) TAB PO ONE (10:30)
[2021-04-01] MEDS ORDERED: NITROGLYCERIN 0.4 MG SL TABS BTL 25'S SL PRN (10:30)
[2021-04-01 11:29] LABS: HEMOGLOBIN 8.2 g/dL (11.5-16.0)
[2021-04-01] MEDS ORDERED: RT-ALBUTEROL SULF 2.5 MG/3 ML PRE-MIX VIAL IH PRN (11:45)
[2021-04-01] MEDS ORDERED: IRON DEXTRAN INJECTION 1,000 MG in NS (IVPB) 250 ML IV ONE (11:45)
[2021-04-01] MEDS ORDERED: HYDROCORTISONE 100 MG/2 ML (Solu-CORTEF) VIAL IV PRN (11:45)
[2021-04-01] MEDS ORDERED: EPINEPHrine INJECTION 1 MG/ML AMP IM PRN (11:45)
[2021-04-01] MEDS ORDERED: diphenhydrAMINE 50 MG/ML INJ (BENADRYL) IV PRN (11:45)
[2021-04-01] MEDS ORDERED: IRON DEXTRAN INJECTION 25 MG in NS (IVPB) 5.75 ML IV ONE (11:45)
[2021-04-01] MEDS ORDERED: PRAM1TAB5 PO (12:10)
[2021-04-01] MEDS ORDERED: DIPH-958 PO (12:10)
[2021-04-01] MEDS ORDERED: DOCU100C37 PO (12:10)
[2021-04-01] MEDS ORDERED: METF-397 PO (12:10)
[2021-04-01] MEDS ORDERED: LIDO700A45 TOP (12:10)
[2021-04-01] MEDS ORDERED: CETI10TA17 PO (12:10)
[2021-04-01] MEDS ORDERED: FERR325T24 PO (12:10)
[2021-04-01] MEDS ORDERED: PROP40TA5 PO (12:10)
[2021-04-01] MEDS ORDERED: FLUT1BLS12 INH (12:10)
[2021-04-01] MEDS ORDERED: PANT40TA52 PO (12:10)
[2021-04-01] MEDS ORDERED: CITA40TA11 PO (12:10)
[2021-04-01] MEDS ORDERED: ISOS30TA82 PO (12:50)
[2021-04-01] MEDS ORDERED: NITR0.4T42 SL (12:50)
[2021-04-01] MEDS: RT-ALBUTEROL/IPRATROPIUM 3 ML (DUONEB) VIAL INH SCH ×2 (13:55→21:20)
[2021-04-01] MEDS: GABAPENTIN 300 MG (NEURONTIN) CAP PO SCH (21:00)
[2021-04-02] VITALS (16 sets, daily range): BP systolic 107–142; BP diastolic 52–80
[2021-04-02 05:09] LABS: HEMATOCRIT 30 % (35-52); HEMOGLOBIN 9.2 g/dL (11.5-16.0); MEAN CORPUSCULAR HEMOGLOBIN 24 pg (25-34); MEAN CORPUSCULAR HGB CONC 31 g/dL (32-36); MEAN CORPUSCULAR VOLUME 78 fL (80-99); MEAN PLATELET VOLUME 11.7 fL (9.0-12.2); PLATELET COUNT 195 10^3/uL (130-400); WHITE BLOOD COUNT 8.4 10^3/uL (4.3-11.0)
[2021-04-02 05:20] LABS: ALBUMIN 3.3 GM/DL (3.2-4.5)
[2021-04-02 05:21] LABS: POTASSIUM 3.3 MMOL/L (3.6-5.0)
[2021-04-02 05:22] LABS: CALCIUM 9.2 MG/DL (8.5-10.1)
[2021-04-02] MEDS: fentaNYL INJ 100 MCG/2 ML AMP IV PRN ×5 (05:22→19:53)
[2021-04-02 05:23] LABS: TOTAL PROTEIN 6.3 GM/DL (6.4-8.2)
[2021-04-02 05:25] LABS: BILIRUBIN,TOTAL 2.8 MG/DL (0.1-1.0)
[2021-04-02 05:27] LABS: CREATININE SERUM 0.96 MG/DL (0.60-1.30)
[2021-04-02] MEDS: ONDANSETRON 4 MG/2 ML (SDV) Z0FRAN IVP PRN ×3 (05:57→18:26)
[2021-04-02] MEDS ORDERED: PROMETHAZINE INJ 25 MG/ML (PHENERGAN) AMP IM PRN (06:00)
[2021-04-02] MEDS: KCL 20 MEQ TAB (K-DUR) PO SCH (06:56)
[2021-04-02] MEDS: PANTOPRAZOLE 40 MG (PROTONIX) TAB PO SCH (06:56)
[2021-04-02] MEDS: CATHETER FLUSH 10 ML SYR IV SCH ×3 (06:59→22:00)
[2021-04-02] MEDS: RT-ALBUTEROL/IPRATROPIUM 3 ML (DUONEB) VIAL INH SCH ×2 (07:51→20:50)
[2021-04-02] MEDS: ISOSORBIDE MONONITRATE 30 MG (IMDUR) TAB PO SCH (08:37)
[2021-04-02] MEDS: metFORMIN 500 MG (GLUCOPHAGE) TAB PO SCH ×2 (08:37→17:41)
[2021-04-02] MEDS: PROPRANOLOL 20 MG (INDERAL) TABLET PO SCH ×2 (08:37→21:47)
[2021-04-02] MEDS: ASPIRIN E.C. 81 MG (ECOTRIN) TAB PO SCH (08:37)
[2021-04-02] MEDS: GABAPENTIN 300 MG (NEURONTIN) CAP PO SCH ×2 (08:37→23:53)
[2021-04-02] MEDS: FUROSEMIDE 40 MG/4 ML INJ (LASIX) IV SCH (08:37)
--- NOTE | 2021-04-02 08:57 | Cardiology Progress Note ---
Progress Note-Cardiology Events since last exam Date Seen by Provider: Apr 02, 2021 Time Seen by Provider: 08:56 Events since last exam I am seeing her for chest pain. Since starting isosorbide mononitrate yeste rday, her chest discomfort has improved but not completely resolved. She denies dyspnea, palpitations, syncope, or ankle edema. She is complaining of some nausea as well as cramps in her feet and legs. Certain portions of this document may have been dictated utilizing voice recognition technology. Inherent to this technology, typographical and grammatical errors may exist. As much as I am diligent to identify and correct these mistakes, some errors may remain in the document. Vitals Last set of Vitals Signs Vital Signs 04/01/21 04/02/21 04/02/21 01:35 08:33 08:34 Temp 36.4 Pulse 67 Resp 16 B/P (MAP) 130/63 (85) Pulse Ox 95 O2 Delivery Room Air FiO2 21 Labs Labs Laboratory Tests 04/01/21 11:21 04/02/21 04:59 Exam Vital Signs Vital Signs Date Time Temp Pulse Resp B/P (MAP) Pulse Ox O2 Delivery O2 Flow Rate FiO2 04/02/21 08:34 36.4 04/02/21 08:33 67 16 130/63 (85) 95 Room Air 04/01/21 01:35 21 Physical Exam General: Alert. No acute distress. Eye: No xanthelasma. HENT: Normocephalic. Neck: Jugular venous pressure does not appear elevated. Respiratory: Lungs are clear to auscultation. Respirations are non-labored. Breath sounds are equal. Symmetrical chest wall expansion. Cardiovascular: Normal rate. Regular rhythm. No murmur. No gallop. No edema. Gastrointestinal: Soft. Normal bowel sounds. Skin: Warm. Dry. Neurologic: Alert and oriented to person, place, time. Cranial nerves 3-11 grossly intact. Psychiatric: Cooperative. Appropriate mood & affect. Labs Laboratory Tests Test 04/01/21 10:45 04/01/21 11:21 04/01/21 12:27 04/01/21 15:08 Range/Units Glucometer 139 H 92 70-110 MG/DL Hemoglobin 8.2 #L 11.5-16.0 g/dL Hematocrit 27 L 35-52 % Lab Scanned Report Transfusion Reaction Form [id number] Test 04/02/21 04:59 04/02/21 06:26 Range/Units White Blood Count 8.4 4.3-11.0 10^3/uL Red Blood Count 3.81 3.80-5.11 10^6/uL Hemoglobin 9.2 L 11.5-16.0 g/dL Hematocrit 30 L 35-52 % Mean Corpuscular Volume 78 L 80-99 fL Mean Corpuscular Hemoglobin 24 L 25-34 pg Mean Corpuscular Hemoglobin Concent 31 L 32-36 g/dL Red Cell Distribution Width 16.9 H 10.0-14.5 % Platelet Count 195 130-400 10^3/uL Mean Platelet Volume 11.7 9.0-12.2 fL Sodium Level 139 135-145 MMOL/L Potassium Level 3.3 L 3.6-5.0 MMOL/L Chloride Level 102 98-107 MMOL/L Carbon Dioxide Level 23 21-32 MMOL/L Anion Gap 14 5-14 MMOL/L Blood Urea Nitrogen 14 7-18 MG/DL Creatinine 0.96 0.60-1.30 MG/DL Estimat Glomerular Filtration Rate 58 BUN/Creatinine Ratio 15 Glucose Level 92 70-105 MG/DL Calcium Level 9.2 8.5-10.1 MG/DL Corrected Calcium 9.8 8.5-10.1 MG/DL Total Bilirubin 2.8 H 0.1-1.0 MG/DL Aspartate Amino Transf (AST/SGOT) 11 5-34 U/L Alanine Aminotransferase (ALT/SGPT) 6 0-55 U/L Alkaline Phosphatase 154 H 40-136 U/L Total Protein 6.3 L 6.4-8.2 GM/DL Albumin 3.3 3.2-4.5 GM/DL Glucometer 101 70-110 MG/DL Diagnosis/Problems Diagnosis/Problems (1) Coronary artery disease with unstable angina pectoris Assessment & Plan: She has known coronary artery disease as outlined above but nothing severe enough to warrant revascularization. However, when she gets severe anemia, suspect she gets some demand ischemia. Her chest pain has improved with long-acting nitroglycerin. She should continue on aspirin, beta- tricia, and statin medication. There are no indications for cardiac catheterization at this time. I sent a prescription for the isosorbide mononitrate and short acting sublingual nitroglycerin to her pharmacy. From a cardiac standpoint, she can be discharged home once her noncardiac issues are improved. (2) Primary hypertension Assessment & Plan: Blood pressures are well controlled on propranolol which she was taking at home. (3) Mixed hyperlipidemia Assessment & Plan: Continue statin medication. (4) Acute kidney injury superimposed on chronic kidney disease Assessment & Plan: Her renal function declined slightly overnight. This may have been related to the IV furosemide. (5) Anemia Status: Acute Assessment & Plan: She needs to make sure she has her follow-up appointments with hematology for the iron infusions. Otherwise, she will keep developing severe anemia and may require hospitalization again in the future. Given the extent of her anemia, I would avoid dual antiplatelet therapy if possible. She was being given IV furosemide with the blood transfusions. Hemoglobin is now up to 9. I will change the IV furosemide back over to once daily oral dosing when she was taking at home. (6) Type 2 diabetes mellitus with complication Assessment & Plan: This is being managed by the hospitalist. (7) Overweight Assessment & Plan: She needs to work on weight loss. Problem Qualifiers (1) Anemia: Anemia type: unspecified type Qualified Codes: D64.9 - Anemia, unspecified ELOINA WATERS JR, MD Apr 02, 2021 08:57
--- NOTE | 2021-04-02 10:29 | Progress Note - Hospitalist ---
Subjective HPI/CC On Admission Date Seen by Provider: Apr 02, 2021 Time Seen by Provider: 11:30 Subjective/Events-last exam While I was at the bedside preparing patient for DC I witnessed an evolving CVA with left sided weakness with left sided facial droop and dysarthria. I called ICU nurse and moved her to ICU. Vitals remained stable. Signs progressed confirming suspicion for CVA I called Dr Mazariegos at stroke center and since NIH score was 16 CT w/o contrast was obtained and tPa indicated since there was no contraindication. Severe anemia noted but she has had endoscopies multiple times before and no confirmed source of bleeding. Strength was 1/5 left arm and left leg and facial droop noted. CT angiogram obtaibned revealing no large thrombus which would prompt transfer to for thrombectomy tPa given and within 1 hour her left side strength was improved to 3/5 and dysarthria improved also Updated Cliff her son about events. Review of Systems Neurological: Weakness, Numbness, Incoordination, Confusion Objective Exam Vital Signs Vital Signs Date Time Temp Pulse Resp B/P (MAP) Pulse Ox O2 Delivery O2 Flow Rate FiO2 04/02/21 13:12 68 142/74 04/02/21 12:00 11 95 Room Air 04/02/21 08:34 36.4 04/01/21 01:35 21 Capillary Refill : Less Than 3 Seconds General Appearance: No Apparent Distress, WD/WN, Chronically ill Respiratory: Lungs Clear, Normal Breath Sounds Cardiovascular: Regular Rate, Rhythm Neurologic/Psychiatric: Alert, Oriented x3, Facial Droop (left), Motor Weakness (left sided 1/5) Results/Procedures Lab Laboratory Tests 04/02/21 04:59 Patient resulted labs reviewed. Assessment/Plan Assessment and Plan Assess & Plan/Chief Complaint Assessment: Acute CVA with left sided facial droop and left sided weakness which began when I was at bedside talking to patient at [address] w/o contrast negative for bleed so given tPa Severe anemia without source of bleeding on scopes receiving iron Seizure d/o TIA's in the past Fibromyalgia Chronic pain Plan: ICU tPa protocol PT OT Swallow eval Speech therapy eval Lipid Cardiology consulted Clinical Quality Measures AMI/AHF: ASA po Prior to arrival: Yes (Baby aspirin this morning) BAYRON JASMINE DO Apr 02, 2021 10:29
[2021-04-02] MEDS: NS IV 500 ML 500 ML IV SCH (10:52)
--- NOTE | 2021-04-02 11:41 | Physical Therapy Evaluation ---
PT Evaluation-General Medical Diagnosis Admission Date Mar 31, 2021 at 23:33 Medical Diagnosis: Iron deficiency anemia requiring transfusion Onset Date: Apr 01, 2021 Therapy Diagnosis Therapy Diagnosis: Gait deficit, strength deficit Height/Weight Height (Feet): 5 Height (Inches): 2.00 Weight (Pounds): 150 Weight (Ounces): 0.0 Precautions Precautions/Isolations: Fall Prevention, Standard Precautions Referral Physician: Dr. Cortes Reason for Referral: Evaluation/Treatment Medical History Pertinent Medical History: COPD, DM, HTN, Neuropathy, Smoking Reviewed History: Yes Social History Home: Apartment Current Living Status: Alone Entry Into Home: Level Entry Prior Prior Level of Function SCALE: Activities may be completed with or without assistive devices. 4-Pqkwdjdhsn-zynzphe completes the activity by him/herself with no assistance from a helper. 5-Set-up or Clean-up Assistance-helper sets up or cleans up; patient completes activity. [place] assists only prior to or following the activity. 4-Supervision or Touching Assistance-helper provides verbal cues and/or touching/steadying and/or contact guard assistance as patient completes activity. Assistance may be provided throughout the activity or intermittently. 3-Partial/Moderate Assistance-helper does LESS THAN HALF the effort. [place] lifts, holds or supports trunk or limbs, but provides less than half the effort. 2-Substantial/Maximal Assistance-helper does MORE THAN HALF the effort. [place] lifts or holds trunk or limbs and provides more than half the effort. 8-Ipkntgddn-awswhu does ALL the effort. Patient does none of the effort to complete the activity. Or, the assistance of 2 or more helpers is required for the patient to complete the activity. If activity was not attempted, code reason: 7-Patient Refused. 9-Not Applicable-not attempted and the patient did not perform the activity before the current illness, exacerbation or injury. 10-Not Attempted due to Environmental Limitations-(lack of equipment, weather restraints, etc.). 88-Not Attempted due to Medical Conditions or Safety Concerns. Bed Mobility: 6 Transfers (B,C,W/C): 6 Gait: 6 Stairs: 6 Indoor Mobility (Ambulation): Independent Stairs: Independent Prior Devices Use: Walker PT Evaluation-Current Objective Patient Orientation: Person, Place, Time, Situation Attachments: Oxygen, Broderick Catheter, IV ROM/Strength ROM Lower Extremities WFLs bilaterally all planes Strength Lower Extremities 3+/5 Grossly bilaterally Sensory Vision: Wears Glasses Hearing: Functional Sensation Right Lower Extremit: Intact Sensation Left Lower Extremity: Intact Transfers Sit to Stand (QC): 4 Chair/Zkc-my-Xgjag Xfer(QC): 4 Toilet Transfer (QC): 4 Gait Does the Patient Walk?: Yes Mode of Locomotion: Walk Anticipated Mode of Locomotion: Walk Walk 10 feet (QC): 4 Walk 50 ft with 2 Turns(QC): 4 Distance: 80 feet Gait Assistive Device: FWW Wheelchair Training Does the Pt Use a Wheelchair?: No Balance Sitting Static: Good Sitting Dynamic: Good Standing Static: Fair Standing Dynamic: Fair Assessment/Needs Patient sitting in chair upon PT arrival, agreeable to treatment. Patient tolerated treatment well. Demonstrates transfers with CGA and verbal cues for safety. Patient ambulates 80 feet with FWW, with CGA and verbal cues for safety, progression, balance, posture. Patient in chair post treatment with all needs met, nursing notified, call light in hand. Rehab Potential: Good PT Ui Architect Goals Fdc Goals PT Fdc Goals Time Frame: Apr 16, 2021 Roll Left & Right (QC): 6 Sit to Lying (QC): 6 Lying-Sitting on Side/Bed(QC): 6 Sit to Stand (QC): 6 Chair/Emi-ba-Cwrrm Xfer(QC): 6 Toilet Transfer (QC): 6 Car Transfer (QC): 6 Does the Patient Walk: Yes Walk 10 feet (QC): 6 Walk 50ft with 2 Turns (QC): 6 Walk 150 ft (QC): 6 PT Plan Problem List Problem List: Activity Tolerance, Functional Strength, Safety, Balance, Gait, Transfer, Bed Mobility, ROM Treatment/Plan Treatment Plan: Continue Plan of Care Treatment Plan: Bed Mobility, Education, Functional Activity Lesia, Functional Strength, Group Therapy, Gait, Safety, Therapeutic Exercise, Transfers Treatment Duration: May 11, 2021 Frequency: 6 times per week Estimated Hrs Per Day: .25 hour per day Safety Risks/Education Patient Education: Gait Training, Transfer Techniques Teaching Recipient: Patient Teaching Methods: Demonstration, Discussion Response to Teaching: Verbalize Understanding, Return Demonstration Discharge Recommendations Target Placement Home with previous Home health. Time/GCodes Time In: 955 Time Out: 1010 Total Billed Treatment Time: 15 Total Billed Treatment Visit, AILEEN Barcenas PT Apr 02, 2021 11:41
[2021-04-02] MEDS ORDERED: TENECTEPLASE 50 MG VIAL IV ONE (12:00)
[2021-04-02] MEDS ORDERED: HOLD METFORMIN - RECEIVED CONTRAST 20 ML VIAL IV SCH (12:45)
[2021-04-02] MEDS ORDERED: IOHEXOL 350 MG/ML 100 ML (OMNIPAQUE 350) VIAL IV ONE (12:45)
[2021-04-02] MEDS ORDERED: NS 100 ML (IVPB) BAG IV ONE (12:45)
--- NOTE | 2021-04-02 13:03 | Diagnostic Imaging Report ---
PROCEDURE: CT head wo r/o stroke. TECHNIQUE: Multiple contiguous axial images were obtained through the brain without the use of intravenous contrast. Auto Exposure Controls were utilized during the CT exam to meet ALARA standards for radiation dose reduction. DATE: April 02, 2021. COMPARISON: CT head July 22, 2015. MRI brain December 25, 2014. INDICATION: 66-year-old female, left-sided facial droop. FINDINGS: There is a focal area of hyperdensity in the region of the third ventricle measuring 4 mm in size which is new since comparison exam. The ventricles and cerebral spinal fluid spaces are of normal size and configuration for the patient's age. There is no mass effect or midline shift. There is no abnormal extra-axial fluid collection. The visualized portions of the paranasal sinuses, mastoid air cells and middle ears are well aerated. IMPRESSION: 1. Hyperdense focus in the region of the third ventricle measuring 4 mm in size which may relate to a small colloid cyst. 2. No hyperdense vessel sign. 3. No definite acute intracranial abnormality. Dictated by: Dictated on workstation # [id number]
--- NOTE | 2021-04-02 13:17 | Diagnostic Imaging Report ---
PROCEDURE: CT angiography of the head and CT angiography of the neck with and without contrast. TECHNIQUE: Contiguous noncontrast images were obtained from the skull base through the vertex. After intravenous contrast administration, helical CT angiography of the neck was performed. Source data was reformatted into 3D MIP projections. Delayed post contrast acquisition was also obtained. Auto Exposure Controls were utilized during the CT exam to meet ALARA standards for radiation dose reduction. Date: April 02, 2021. Indication: 66-year-old female, left facial droop. Comparison: CT head without contrast April 02, 2021. Findings: The left common carotid artery is patent. There are calcifications of the left common carotid artery and at the proximal aspect of the left internal carotid artery. The left internal carotid artery is patent. There are calcifications of the cavernous segment of the left internal carotid artery. The left middle cerebral artery is patent. The left anterior cerebral artery is patent. The right anterior cerebral artery is patent. The right middle cerebral artery is patent. There are calcifications of the cavernous segment of the right internal carotid artery. There is calcified plaque at the level of proximal aspect of the right internal carotid artery with approximately 50% stenosis of the proximal aspect of the right internal carotid artery. The right common carotid artery is patent. The left vertebral artery is conventional in origin. The basilar artery is patent. The right and left posterior inferior cerebellar arteries are patent. The right and left posterior cerebral arteries are patent. The right vertebral artery is patent and conventional in origin. There are findings of emphysema in the upper lobes. There is no identified acute bony abnormality. There is no abnormal identified intracranial enhancement. Impression: 1. Patent arterial head and neck vasculature without large vessel occlusion, dissection, or aneurysm. 2. Approximately 50% stenosis of the proximal aspect of the right internal carotid artery. 3. Hyperdense focus near the third ventricle may reflect a colloid cyst. Dictated by: Dictated on workstation # [id number]
[2021-04-02 13:59] LABS: TRIGLYCERIDES 122 MG/DL (<150); VLDL CHOLESTEROL 24 MG/DL (5-40)
[2021-04-02 14:04] LABS: CHOLESTEROL 150 MG/DL (< 200)
[2021-04-02 14:05] LABS: HDL CHOLESTEROL 31 MG/DL (40-60)
--- NOTE | 2021-04-02 14:32 | Tele-ICU Progress Note ---
Progress Note 66 y/o female admitted for w/u of sever anemia. Developed left facial droop and dysathria. CThead negative tPa given Angio negative for thrombus. PLAN monitor in ICU for evolving stoke or complications of a bleed Focused Exam Height, Weight, BMI Height: 5'2.00" Weight: 150lbs. 0.0oz. 68.812190ni; 28.66 BMI Method:Stated Laboratory Tests 04/02/21 04:59 WAN ESCALANTE MD Apr 02, 2021 14:32
[2021-04-02] MEDS ORDERED: NS IV 1000 ML 1,000 ML IV ONE (18:15)
[2021-04-02] MEDS ORDERED: POTASSIUM CL 10MEQ/50ML IVPB 50 ML IV ONE (18:17)
[2021-04-02] MEDS ORDERED: NS IV 1000 ML 1,000 ML ONE (18:17)
[2021-04-02] MEDS: POTASSIUM CL 10MEQ/50ML IVPB 50 ML IV SCH ×4 (18:21→23:53)
[2021-04-02] MEDS ORDERED: GABAPENTIN 600 MG (NEURONTIN) TAB PO ONE (19:00)
[2021-04-02] MEDS ORDERED: POTASSIUM CL 10MEQ/50ML IVPB 150 ML IV ONE (19:45)
[2021-04-02] MEDS: oxyCODONE/APAP 5/325MG (PERCOCET 5) TABLET PO PRN (21:48)
[2021-04-03] VITALS (13 sets, daily range): BP systolic 93–137; BP diastolic 50–90
[2021-04-03] MEDS: NS IV 500 ML 500 ML IV SCH (03:23)
[2021-04-03] MEDS: fentaNYL INJ 100 MCG/2 ML AMP IV PRN ×2 (03:23→07:31)
[2021-04-03] MEDS ORDERED: MAGNESIUM 1 GM/100 ML IVPB 100 ML IV SCH (06:00)
[2021-04-03] MEDS ORDERED: KCL 20 MEQ TAB (K-DUR) PO SCH (06:00)
[2021-04-03] MEDS ORDERED: POTASSIUM CL 10MEQ/50ML IVPB 50 ML IV SCH (06:00)
--- NOTE | 2021-04-03 06:40 | Progress Note - Hospitalist ---
Subjective HPI/CC On Admission Date Seen by Provider: Apr 03, 2021 Time Seen by Provider: 13:00 Subjective/Events-last exam Patient dramatically improved NIH score of 6 down from 16 before TPA Transferring to floor Blood sugars checked Checking labs in the morning TPA protocol PT and OT and speech therapy will be consulted Review of Systems General: Fatigue, Malaise Neurological: Weakness Objective Exam Vital Signs Vital Signs Date Time Temp Pulse Resp B/P (MAP) Pulse Ox O2 Delivery O2 Flow Rate FiO2 04/04/21 04:43 36.4 70 20 162/72 (102) 91 Nasal Cannula 0.50 04/01/21 01:35 21 Capillary Refill : Less Than 3 Seconds General Appearance: No Apparent Distress, WD/WN, Chronically ill Respiratory: Lungs Clear, Normal Breath Sounds Cardiovascular: Regular Rate, Rhythm Neurologic/Psychiatric: Alert, Oriented x3, Normal Mood/Affect, Facial Droop (left), Motor Weakness (left sided weakness 4/5) Results/Procedures Lab Laboratory Tests 04/03/21 13:11 Patient resulted labs reviewed. Assessment/Plan Assessment and Plan Assess & Plan/Chief Complaint Assessment: Acute CVA with left sided facial droop and left sided weakness which began when I was at bedside talking to patient at [address] w/o contrast negative for bleed so given tPa Severe anemia without source of bleeding on scopes receiving iron Seizure d/o TIA's in the past Fibromyalgia Chronic pain Plan: ICU tPa protocol PT OT Swallow eval Speech therapy eval Lipid Cardiology consulted 04/03/21: s/p tPA PT OT IRF? Move to floor Clinical Quality Measures AMI/AHF: ASA po Prior to arrival: Yes (Baby aspirin this morning) BAYRON JASMINE DO Apr 03, 2021 06:40
[2021-04-03] MEDS: CATHETER FLUSH 10 ML SYR IV SCH ×3 (06:54→22:20)
[2021-04-03] MEDS: PANTOPRAZOLE 40 MG (PROTONIX) TAB PO SCH (07:18)
[2021-04-03] MEDS: KCL 20 MEQ TAB (K-DUR) PO SCH (07:18)
[2021-04-03] MEDS: oxyCODONE/APAP 5/325MG (PERCOCET 5) TABLET PO PRN ×4 (07:18→19:50)
[2021-04-03] MEDS: GABAPENTIN 300 MG (NEURONTIN) CAP PO SCH ×2 (08:05→20:32)
[2021-04-03] MEDS: FUROSEMIDE 40 MG (LASIX) TAB PO SCH (08:05)
[2021-04-03] MEDS: ISOSORBIDE MONONITRATE 30 MG (IMDUR) TAB PO SCH (08:05)
[2021-04-03] MEDS: PROPRANOLOL 20 MG (INDERAL) TABLET PO SCH (08:05)
[2021-04-03] MEDS: metFORMIN 500 MG (GLUCOPHAGE) TAB PO SCH (08:05)
--- NOTE | 2021-04-03 08:40 | Tele-ICU Progress Note ---
Progress Note TeleICU Pt originally admitted with chest pain and severe anemia Hgb 5.1- followed for anemia and scoped in past without source of bleeding, except gastritis. Heme Onc has also done a bone marrow to exclude myelodysplasia. Transfused to Hgb 9.2. Cardiology consult notes pt has CAD but not significant enough for intervention. - angina deemed demand ischemia. While in hospital yesterday had Stroke symptoms witnessed by primary attending, and was treated with TNK. No evidence of bleeding suggested since TNK, neuro symptoms improved and pt is on PO diet. AM labs pending, VS stable. Focused Exam Height, Weight, BMI Height: 5'2.00" Weight: 150lbs. 0.0oz. 68.056438ls; 28.66 BMI Method:Stated KENJI WONG DO Apr 03, 2021 08:40
[2021-04-03] MEDS: ASPIRIN E.C. 81 MG (ECOTRIN) TAB PO SCH (08:42)
[2021-04-03] MEDS: RT-ALBUTEROL/IPRATROPIUM 3 ML (DUONEB) VIAL INH SCH (09:27)
--- NOTE | 2021-04-03 09:48 | Cardiology Progress Note ---
Progress Note-Cardiology Events since last exam Date Seen by Provider: Apr 03, 2021 Time Seen by Provider: 09:45 Events since last exam I have been following her for chest pain in the setting of known mild-moderate coronary artery disease. She presented to the hospital with chest pain and severe, recurrent anemia. After I saw the patient yesterday, the hospitalist was speaking with the patient and she suddenly developed left facial droop, dysarthria and left-sided weakness. She underwent a stat head CT which did not show any evidence of hemorrhage. She was subsequently administered TPA and transferred to the intensive care unit. Her left arm and leg are still weak. The left facial droop is improving but not completely resolved. She still has some dysarthria and expressive aphasia. She denies any further chest pain. She denies dyspnea at rest, palpitations, syncope, or ankle edema. Certain portions of this document may have been dictated utilizing voice recognition technology. Inherent to this technology, typographical and grammatical errors may exist. As much as I am diligent to identify and correct these mistakes, some errors may remain in the document. Vitals Last set of Vitals Signs Vital Signs 04/01/21 04/03/21 04/03/21 04/03/21 04/03/21 01:35 07:25 08:00 08:59 09:29 Temp 36.5 Pulse 59 Resp 22 B/P (MAP) 122/61 (81) Pulse Ox 91 O2 Delivery Nasal Cannula O2 Flow Rate 1.00 FiO2 21 Exam Vital Signs Vital Signs Date Time Temp Pulse Resp B/P (MAP) Pulse Ox O2 Delivery O2 Flow Rate FiO2 04/03/21 09:29 91 Nasal Cannula 04/03/21 08:59 1.00 04/03/21 08:00 59 22 122/61 (81) 04/03/21 07:25 36.5 04/01/21 01:35 21 Physical Exam General: Alert. No acute distress. Slight left facial droop. Dysarthria and some degree of expressive aphasia. Eye: No xanthelasma. HENT: Normocephalic. Neck: Jugular venous pressure does not appear elevated. Respiratory: Lungs have some scattered wheezes. Respirations are non-labored. Breath sounds are equal. Symmetrical chest wall expansion. Cardiovascular: Normal rate. Regular rhythm. No murmur. No gallop. Trace bilateral pretibial edema. Gastrointestinal: Soft. Normal bowel sounds. Skin: Warm. Dry. Neurologic: Alert and oriented to person, place, time. Cranial nerves 3-11 grossly intact. Left upper and lower extremity weakness. She can raise her arm and leg a small distance of the bed. As above, slight left facial droop. Dysarthria and mild expressive aphasia. Psychiatric: Cooperative. Appropriate mood & affect. Labs Laboratory Tests Test 04/02/21 11:22 04/02/21 13:17 04/02/21 16:10 Range/Units Glucometer 149 H 120 H 89 70-110 MG/DL Diagnosis/Problems Diagnosis/Problems (1) Coronary artery disease with unstable angina pectoris Assessment & Plan: She has known coronary artery disease as outlined above but nothing severe enough to warrant revascularization. However, when she gets severe anemia, I suspect she gets some demand ischemia. Her chest pain has improved with long-acting nitroglycerin. She should continue on aspirin, beta- tricia, and statin medication. There are no indications for cardiac catheterization at this time. I sent a prescription for the isosorbide mononitrate and short acting sublingual nitroglycerin to her pharmacy. (2) Acute cerebrovascular accident Assessment & Plan: She was given TPA and her symptoms are gradually improving. She had been on aspirin. I will resume her rosuvastatin but will double the dose. She had a CTA of the head that did not show any large or moderate size vessel occlusion. She will likely need a MRI of the brain tomorrow. She will ultimately need to start clopidogrel but I would probably hold off until tomorrow since she was just administered TPA yesterday. We will need to watch her hemoglobin very closely. (3) Primary hypertension Assessment & Plan: Blood pressures are well controlled on propranolol which she was taking at home. We need to avoid excessive drops in the blood pressure given her acute stroke. (4) Mixed hyperlipidemia Assessment & Plan: As above, in light of the acute stroke, I will double her dose of rosuvastatin. (5) Acute kidney injury superimposed on chronic kidney disease Assessment & Plan: Her renal function had declined on 1016. This may have been related to the IV furosemide. The IV furosemide has been discontinued and she is now on oral furosemide. I have ordered a follow-up metabolic panel for this morning. (6) Anemia Status: Acute Assessment & Plan: She has now been given TPA due to an acute stroke. I will obtain a follow-up blood count this morning. She will need to make sure she is compliant with her follow-up appointments with hematology for the iron infusions following discharge. Otherwise, she will keep developing severe anemia and may require hospitalization again in the future. I had previously suggested avoiding dual antiplatelet therapy. However, given her acute stroke, we may need to consider starting her on clopidogrel after an appropriate wait time following the administration of TPA on . (7) Type 2 diabetes mellitus with complication Assessment & Plan: This is being managed by the hospitalist. (8) Overweight Assessment & Plan: She needs to work on weight loss. Problem Qualifiers (1) Anemia: Anemia type: unspecified type Qualified Codes: D64.9 - Anemia, unspecified ELOINA WATERS JR, MD Apr 03, 2021 09:48
[2021-04-03] MEDS ORDERED: DOCUSATE SODIUM 100 MG (COLACE) CAP PO PRN (11:45)
[2021-04-03] MEDS ORDERED: RT-ALBUTEROL/IPRATROPIUM 3 ML (DUONEB) VIAL IH PRN (11:45)
[2021-04-03] MEDS ORDERED: RT-ALBUTEROL SULF 2.5 MG/3 ML PRE-MIX VIAL IH PRN (11:45)
[2021-04-03] MEDS ORDERED: polyethylene glycoL POWDER 17 GM (MIRALAX) PACK PO PRN (11:45)
[2021-04-03] MEDS ORDERED: FLUTICASONE NASAL SPRAY (FLONASE) 16 GM BTL NS PRN (11:45)
[2021-04-03] MEDS ORDERED: CYCLOBENZAPRINE 10 MG (FLEXERIL) TAB PO PRN (12:00)
[2021-04-03] MEDS ORDERED: PRAMIPEXOLE 0.5 MG TAB (MIRAPEX) PO PRN (12:15)
[2021-04-03] MEDS ORDERED: PROPRANOLOL 20 MG (INDERAL) TABLET PO PRN (12:15)
[2021-04-03] MEDS ORDERED: RT--FLUTICASONE/SALMETEROL 113-14 (AIRDUO RespiCLICK) IH PRN (12:15)
[2021-04-03] MEDS ORDERED: diphenhydrAMINE 25 MG TAB (BENADRYL) PO PRN (12:15)
[2021-04-03 14:02] LABS: BASOPHILS # (AUTO) 0.1 10^3/uL (0.0-0.1); BASOPHILS % (AUTO) 1 % (0-10); EOSINOPHILS # (AUTO) 0.4 10^3/uL (0.0-0.3); EOSINOPHILS % (AUTO) 4 % (0-10); HEMATOCRIT 36 % (35-52); HEMOGLOBIN 10.6 g/dL (11.5-16.0); LYMPHOCYTES % (AUTO) 10 % (12-44); MEAN CORPUSCULAR HEMOGLOBIN 24 pg (25-34); MEAN CORPUSCULAR HGB CONC 30 g/dL (32-36); MEAN CORPUSCULAR VOLUME 81 fL (80-99); MEAN PLATELET VOLUME 12.1 fL (9.0-12.2); MONOCYTES # (AUTO) 0.5 10^3/uL (0.0-1.0); MONOCYTES % (AUTO) 5 % (0-12); NEUTROPHILS # (AUTO) 7.8 10^3/uL (1.8-7.8); NEUTROPHILS % (AUTO) 79 % (42-75); PLATELET COUNT 268 10^3/uL (130-400); WHITE BLOOD COUNT 9.9 10^3/uL (4.3-11.0)
[2021-04-03 14:15] LABS: ALBUMIN 3.9 GM/DL (3.2-4.5); BILIRUBIN,TOTAL 2.6 MG/DL (0.1-1.0); CALCIUM 10.1 MG/DL (8.5-10.1); CREATININE SERUM 1.45 MG/DL (0.60-1.30); MAGNESIUM 2.1 MG/DL (1.6-2.4); PHOSPHORUS 4.1 MG/DL (2.3-4.7); POTASSIUM 4.2 MMOL/L (3.6-5.0); TOTAL PROTEIN 7.7 GM/DL (6.4-8.2)
--- NOTE | 2021-04-03 14:40 | Diagnostic Imaging Report ---
PROCEDURE: CT head without contrast. TECHNIQUE: Multiple contiguous axial images were obtained through the brain without the use of intravenous contrast. Auto Exposure Controls were utilized during the CT exam to meet ALARA standards for radiation dose reduction. INDICATION: Left facial droop. COMPARISON: CTA head and neck from 04/02/2021. CT head without contrast from 07/22/2015. FINDINGS: 0.4 cm focus of hyperattenuation in the foramen of Monro remains stable compared to 04/02/2021. No evidence of hydronephrosis. No extra-axial fluid collections. No CT evidence of a territorial infarction. Moderate generalized parenchymal volume loss is age appropriate. Intracranial vascular calcifications. Osseous structures are intact. Paranasal sinuses and mastoids are clear. IMPRESSION: 1. Stable noncontrast head CT. No acute findings. 2. Stable 0.4 cm hyperattenuated region in the foramen of Monro most likely represents a benign colloid cyst. No hydrocephalus. Dictated by: Dictated on workstation # [id number]
[2021-04-03] MEDS ORDERED: metFORMIN 500 MG (GLUCOPHAGE) TAB PO SCH (16:00)
[2021-04-03] MEDS: FERROUS SULF 325 MG (IRON) TAB PO SCH (20:32)
[2021-04-03] MEDS: PRAMIPEXOLE 0.5 MG TAB (MIRAPEX) PO SCH (20:33)
[2021-04-03] MEDS ORDERED: ROSUVASTATIN 20 MG (CRESTOR) TABLET PO SCH (21:00)
[2021-04-03] MEDS ORDERED: GABAPENTIN 300 MG (NEURONTIN) CAP PO SCH (21:00)
[2021-04-04 00:18] VITALS: BP 110/67
[2021-04-04] MEDS: ONDANSETRON 4 MG/2 ML (SDV) Z0FRAN IVP PRN (03:57)
[2021-04-04 04:43] VITALS: BP 162/72
[2021-04-04 05:51] LABS: BASOPHILS # (AUTO) 0.1 10^3/uL (0.0-0.1); BASOPHILS % (AUTO) 1 % (0-10); EOSINOPHILS # (AUTO) 0.2 10^3/uL (0.0-0.3); EOSINOPHILS % (AUTO) 2 % (0-10); HEMATOCRIT 35 % (35-52); HEMOGLOBIN 10.5 g/dL (11.5-16.0); LYMPHOCYTES # (AUTO) 0.9 10^3/uL (1.0-4.0); LYMPHOCYTES % (AUTO) 10 % (12-44); MEAN CORPUSCULAR HEMOGLOBIN 24 pg (25-34); MEAN CORPUSCULAR HGB CONC 30 g/dL (32-36); MEAN CORPUSCULAR VOLUME 80 fL (80-99); MEAN PLATELET VOLUME 12.6 fL (9.0-12.2); MONOCYTES # (AUTO) 0.5 10^3/uL (0.0-1.0); MONOCYTES % (AUTO) 5 % (0-12); NEUTROPHILS # (AUTO) 7.1 10^3/uL (1.8-7.8); NEUTROPHILS % (AUTO) 81 % (42-75); PLATELET COUNT 236 10^3/uL (130-400); WHITE BLOOD COUNT 8.8 10^3/uL (4.3-11.0)
[2021-04-04 06:07] LABS: ALBUMIN 3.8 GM/DL (3.2-4.5)
[2021-04-04 06:08] LABS: POTASSIUM 3.9 MMOL/L (3.6-5.0)
[2021-04-04 06:09] LABS: CALCIUM 9.8 MG/DL (8.5-10.1)
[2021-04-04 06:10] LABS: TOTAL PROTEIN 7.2 GM/DL (6.4-8.2)
[2021-04-04 06:12] LABS: BILIRUBIN,TOTAL 1.7 MG/DL (0.1-1.0)
[2021-04-04 06:14] LABS: CREATININE SERUM 1.03 MG/DL (0.60-1.30)
[2021-04-04] MEDS: CATHETER FLUSH 10 ML SYR IV SCH ×3 (06:25→22:25)
[2021-04-04 08:04] VITALS: BP 141/97
[2021-04-04] MEDS ORDERED: ASPIRIN E.C. 81 MG (ECOTRIN) TAB PO SCH (09:00)
[2021-04-04] MEDS ORDERED: FUROSEMIDE 40 MG (LASIX) TAB PO SCH (09:00)
[2021-04-04] MEDS ORDERED: PANTOPRAZOLE 40 MG (PROTONIX) TAB PO SCH (09:00)
[2021-04-04] MEDS: KCL 20 MEQ TAB (K-DUR) PO SCH (09:17)
[2021-04-04] MEDS: LORATADINE (CLARITIN) 10 MG TAB PO SCH (09:17)
[2021-04-04] MEDS: PANTOPRAZOLE 40 MG (PROTONIX) TAB PO SCH (09:17)
[2021-04-04] MEDS: ROSUVASTATIN 10 MG (CRESTOR) TABLET PO SCH (09:17)
[2021-04-04] MEDS: ISOSORBIDE MONONITRATE 30 MG (IMDUR) TAB PO SCH (09:18)
[2021-04-04] MEDS: MELOXICAM 7.5 MG (MOBIC) TABLET PO SCH (09:18)
[2021-04-04] MEDS: FUROSEMIDE 40 MG (LASIX) TAB PO SCH (09:18)
[2021-04-04] MEDS: PROPRANOLOL 20 MG (INDERAL) TABLET PO SCH (09:18)
[2021-04-04] MEDS: FERROUS SULF 325 MG (IRON) TAB PO SCH ×2 (09:18→20:44)
[2021-04-04] MEDS: ASPIRIN E.C. 81 MG (ECOTRIN) TAB PO SCH (09:18)
[2021-04-04] MEDS: GABAPENTIN 300 MG (NEURONTIN) CAP PO SCH ×2 (09:19→23:51)
[2021-04-04] MEDS: LIDOCAINE 4% (SALONPAS) PATCH TOP SCH (09:19)
--- NOTE | 2021-04-04 09:44 | Physical Therapy Progress Note ---
Therapy Progress Note s/p CVA with TPA 04/03/21. PT to resume 04/05/21 due to 24-48 hour PT protocol to initiate treatment after TPA to to increase risk factors. Patient on Hold. MATTHEW CANO PT Apr 04, 2021 09:44
[2021-04-04] MEDS: oxyCODONE/APAP 5/325MG (PERCOCET 5) TABLET PO PRN ×4 (09:46→23:51)
--- NOTE | 2021-04-04 10:49 | Occ Therapy Progress Note ---
Therapy Progress Note pt s/p TPA due to CVA 04/03/21. Due to pt being within the 24-48 hours window of receiving TPA, OT will initate tx 04/05/21 after TPA due to increased risk factors. Pt on hold this date. JAMES WOOD OT Apr 04, 2021 10:49
[2021-04-04 12:00] VITALS: BP 130/63
--- NOTE | 2021-04-04 12:15 | Diagnostic Imaging Report ---
PROCEDURE: MR imaging of the brain without contrast. TECHNIQUE: Multiplanar, multisequence MR imaging of the brain was performed without contrast. INDICATION: Left-sided weakness Comparison is made with a prior study from 12/25/2014. The ventricles are normal in size, shape and position. There is no acute parenchymal hemorrhage, edema or mass. There is no extra-axial mass or hemorrhage. IMPRESSION: No acute abnormality is seen with no change from 12/25/2014. Dictated by: Dictated on workstation # [id number]
--- NOTE | 2021-04-04 13:14 | Progress Note - Hospitalist ---
KHALIDA LOWRY 04/04/21 1314: Subjective HPI/CC On Admission Date Seen by Provider: Apr 04, 2021 Time Seen by Provider: 08:20 CC: chronic REJI: weak, in pain, SOB, nausea, swollen legs, chest pain; CVA while inpatient Subjective/Events-last exam Pt lethargic, falling asleep while speaking Nurse reports she is refusing medications; has only had 1 percocet today Pt reports pain (carl in neck) 02/25, requesting fentanyl from nurse Very nauseous Reports balance issues on left side Had a bowel movement yesterday morning Head CT showed no acute findings; possible benign colloid cyst CT Angio showed the R ICA 50% stenosed Review of Systems General: Fatigue, Malaise Musculoskeletal: other (generalized pain), neck pain Focused Exam Respiratory: No Accessory Muscle Use, No Respiratory Distress Cardiovascular: Bradycardia (reported by ICU), Extra Beats (reported by ICU) Skin: normal color Objective Exam Vital Signs Vital Signs Date Time Temp Pulse Resp B/P (MAP) Pulse Ox O2 Delivery O2 Flow Rate FiO2 04/04/21 09:00 Nasal Cannula 0.50 04/04/21 08:23 98 04/04/21 08:04 36.2 70 18 141/97 (112) 04/01/21 01:35 21 Capillary Refill : Less Than 3 Seconds Respiratory: No Accessory Muscle Use, No Respiratory Distress Cardiovascular: Bradycardia (reported by ICU), Extra Beats (PVCs/PACs reported by ICU) Neurologic/Psychiatric: Motor Weakness (left side) Skin: Normal Color Results/Procedures Lab Laboratory Tests 04/03/21 13:11 04/04/21 05:28 Patient resulted labs reviewed. Assessment/Plan Assessment and Plan Assess & Plan/Chief Complaint Assessment: Acute CVA with left sided facial droop and left sided weakness (was given tPA) Severe anemia without source of bleeding on scopes receiving iron Seizure d/o TIA's in the past BLOSSOM/CKD Fibromyalgia/Chronic pain T2DM (Gluc 121) HTN (141/97) Plan: MRI done- no acute abnormalities or changes since previous MRI Carotid US- awaiting results EKG- at 10:45 reported normal sinus rhythm, minimal lateral lead ST depression ICU tele- at 12:55 reported short QRS, HR 40's, PVCs and PACs; Dr. Powell notified Consult cardiology about new reports Rosuvastatin doubled following CVA; HLD control Continue ferrous sulfate as needed Continue propranolol as needed for HTN Continue oral furosemide for kidney fxn Encourage medication compliance PT/OT on hold until tomorrow (due to tPA risk factors) Clinical Quality Measures AMI/AHF: ASA po Prior to arrival: Yes (Baby aspirin this morning) QUEENEI POWELL DO 04/05/21 0603: Subjective Subjective/Events-last exam MRI ordered Carotid USG ordered Patient with flat affect Review of Systems General: Fatigue, Malaise Objective Exam General Appearance: No Apparent Distress, WD/WN, Chronically ill Respiratory: Lungs Clear Cardiovascular: Regular Rate, Rhythm Neurologic/Psychiatric: Alert, Oriented x3, No Motor/Sensory Deficits, Normal Mood/Affect, Disoriented, Motor Weakness (left side) Assessment/Plan Assessment and Plan Assess & Plan/Chief Complaint MRI PT OT [facility] Cardiology consultation Supervisory-Addendum Brief Verification & Attestation Participated in pt care: history, MDM, physical Personally performed: exam, history, MDM, supervision of care Care discussed with: Medical Student Procedures: n/a Results interpretation: Verified all documentation Verification and Attestation of Medical Student E/M Service A medical student performed and documented this service in my presence. I reviewed and verified all information documented by the medical student and made modifications to such information, when appropriate. I personally performed the physical exam and medical decision making. Queenie Powell, Apr 05, 2021,06:03 KHALIDA LOWRY Apr 04, 2021 13:14 QUEENIE POWELL DO Apr 05, 2021 06:03
--- NOTE | 2021-04-04 13:33 | Diagnostic Imaging Report ---
PROCEDURE: US carotid duplex, bilateral. TECHNIQUE: Multiple real-time grayscale images were obtained over the carotid arteries in various projections, bilaterally. Additional spectral analysis and color Doppler duplex images were also obtained. INDICATION: Left-sided weakness. COMPARISON: None available. FINDINGS: Right carotid circulation: The right common carotid artery is normal in caliber, and there is no significant stenosis. Peak systolic velocity in the right common carotid artery is 94 cm/sec. There is a small amount of atherosclerotic plaque in the carotid bulb and proximal internal carotid artery, which results in less than 50% luminal narrowing by lao scale imaging. The peak systolic velocity in the proximal internal carotid artery is 122 cm/sec. Proximal aspect of the external carotid artery is patent with expected high resistance waveforms, and peak systolic velocity of 386 cm/sec indicative of high-grade stenosis Left carotid circulation: The left common carotid artery is normal in caliber, and there is no significant stenosis. Peak systolic velocity in the left common carotid artery is 135 cm/sec. There is a small amount of atherosclerotic plaque in the carotid bulb and proximal internal carotid artery, which results in less than 50% luminal narrowing by lao scale imaging. The peak systolic velocity in the proximal internal carotid artery is 119 cm/sec. Proximal aspect of the external carotid artery is patent with expected high resistance waveforms, and peak systolic velocity of 123 cm/sec. Vertebral arteries: Flow in the bilateral vertebral arteries is antegrade. IMPRESSION: 1. Less than 50% stenosis of the bilateral proximal internal carotid arteries due to atherosclerotic plaquing. 2. Patent vertebral arteries with antegrade flow. 3. Severe stenosis at the origin of the right ECA. Parameters based on the consensus panel Lao-Scale and Doppler ultrasound criteria published April 2003, Radiology, Volume 229. DOPPLER (peak systolic velocity M/S Right Left CCA .94 1.35 ICA Proximal 1.14 1.24 ICA Mid 1.22 1.14 ICA Distal .97 1.19 RATIO .80 .9 ECA 3.86 1.23 VERT .81 .65 Dictated by: Dictated on workstation # [id number]
--- NOTE | 2021-04-04 14:26 | Progress Note ---
Progress Note Assessment/Plan Date Seen by Provider: Apr 04, 2021 Time Seen by Provider: 14:24 Events since last exam Hb is over 10 without transfusion. Pt can be discharged from hematology point of view. See me at the [facility] for CBC and iron study and to decide IV iron infusion Assessment/Plan A/P 1. Symptomatic anemia. No need for any further work up. Transfuse RBC to get her Hb above 9. She needs to have IV iron infusion every 1-2 months, unless surgeon wants to fix her hiatal hernia and chronic gastritis. 2. Protonix 40mg bid 3. Carafate 1g qid for 2 weeks. 4. f/u with me at [facility] in 1-2 month to see if she needs IV iron injecti on. She had 2 units of RBC and one dose of IV iron so far during the hospital stay. Vitals Last set of Vitals Signs Vital Signs Date Time Temp Pulse Resp B/P (MAP) Pulse Ox O2 Delivery O2 Flow Rate FiO2 04/04/21 13:00 65 04/04/21 09:00 Nasal Cannula 0.50 04/04/21 08:23 98 04/04/21 08:04 36.2 18 141/97 (112) 04/01/21 01:35 21 I&O I&O Intake and Output 04/04/21 00:00 Intake Total 1210 ml Output Total 2240 ml Balance -1030 ml Intake Oral 1160 ml IV Total 50 ml Output Urine Total 2240 ml # Voids 1 Labs Laboratory Tests 04/03/21 15:30: Glucometer 128H 04/03/21 21:17: Glucometer 108 04/04/21 05:28: Glucometer 129H, White Blood Count 8.8, Red Blood Count 4.34, Hemoglobin 10.5L, Hematocrit 35, Mean Corpuscular Volume 80, Mean Corpuscular Hemoglobin 24L, Mean Corpuscular Hemoglobin Concent 30L, Red Cell Distribution Width 19.5H, Platelet Count 236, Mean Platelet Volume 12.6H, Immature Granulocyte % (Auto) 1, Neutrophils (%) (Auto) 81H, Lymphocytes (%) (Auto) 10L, Monocytes (%) (Auto) 5, Eosinophils (%) (Auto) 2, Basophils (%) (Auto) 1, Neutrophils # (Auto) 7.1, Lymphocytes # (Auto) 0.9L, Monocytes # (Auto) 0.5, Eosinophils # (Auto) 0.2, Basophils # (Auto) 0.1, Immature Granulocyte # (Auto) 0.1, Sodium Level 132L, Potassium Level 3.9, Chloride Level 95L, Carbon Dioxide Level 26, Anion Gap 11, Blood Urea Nitrogen 19H, Creatinine 1.03, Estimat Glomerular Filtration Rate 54, BUN/Creatinine Ratio 18, Glucose Level 122H, Calcium Level 9.8, Corrected Calcium 10.0, Magnesium Level 2.1, Total Bilirubin 1.7H, Aspartate Amino Transf (AST/SGOT) 18, Alanine Aminotransferase (ALT/SGPT) 11, Alkaline Phosphatase 161H , Total Protein 7.2, Albumin 3.8 04/04/21 11:04: Glucometer 121H Microbiology 04/02/21 MRSA Screen - Final, Complete MRSA not isolated Clinical Quality Measures AMI/AHF: ASA po Prior to arrival: Yes (Baby aspirin this morning) JULIO SUTHERLAND MD Apr 04, 2021 14:26
[2021-04-04 15:17] VITALS: BP 133/61
[2021-04-04] MEDS: metFORMIN 500 MG (GLUCOPHAGE) TAB PO SCH (18:39)
[2021-04-04 19:31] VITALS: BP 164/65
--- NOTE | 2021-04-04 19:51 | Cardiology Progress Note ---
Progress Note-Cardiology Events since last exam Date Seen by Provider: Apr 04, 2021 Time Seen by Provider: 19:48 Events since last exam I am following her due to chest pain and now cerebrovascular accident. Her left arm and leg are still weak but improving. Left facial droop has nearly completely resolved. This morning she had nausea and did not want to take her medications. The nurse contacted me and told me the patient was not being cooperative. Now the patient is upset. She denies chest pain, dyspnea, palpitations, syncope, or ankle edema. Vitals Last set of Vitals Signs Vital Signs 04/01/21 04/04/21 01:35 19:31 Temp 37.0 Pulse 73 Resp 18 B/P (MAP) 164/65 (98) Pulse Ox 91 O2 Delivery Nasal Cannula O2 Flow Rate 0.50 FiO2 21 Labs Labs Laboratory Tests 04/04/21 05:28 Exam Vital Signs Vital Signs Date Time Temp Pulse Resp B/P (MAP) Pulse Ox O2 Delivery O2 Flow Rate FiO2 04/04/21 19:31 37.0 73 18 164/65 (98) 91 Nasal Cannula 0.50 04/01/21 01:35 21 Physical Exam General: Alert. No acute distress. Eye: No xanthelasma. HENT: Normocephalic. Left-sided facial droop almost completely resolved. Neck: Jugular venous pressure does not appear elevated. Respiratory: Lungs are clear to auscultation. Respirations are non-labored. Breath sounds are equal. Symmetrical chest wall expansion. Cardiovascular: Normal rate. Regular rhythm. No murmur. No gallop. Trace bilateral pretibial edema. Gastrointestinal: Soft. Normal bowel sounds. Skin: Warm. Dry. Neurologic: Alert and oriented to person, place, time. Cranial nerves 3-11 grossly intact. Left-sided weakness but improving. Psychiatric: Cooperative. Appropriate mood & affect. Labs Laboratory Tests Test 04/03/21 21:17 04/04/21 05:28 04/04/21 11:04 04/04/21 15:15 Range/Units Glucometer 108 129 H 121 H 139 H 70-110 MG/DL White Blood Count 8.8 4.3-11.0 10^3/uL Red Blood Count 4.34 3.80-5.11 10^6/uL Hemoglobin 10.5 L 11.5-16.0 g/dL Hematocrit 35 35-52 % Mean Corpuscular Volume 80 80-99 fL Mean Corpuscular Hemoglobin 24 L 25-34 pg Mean Corpuscular Hemoglobin Concent 30 L 32-36 g/dL Red Cell Distribution Width 19.5 H 10.0-14.5 % Platelet Count 236 130-400 10^3/uL Mean Platelet Volume 12.6 H 9.0-12.2 fL Immature Granulocyte % (Auto) 1 % Neutrophils (%) (Auto) 81 H 42-75 % Lymphocytes (%) (Auto) 10 L 12-44 % Monocytes (%) (Auto) 5 0-12 % Eosinophils (%) (Auto) 2 0-10 % Basophils (%) (Auto) 1 0-10 % Neutrophils # (Auto) 7.1 1.8-7.8 10^3/uL Lymphocytes # (Auto) 0.9 L 1.0-4.0 10^3/uL Monocytes # (Auto) 0.5 0.0-1.0 10^3/uL Eosinophils # (Auto) 0.2 0.0-0.3 10^3/uL Basophils # (Auto) 0.1 0.0-0.1 10^3/uL Immature Granulocyte # (Auto) 0.1 0.0-0.1 10^3/uL Sodium Level 132 L 135-145 MMOL/L Potassium Level 3.9 3.6-5.0 MMOL/L Chloride Level 95 L 98-107 MMOL/L Carbon Dioxide Level 26 21-32 MMOL/L Anion Gap 11 5-14 MMOL/L Blood Urea Nitrogen 19 H 7-18 MG/DL Creatinine 1.03 0.60-1.30 MG/DL Estimat Glomerular Filtration Rate 54 BUN/Creatinine Ratio 18 Glucose Level 122 H 70-105 MG/DL Calcium Level 9.8 8.5-10.1 MG/DL Corrected Calcium 10.0 8.5-10.1 MG/DL Magnesium Level 2.1 1.6-2.4 MG/DL Total Bilirubin 1.7 H 0.1-1.0 MG/DL Aspartate Amino Transf (AST/SGOT) 18 5-34 U/L Alanine Aminotransferase (ALT/SGPT) 11 0-55 U/L Alkaline Phosphatase 161 H 40-136 U/L Total Protein 7.2 6.4-8.2 GM/DL Albumin 3.8 3.2-4.5 GM/DL Diagnosis/Problems Diagnosis/Problems (1) Coronary artery disease with unstable angina pectoris Assessment & Plan: She has known coronary artery disease as outlined above but nothing severe enough to warrant revascularization. However, when she gets severe anemia, I suspect she gets some demand ischemia. Her chest pain has resolved with long-acting nitroglycerin. She should continue on aspirin, beta- tricia, and statin medication. There are no indications for cardiac catheterization at this time. I sent a prescription for the isosorbide mononitrate and short acting sublingual nitroglycerin to her pharmacy. (2) Acute cerebrovascular accident Assessment & Plan: She was given TPA on 04/02 and her symptoms continue to i mprove. She had been on aspirin. I had doubled the dose of rosuvastatin but this has now been changed back to her previous dose. She had a CTA of the head that did not show any large or moderate size vessel occlusion. We may want to consider starting clopidogrel in the near future. We will need to watch her hemoglobin very closely. (3) Primary hypertension Assessment & Plan: Blood pressures have been intermittently elevated today but she has been upset. She should continue on propranolol which she was taking at home. We need to avoid excessive drops in the blood pressure given her acute stroke. (4) Mixed hyperlipidemia Assessment & Plan: As above, in light of the acute stroke, I doubled her dose of rosuvastatin on 04/03 but she is now back on her previous dose. Given that her cholesterol level is under good control, this is not unreasonable. (5) Acute kidney injury superimposed on chronic kidney disease Assessment & Plan: Her renal function had declined on 04/02. This may have been related to the IV furosemide she received. The IV furosemide has been discontinued and she is now on oral furosemide. Her creatinine has improved. (6) Anemia Status: Acute Assessment & Plan: She has now been given TPA due to an acute stroke. She will need to make sure she is compliant with her follow-up appointments with hematology for the iron infusions following discharge. Otherwise, she will keep developing severe anemia and may require hospitalization again in the future. I had previously suggested avoiding dual antiplatelet therapy. However, given her acute stroke, we may need to consider starting her on clopidogrel after an appropriate wait time following the administration of TPA on 04/02. (7) Type 2 diabetes mellitus with complication Assessment & Plan: This is being managed by the hospitalist. (8) Overweight Assessment & Plan: She needs to work on weight loss. Problem Qualifiers (1) Anemia: Anemia type: unspecified type Qualified Codes: D64.9 - Anemia, unspecified ELOINA WATERS JR, MD Apr 04, 2021 19:51
[2021-04-04] MEDS: PRAMIPEXOLE 0.5 MG TAB (MIRAPEX) PO SCH (23:51)
[2021-04-05 00:06] VITALS: BP 138/64
[2021-04-05 04:10] VITALS: BP 145/65
[2021-04-05] MEDS: oxyCODONE/APAP 5/325MG (PERCOCET 5) TABLET PO PRN ×4 (04:18→21:09)
[2021-04-05 06:07] LABS: HEMOGLOBIN 10.2 g/dL (11.5-16.0); MEAN CORPUSCULAR HEMOGLOBIN 25 pg (25-34); MONOCYTES % (AUTO) 6 % (0-12)
[2021-04-05 06:09] LABS: BASOPHILS # (AUTO) 0.1 10^3/uL (0.0-0.1); BASOPHILS % (AUTO) 1 % (0-10); EOSINOPHILS # (AUTO) 0.2 10^3/uL (0.0-0.3); EOSINOPHILS % (AUTO) 2 % (0-10); HEMATOCRIT 34 % (35-52); LYMPHOCYTES # (AUTO) 0.8 10^3/uL (1.0-4.0); LYMPHOCYTES % (AUTO) 12 % (12-44); MEAN CORPUSCULAR HGB CONC 30 g/dL (32-36); MEAN CORPUSCULAR VOLUME 81 fL (80-99); MEAN PLATELET VOLUME 12.6 fL (9.0-12.2); MONOCYTES # (AUTO) 0.4 10^3/uL (0.0-1.0); NEUTROPHILS # (AUTO) 5.2 10^3/uL (1.8-7.8); NEUTROPHILS % (AUTO) 79 % (42-75); PLATELET COUNT 208 10^3/uL (130-400); WHITE BLOOD COUNT 6.6 10^3/uL (4.3-11.0)
[2021-04-05] MEDS: CATHETER FLUSH 10 ML SYR IV SCH ×2 (06:12→11:34)
[2021-04-05] MEDS: PANTOPRAZOLE 40 MG (PROTONIX) TAB PO SCH (06:13)
[2021-04-05] MEDS: KCL 20 MEQ TAB (K-DUR) PO SCH (06:13)
[2021-04-05 06:18] LABS: ALBUMIN 3.7 GM/DL (3.2-4.5); POTASSIUM 4.1 MMOL/L (3.6-5.0)
[2021-04-05 06:19] LABS: CALCIUM 9.5 MG/DL (8.5-10.1)
[2021-04-05 06:21] LABS: TOTAL PROTEIN 7.1 GM/DL (6.4-8.2)
[2021-04-05 06:22] LABS: BILIRUBIN,TOTAL 1.2 MG/DL (0.1-1.0)
[2021-04-05 06:24] LABS: CREATININE SERUM 0.81 MG/DL (0.60-1.30)
[2021-04-05 07:24] VITALS: BP 130/68
[2021-04-05] MEDS: ISOSORBIDE MONONITRATE 30 MG (IMDUR) TAB PO SCH (08:30)
[2021-04-05] MEDS: MELOXICAM 7.5 MG (MOBIC) TABLET PO SCH (08:30)
[2021-04-05] MEDS: LORATADINE (CLARITIN) 10 MG TAB PO SCH (08:30)
[2021-04-05] MEDS: FUROSEMIDE 40 MG (LASIX) TAB PO SCH (08:30)
[2021-04-05] MEDS: metFORMIN 500 MG (GLUCOPHAGE) TAB PO SCH ×2 (08:31→17:05)
[2021-04-05] MEDS: ASPIRIN E.C. 81 MG (ECOTRIN) TAB PO SCH (08:32)
[2021-04-05] MEDS: GABAPENTIN 300 MG (NEURONTIN) CAP PO SCH (08:32)
[2021-04-05] MEDS: FERROUS SULF 325 MG (IRON) TAB PO SCH ×2 (08:32→21:07)
[2021-04-05] MEDS: PROPRANOLOL 20 MG (INDERAL) TABLET PO SCH (08:32)
[2021-04-05] MEDS: ROSUVASTATIN 10 MG (CRESTOR) TABLET PO SCH (08:32)
[2021-04-05] MEDS: LIDOCAINE 4% (SALONPAS) PATCH TOP SCH (08:33)
--- NOTE | 2021-04-05 09:18 | Physical Therapy Daily Note ---
PT Daily Note-Current Subjective Patient agrees to PT. Patient states her neck is sore. Patient holding head with right tilt and slight rotation Mental Status Patient Orientation: Normal For Age Attachments: Oxygen Transfers SCALE: Activities may be completed with or without assistive devices. 5-Phswuzidzm-rtgvwid completes the activity by him/herself with no assistance from a helper. 5-Set-up or Clean-up Assistance-helper sets up or cleans up; patient completes activity. [place] assists only prior to or following the activity. 4-Supervision or Touching Assistance-helper provides verbal cues and/or touching/steadying and/or contact guard assistance as patient completes activity. Assistance may be provided throughout the activity or intermittently. 3-Partial/Moderate Assistance-helper does LESS THAN HALF the effort. [place] lifts, holds or supports trunk or limbs, but provides less than half the effort. 2-Substantial/Maximal Assistance-helper does MORE THAN HALF the effort. [place] lifts or holds trunk or limbs and provides more than half the effort. 0-Wclvloedu-bqcixn does ALL the effort. Patient does none of the effort to comp lete the activity. Or, the assistance of 2 or more helpers is required for the patient to complete the activity. If activity was not attempted, code reason: 7-Patient Refused. 9-Not Applicable-not attempted and the patient did not perform the activity before the current illness, exacerbation or injury. 10-Not Attempted due to Environmental Limitations-(lack of equipment, weather restraints, etc.). 88-Not Attempted due to Medical Conditions or Safety Concerns. Lying to Sitting/Side of Bed(Q: 4 (SBA) Sit to Stand (QC): 4 (CGA) Chair/Qqz-yw-Zkbpq Xfer(QC): 4 (CGA for safety) Gait Training Does the Patient Walk?: Yes Distance: 175' Walk 10 feet (QC): 4 Walk 50 ft with 2 Turns(QC): 4 Walk 150 ft (QC): 4 Gait Assistive Device: FWW CGA for safety. slow, steady gait sequence Exercises Supine Ex: Ankle pumps, Quad Set, Heel Slides Supine Reps: 12 Seated Therapy Exercises: Ankle pumps, Long arc quads, Hip flexion Seated Reps: 12 Assessment Patient reports she is feeling better today. Patient also reports she is on 3L O2 at home. Patient currently on .5L with SAO2 94%. PT Oxygen Therapy Technician Goals Oxygen Therapy Technician Goals PT Longterm Goals Time Frame: Apr 16, 2021 Roll Left & Right (QC): 6 Sit to Lying (QC): 6 Lying-Sitting on Side/Bed(QC): 6 Sit to Stand (QC): 6 Chair/Exp-ns-Ltynp Xfer(QC): 6 Toilet Transfer (QC): 6 Car Transfer (QC): 6 Does the Patient Walk: Yes Walk 10 feet (QC): 6 Walk 50ft with 2 Turns (QC): 6 Walk 150 ft (QC): 6 PT Plan Treatment/Plan Treatment Plan: Continue Plan of Care Treatment Plan: Bed Mobility, Education, Functional Activity Lesia, Functional Strength, Group Therapy, Gait, Safety, Therapeutic Exercise, Transfers Treatment Duration: May 11, 2021 Frequency: 6 times per week Estimated Hrs Per Day: .25 hour per day Time/GCodes Time In: 735 Time Out: 758 Total Billed Treatment Time: 23 Total Billed Treatment 1 visit FA 12 min EX 11 min MATHTEW CANO PT Apr 05, 2021 09:18
[2021-04-05] MEDS: ONDANSETRON 4 MG/2 ML (SDV) Z0FRAN IVP PRN (11:34)
--- NOTE | 2021-04-05 11:37 | Occupational Therapy Eval ---
OT Evaluation-General/PLF Medical Diagnosis Admission Date Apr 02, 2021 at 11:45 Medical Diagnosis: Iron deficiency anemia requiring transfusion Onset Date: Apr 01, 2021 Therapy Diagnosis Therapy Diagnosis: decreased ADL Status Height/Weight Height (Feet): 5 Height (Inches): 2.00 Weight (Pounds): 150 Weight (Ounces): 0.0 Precautions Precautions/Isolations: Fall Prevention, Standard Precautions Referral Physician: Dr. Cortes Referral Reason: Evaluation/Treatment Medical History Pertinent Medical History: COPD, DM, HTN, Neuropathy, Smoking Current History ED due to chest pain and severe, recurrent anemia. While pt was in hospital, she developed sudden facial droop on L side, L side weakness and dysarthria. Pt administered TPA Social History Home: Apartment Current Living Status: Alone Entry Into Home: Level Entry ADL-Prior Level of Function SCALE: Activities may be completed with or without assistive devices. 8-Iqbcfseawa-lsyfbym completes the activity by him/herself with no assistance from a helper. 5-Set-up or Clean-up Assistance-helper sets up or cleans up; patient completes activity. Lillian assists only prior to or following the activity. 4-Supervision or Touching Assistance-helper provides verbal cues and/or touching/steadying and/or contact guard assistance as patient completes activ ity. Assistance may be provided throughout the activity or intermittently. 3-Partial/Moderate Assistance-helper does LESS THAN HALF the effort. Lillian lifts, holds or supports trunk or limbs, but provides less than half the effort. 2-Substantial/Maximal Assistance-helper does MORE THAN HALF the effort. Lillian lifts or holds trunk or limbs and provides more than half the effort. 9-Ifcyvzsbj-lhwcbb does ALL the effort. Patient does none of the effort to complete the activity. Or, the assistance of 2 or more helpers is required for the patient to complete the activity. If activity was not attempted, code reason: 7-Patient Refused. 9-Not Applicable-not attempted and the patient did not perform the activity before the current illness, exacerbation or injury. 10-Not Attempted due to Environmental Limitations-(lack of equipment, weather restraints, etc.). 88-Not Attempted due to Medical Conditions or Safety Concerns. ADL PLOF Comments Pt reports requiring assistance at PLOF, she has caregiver assistance throughout the night for ~8 hours every night, and she has daytime assistance 48 hours a week Sunday through Sunday. She is able to toilet herself, dress herself and shower herself for the most part, she sometimes requires assistance with tasks. With showering she needs help washing her hair and washing her back. Self Care: Needed Some Help OT Current Status Subjective Pt up in recliner, agreeable to OT Tx. Pt reported some dizziness/nausea at end of tx, nursing staff notified. Mental Status/Objective Patient Orientation: Person, Place, Situation Attachments: Oxygen Current Glasses/Contacts: Yes Dentures/Partials: Yes Hand Dominance: Right Upper Extremity ROM WFL during ADL session Upper Extremity Coordination WFL Upper Extremity Strength grossly 3+/5 ADL-Treatment Eating (QC): 6 (Pt reports IND with breakfast.) Oral Hygiene (QC): 4 (SBA-CGA standing at sink.) Toileting Hygiene (QC): 7 Other Treatments Pt seated in recliner, agreeable to OT tx. Pt's nurse states pt OK to go to bathroom without O2. Pt performed functional mobility from recliner to sink using FWW, CGA. Pt stood at sink to brush teeth, SBA-CGA. She washed her hands and washed her face with SBA. While standing at sink, pt had 1 LOB requiring CGA to correct. Pt returned to recliner using FWW, CGA. She reported nausea and slight dizziness, O2 reapplied and O2 saturation read 89%, increasing to 90% within a few seconds with cues for pursed lip breathing. OT attempted to locate blood pressure machine, but unable to locate. Nursing staff notified of pt's dizziness and request for nausea medication. Post tx, pt up in chair, call light in reach and all needs met. Education OT Patient Education: Correct positioning, Energy conservation, Exercise program, Modified ADL techniques, Rehab process Teaching Recipient: Patient Teaching Methods: Discussion Response to Teaching: Verbalize Understanding OT Halfway Goals Halfway Goals Time Frame: Apr 15, 2021 Eating (QC): 6 Oral Hygiene (QC): 4 Toileting Hygiene (QC): 4 Shower/Bathe Self (QC): 4 Upper Body Dressing (QC): 5 Lower Body Dressing (QC): 4 On/Off Footwear (QC): 4 Additional Goals: 1-Demonstrate ADL Tasks, 2-Verbalize Understanding, 3- ImproveStrength/Lesia 1=Demonstrate adherence to instructed precautions during ADL tasks. 2=Patient will verbalize/demonstrate understanding of assistive devices/modifications for ADL. 3=Patient will improve strength/tolerance for activity to enable patient to perform ADL's. OT Education/Plan Problem List/Assessment Assessment: Decreased Activ Tolerance, Decreased UE Strength, Impaired Funct Balance, Impaired I ADL's, Impaired Self-Care Skills Discharge Recommendations Plan/Recommendations: Continue POC Treatment Plan/Plan of Care Patient would benefit from OT for education, treatment and training to promote independence in ADL's, mobility, safety and/or upper extremity function for ADL's. Plan of Care: ADL Retraining, Functional Mobility, UE Funct Exercise/Act Treatment Duration: Apr 15, 2021 Frequency: 5 times per week Estimated Hrs Per Day: .25 hour per day Rehab Potential: Good Time/GCodes Start Time: 10:46 Stop Time: 11:14 Total Time Billed (hr/min): 28 Billed Treatment Time 1, EVL (10'), ADL (18') JAMES WOOD OT Apr 05, 2021 11:37
[2021-04-05 11:49] VITALS: BP 148/70
--- NOTE | 2021-04-05 13:13 | ST Dysphagia Evaluation ---
Speech Evaluation-General Medical Diagnosis Iron deficiency anemia requiring transfusion Onset Date: Apr 01, 2021 Medical History Pertinent Medical History: COPD, DM, HTN, Neuropathy, Smoking Reviewed History: Yes Social History Current Living Status: Alone Speech PLF/Current-Dysphagia Subjective pt sitting in recliner. Reports she is feeling nauseated. MESS ATTENDANT spoke with nurse, indicates she is doing fine with eating/drinking. Oral Motor Skills Ability to Follow Directions: Good Oral-Facial Assessment Oral-Facial Dentition: Normal Smile: Normal Lingual Protrusion: Normal Lingual ROM: Abnormal slowed movement Lingual Strength: Normal Volitional Dry Swallow: Yes Productive Cough: Yes Dysphagia Evaluation Consistencies Presented: Regular, Thin Liquid Dysphagia Evaluation Summary Pt presents with functional oral and pharyngeal swallow with no coughing or s/s of aspiration/penetration during intake of regular/thin consistencies. MESS ATTENDANT recommends regular diet with swallow precautions. Speech Short Term Goals Short Term Goals Short Term Goals no goals warranted at this time Speech-Plan Treatment Plan Speech Therapy Treatment Plan: Discontinue ST Frequency: Modified Program (IRF) Estimated Hrs Per Day: Other Rehab Potential: Good Time Speech Therapy Time In: 11:40 Speech Therapy Time Out: 11:55 Billed Treatment Time 1, FILOMENA 15 mins FAMILIA CARLOS Apr 05, 2021 13:13
[2021-04-05 16:08] VITALS: BP 128/65
--- NOTE | 2021-04-05 18:14 | Progress Note ---
Subjective Date Seen by a Provider: Apr 05, 2021 Time Seen by a Provider: 08:30 Subjective/Events-last exam Pt reports feeling weak and having dizzy spells Seeing double out of R eye intermittently Pain 02/25 (chronic) Had a bowel movement yesterday, peeing regularly Not eating or drinking much Requests moist heating pad for neck pain Still refusing all meds except oxycodone or taking them "spread out" throughout the day Review of Systems General: Fatigue, Malaise Musculoskeletal: other (generalized chronic pain), neck pain Neurological: Weakness (carl left side) Focused Exam Respiratory: Lungs Clear, Normal Breath Sounds Cardiovascular: Regular Rate, Rhythm, No Murmur Objective Exam Last Set of Vital Signs Vital Signs Date Time Temp Pulse Resp B/P (MAP) Pulse Ox O2 Delivery O2 Flow Rate FiO2 04/05/21 16:08 36.2 58 18 128/65 (86) 94 Nasal Cannula 0.75 04/01/21 01:35 21 Capillary Refill : Less Than 3 Seconds I&O Intake and Output 04/04/21 23:59 Intake Total 1500 ml Balance 1500 ml Intake Oral 1500 ml # Voids 4 General: Alert, Oriented X3, Mild Distress Lungs: Clear to Auscultation, Normal Air Movement Heart: Regular Rate, No Murmurs Neuro: Other (left side weakness) Psych/Mental Status: Other (flat affect) Results Lab Laboratory Tests 04/04/21 20:41: Glucometer 110 04/05/21 05:20: Glucometer 120H 04/05/21 05:45: White Blood Count 6.6, Red Blood Count 4.14, Hemoglobin 10.2L, Hematocrit 34L, Mean Corpuscular Volume 81, Mean Corpuscular Hemoglobin 25, Mean Corpuscular Hemoglobin Concent 30L, Red Cell Distribution Width 20.5H, Platelet Count 208, Mean Platelet Volume 12.6H, Immature Granulocyte % (Auto) 1, Neutrophils (%) (Auto) 79H, Lymphocytes (%) (Auto) 12, Monocytes (%) (Auto) 6, Eosinophils (%) (Auto) 2, Basophils (%) (Auto) 1, Neutrophils # (Auto) 5.2, Lymphocytes # (Auto) 0.8L, Monocytes # (Auto) 0.4, Eosinophils # (Auto) 0.2, Basophils # (Auto) 0.1, Immature Granulocyte # (Auto) 0.0, Percent Immature Platelet Fraction 9.8H, Sodium Level 132L, Potassium Level 4.1, Chloride Level 95L, Carbon Dioxide Level 26, Anion Gap 11, Blood Urea Nitrogen 16, Creatinine 0.81, Estimat Glomerular Filtration Rate 71, BUN/Creatinine Ratio 20, Glucose Level 119H, Calcium Level 9.5, Corrected Calcium 9.7, Total Bilirubin 1.2H, Aspartate Amino Transf (AST/SGOT) 26, Alanine Aminotransferase (ALT/SGPT) 12, Alkaline Phosphatase 171H , Total Protein 7.1, Albumin 3.7 04/05/21 10:54: Glucometer 133H 04/05/21 15:28: Glucometer 144H Microbiology 04/02/21 MRSA Screen - Final, Complete MRSA not isolated Clinical Quality Measures AMI/AHF: ASA po Prior to arrival: Yes (Baby aspirin this morning) KHALIDA LOWRY Apr 05, 2021 18:14
--- NOTE | 2021-04-05 18:24 | Progress Note - Hospitalist ---
KHALIDA LOWRY 04/05/21 1824: Subjective HPI/CC On Admission Date Seen by Provider: Apr 05, 2021 Time Seen by Provider: 08:30 CC: chronic REJI: weak, in pain, SOB, nausea, swollen legs, chest pain; CVA while inpatient Subjective/Events-last exam Pt reports feeling weak and having dizzy spells Seeing double out of R eye intermittently Pain 02/25 (chronic) Had a bowel movement yesterday, urinating regularly Not eating or drinking much Requests moist heating pad for neck pain Still refusing all meds except oxycodone; or taking them "in little bits" throughout the day Review of Systems General: Fatigue, Malaise Musculoskeletal: other (generalized chronic pain), neck pain Neurological: Weakness (carl left side) Focused Exam Respiratory: Lungs Clear, Normal Breath Sounds Cardiovascular: Regular Rate, Rhythm, No Murmur Objective Exam Vital Signs Vital Signs Date Time Temp Pulse Resp B/P (MAP) Pulse Ox O2 Delivery O2 Flow Rate FiO2 04/05/21 16:08 36.2 58 18 128/65 (86) 94 Nasal Cannula 0.75 04/01/21 01:35 21 Capillary Refill : Less Than 3 Seconds General Appearance: Mild Distress Respiratory: Lungs Clear, Normal Breath Sounds Cardiovascular: Regular Rate, Rhythm, No Murmur Neurologic/Psychiatric: Alert, Oriented x3, Depressed Affect (flat affect), Facial Droop (left side), Motor Weakness (left side) Results/Procedures Lab Laboratory Tests 04/05/21 05:45 Patient resulted labs reviewed. 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 ECA Appreciate cardiology's consult, recommends continuing medications; no cardiac cath needed at this time Continue Rosuvastatin for HLD control Appreciate hematology's consult; pt's Hgb>10 w/o transfusion; may be D/C Continue propranolol as needed for HTN Continue oral furosemide for kidney fxn Moist heating pad for neck pain Encourage medication compliance PT/OT in progress Possible D/C tomorrow Clinical Quality Measures AMI/AHF: ASA po Prior to arrival: Yes (Baby aspirin this morning) QUEENIE JASMINE DO 04/06/21 0635: Subjective Subjective/Events-last exam Patient doing well since CVA s/p tPA MRI showed no evidence of CVA likely due to tpa given within 30 minutes of signs of CVA Will DC home with [employer] workers Review of Systems General: Fatigue, Malaise Objective Exam General Appearance: No Apparent Distress, WD/WN Respiratory: Lungs Clear, Normal Breath Sounds Cardiovascular: Regular Rate, Rhythm Neurologic/Psychiatric: Alert, Oriented x3, No Motor/Sensory Deficits, Depressed Affect (flat affect) Assessment/Plan Assessment and Plan Assess & Plan/Chief Complaint No residual from CVA s/p tpa given within 30 min of signs of CVA Supervisory-Addendum Brief Verification & Attestation Participated in pt care: history, MDM, physical Personally performed: exam, history, MDM, supervision of care Care discussed with: Medical Student Procedures: n/a Results interpretation: Verified all documentation Verification and Attestation of Medical Student E/M Service A medical student performed and documented this service in my presence. I reviewed and verified all information documented by the medical student and made modifications to such information, when appropriate. I personally performed the physical exam and medical decision making. Queenie Jasmine, Apr 06, 2021,06:34 KHALIDA LOWRY Apr 05, 2021 18:24 QUEENIE JASMINE DO Apr 06, 2021 06:35
[2021-04-05] MEDS ORDERED: CLOPIDOGREL 75 MG (PLAVIX) TABLET PO ONE (19:30)
--- NOTE | 2021-04-05 19:30 | Cardiology Progress Note ---
Progress Note-Cardiology Events since last exam Date Seen by Provider: Apr 05, 2021 Time Seen by Provider: 19:25 Events since last exam I am following her due to coronary artery disease and now a stroke during this admission. Her left-sided weakness continues to improve. Today she has double vision in her right eye and the backside of her neck and head on the right side are sore. She is using a heating pad which is helping with the pain in the back of her neck. She denies chest pain, dyspnea at rest, palpitations, syncope, or ankle edema. Certain portions of this document may have been dictated utilizing voice recognition technology. Inherent to this technology, typographical and grammatical errors may exist. As much as I am diligent to identify and correct these mistakes, some errors may remain in the document. Vitals Last set of Vitals Signs Vital Signs 04/01/21 04/05/21 01:35 16:08 Temp 36.2 Pulse 58 Resp 18 B/P (MAP) 128/65 (86) Pulse Ox 94 O2 Delivery Nasal Cannula O2 Flow Rate 0.75 FiO2 21 Labs Labs Laboratory Tests 04/05/21 05:45 Exam Vital Signs Vital Signs Date Time Temp Pulse Resp B/P (MAP) Pulse Ox O2 Delivery O2 Flow Rate FiO2 04/05/21 16:08 36.2 58 18 128/65 (86) 94 Nasal Cannula 0.75 04/01/21 01:35 21 Physical Exam General: Alert. No acute distress. Eye: No xanthelasma. HENT: Normocephalic. Neck: Jugular venous pressure does not appear elevated. Respiratory: Lungs are clear to auscultation. Respirations are non-labored. Breath sounds are equal. Symmetrical chest wall expansion. Cardiovascular: Normal rate. Regular rhythm. No murmur. No gallop. No edema. Gastrointestinal: Soft. Normal bowel sounds. Skin: Warm. Dry. Neurologic: Alert and oriented to person, place, time. Cranial nerves 3-11 grossly intact. Left arm and leg weakness but improving. Psychiatric: Cooperative. Appropriate mood & affect. Labs Laboratory Tests Test 04/04/21 20:41 04/05/21 05:20 04/05/21 05:45 04/05/21 10:54 Range/Units Glucometer 110 120 H 133 H 70-110 MG/DL White Blood Count 6.6 4.3-11.0 10^3/uL Red Blood Count 4.14 3.80-5.11 10^6/uL Hemoglobin 10.2 L 11.5-16.0 g/dL Hematocrit 34 L 35-52 % Mean Corpuscular Volume 81 80-99 fL Mean Corpuscular Hemoglobin 25 25-34 pg Mean Corpuscular Hemoglobin Concent 30 L 32-36 g/dL Red Cell Distribution Width 20.5 H 10.0-14.5 % Platelet Count 208 130-400 10^3/uL Mean Platelet Volume 12.6 H 9.0-12.2 fL Immature Granulocyte % (Auto) 1 % Neutrophils (%) (Auto) 79 H 42-75 % Lymphocytes (%) (Auto) 12 12-44 % Monocytes (%) (Auto) 6 0-12 % Eosinophils (%) (Auto) 2 0-10 % Basophils (%) (Auto) 1 0-10 % Neutrophils # (Auto) 5.2 1.8-7.8 10^3/uL Lymphocytes # (Auto) 0.8 L 1.0-4.0 10^3/uL Monocytes # (Auto) 0.4 0.0-1.0 10^3/uL Eosinophils # (Auto) 0.2 0.0-0.3 10^3/uL Basophils # (Auto) 0.1 0.0-0.1 10^3/uL Immature Granulocyte # (Auto) 0.0 0.0-0.1 10^3/uL Percent Immature Platelet Fraction 9.8 H 0.0-7.6 % Sodium Level 132 L 135-145 MMOL/L Potassium Level 4.1 3.6-5.0 MMOL/L Chloride Level 95 L 98-107 MMOL/L Carbon Dioxide Level 26 21-32 MMOL/L Anion Gap 11 5-14 MMOL/L Blood Urea Nitrogen 16 7-18 MG/DL Creatinine 0.81 0.60-1.30 MG/DL Estimat Glomerular Filtration Rate 71 BUN/Creatinine Ratio 20 Glucose Level 119 H 70-105 MG/DL Calcium Level 9.5 8.5-10.1 MG/DL Corrected Calcium 9.7 8.5-10.1 MG/DL Total Bilirubin 1.2 H 0.1-1.0 MG/DL Aspartate Amino Transf (AST/SGOT) 26 5-34 U/L Alanine Aminotransferase (ALT/SGPT) 12 0-55 U/L Alkaline Phosphatase 171 H 40-136 U/L Total Protein 7.1 6.4-8.2 GM/DL Albumin 3.7 3.2-4.5 GM/DL Test 04/05/21 15:28 Range/Units Glucometer 144 H 70-110 MG/DL Diagnosis/Problems Diagnosis/Problems (1) Coronary artery disease with unstable angina pectoris Assessment & Plan: She has not had any further chest discomfort following her blood transfusions and I started her on long-acting nitrates. When she gets severe anemia, I suspect she gets some demand ischemia. She should continue on aspirin, beta-tricia, and statin medication. There are no indications for cardiac catheterization at this time. I sent a prescription for the isosorbide mononitrate and short acting sublingual nitroglycerin to her pharmacy. (2) Acute cerebrovascular accident Assessment & Plan: She was given TPA on 04/02 and her symptoms continue to improve. She had been on aspirin. She is on rosuvastatin. She had a CTA of the head that did not show any large or moderate size vessel occlusion. I will start her on clopidogrel. We will need to watch her hemoglobin very closely. If she has ongoing visual changes, we may need to consider a follow up head CT or MRI of the brain. (3) Primary hypertension Assessment & Plan: Blood pressures had been elevated on 04/04 but are improved today. She should continue on propranolol which she was taking at home. We need to avoid excessive drops in the blood pressure given her acute stroke. (4) Mixed hyperlipidemia Assessment & Plan: Continue rosuvastatin. (5) Acute kidney injury superimposed on chronic kidney disease Assessment & Plan: Her renal function had declined on 04/02. This may have been related to the IV furosemide she received. The IV furosemide has been discontinued and she is now on oral furosemide. Her creatinine has improved. (6) Anemia Status: Acute Assessment & Plan: She has now been given TPA due to an acute stroke. She will need to make sure she is compliant with her follow-up appointments with hematology for the iron infusions following discharge. Otherwise, she will keep developing severe anemia and may require hospitalization again in the future. I had previously suggested avoiding dual antiplatelet therapy. However, given her acute stroke, we may need to consider starting her on clopidogrel after an appropriate wait time following the administration of TPA on 04/02. (7) Type 2 diabetes mellitus with complication Assessment & Plan: This is being managed by the hospitalist. (8) Overweight Assessment & Plan: She needs to work on weight loss. Problem Qualifiers (1) Anemia: Anemia type: unspecified type Qualified Codes: D64.9 - Anemia, unspecified ELOINA WATERS JR, MD Apr 05, 2021 19:29
[2021-04-05 19:34] VITALS: BP 129/72
[2021-04-06] VITALS (7 sets, daily range): BP systolic 116–155; BP diastolic 60–74
[2021-04-06] MEDS: PRAMIPEXOLE 0.5 MG TAB (MIRAPEX) PO SCH ×2 (00:27→20:32)
[2021-04-06] MEDS: GABAPENTIN 300 MG (NEURONTIN) CAP PO SCH ×3 (00:27→20:32)
[2021-04-06] MEDS: CATHETER FLUSH 10 ML SYR IV SCH ×4 (00:28→20:32)
[2021-04-06] MEDS: oxyCODONE/APAP 5/325MG (PERCOCET 5) TABLET PO PRN ×4 (04:52→21:57)
[2021-04-06 05:17] LABS: HEMOGLOBIN 11.1 g/dL (11.5-16.0); LYMPHOCYTES # (AUTO) 0.8 10^3/uL (1.0-4.0)
[2021-04-06 05:19] LABS: BASOPHILS % (AUTO) 1 % (0-10); EOSINOPHILS # (AUTO) 0.2 10^3/uL (0.0-0.3); EOSINOPHILS % (AUTO) 3 % (0-10); HEMATOCRIT 36 % (35-52); LYMPHOCYTES % (AUTO) 12 % (12-44); MEAN CORPUSCULAR HEMOGLOBIN 25 pg (25-34); MEAN CORPUSCULAR HGB CONC 31 g/dL (32-36); MEAN CORPUSCULAR VOLUME 81 fL (80-99); MEAN PLATELET VOLUME 11.9 fL (9.0-12.2); MONOCYTES # (AUTO) 0.4 10^3/uL (0.0-1.0); MONOCYTES % (AUTO) 6 % (0-12); NEUTROPHILS # (AUTO) 5.2 10^3/uL (1.8-7.8); NEUTROPHILS % (AUTO) 79 % (42-75); PLATELET COUNT 200 10^3/uL (130-400); WHITE BLOOD COUNT 6.6 10^3/uL (4.3-11.0)
[2021-04-06 05:26] LABS: ALBUMIN 3.9 GM/DL (3.2-4.5); POTASSIUM 3.8 MMOL/L (3.6-5.0)
[2021-04-06 05:29] LABS: TOTAL PROTEIN 7.4 GM/DL (6.4-8.2)
[2021-04-06 05:31] LABS: BILIRUBIN,TOTAL 1.2 MG/DL (0.1-1.0)
[2021-04-06 05:32] LABS: CREATININE SERUM 0.92 MG/DL (0.60-1.30)
--- NOTE | 2021-04-06 08:00 | Occupational Ther Daily Note ---
OT Current Status-Daily Note Subjective Pt alert, laying in bed when OT entered. Pt agreed to therapy. Pt reported feeling nauseous throughout session, nursing notified. Mental Status/Objective Patient Orientation: Person, Place, Time, Situation Attachments: Oxygen ADL-Treatment Therapy Code Descriptions/Definitions Functional [place] Measure: 0=Not Assessed/NA 4=Minimal Assistance 1=Total Assistance 5=Supervision or Setup 2=Maximal Assistance 6=Modified [place] 3=Moderate Assistance 7=Complete IndependenceSCALE: Activities may be completed with or without assistive devices. 1-Domdxsztjg-raovohd completes the activity by him/herself with no assistance from a helper. 5-Set-up or Clean-up Assistance-helper sets up or cleans up; patient completes activity. [place] assists only prior to or following the activity. 4-Supervision or Touching Assistance-helper provides verbal cues and/or touching/steadying and/or contact guard assistance as patient completes activity. Assistance may be provided throughout the activity or intermittently. 3-Partial/Moderate Assistance-helper does LESS THAN HALF the effort. [place] lifts, holds or supports trunk or limbs, but provides less than half the effort. 2-Substantial/Maximal Assistance-helper does MORE THAN HALF the effort. [place] lifts or holds trunk or limbs and provides more than half the effort. 3-Xvchevpyn-vscxmh does ALL the effort. Patient does none of the effort to complete the activity. Or, the assistance of 2 or more helpers is required for the patient to complete the activity. If activity was not attempted, code reason: 7-Patient Refused. 9-Not Applicable-not attempted and the patient did not perform the activity before the current illness, exacerbation or injury. 10-Not Attempted due to Environmental Limitations-(lack of equipment, weather restraints, etc.). 88-Not Attempted due to Medical Conditions or Safety Concerns. Other Treatment Skilled instruction provided of BUE green theraband exercises. Pt completed x2 sets of 10 reps of BUE green theraband exercises while laying in bed to increase BUE strength for improved independence in daily task. Therapy provided demonstration of exercises, pt was able to return demonstration well. Pt tolerated exercises well and requested resting break in between sets due to fatigue and decreased activity tolerance. After session, pt laying in bed. All needs met. Call light in reach. Education OT Patient Education: Exercise program, Home exercise program Teaching Recipient: Patient Teaching Methods: Demonstration, Handout, Discussion Response to Teaching: Verbalize Understanding, Return Demonstration OT Fpc Goals Shank Boner Goals Time Frame: Apr 15, 2021 Eating (QC): 6 Oral Hygiene (QC): 4 Toileting Hygiene (QC): 4 Shower/Bathe Self (QC): 4 Upper Body Dressing (QC): 5 Lower Body Dressing (QC): 4 On/Off Footwear (QC): 4 Additional Goals: 1-Demonstrate ADL Tasks, 2-Verbalize Understanding, 3- ImproveStrength/Lesia 1=Demonstrate adherence to instructed precautions during ADL tasks. 2=Patient will verbalize/demonstrate understanding of assistive devices/modifications for ADL. 3=Patient will improve strength/tolerance for activity to enable patient to perform ADL's. OT Education/Plan Problem List/Assessment Assessment: Decreased Activ Tolerance, Decreased UE Strength, Impaired Self- Care Skills Discharge Recommendations Plan/Recommendations: Continue POC Treatment Plan/Plan of Care Patient would benefit from OT for education, treatment and training to promote independence in ADL's, mobility, safety and/or upper extremity function for ADL's. Plan of Care: ADL Retraining, Functional Mobility, UE Funct Exercise/Act Treatment Duration: Apr 15, 2021 Frequency: 5 times per week Estimated Hrs Per Day: .25 hour per day Rehab Potential: Good Time/GCodes Start Time: 07:54 Stop Time: 08:13 Total Time Billed (hr/min): 19 Billed Treatment Time 1 visit EX 1 (19 mins) ANSELMO GRIFFITH Apr 06, 2021 08:00
[2021-04-06] MEDS: ONDANSETRON 4 MG/2 ML (SDV) Z0FRAN IVP PRN (08:23)
--- NOTE | 2021-04-06 09:10 | Cardiology Progress Note ---
Subjective Date Seen by Provider: Apr 06, 2021 Time Seen by Provider: 08:50 Subjective/Events-last exam Patient is sitting up in bed, complaining of right eye diplopia. Left sided weakness improved. Denies any further episode of chest pain Review of Systems General: No Chills, No Night Sweats, No Fatigue, No Malaise, No Appetite, No Other HEENT: No Head Aches, No Visual Changes, No Eye Pain, No Ear Pain, No Dysphasia, No Sinus Congestion, No Post Nasal Drip, No Sore Throat, No Other Pulmonary: No Dyspnea, No Cough, No Pleuritic Chest Pain, No Other Cardiovascular: No: Chest Pain, Palpitations, Orthopnea, Paroxysmal Noc. Dyspnea, Edema, Lt Headedness, Other Objective-Cardiology Exam Last Set of Vital Signs Vital Signs 04/01/21 04/06/21 01:35 15:23 Temp 36.6 Pulse 71 Resp 18 B/P (MAP) 134/63 (86) Pulse Ox 94 O2 Delivery Nasal Cannula O2 Flow Rate 1.00 FiO2 21 I&O Intake and Output 04/06/21 00:00 Intake Total 705 ml Balance 705 ml Intake Oral 705 ml # Voids 9 General: Alert, Oriented X3, Cooperative HEENT: Atraumatic, PERRLA Neck: Supple Lungs: Clear to Auscultation, Normal Air Movement Heart: Regular Rate, Normal S1, Normal S2 Abdomen: Normal Bowel Sounds, Soft Skin: No Rashes, No Significant Lesion Neuro: Normal Speech, Other (right eye diplopia) Psych/Mental Status: Mental Status NL, Mood NL Results Lab Laboratory Tests 04/06/21 05:08 A/P-Cardiology Admission Diagnosis CVA CP CAD HTN Assessment/Plan Chest pain, resembling angina, improved. Started on long acting nitrates. When she gets severe anemia, I suspect she gets some demand ischemia. She should continue on aspirin, beta-tricia, and statin medication. There are no indications for cardiac catheterization at this time. CAD, Nhyf-zj-farmpyje coronary artery disease, cardiac catheterization was carried out in 2011 and April 2020 showing 50-60 percent ostial right coronary artery stenosis, 40-50 percent mid right coronary artery stenosis, ostial left main which is mild, mild LAD disease. Echocardiogram done in March 31, 2020 showing normal left ventricular size, ejection fraction 55 to 65%, grade 1 diastolic dysfunction, left atrium 4.7 cm, PA 30 to 35 mmHg, planning to repeat echo Acute CVA, given TPA on 04/02 and her symptoms continue to improve. She had been on aspirin, started on Plavix. She is on rosuvastatin. She had a CTA of the head that did not show any large or moderate size vessel occlusion. MRI was negative, left sided weakness has improved, but continues to have right eye diplopia. Will evaluate echo, consider BENJAMIN to eval for PFO, consider LINq imp lantation if no source of cryptogenic stroke found. Anemia, history of chronic anemia. She has now been given TPA due to an acute stroke. She will need to make sure she is compliant with her follow-up appointments with hematology for the iron infusions following discharge. Otherwise, she will keep developing severe anemia and may require hospitalizati on again in the future. Received tPA on 04/02 and started on Plavix in addition to ASA. Will need to monitor H/H closely. Dr. Selby following. Acute on chronic kidney disease, improving, continue to monitor. Chronic venous stasis changes and venous stasis ulcers, using compression stocking. Had arterial ultrasound done in May 2019 and reported as monophasic flow throughout could be secondary to proximal disease with no definite high-grade stenosis or occlusion detected. COPD, emphysema, maintained on oxygen. History of fibromyalgia, peripheral neuropathy, arthritis. Has been managed by primary care physician Hypertension, continue to monitor blood pressure Hyperlipidemia, maintained on statin Diabetes mellitus, followed and managed by primary care physician History of tobaccoism, stopped smoking in Jul 2018 History of seizure disorder, reporting stress seizures Mild bilateral carotid stenosis, ultrasound was done on this admission Patient was seen and evaluated with Maegan, examination performed, management plan was discussed, agree with the current scribed note, I made few changes to the note using Italic font Patient was seen at bedside, sitting comfortably, there was a plan for discharge today Still having double vision, source of her CVA is still unknown We discussed the need for BENJAMIN to rule out cardiac sources of embolization, I discussed the management plan with Dr. Powell, planning to proceed with the procedure. Continue with current treatment plan. MAEGAN CUELLO Apr 06, 2021 09:10 CONNOR GUTIERRES MD Apr 06, 2021 16:09
--- NOTE | 2021-04-06 11:11 | Physical Therapy Daily Note ---
PT Daily Note-Current Subjective Pt in recliner upon arrival and agrees to PT. Pt reports her neck is still sore today and she is seeing double out of her R eye. Pain Numeric Pain Scale: 8 Location Body Site: Neck Mental Status Patient Orientation: Person, Place, Situation Attachments: Other-See Comments (mask while out of room) Transfers SCALE: Activities may be completed with or without assistive devices. 4-Eccczezqpy-bntvwiw completes the activity by him/herself with no assistance from a helper. 5-Set-up or Clean-up Assistance-helper sets up or cleans up; patient completes activity. [place] assists only prior to or following the activity. 4-Supervision or Touching Assistance-helper provides verbal cues and/or touching/steadying and/or contact guard assistance as patient completes activity. Assistance may be provided throughout the activity or intermittently. 3-Partial/Moderate Assistance-helper does LESS THAN HALF the effort. [place] lifts, holds or supports trunk or limbs, but provides less than half the effort. 2-Substantial/Maximal Assistance-helper does MORE THAN HALF the effort. [place] lifts or holds trunk or limbs and provides more than half the effort. 9-Pxnaqhxze-sqvumn does ALL the effort. Patient does none of the effort to complete the activity. Or, the assistance of 2 or more helpers is required for the patient to complete the activity. If activity was not attempted, code reason: 7-Patient Refused. 9-Not Applicable-not attempted and the patient did not perform the activity before the current illness, exacerbation or injury. 10-Not Attempted due to Environmental Limitations-(lack of equipment, weather restraints, etc.). 88-Not Attempted due to Medical Conditions or Safety Concerns. Sit to Stand (QC): 4 CGA for safety Gait Training Does the Patient Walk?: Yes Distance: 125' Walk 10 feet (QC): 4 Walk 50 ft with 2 Turns(QC): 4 Gait Assistive Device: FWW Pt amb slow but steadily. During ambulation pt reports she is feeling nauseous. Ambulation distance shorter today d/t nausea. Exercises Seated Therapy Exercises: Ankle pumps, Long arc quads, Hip flexion, Hip abd/add, Glut set Seated Reps: 15 Standing: Sit to Stand Standing Reps: 3 Treatments Pt in recliner upon arrival and agrees to tx. Pt performs seated exs. Pt performs sit to stand TF and requires CGA. Pt then ambulates down mendez and back for 125' and requires CGA for safety. Ambulation shorter today d/t nausea. Pt TF back to recliner all needs met call light nearby. Assessment Current Status: Fair Progress Pt continues to hold head to the R and rotated to the R. Pt has decreased step length and width during amb. PT Skilled Nursing Goals Modeling Manager Goals PT Modeling Manager Goals Time Frame: Apr 16, 2021 Roll Left & Right (QC): 6 Sit to Lying (QC): 6 Lying-Sitting on Side/Bed(QC): 6 Sit to Stand (QC): 6 Chair/Rpf-lt-Xepjb Xfer(QC): 6 Toilet Transfer (QC): 6 Car Transfer (QC): 6 Does the Patient Walk: Yes Walk 10 feet (QC): 6 Walk 50ft with 2 Turns (QC): 6 Walk 150 ft (QC): 6 PT Plan Problem List Problem List: Activity Tolerance, Functional Strength, Safety Treatment/Plan Treatment Plan: Continue Plan of Care Treatment Plan: Bed Mobility, Education, Functional Activity Lesia, Functional Strength, Group Therapy, Gait, Safety, Therapeutic Exercise, Transfers Treatment Duration: May 11, 2021 Frequency: 6 times per week Estimated Hrs Per Day: .25 hour per day Safety Risks/Education Patient Education: Steps Teaching Recipient: Patient Teaching Methods: Discussion Response to Teaching: Verbalize Understanding Time/GCodes Time In: 939 Time Out: 1004 Total Billed Treatment Time: 25 Total Billed Treatment 1, GT 15', EX 10' [facility] Apr 06, 2021 11:11
[2021-04-06] MEDS ORDERED: METF-397 PO (11:20)
[2021-04-06] MEDS ORDERED: OXYC1TAB87 PO (11:20)
[2021-04-06] MEDS ORDERED: ASPI-1238 PO (11:20)
[2021-04-06] MEDS ORDERED: CLOP75TA28 PO (11:20)
[2021-04-06] MEDS ORDERED: GABA300C PO (11:20)
[2021-04-06] MEDS ORDERED: PANT40TA52 PO (11:20)
[2021-04-06] MEDS ORDERED: FURO40TA4 PO (11:20)
--- NOTE | 2021-04-06 11:21 | D/C HH Face to Face Order ---
D/C Face to Face Orders Reconcile Patient Problems Problems Reviewed?: Yes Instructions for Patient Via [facility], Patient Instructions/FollowUp: PCP [facility] 1 week Physician to follow Patient: [facility] Discharge Diet for Home: No Restrictions Patient Problems: CVA Patient Data-Allergies,Ht & Wt Patient Allergies: Coded Allergies: Sulfa (Sulfonamide Antibiotics) (Verified Allergy, Unknown, 06/10/19) ceftriaxone (Verified Allergy, Unknown, RASH, 08/12/18) Height (Feet): 5 Height (Inches): 2.00 Weight (Pounds): 150 Weight (Ounces): 0.0 Home Health Need/Face to Face Date of Face to Face: Apr 06, 2021 Clinical Findings: Generalized weakness and fatigue, Instability, Muscle weakness, Unsteady gait I have seen Pt fopk-ul-cpec: Yes Discharged To: Home Diagnosis/Conditions: CVA Patient is Homebound due to: Manoj fall risk due to instabilty, Muscle weakness Homebound Status Due to the above stated illness, injury or surgical procedure (medical condition or diagnosis) and associated clinical findings, the patient is homebound because of his/her inability to leave home except with aid of a supportive device and/or person AND leaving the home requires a considerable and taxing effort or is medically contraindicated. Pt req the following assistanc: Walker Home Health Nursing Orders Home Health Services Order: Nursing Services, Rn Referral-Evaluate & Treat, Physical Therapy-Evaluate & Treat, Speech Language-Evaluate & Treat Home Health Infusion Therapy Line Start Date: Mar 31, 2021 Certify Stmt I certify that this patient is under my care and that I, a nurse practitioner or a physician; a legal administrative assistant working with me, had a face to face encounter that - meets the physician face to face encounter requirements with this patient as dated. BAYRON JASMINE DO Apr 06, 2021 11:21
--- NOTE | 2021-04-06 11:22 | Discharge Summary ---
Discharge Summary Hospital Course Problems/Dx: (1) Coronary artery disease with unstable angina pectoris (2) Acute cerebrovascular accident (3) Primary hypertension (4) Mixed hyperlipidemia (5) Acute kidney injury superimposed on chronic kidney disease (6) Anemia Status: Acute Qualifiers: Qualified Codes: D64.9 - Anemia, unspecified (7) Type 2 diabetes mellitus with complication (8) Overweight Hospital Course Date of Admission: Apr 02, 2021 at 11:45 Admission Diagnosis : Family Physician/Provider: Brando Davies MD Date of Discharge: 04/06/21 Discharge Diagnosis: [ ] Hospital Course: [ ] Labs and Pending Lab Test: Laboratory Tests 04/05/21 15:28: Glucometer 144H 04/05/21 20:14: Glucometer 125H 04/06/21 05:08: White Blood Count 6.6, Red Blood Count 4.46, Hemoglobin 11.1L, Hematocrit 36, Mean Corpuscular Volume 81, Mean Corpuscular Hemoglobin 25, Mean Corpuscular Hemoglobin Concent 31L, Red Cell Distribution Width 21.9H, Platelet Count 200, Mean Platelet Volume 11.9, Immature Granulocyte % (Auto) 1, Neutrophils (%) (Auto) 79H, Lymphocytes (%) (Auto) 12, Monocytes (%) (Auto) 6, Eosinophils (%) (Auto) 3, Basophils (%) (Auto) 1, Neutrophils # (Auto) 5.2, Lymphocytes # (Auto) 0.8L, Monocytes # (Auto) 0.4, Eosinophils # (Auto) 0.2, Basophils # (Auto) 0.0, Immature Granulocyte # (Auto) 0.0, Percent Immature Platelet Fraction 9.9H, Sodium Level 130L, Potassium Level 3.8, Chloride Level 89L, Carbon Dioxide Level 27, Anion Gap 14, Blood Urea Nitrogen 18, Creatinine 0.92, Estimat Glomerular Filtration Rate 61, BUN/Creatinine Ratio 20, Glucose Level 126H, Calcium Level 10.0, Corrected Calcium 10.1, Total Bilirubin 1.2H, Aspartate Amino Transf (AST/SGOT) 23, Alanine Aminotransferase (ALT/SGPT) 13, Alkaline Phosphatase 171H , Total Protein 7.4, Albumin 3.9 Microbiology 04/02/21 MRSA Screen - Final, Complete MRSA not isolated Home Meds Active Neurontin (Gabapentin) 300 Mg Capsule 300 Mg PO BID Metformin HCl 500 Mg Tablet 500 Mg PO BID WITH MEALS Pantoprazole Sodium 40 Mg Tablet.dr 40 Mg PO DAILY@0700 Furosemide 40 Mg Tablet 40 Mg PO DAILY Percocet 5-325 mg Tablet (Oxycodone HCl/Acetaminophen) 1 Each Tablet 1-2 Tab PO Q4H PRN Aspirin EC (Aspirin) 81 Mg Tablet.dr 81 Mg PO DAILY Clopidogrel (Clopidogrel Bisulfate) 75 Mg Tablet 75 Mg PO DAILY Nitroglycerin 0.4 Mg Tab.subl 0.4 Mg SL NEEDED PRN Isosorbide Mononitrate ER (Isosorbide Mononitrate) 30 Mg Tab.er.24h 30 Mg PO DAILY Reported Citalopram HBr (Citalopram Hydrobromide) 40 Mg Tablet 40 Mg PO 1200 Fluticasone-Salmeterol 250-50 (Fluticasone Propion/Salmeterol) 1 Each Blst.w.dev 1 Puff INH BID PRN Lidocaine 5% Patch (Lidocaine) 1 Each Adh..patch 1 Pat TOP DAILY APPLY TO LOWER BACK Pramipexole Dihydrochloride (Pramipexole Di-HCl) 1 Mg Tablet 1 Mg PO HS PRN Pantoprazole Sodium 40 Mg Tablet.dr 40 Mg PO DAILY Cetirizine HCl 10 Mg Tablet 10 Mg PO DAILY Metformin HCl 500 Mg Tablet 500 Mg PO BIDAC Banophen (Diphenhydramine HCl) 25 Mg Capsule 25 Mg PO HS PRN Propranolol HCl 40 Mg Tablet 40 Mg PO 1800 PRN Docusate Sodium 100 Mg Capsule 100-200 Mg PO BID PRN Ferosul (Ferrous Sulfate) 325 Mg Tablet 325 Mg PO BID Rosuvastatin Calcium 10 Mg Tablet 10 Mg PO DAILY Mirapex (Pramipexole Di-HCl) 1 Mg Tablet 1 Mg PO HS TAKES 1 TAB AT BEDTIME, AND MAY TAKE A 2ND TAB IF NEEDED Meloxicam 7.5 Mg Tablet 7.5 Mg PO DAILY Miralax (Polyethylene Glycol 3350) 17 Gm Powd.pack 17 Gm PO DAILY PRN Furosemide 40 Mg Tablet 40 Mg PO DAILY Hydrochlorothiazide 25 Mg Tablet 25 Mg PO DAILY Aspirin EC (Aspirin) 81 Mg Tablet.dr 81 Mg PO DAILY Fluticasone Propionate 16 Gm [place].susp 1-2 [place] NS DAILY PRN Cyclobenzaprine HCl 10 Mg Tablet 10 Mg PO TID PRN Potassium Chloride 10 Meq Capsule.er 20 Meq PO DAILY TAKES 2 (10MEQ) CAPSULES Proair Hfa (Albuterol Sulfate) 1 Puff Puff 2 Puff IH Q4H PRN Propranolol HCl 40 Mg Tablet 40 Mg PO DAILY Iprat-Albut 0.5-3(2.5) mg/3 ml (Ipratropium/Albuterol Sulfate) 3 Ml Ampul.neb 3 Ml IH QID PRN Discharge Physical Examination Vital Signs Vital Signs Date Time Temp Pulse Resp B/P (MAP) Pulse Ox O2 Delivery O2 Flow Rate FiO2 04/06/21 09:24 92 1.00 04/06/21 08:54 Nasal Cannula 04/06/21 07:40 36.6 66 18 143/65 (91) 04/01/21 01:35 21 Allergies: Coded Allergies: Sulfa (Sulfonamide Antibiotics) (Verified Allergy, Unknown, 06/10/19) ceftriaxone (Verified Allergy, Unknown, RASH, 08/12/18) Discharge Summary Date of Admission Apr 02, 2021 at 11:45 Date of Discharge Discharge Date: Apr 06, 2021 Discharge Diagnosis No residual from CVA s/p tpa given within 30 min of signs of CVA (1) Coronary artery disease with unstable angina pectoris Assessment & Plan: She has not had any further chest discomfort following her blood transfusions and I started her on long-acting nitrates. When she gets severe anemia, I suspect she gets some demand ischemia. She should continue on aspirin, beta-tricia, and statin medication. There are no indications for cardiac catheterization at this time. I sent a prescription for the isosorbide mononitrate and short acting sublingual nitroglycerin to her pharmacy. (2) Acute cerebrovascular accident Assessment & Plan: She was given TPA on 04/02 and her symptoms continue to improve. She had been on aspirin. She is on rosuvastatin. She had a CTA of the head that did not show any large or moderate size vessel occlusion. I will start her on clopidogrel. We will need to watch her hemoglobin very closely. If she has ongoing visual changes, we may need to consider a follow up head CT or MRI of the brain. (3) Primary hypertension Assessment & Plan: Blood pressures had been elevated on 04/04 but are improved today. She should continue on propranolol which she was taking at home. We need to avoid excessive drops in the blood pressure given her acute stroke. (4) Mixed hyperlipidemia Assessment & Plan: Continue rosuvastatin. (5) Acute kidney injury superimposed on chronic kidney disease Assessment & Plan: Her renal function had declined on 04/02. This may have been related to the IV furosemide she received. The IV furosemide has been discontinued and she is now on oral furosemide. Her creatinine has improved. (6) Anemia Status: Acute Assessment & Plan: She has now been given TPA due to an acute stroke. She will need to make sure she is compliant with her follow[facility] following discharge. Otherwise, she will keep developing severe anemia and may require hospitalization again in the future. I had previously suggested avoiding dual antiplatelet therapy. However, given her acute stroke, we may need to consider starting her on clopidogrel after an appropriate wait time following the administration of TPA on 04/02. Qualifiers: Qualified Codes: D64.9 - Anemia, unspecified (7) Type 2 diabetes mellitus with complication Assessment & Plan: This is being managed by the hospitalist. (8) Overweight Assessment & Plan: She needs to work on weight loss. Clinical Quality Measures AMI/AHF: ASA po Prior to arrival: Yes (Baby aspirin this morning) BAYRON JASMINE DO Apr 06, 2021 11:22
[2021-04-06] MEDS: CLOPIDOGREL 75 MG (PLAVIX) TABLET PO SCH (11:53)
[2021-04-06] MEDS: PANTOPRAZOLE 40 MG (PROTONIX) TAB PO SCH (11:53)
[2021-04-06] MEDS: KCL 20 MEQ TAB (K-DUR) PO SCH (11:53)
[2021-04-06] MEDS: ROSUVASTATIN 10 MG (CRESTOR) TABLET PO SCH (11:54)
[2021-04-06] MEDS: FERROUS SULF 325 MG (IRON) TAB PO SCH ×2 (11:54→20:31)
[2021-04-06] MEDS: LORATADINE (CLARITIN) 10 MG TAB PO SCH (11:54)
[2021-04-06] MEDS: metFORMIN 500 MG (GLUCOPHAGE) TAB PO SCH ×2 (11:54→17:07)
[2021-04-06] MEDS: MELOXICAM 7.5 MG (MOBIC) TABLET PO SCH (11:54)
[2021-04-06] MEDS: ASPIRIN E.C. 81 MG (ECOTRIN) TAB PO SCH (11:54)
[2021-04-06] MEDS: LIDOCAINE 4% (SALONPAS) PATCH TOP SCH (11:55)
[2021-04-06] MEDS: PROPRANOLOL 20 MG (INDERAL) TABLET PO SCH (11:55)
[2021-04-06] MEDS: ISOSORBIDE MONONITRATE 30 MG (IMDUR) TAB PO SCH (11:55)
[2021-04-06] MEDS: FUROSEMIDE 40 MG (LASIX) TAB PO SCH (11:59)
--- NOTE | 2021-04-06 13:36 | Progress Note ---
KHALIDA LOWRY 04/06/21 1336: Progress Note 66 yo female with hx of REJI, CAD, HTN, HLD, T2DM, COPD, PUD, conversion DO, fibromyalgia, GERD, pseudoseizures and anxiety/depression presented to the ER on 04/01 with weakness, SOB on exertion, nausea, leg swelling/weakness, and pain in her arms, legs and chest. She reported her chest pain as being "sharp and stabbing." Pt had a hx of similar sx due to REJI and was being managed by hematology; pt had missed a scheduled iron infusion the previous week after rescheduling 3x. Cardiology was consulted regarding her chest pain. Unstable angina was suspected and the pt was placed on sublingual nitroglycerin PRN and Imdur daily, as well as her regularly taken aspirin, propranolol, and rosuva statin. Pt was given iron infusions, ferrous sulfate, and IV furosemide (later changed to oral after kidney fxn declined). On 04/02, the pt developed L sided facial droop and dysarthria while speaking with Dr. Powell. The pt had an NIH score of 16, but CTA showed no large thrombus that would necessitate transfer. Pt was given tPA within the hour and her NIH score dropped to 6 the next day. The pt continued to have some L sided muscle weakness and L facial drooping during the course of her stay, though it slowly improved. After her stroke, the pt's rosuvastatin was doubled. She was placed on gabapentin and percocet for pain. Subsequent CTs and an MRI showed no acute findings, though a benign colloid cyst was noted. The CTA did reveal 50% stenosis of the R ICA, so a CA US was ordered. The CA US showed less than 50% stenosis of the ICA bilaterally, but severe stenosis of the R ECA, as well as retrograde flow through the vertebral A's. Post-CVA, the pt reported neck pain that was relieved with a heating pad, as well as double vision in her right eye. Her bowels were moving and she was voiding regularly. She did not want to eat or drink much, and reported her "usual chronic pain" as 9/10 most days. Pt was very non-compliant with medications, either taking only her Percocet or "taking a few medications spread throughout the day." PT/OT were consulted post-CVA. Pt was able to ambulate with a walker and assistants. When her Hgb increased >10 w/o a transfusion, hematology approved her for d/c. Cardiology approved her for discharge on 04/06 after starting her on Plavix daily. Pt is being discharged home with home health services to aid her care. Pt compliance with iron infusions and medication regimen is encouraged. QUEENIE POWELL DO 04/07/21 0519: Supervisory-Addendum Brief Verification & Attestation Participated in pt care: history, MDM, physical Personally performed: exam, history, MDM, supervision of care Care discussed with: Medical Student Procedures: n/a Results interpretation: Verified all documentation Verification and Attestation of Medical Student E/M Service A medical student performed and documented this service in my presence. I reviewed and verified all information documented by the medical student and made modifications to such information, when appropriate. I personally performed the physical exam and medical decision making. Queenie Powell, Apr 07, 2021,05:19 KHALIDA LOWRY Apr 06, 2021 13:36 QUEENIE POWELL DO Apr 07, 2021 05:19
--- NOTE | 2021-04-06 16:14 | Progress Note - Hospitalist ---
Subjective HPI/CC On Admission Date Seen by Provider: Apr 06, 2021 Time Seen by Provider: 11:00 CC: chronic REJI: weak, in pain, SOB, nausea, swollen legs, chest pain; CVA while inpatient Subjective/Events-last exam DC delayed due to further risk stratification planned from Dr Burns with BENJAMIN 66 yo female with hx of REJI, CAD, HTN, HLD, T2DM, COPD, PUD, conversion DO, fibromyalgia, GERD, pseudoseizures and anxiety/depression presented to the ER on 04/01 with weakness, SOB on exertion, nausea, leg swelling/weakness, and pain in her arms, legs and chest. She reported her chest pain as being "sharp and stabbing." Pt had a hx of similar sx due to REJI and was being managed by he matology; pt had missed a scheduled iron infusion the previous week after rescheduling 3x. Cardiology was consulted regarding her chest pain. Unstable angina was suspected and the pt was placed on sublingual nitroglycerin PRN and Imdur daily, as well as her regularly taken aspirin, propranolol, and rosuvastatin. Pt was given iron infusions, ferrous sulfate, and IV furosemide (later changed to oral after kidney fxn declined). On 04/02, the pt developed L sided facial droop and dysarthria while speaking with Dr. Powell. The pt had an NIH score of 16, but CTA showed no large thrombus that would necessitate transfer. Pt was given tPA within the hour and her NIH score dropped to 6 the next day. The pt continued to have some L sided muscle weakness and L facial dr ooping during the course of her stay, though it slowly improved. After her stroke, the pt's rosuvastatin was doubled. She was placed on gabapentin and percocet for pain. Subsequent CTs and an MRI showed no acute findings, though a benign colloid cyst was noted. The CTA did reveal 50% stenosis of the R ICA, so a CA US was ordered. The CA US showed less than 50% stenosis of the ICA b ilaterally, but severe stenosis of the R ECA, as well as retrograde flow through the vertebral A's. Post-CVA, the pt reported neck pain that was relieved with a heating pad, as well as double vision in her right eye. Her bowels were moving and she was voiding regularly. She did not want to eat or drink much, and reported her "usual chronic pain" as 9/10 most days. Pt was very non-compliant with medications, either taking only her Percocet or "taking a few medications spread throughout the day." PT/OT were consulted post-CVA. Pt was able to ambulate with a walker and assistants. When her Hgb increased >10 w/o a transfusion, hematology approved her for d/c. Cardiology approved her for discharge on 04/06 after starting her on Plavix daily. Pt is being discharged home with home health services to aid her care. Pt compliance with iron infusions and medication regimen is encouraged. Review of Systems General: Fatigue, Malaise Neurological: Weakness Objective Exam Vital Signs Vital Signs Date Time Temp Pulse Resp B/P (MAP) Pulse Ox O2 Delivery O2 Flow Rate FiO2 04/07/21 03:48 36.2 66 19 127/72 (90) 96 Nasal Cannula 1.00 04/01/21 01:35 21 Capillary Refill : Less Than 3 Seconds General Appearance: No Apparent Distress, WD/WN, Chronically ill Respiratory: Lungs Clear, Normal Breath Sounds Cardiovascular: Regular Rate, Rhythm Neurologic/Psychiatric: Alert, Oriented x3, No Motor/Sensory Deficits, Normal Mood/Affect Results/Procedures Lab Patient resulted labs reviewed. Assessment/Plan Assessment and Plan Assess & Plan/Chief Complaint No residual from CVA s/p tpa given within 30 min of signs of CVA Assessment: CVA s/p tpa within 30 minutes of cva MRI no abnormality Anemia transfusion dependent Non-compliance with iron infusions as outpatient Fibromyalgia Chronic pain Apathy Plan: BENJAMIN Clinical Quality Measures AMI/AHF: ASA po Prior to arrival: Yes (Baby aspirin this morning) BAYRON POWELL DO Apr 06, 2021 16:14
[2021-04-07] VITALS (10 sets, daily range): BP systolic 105–197; BP diastolic 48–96
[2021-04-07] MEDS: PANTOPRAZOLE 40 MG (PROTONIX) TAB PO SCH ×2 (05:35→09:46)
[2021-04-07] MEDS: CATHETER FLUSH 10 ML SYR IV SCH ×2 (05:35→14:00)
[2021-04-07] MEDS: KCL 20 MEQ TAB (K-DUR) PO SCH (05:35)
[2021-04-07 05:53] LABS: BASOPHILS # (AUTO) 0.1 10^3/uL (0.0-0.1); BASOPHILS % (AUTO) 1 % (0-10); EOSINOPHILS # (AUTO) 0.3 10^3/uL (0.0-0.3); EOSINOPHILS % (AUTO) 4 % (0-10); HEMATOCRIT 37 % (35-52); HEMOGLOBIN 11.7 g/dL (11.5-16.0); LYMPHOCYTES # (AUTO) 1.2 10^3/uL (1.0-4.0); LYMPHOCYTES % (AUTO) 15 % (12-44); MEAN CORPUSCULAR HEMOGLOBIN 26 pg (25-34); MEAN CORPUSCULAR HGB CONC 32 g/dL (32-36); MEAN CORPUSCULAR VOLUME 81 fL (80-99); MEAN PLATELET VOLUME 12.2 fL (9.0-12.2); MONOCYTES # (AUTO) 0.6 10^3/uL (0.0-1.0); MONOCYTES % (AUTO) 7 % (0-12); NEUTROPHILS # (AUTO) 5.8 10^3/uL (1.8-7.8); NEUTROPHILS % (AUTO) 73 % (42-75); PLATELET COUNT 214 10^3/uL (130-400); WHITE BLOOD COUNT 7.9 10^3/uL (4.3-11.0)
[2021-04-07 06:13] LABS: POTASSIUM 3.4 MMOL/L (3.6-5.0)
[2021-04-07 06:14] LABS: CALCIUM 9.9 MG/DL (8.5-10.1)
[2021-04-07 06:15] LABS: TOTAL PROTEIN 7.3 GM/DL (6.4-8.2)
[2021-04-07 06:17] LABS: BILIRUBIN,TOTAL 1.3 MG/DL (0.1-1.0)
[2021-04-07 06:19] LABS: CREATININE SERUM 0.89 MG/DL (0.60-1.30)
[2021-04-07] MEDS ORDERED: morphine INJ 10 MG/ML 1ML (SYR OR VIAL) IVP ONE (06:30)
[2021-04-07 06:52] LABS: PROTHROMBIN TIME PATIENT 13.2 SEC (12.2-14.7)
[2021-04-07] MEDS ORDERED: LIDOCAINE 1% INJ 20 ML 20 ML VIAL ONE (07:28)
[2021-04-07] MEDS ORDERED: NS IV 1000 ML 1,000 ML ONE (07:28)
[2021-04-07] MEDS ORDERED: LIDOCAINE 2% VISCOUS 15 ML UDC ONE (07:29)
[2021-04-07] MEDS ORDERED: MIDAZOLAM 5 MG/5 ML (VERSED) VIAL ONE (07:32)
[2021-04-07] MEDS ORDERED: fentaNYL INJ 100 MCG/2 ML AMP ONE (07:32)
[2021-04-07] MEDS: metFORMIN 500 MG (GLUCOPHAGE) TAB PO SCH (08:00)
--- NOTE | 2021-04-07 08:26 | Conscious Sedation/ASA ---
Conscious Sedation Pre-Proced Time 08:00 ASA Score 3 For ASA 3 and 4: Consider anesthesia and medical clearance. Also, for patients with a history of failed moderate sedation consider anesthesia. Airway Lungs Heart ASA score ASA 1: a normal healthy patient ASA 2: a patient with a mild systemic disease (mid diabetes, controlled hypertension, obesity x ASA 3: a patient with a severe systemic disease that limits activity (angina, COPD, prior Myocardial infarction) ASA 4: a patient with an incapacitating disease that is a constant threat to life (CHF, renal failure) ASA 5: a moribund patient not expected to survive 24 hrs. (ruptured aneurysm) ASA 6: a declared brain- patient whose organs are being harvested. For emergent operations, add the letter E after the classification Mallampati Classification Grade 3 Sedation Plan Analgesia, Amnesia, Plan communicated to team members, Discussed options with patient/fam, Discussed risks with patient/fam The patient is an appropriate candidate to undergo the planned procedure, sedation, and anesthesia. The patient immediately re-assessed prior to indication. CONNOR GUTIERRES MD Apr 07, 2021 08:26
--- NOTE | 2021-04-07 08:28 | Cardiology Progress Note ---
Subjective Date Seen by Provider: Apr 07, 2021 Time Seen by Provider: 08:27 Subjective/Events-last exam Patient is laying down in bed, feeling better, was complaining of generalized body ache earlier this morning and requested pain medication otherwise she was planning to sign AMA. I gave her 2 mg of morphine sulfate IV Review of Systems General: No Chills, No Night Sweats, No Fatigue, No Malaise, No Appetite, No Other HEENT: No Head Aches, No Visual Changes, No Eye Pain, No Ear Pain, No Dysphasia, No Sinus Congestion, No Post Nasal Drip, No Sore Throat, No Other Pulmonary: No Dyspnea, No Cough, No Pleuritic Chest Pain, No Other Cardiovascular: No: Chest Pain, Palpitations, Orthopnea, Paroxysmal Noc. Dyspnea, Edema, Lt Headedness, Other Objective-Cardiology Exam Last Set of Vital Signs Vital Signs 04/01/21 04/07/21 04/07/21 01:35 07:31 08:20 Temp 36.1 Pulse 80 Resp 18 B/P (MAP) 141/96 (111) Pulse Ox 95 O2 Delivery Nasal Cannula O2 Flow Rate 1.00 FiO2 21 I&O Intake and Output 04/07/21 00:00 Intake Total 860 ml Balance 860 ml Intake Oral 860 ml # Voids 6 General: Alert, Oriented X3, Cooperative HEENT: Atraumatic, PERRLA Neck: Supple Lungs: Clear to Auscultation, Normal Air Movement Heart: Regular Rate, Normal S1, Normal S2 Abdomen: Normal Bowel Sounds, Soft Skin: No Rashes, No Significant Lesion Neuro: Normal Speech, Other (right eye diplopia) Psych/Mental Status: Mental Status NL, Mood NL Results Lab Laboratory Tests 04/07/21 05:37 A/P-Cardiology Admission Diagnosis CVA CP CAD HTN Assessment/Plan Chest pain, resembling angina, improved. Started on long acting nitrates. When she gets severe anemia, I suspect she gets some demand ischemia. She should continue on aspirin, beta-tricia, and statin medication. There are no indications for cardiac catheterization at this time. CAD, Kxtd-cx-vrraxswy coronary artery disease, cardiac catheterization was carried out in 2011 and April 2020 showing 50-60 percent ostial right coronar y artery stenosis, 40-50 percent mid right coronary artery stenosis, ostial left main which is mild, mild LAD disease. Echocardiogram done in March 31, 2020 showing normal left ventricular size, ejection fraction 55 to 65%, grade 1 diastolic dysfunction, left atrium 4.7 cm, PA 30 to 35 mmHg, planning to repeat echo Acute CVA, given TPA on 04/02 and her symptoms continue to improve. She had bee n on aspirin, started on Plavix. She is on rosuvastatin. She had a CTA of the head that did not show any large or moderate size vessel occlusion. MRI was negative, left sided weakness has improved, but continues to have right eye diplopia. BENJAMIN showed normal LV size, normal left atrium, no cardiac source of embolization was identified. Heavy plaque burden noted in the descending aorta. Continue on aspirin and Plavix Anemia, history of chronic anemia. She has now been given TPA due to an acute stroke. She will need to make sure she is compliant with her follow-up appointments with hematology for the iron infusions following discharge. Otherwise, she will keep developing severe anemia and may require hospitalization again in the future. Received tPA on 04/02 and started on Plavix in addition to ASA. Will need to monitor H/H closely. Dr. Selby following. Acute on chronic kidney disease, improving, continue to monitor. Chronic venous stasis changes and venous stasis ulcers, using compression stocking. Had arterial ultrasound done in May 2019 and reported as monophasic flow throughout could be secondary to proximal disease with no definite high-grade stenosis or occlusion detected. COPD, emphysema, maintained on oxygen. History of fibromyalgia, peripheral neuropathy, arthritis. Has been managed by primary care physician Hypertension, continue to monitor blood pressure Hyperlipidemia, maintained on statin Diabetes mellitus, followed and managed by primary care physician History of tobaccoism, stopped smoking in Jul 2018 History of seizure disorder, reporting stress seizures Mild bilateral carotid stenosis, ultrasound was done on this admission Okay for discharge from cardiology standpoint CONNOR GUTIERRES MD Apr 07, 2021 08:28
[2021-04-07] MEDS ORDERED: fentaNYL INJ 100 MCG/2 ML AMP IV ONE (08:30)
[2021-04-07] MEDS ORDERED: MIDAZOLAM 5 MG/5 ML (VERSED) VIAL IV ONE (08:30)
[2021-04-07] MEDS ORDERED: LIDOCAINE 2% VISCOUS 15 ML UDC PO ONE (08:30)
[2021-04-07] MEDS ORDERED: NS IV 1000 ML 1,000 ML IV ONE (08:30)
[2021-04-07] MEDS ORDERED: CALCIUM CARBONATE 500 MG (TUMS) TAB.CHEW PO PRN (09:45)
[2021-04-07] MEDS: oxyCODONE/APAP 5/325MG (PERCOCET 5) TABLET PO PRN ×2 (09:46→13:08)
[2021-04-07] MEDS: ISOSORBIDE MONONITRATE 30 MG (IMDUR) TAB PO SCH (09:56)
[2021-04-07] MEDS: ONDANSETRON 4 MG/2 ML (SDV) Z0FRAN IVP PRN (09:56)
[2021-04-07] MEDS: MELOXICAM 7.5 MG (MOBIC) TABLET PO SCH (09:57)
--- NOTE | 2021-04-07 11:23 | Occ Therapy Progress Note ---
Therapy Progress Note Pt laying in bed with nursing present in room when OT entered. Nursing reported that patient is leaving today. Will check on patient at later time to see if discharged according to plan. ANSELMO GRIFFITH Apr 07, 2021 11:23
--- NOTE | 2021-04-07 11:24 | Discharge Summary ---
Discharge Summary Hospital Course Was the Problem List Reviewed?: Yes Problems/Dx: (1) Coronary artery disease with unstable angina pectoris (2) Acute cerebrovascular accident (3) Primary hypertension (4) Mixed hyperlipidemia (5) Acute kidney injury superimposed on chronic kidney disease (6) Anemia Status: Acute Qualifiers: Qualified Codes: D64.9 - Anemia, unspecified (7) Type 2 diabetes mellitus with complication (8) Overweight (9) CVA (cerebral vascular accident) (10) tPA adm status 24 hr [employer] Hospital Course Date of Admission: Apr 02, 2021 at 11:45 Admission Diagnosis : Family Physician/Provider: Brando Davies MD Date of Discharge: 04/07/21 Discharge Diagnosis: Iron deficiency anemia, symptomatic anemia previous transfusion Acute CVA received TPA within 30 minutes of signs of CVA by this examiner Hospital Course: 66 yo female with hx of REJI, CAD, HTN, HLD, T2DM, COPD, PUD, a hiatal hernia, 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 She reported her chest pain as being "sharp and stabbing." Pt had a hx of similar sx due to REJI and was being managed by hematology; pt had missed a scheduled iron infusion the previous week after rescheduling 3x. Cardiology was consulted regarding her chest pain. Unstable angina was suspected and the pt was placed on sublingual ni troglycerin PRN and Imdur daily, as well as her regularly taken aspirin, propranolol, and rosuvastatin. Pt was given iron infusions, ferrous sulfate, and IV furosemide (later changed to oral after kidney fxn declined). On 04/02, the pt developed L sided facial droop and dysarthria while speaking with Dr. Powell. The pt had an NIH score of 16, but CTA showed no large thrombus that would necessitate transfer. Pt was given tPA within the hour and her NIH score dropped to 6 the next day. The pt continued to have some L sided muscle weakness and L facial drooping during the course of her stay, though it slowly improved. After her stroke, the pt's rosuvastatin was doubled. She was placed on gabapentin and percocet for pain. Subsequent CTs and an MRI showed no acute findings, though a benign colloid cyst was noted. The CTA did reveal 50% stenosis of the R ICA, so a CA US was ordered. The CA US showed less than 50% stenosis of the ICA bilaterally, but severe stenosis of the R ECA, as well as retrograde flow through the vertebral A's. Post-CVA, the pt reported neck pain that was relieved with a heating pad, as well as double vision in her right eye. Her bowels were moving and she was voiding regularly. She did not want to eat or drink much, and reported her "usual chronic pain" as 9/10 most days. Pt was very non-compliant with medications, either taking only her Percocet or "taking a few medications spread throughout the day." PT/OT were consulted post-CVA. Pt was able to ambulate with a walker and assistants. When her Hgb increased >10 w/o a transfusion, hematology approved her for d/c. Cardiology started her on Plavix and scheduled a BENJAMIN for 04/07. The BENJAMIN showed normal LV size, no cardiac embolism, but heavy plaque in the descending aorta. She will continue on ASA and Plavix. Prior to discharge, the pt had chest pain she attributed to her hiatal hernia; she'll use Lilly [place] to relieve it at home. Pt is being discharged home with home health services to aid her care. Pt compliance with iron infusions and medication regimen is encouraged. KHALIDA LOWRY Labs and Pending Lab Test: Laboratory Tests 04/06/21 11:52: Glucometer 115H 04/06/21 15:31: Glucometer 111H 04/06/21 21:10: Glucometer 102 04/07/21 05:35: Glucometer 103 04/07/21 05:37: White Blood Count 7.9, Red Blood Count 4.58, Hemoglobin 11.7, Hematocrit 37, Mean Corpuscular Volume 81, Mean Corpuscular Hemoglobin 26, Mean Corpuscular Hemoglobin Concent 32, Red Cell Distribution Width 22.9H, Platelet Count 214, Mean Platelet Volume 12.2, Immature Granulocyte % (Auto) 0, Neutrophils (%) (Auto) 73, Lymphocytes (%) (Auto) 15, Monocytes (%) (Auto) 7, Eosinophils (%) (Auto) 4, Basophils (%) (Auto) 1, Neutrophils # (Auto) 5.8, Lymphocytes # (Auto) 1.2, Monocytes # (Auto) 0.6, Eosinophils # (Auto) 0.3, Basophils # (Auto) 0.1, Immature Granulocyte # (Auto) 0.0, Prothrombin Time 13.2, INR Comment 1.0, Activated Partial Thromboplast Time 32, Sodium Level 129L, Potassium Level 3.4L, Chloride Level 89L, Carbon Dioxide Level 26, Anion Gap 14, Blood Urea Nitrogen 19H, Creatinine 0.89, Estimat Glomerular Filtration Rate 64, BUN/Creatinine Ra deonna 21, Glucose Level 104, Calcium Level 9.9, Corrected Calcium 9.9, Total Bilirubin 1.3H, Aspartate Amino Transf (AST/SGOT) 19, Alanine Aminotransferase (ALT/SGPT) 13, Alkaline Phosphatase 168H, Total Protein 7.3, Albumin 4.0 04/07/21 10:15: Glucometer 106 Microbiology 04/02/21 MRSA Screen - Final, Complete MRSA not isolated Home Meds Active Neurontin (Gabapentin) 300 Mg Capsule 300 Mg PO BID Metformin HCl 500 Mg Tablet 500 Mg PO BID WITH MEALS Pantoprazole Sodium 40 Mg Tablet.dr 40 Mg PO DAILY@0700 Furosemide 40 Mg Tablet 40 Mg PO DAILY Percocet 5-325 mg Tablet (Oxycodone HCl/Acetaminophen) 1 Each Tablet 1-2 Tab PO Q4H PRN Aspirin EC (Aspirin) 81 Mg Tablet.dr 81 Mg PO DAILY Clopidogrel (Clopidogrel Bisulfate) 75 Mg Tablet 75 Mg PO DAILY Nitroglycerin 0.4 Mg Tab.subl 0.4 Mg SL NEEDED PRN Isosorbide Mononitrate ER (Isosorbide Mononitrate) 30 Mg Tab.er.24h 30 Mg PO DAILY Reported Citalopram HBr (Citalopram Hydrobromide) 40 Mg Tablet 40 Mg PO 1200 Fluticasone-Salmeterol 250-50 (Fluticasone Propion/Salmeterol) 1 Each Blst.w.dev 1 Puff INH BID PRN Lidocaine 5% Patch (Lidocaine) 1 Each Adh..patch 1 Pat TOP DAILY APPLY TO LOWER BACK Pramipexole Dihydrochloride (Pramipexole Di-HCl) 1 Mg Tablet 1 Mg PO HS PRN Pantoprazole Sodium 40 Mg Tablet.dr 40 Mg PO DAILY Cetirizine HCl 10 Mg Tablet 10 Mg PO DAILY Metformin HCl 500 Mg Tablet 500 Mg PO BIDAC Banophen (Diphenhydramine HCl) 25 Mg Capsule 25 Mg PO HS PRN Propranolol HCl 40 Mg Tablet 40 Mg PO 1800 PRN Docusate Sodium 100 Mg Capsule 100-200 Mg PO BID PRN Ferosul (Ferrous Sulfate) 325 Mg Tablet 325 Mg PO BID Rosuvastatin Calcium 10 Mg Tablet 10 Mg PO DAILY Mirapex (Pramipexole Di-HCl) 1 Mg Tablet 1 Mg PO HS TAKES 1 TAB AT BEDTIME, AND MAY TAKE A 2ND TAB IF NEEDED Meloxicam 7.5 Mg Tablet 7.5 Mg PO DAILY Miralax (Polyethylene Glycol 3350) 17 Gm Powd.pack 17 Gm PO DAILY PRN Furosemide 40 Mg Tablet 40 Mg PO DAILY Hydrochlorothiazide 25 Mg Tablet 25 Mg PO DAILY Aspirin EC (Aspirin) 81 Mg Tablet.dr 81 Mg PO DAILY Fluticasone Propionate 16 Gm Bladen.susp 1-2 Bladen NS DAILY PRN Cyclobenzaprine HCl 10 Mg Tablet 10 Mg PO TID PRN Potassium Chloride 10 Meq Capsule.er 20 Meq PO DAILY TAKES 2 (10MEQ) CAPSULES Proair Hfa (Albuterol Sulfate) 1 Puff Puff 2 Puff IH Q4H PRN Propranolol HCl 40 Mg Tablet 40 Mg PO DAILY Iprat-Albut 0.5-3(2.5) mg/3 ml (Ipratropium/Albuterol Sulfate) 3 Ml Ampul.neb 3 Ml IH QID PRN Assessment/Pt Instructions [facility] in 1 week Discharge Planning: <30 minutes discharge planning Discharge Instructions Discharge Diet: No Restrictions Discharge Physical Examination Vital Signs Vital Signs Date Time Temp Pulse Resp B/P (MAP) Pulse Ox O2 Delivery O2 Flow Rate FiO2 04/07/21 09:30 Nasal Cannula 1.00 04/07/21 08:59 68 114/54 (74) 95 04/07/21 08:05 16 04/07/21 07:31 36.1 04/01/21 01:35 21 General Appearance: No Apparent Distress, WD/WN, Chronically ill Allergies: Coded Allergies: Sulfa (Sulfonamide Antibiotics) (Verified Allergy, Unknown, 06/10/19) ceftriaxone (Verified Allergy, Unknown, RASH, 08/12/18) Discharge Summary Date of Admission Apr 02, 2021 at 11:45 Date of Discharge Discharge Date: Apr 07, 2021 Discharge Diagnosis No residual from CVA s/p tpa given within 30 min of signs of CVA Assessment: CVA s/p tpa within 30 minutes of cva MRI no abnormality Anemia transfusion dependent Non-compliance with iron infusions as outpatient Fibromyalgia Chronic pain Apathy Plan: BENJAMIN (1) Coronary artery disease with unstable angina pectoris Assessment & Plan: She has not had any further chest discomfort following her blood transfusions and I started her on long-acting nitrates. When she gets severe anemia, I suspect she gets some demand ischemia. She should continue on aspirin, beta-tricia, and statin medication. There are no indications for cardiac catheterization at this time. I sent a prescription for the isosorbide mononitrate and short acting sublingual nitroglycerin to her pharmacy. (2) Acute cerebrovascular accident Assessment & Plan: She was given TPA on 04/02 and her symptoms continue to improve. She had been on aspirin. She is on rosuvastatin. She had a CTA of the head that did not show any large or moderate size vessel occlusion. I will start her on clopidogrel. We will need to watch her hemoglobin very closely. If she has ongoing visual changes, we may need to consider a follow up head CT or MRI of the brain. (3) Primary hypertension Assessment & Plan: Blood pressures had been elevated on 04/04 but are improved today. She should continue on propranolol which she was taking at home. We need to avoid excessive drops in the blood pressure given her acute stroke. (4) Mixed hyperlipidemia Assessment & Plan: Continue rosuvastatin. (5) Acute kidney injury superimposed on chronic kidney disease Assessment & Plan: Her renal function had declined on 04/02. This may have been related to the IV furosemide she received. The IV furosemide has been discontinued and she is now on oral furosemide. Her creatinine has improved. (6) Anemia Status: Acute Assessment & Plan: She has now been given TPA due to an acute stroke. She will need to make sure she is compliant with her follow-up appointments with hematology for the iron infusions following discharge. Otherwise, she will keep developing severe anemia and may require hospitalization again in the future. I had previously suggested avoiding dual antiplatelet therapy. However, given her acute stroke, we may need to consider starting her on clopidogrel after an appropriate wait time following the administration of TPA on 04/02. Qualifiers: Qualified Codes: D64.9 - Anemia, unspecified (7) Type 2 diabetes mellitus with complication Assessment & Plan: This is being managed by the hospitalist. (8) Overweight Assessment & Plan: She needs to work on weight loss. Clinical Quality Measures AMI/AHF: ASA po Prior to arrival: Yes (Baby aspirin this morning) BAYRON POWELL DO Apr 07, 2021 11:24
--- NOTE | 2021-04-07 12:03 | Progress Note ---
KHALIDA LOWRY 04/07/21 1203: Progress Note 66 yo female with hx of REJI, CAD, HTN, HLD, T2DM, COPD, PUD, a hiatal hernia, conversion DO, fibromyalgia, GERD, pseudoseizures and anxiety/depression presented to the ER on 04/01 with weakness, SOB on exertion, nausea, leg swelling/weakness, and pain in her arms, legs and chest. She reported her chest pain as being "sharp and stabbing." Pt had a hx of similar sx due to REJI and was being managed by hematology; pt had missed a scheduled iron infusion the previous week after rescheduling 3x. Cardiology was consulted regarding her chest pain. Unstable angina was suspected and the pt was placed on sublingual nitroglycerin PRN and Imdur daily, as well as her regularly taken aspirin, propranolol, and rosuvastatin. Pt was given iron infusions, ferrous sulfate, and IV furosemide (later changed to oral after kidney fxn declined). On 04/02, the pt developed L sided facial droop and dysarthria while speaking with Dr. Powell. The pt had an NIH score of 16, but CTA showed no large thrombus that would necessitate transfer. Pt was given tPA within the hour and her NIH score dropped to 6 the next day. The pt continued to have some L sided muscle weakness and L facial drooping during the course of her stay, though it slowly improved. After her stroke, the pt's rosuvastatin was doubled. She was placed on gabapentin and percocet for pain. Subsequent CTs and an MRI showed no acute findings, though a benign colloid cyst was noted. The CTA did reveal 50% stenosis of the R ICA, so a CA US was ordered. The CA US showed less than 50% stenosis of the ICA bilaterally, but severe stenosis of the R ECA, as well as retrograde flow through the vertebral A's. Post-CVA, the pt reported neck pain that was relieved with a heating pad, as well as double vision in her right eye. Her bowels were moving and she was voiding regularly. She did not want to eat or drink much, and reported her "usual chronic pain" as 9/10 most days. Pt was very non-compliant with medications, either taking only her Percocet or "taking a few medications spread throughout the day." PT/OT were consulted post-CVA. Pt was able to ambulate with a walker and assistants. When her Hgb increased >10 w/o a transfusion, hematology approved her for d/c. Cardiology started her on Plavix and scheduled a BENJAMIN for 04/07. The BENJAMIN showed normal LV size, no cardiac embolism, but heavy plaque in the descending aorta. She will continue on ASA and Plavix. Prior to discharge, the pt had chest pain she attributed to her hiatal hernia; she'll use Lilly [place] to relieve it at home. Pt is being discharged home with home health services to aid her care. Pt compliance with iron infusions and medication regimen is encouraged. QUEENIE POWELL DO 04/07/21 2020: Supervisory-Addendum Brief Verification & Attestation Participated in pt care: history, MDM, physical Personally performed: exam, history, MDM, supervision of care Care discussed with: Medical Student Procedures: n/a Results interpretation: Verified all documentation Verification and Attestation of Medical Student E/M Service A medical student performed and documented this service in my presence. I reviewed and verified all information documented by the medical student and made modifications to such information, when appropriate. I personally performed the physical exam and medical decision making. Queenie Powell, Apr 07, 2021,20:20 KHALIDA LOWRY Apr 07, 2021 12:03 QUEENIE PWOELL DO Apr 07, 2021 20:20
[2021-04-07] MEDS: PROPRANOLOL 20 MG (INDERAL) TABLET PO SCH (12:47)
[2021-04-07] MEDS: ASPIRIN E.C. 81 MG (ECOTRIN) TAB PO SCH (12:49)
[2021-04-07] MEDS: CLOPIDOGREL 75 MG (PLAVIX) TABLET PO SCH (12:49)
[2021-04-07] MEDS: FERROUS SULF 325 MG (IRON) TAB PO SCH (12:49)
[2021-04-07] MEDS: LIDOCAINE 4% (SALONPAS) PATCH TOP SCH (12:50)
[2021-04-07] MEDS: FUROSEMIDE 40 MG (LASIX) TAB PO SCH (12:50)
[2021-04-07] MEDS: ROSUVASTATIN 10 MG (CRESTOR) TABLET PO SCH (12:50)
[2021-04-07] MEDS: LORATADINE (CLARITIN) 10 MG TAB PO SCH (12:50)
[2021-04-07] MEDS: GABAPENTIN 300 MG (NEURONTIN) CAP PO SCH (12:51)
--- NOTE | 2021-04-07 14:28 | Occupational Ther Daily Note ---
OT Current Status-Daily Note Subjective Pt laying in bed with HOB raised when OT entered. Pt reports chest pain, reported to nursing. Pt agrees to therapy. Mental Status/Objective Patient Orientation: Person, Place, Time, Situation ADL-Treatment Therapy Code Descriptions/Definitions Functional [place] Measure: 0=Not Assessed/NA 4=Minimal Assistance 1=Total Assistance 5=Supervision or Setup 2=Maximal Assistance 6=Modified [place] 3=Moderate Assistance 7=Complete IndependenceSCALE: Activities may be completed with or without assistive devices. 2-Tkmjzqlzdq-ajlyuxg completes the activity by him/herself with no assistance from a helper. 5-Set-up or Clean-up Assistance-helper sets up or cleans up; patient completes activity. [place] assists only prior to or following the activity. 4-Supervision or Touching Assistance-helper provides verbal cues and/or touching/steadying and/or contact guard assistance as patient completes activity. Assistance may be provided throughout the activity or intermittently. 3-Partial/Moderate Assistance-helper does LESS THAN HALF the effort. [place] lifts, holds or supports trunk or limbs, but provides less than half the effort. 2-Substantial/Maximal Assistance-helper does MORE THAN HALF the effort. [place] lifts or holds trunk or limbs and provides more than half the effort. 3-Hirdpqgqr-dqihac does ALL the effort. Patient does none of the effort to complete the activity. Or, the assistance of 2 or more helpers is required for the patient to complete the activity. If activity was not attempted, code reason: 7-Patient Refused. 9-Not Applicable-not attempted and the patient did not perform the activity before the current illness, exacerbation or injury. 10-Not Attempted due to Environmental Limitations-(lack of equipment, weather restraints, etc.). 88-Not Attempted due to Medical Conditions or Safety Concerns. Other Treatment Pt educated on energy conservation techniques while laying in bed due to experiencing chest pain. Pt verbalized understanding by nodding head. Pt unable to give verbal feedback or own ideas. After therapy, pt laying in bed with HOB raised and nursing in room. All needs met and call light in reach. 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 2=Patient will verbalize/demonstrate understanding of assistive devices/modifications for ADL. 3=Patient will improve strength/tolerance for activity to enable patient to perform ADL's. OT Education/Plan Problem List/Assessment Assessment: Decreased Activ Tolerance, Decreased Safety Aware, Impaired Self- Care Skills Discharge Recommendations Plan/Recommendations: Continue POC Treatment Plan/Plan of Care Patient would benefit from OT for education, treatment and training to promote independence in ADL's, mobility, safety and/or upper extremity function for ADL's. Plan of Care: ADL Retraining, Functional Mobility, UE Funct Exercise/Act Treatment Duration: Apr 15, 2021 Frequency: 5 times per week Estimated Hrs Per Day: .25 hour per day Rehab Potential: Good Time/GCodes Start Time: 14:13 Stop Time: 14:23 Total Time Billed (hr/min): 10 Billed Treatment Time 1 visit - FA 1 (10 mins) ANSELMO GRIFFITH Apr 07, 2021 14:28
--- NOTE | 2021-04-07 15:00 | Physical Therapy Progress Note ---
Therapy Progress Note Patient refused x 2 this date. Each time reports she is not feeling well and has talked with the nurse. Will attempt treatment again tomorrow and progress per patient tolerance. AILEEN DENNIS PT Apr 07, 2021 15:00
== END 2021-04-07 17:35 | disposition home health service (06) | DRG 62 ==
LOC: EDUNIT# 21:50 → ER 21:53 → CSD 23:33 → OBSVTOIN 04-02 11:45 → ICU 04-02 14:01 → 4TH 04-03 14:02
PROVIDERS: ADMIT Family Medicine; ATTEND Internal Medicine
DX: I63.9 Cerebral infarction, unspecified (principal); G81.94 Hemiplegia, unspecified affecting left nondominant side; I25.110 Atherosclerotic heart disease of native coronary artery with unstable angina pectoris; I13.0 Hypertensive heart and chronic kidney disease with heart failure and stage 1 through stage 4 chronic kidney disease, or unspecified chronic kidney disease; N17.9 Acute kidney failure, unspecified; E87.1 Hypo-osmolality and hyponatremia; D50.9 Iron deficiency anemia, unspecified; R47.1 Dysarthria and anarthria; R29.810 Facial weakness; N18.9 Chronic kidney disease, unspecified; E11.22 Type 2 diabetes mellitus with diabetic chronic kidney disease; I50.9 Heart failure, unspecified; Z79.84 Long term (current) use of oral hypoglycemic drugs; K29.50 Unspecified chronic gastritis without bleeding; K44.9 Diaphragmatic hernia without obstruction or gangrene; E11.40 Type 2 diabetes mellitus with diabetic neuropathy, unspecified; K21.9 Gastro-esophageal reflux disease without esophagitis; M19.91 Primary osteoarthritis, unspecified site; M79.7 Fibromyalgia; R29.716 NIHSS score 16; H54.7 Unspecified visual loss; F41.9 Anxiety disorder, unspecified; F32.A Depression, unspecified; I65.23 Occlusion and stenosis of bilateral carotid arteries; J43.9 Emphysema, unspecified; E87.6 Hypokalemia; E78.2 Mixed hyperlipidemia; Z99.81 Dependence on supplemental oxygen; Z79.82 Long term (current) use of aspirin; Z88.1 Allergy status to other antibiotic agents; Z88.2 Allergy status to sulfonamides
CPT/HCPCS: 36415; 36430; 70450; 70496; 70498; 70551; 71045; 80053; 80061; 82550; 82947; 83735; 84100; 84484; 85014; 85018; 85025; 85027; 85610; 85730; 86850; 86900; 86901; 86920; 87081; 93005; 93306; 93312; 93880; 94640; 94760